=== PATIENT | female | born 1950 | race Caucasian/White ===

== ENCOUNTER 2017-03-01 09:20 | Outpatient (CLI) | payer MEDICARE, OTHER | END 2017-03-01 09:21 | disposition home or self-care (01) | DX: R73.9 Hyperglycemia, unspecified (principal); I10 Essential (primary) hypertension; E03.9 Hypothyroidism, unspecified ==

== ENCOUNTER 2017-03-04 07:39 | Outpatient (CLI) | payer MEDICARE, OTHER | END 2017-03-04 07:40 | disposition home or self-care (01) | DX: R73.9 Hyperglycemia, unspecified (principal) ==

== ENCOUNTER 2017-03-05 10:40 | Outpatient (CLI) | payer MEDICARE, OTHER | END 2017-03-05 10:41 | disposition home or self-care (01) | DX: Z12.31 Encounter for screening mammogram for malignant neoplasm of breast (principal) ==

== ENCOUNTER 2018-05-08 08:52 | Outpatient (CLI) | payer MEDICARE, OTHER ==
--- NOTE | 2018-05-09 15:07 | Mammography Report ---
Procedure Date: 05/08/2018 Accession Number: [id number] / [id number] Procedure: MGN - Screening Mammo Dig Bilat CPT Code: FULL RESULT: EXAM: Screening Mammo Dig Bilat DATE: 05/08/2018 9:12 AM CLINICAL HISTORY: 67-year-old for screening TECHNIQUE: Bilateral CC and MLO views were obtained. COMPARISON: 03/05/2017, 4 4016, 02/22/2015, 06/15/2013, 05/16/2012, 04/03/2011, 12/23/2009 FINDINGS: The breasts demonstrate diffuse fatty replacement bilaterally. Coarse and punctate, typically benign calcifications are present. No suspicious masses, clustered microcalcifications, or regions of architectural distortion are identified. IMPRESSION: Benign findings RECOMMENDATION: Routine annual screening unless otherwise clinically indicated. BIRADS CATEGORY 2: Benign findings STANDARD QUALIFYING STATEMENTS: 1. This examination was reviewed with the aid of Computer-Aided Detection (CAD). 2. A negative or benign imaging report should not delay biopsy if clinically suspicious findings are present. Consider surgical consultation if warrented. More than 5% of cancers are not identified by imaging. 3. Dense breasts may obscure an underlying neoplasm.
== END 2018-05-08 08:53 | disposition home or self-care (01) ==
LOC: DI.N 08:52
PROVIDERS: ATTEND Family Medicine
DX: Z12.31 Encounter for screening mammogram for malignant neoplasm of breast (principal)
CPT/HCPCS: 77067

== ENCOUNTER 2018-08-18 10:27 | Outpatient (CLI) | payer MEDICARE, OTHER ==
[2018-08-18 14:21] LABS: BASOPHILS # (AUTO) 0.1 10^3/uL (0.0-0.1); BASOPHILS % (AUTO) 0.9 %; EOSINOPHILS # (AUTO) 0.2 10^3/uL (0.0-0.7); EOSINOPHILS % (AUTO) 1.9 %; LYMPHOCYTES # (AUTO) 2.8 10^3/uL (1.5-3.5); LYMPHOCYTES % (AUTO) 30.3 %; MEAN CORPUSCULAR HEMOGLOBIN 32.9 pg (27.0-31.0); MEAN CORPUSCULAR HGB CONC 34.4 g/dL (32.0-36.0); MEAN CORPUSCULAR VOLUME 95.7 fL (81.0-99.0); MEAN PLATELET VOLUME 8.9 fL (7.9-10.8); MONOCYTES # (AUTO) 0.8 10^3/uL (0.0-1.0); MONOCYTES % (AUTO) 8.9 %; NEUTROPHILS # (AUTO) 5.4 10^3/uL (1.5-6.6); PLT - PLATELET COUNT 222 10^3/uL (130-450); RED BLOOD COUNT 4.85 10^6/uL (4.20-5.40); RED CELL DISTRIBUTION WIDTH 12.9 % (12.0-15.0); WHITE BLOOD COUNT 9.3 x10^3/uL (4.8-10.8)
[2018-08-18 14:35] LABS: ALBUMIN 3.2 g/dL (3.2-5.5); ALBUMIN/GLOBULIN RATIO 0.8 (1.0-2.2); ALKALINE PHOSPHATASE 89 IU/L (42-121); ALT ALANINE AMINOTRANSFERASE 24 IU/L (10-60); AST ASPARTATE AMINOTRANSFERASE 30 IU/L (10-42); BILIRUBIN,TOTAL 0.7 mg/dL (0.2-1.0); BUN - BLOOD UREA NITROGEN 23 mg/dL (6-20); CALCIUM 9.2 mg/dL (8.5-10.3); CARBON DIOXIDE - CO2 31 mmol/L (21-32); CHLORIDE 98 mmol/L (101-111); CHOL/HDL RATIO 3.7 (<4.4); CHOLESTEROL 187 mg/dL; CREATININE 0.9 mg/dL (0.4-1.0); GFR - MDRD 62 (>89); GLUCOSE 177 mg/dL (70-100); HDL CHOLESTEROL 50 mg/dL; LDL CHOLESTEROL,CALCULATED 112 mg/dL; LDL/HDL RATIO 2.2 (<4.4); SODIUM 138 mmol/L (135-145); TOTAL PROTEIN 7.4 g/dL (6.7-8.2); VLDL CHOLESTEROL 25 mg/dL
[2018-08-18 14:40] LABS: HB2 TOTAL 17.1 g/dL; HEMOGLOBIN A1C 1.09 g/dL
== END 2018-08-18 10:28 | disposition home or self-care (01) ==
LOC: LAB.WCP 10:27
PROVIDERS: ATTEND Physician Assistant Medical
DX: R73.9 Hyperglycemia, unspecified (principal); I10 Essential (primary) hypertension; E03.9 Hypothyroidism, unspecified
CPT/HCPCS: 36415; 80053; 80061; 83036; 83721; 84443; 85025

== ENCOUNTER 2018-08-27 09:54 | Observation (INO) | payer MEDICARE, OTHER ==
[2018-08-27] MEDS ORDERED: diltiaZEM INJ 5 MG/ML VIAL IVP STA (10:41)
[2018-08-27 10:42] LABS: BASOPHILS # (AUTO) 0.1 10^3/uL (0.0-0.1); BASOPHILS % (AUTO) 1.1 %; EOSINOPHILS # (AUTO) 0.1 10^3/uL (0.0-0.7); HGB - HEMOGLOBIN 16.5 g/dL (12.0-16.0); LYMPHOCYTES # (AUTO) 2.2 10^3/uL (1.5-3.5); LYMPHOCYTES % (AUTO) 25.5 %; MEAN CORPUSCULAR HEMOGLOBIN 32.8 pg (27.0-31.0); MEAN CORPUSCULAR HGB CONC 34.9 g/dL (32.0-36.0); MEAN CORPUSCULAR VOLUME 94.1 fL (81.0-99.0); MEAN PLATELET VOLUME 8.6 fL (7.9-10.8); MONOCYTES # (AUTO) 0.9 10^3/uL (0.0-1.0); MONOCYTES % (AUTO) 10.9 %; NEUTROPHILS # (AUTO) 5.2 10^3/uL (1.5-6.6); NEUTROPHILS % (AUTO) 61.5 %; PLT - PLATELET COUNT 207 10^3/uL (130-450); RED BLOOD COUNT 5.03 10^6/uL (4.20-5.40); WHITE BLOOD COUNT 8.5 x10^3/uL (4.8-10.8)
--- NOTE | 2018-08-27 10:44 | XRAY Report ---
Reason: new onset afib Procedure Date: 08/27/2018 Accession Number: [id number] / [id number] Procedure: XR - Chest 1 View X-Ray CPT Code: 61058 FULL RESULT: EXAM: CHEST RADIOGRAPHY EXAM DATE: 08/27/2018 10:26 AM. CLINICAL HISTORY: New onset afib. COMPARISON: None. TECHNIQUE: 1 view. FINDINGS: Limited radiograph with overall low lung volumes. Lungs/Pleura: There is a questionable deep sulcus sign on the right. No focal opacities evident. No pleural effusion. No definite pneumothorax. Mediastinum: Within exam limitations, the cardiomediastinal contour is normal. Other: None. IMPRESSION: Questionable right deep sulcus sign without other evidence of pneumothorax. The finding could be clarified by formal PA and lateral radiographs in the radiology department if clinically indicated. Otherwise, low lung volumes with no acute cardiopulmonary abnormality. RADIA
--- NOTE | 2018-08-27 10:44 | ED Physician Documentation ---
History of Present Illness - Stated complaint Stated Complaint: IRREGULAR HEARBEAT - Chief complaint Chief Complaint: Cardiac - History obtained from History obtained from: Patient, Family - History of Present Illness Timing: Today Pain level max: 0 Pain level now: 0 Improved by: nothing Worsened by: nothing - Additonal information Additional information: Patient states that she checked her pulse today noticed it was irregular. She is otherwise asymptomatic. States she has had an irregular heartbeat here and there, but only last for a few seconds. Has never been told she has atrial fibrillation. Does not have any chest pain or shortness of breath. She states that she does feel tired. She took her metoprolol last night. Recently was started on spironolactone and lisinopril. Review of Systems Ten Systems: 10 systems reviewed and negative Constitutional: denies: Fever, Chills Ears: denies: Ear pain Nose: denies: Rhinorrhea / runny nose, Congestion Throat: denies: Sore throat Cardiac: denies: Chest pain / pressure, Palpitations, Calf pain Respiratory: denies: Dyspnea, Cough, Wheezing GI: denies: Abdominal Pain, Nausea, Vomiting, Diarrhea Skin: denies: Rash Musculoskeletal: denies: Neck pain, Back pain Neurologic: reports: Generalized weakness ("tired") PD PAST MEDICAL HISTORY - Past Medical History Past Medical History: Yes Cardiovascular: Hypertension Endocrine/Autoimmune: Type 2 diabetes, HyPOthyroidism - Past Surgical History Past Surgical History: No - Present Medications Home Medications: Ambulatory Orders Medication Instructions Recorded Confirmed Aspirin [Aspirin EC] 325 mg PO DAILY 08/27/18 08/27/18 Atorvastatin [Lipitor] 10 mg PO QPM 08/27/18 08/27/18 Doxepin HCl 75 mg PO QPM 08/27/18 08/27/18 Levothyroxine Sodium [Synthroid] 275 mcg PO DAILY 08/27/18 08/27/18 Lisinopril/Hydrochlorothiazide 1 tab PO DAILY 08/27/18 08/27/18 [Lisinopril-Hctz 20-25 mg Tab] Metformin HCl 500 mg PO BID 08/27/18 08/27/18 Metoprolol Succinate 100 mg PO DAILY 08/27/18 08/27/18 Potassium Chloride [Micro-K] 10 meq PO DAILY 08/27/18 08/27/18 - Allergies Allergies/Adverse Reactions: Allergies Allergy/AdvReac Type Severity Reaction Status Date / Time Penicillins Allergy Rash Verified 08/27/18 10:37 - Social History Does the pt smoke?: No Smoking Status: Former smoker Does the pt drink ETOH?: No Does the pt have substance abuse?: No - Immunizations Immunizations are current?: Yes PD ED PE NORMAL - Vitals Vital signs reviewed: Yes - General General: Alert and oriented X 3, No acute distress, Well developed/nourished - HEENT HEENT: PERRL, Moist mucous membranes - Neck Neck: Supple, no meningeal sign - Cardiac Cardiac: Other (tachycardic irregular) - Respiratory Respiratory: No respiratory distress, Clear bilaterally - Abdomen Abdomen: Soft, Non tender, Non distended - Derm Derm: Warm and dry - Extremities Extremities: No edema, No calf tenderness / cord - Neuro Neuro: Alert and oriented X 3 - Psych Psych: Normal mood, Normal affect Results - Vitals Vitals: Vital Signs - 24 hr 08/27/18 08/27/18 09:57 10:37 Temperature 36.4 C L Heart Rate 121 H 133 H Respiratory 20 16 Rate Blood Pressure 159/121 H 142/97 H O2 Saturation 94 97 Oxygen O2 Source Room air - EKG (time done) 1001 Rate: Rate (enter#) (140) Rhythm: Atrial fibrillation [place]: Normal QRS: Normal Ischemia: Non specific changes Computer interpretation: Agree with computer - Labs Labs: Laboratory Tests 08/27/18 10:33 WBC 8.5 RBC 5.03 Hgb 16.5 H Hct 47.4 H MCV 94.1 MCH 32.8 H MCHC 34.9 RDW 13.0 Plt Count 207 MPV 8.6 Neut # (Auto) 5.2 Lymph # (Auto) 2.2 [place] # (Auto) 0.9 Eos # (Auto) 0.1 Baso # (Auto) 0.1 Absolute Nucleated RBC 0.01 Nucleated RBC % 0.1 - Rads (name of study) cxr Radiology: Prelim report reviewed, EMP read contemporaneously, See rad report (Questionable right deep sulcus sign without other evidence of pneumothorax. The finding could be clarified by formal PA and lateral radiographs in the radiology department if clinically indicated. Otherwise, low lung volumes with no acute cardiopulmonary abnormality. ) PD MEDICAL DECISION MAKING - ED course Complexity details: reviewed results, re-evaluated patient, considered differential, d/w patient, d/w hadoop consultant ED course: Patient is a 68-year-old female who presents to the emergency department new onset atrial fibrillation. She was rate controlled briefly with diltiazem, procainamide was then attempted but she did not convert. Placed on diltiazem drip and will admit to ICU. Discussed the case with Dr. Gale, hospitalist who accepts This document was made in part using voice recognition software. While efforts are made to proofread this document, sound alike and grammatical errors may oc cur. - Sepsis Event Vital Signs: Vital Signs - 24 hr 08/27/18 08/27/18 09:57 10:37 Temperature 36.4 C L Heart Rate 121 H 133 H Respiratory 20 16 Rate Blood Pressure 159/121 H 142/97 H O2 Saturation 94 97 Oxygen O2 Source Room air Departure - Departure Disposition: ED Place in Observation Clinical Impression: Atrial fibrillation with RVR, New onset atrial fibrillation Condition: Stable Discharge Date/Time: 08/27/18 15:10
[2018-08-27 10:56] LABS: ALBUMIN 3.4 g/dL (3.2-5.5); ALBUMIN/GLOBULIN RATIO 0.8 (1.0-2.2); BILIRUBIN,TOTAL 1.1 mg/dL (0.2-1.0); CALCIUM 9.6 mg/dL (8.5-10.3); TOTAL PROTEIN 7.7 g/dL (6.7-8.2)
[2018-08-27] MEDS ORDERED: PROCAINAMIDE 1,000 MG in SODIUM CHLORIDE 0.9% 240 ML IV STA (11:27)
[2018-08-27] MEDS ORDERED: diltiaZEM INJ 125 MG in DEXTROSE 5% 100 ML IV STA (12:46)
[2018-08-27] MEDS ORDERED: HYDROcod/ACETAM 5/325 MG TABLET PO PRN (13:37)
[2018-08-27] MEDS ORDERED: ACETAMINOPHEN 325 MG TABLET PO PRN (13:37)
[2018-08-27] MEDS ORDERED: SODIUM CHLORIDE FLUSH 0.9% 10 ML SYRINGE IVP PRN (13:37)
[2018-08-27] MEDS ORDERED: ONDANSETRON ODT 4 MG TABLET TL PRN (13:37)
[2018-08-27] MEDS ORDERED: ONDANSETRON 4 MG/2 ML VIAL IVP PRN (13:37)
[2018-08-27] MEDS: diltiaZEM INJ 125 MG in DEXTROSE 5% 100 ML IV SCH ×2 (15:00→23:07)
[2018-08-27] MEDS: SODIUM CHLORIDE FLUSH 0.9% 10 ML SYRINGE IVP SCH (17:28)
--- NOTE | 2018-08-27 17:42 | HISTORY & PHYSICAL EXAMINATION ---
History of Present Illness - Admitted From Admitted From:: Home/ER - History Obtained From Records Reviewed: [facility]. Centricity not available History obtained from: Dr. Chinchilla and patient Exam Limitations: None - History of Present Illness HPI Comment/Other: She is a benjamín female who lives independently. She has no reduction in activities of daily living. Regards herself is healthy other than for high blood pressure and thyroid disease and A new diagnosis of diabetes. She woke up this morning and checked her pulse. Unclear as to what she was feeling. She was not short of breath, she did not have chest pain, but she just felt "weird". And her pulse seemed fast and irregular. She was tired. She is recently been started on spironolactone and lisinopril for her blood pressure And was also started on metformin but has not been able to get that filled. She came to the emergency room where she was afebrile, heart rate was 121, respirations were 20, she was 94% saturated on room air and her blood pressure was 159/121. Other than an irregularly irregular tachycardic heart rate, Dr. Alanis found nothing on physical examination. Random glucose was 239. Her previous glycosylated hemoglobin in July was 8%. Her troponins were negative at less than 0.04 and 0.05. White cell count was normal. EKG confirmed atrial fibrillation. She received diltiazem IV push once. This temporarily slowed her heart rate. But it came right back up. As such she started her on a diltiazem drip. Since it was not clear when she started with her atrial fibrillation and it was hopeful that it was today, she was started on Procan for the [place] protocol. She did not respond to that. As such she is now placed in observation for rate control. History - Past Medical History Cardiovascular: reports: Hypertension, Atrial fibrillation Neuro: reports: Other Endocrine/Autoimmune: reports: Type 2 diabetes (Diagnosed last week. She says that her lab work is been normal up until now. 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 Mom at age 69 of emphysema. 2 brothers have diabetes, one has high blood pressure. 2 daughters. One daughter has complications of lupus with cardiomyopathy and vasculitis Living arrangement: At home Living Situation: With spouse/s.o., With family Social History Notes: She was born on [facility]. [place]. [place] They left to travel all over the [place] where he was stationed. They had 2 children together and one stepchild from him. 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 They moved back to [place] in around [place] and they have lived here since. Right now she helps take care of her grandkids. Her disabled daughter lives with her. The daughter is still independent with regards to her activities of daily living. Her endurance is just not so great. She started smoking at about age 30 and smoked up to 2 packs/day for 5 years only. She never had a problem with alcohol abuse. She has no history of other recreational substance abuse. - Substance History Use: Uses substance without health or social issues: NONE Abuse: Recurrent use of substance despite neg consequences: NONE Dependence: Experiences withdrawal or developed tolerances: NONE - POLST Patient has POLST: No POLST Status: Full Code (However, if there is irreversible brain damage she does not want to be resuscitated. Or if resuscitation will result in life support that will be chronic, she is wants us to let her go) Meds/Allgy - Home Medications Home Medications: Ambulatory Orders Medication Instructions Recorded Confirmed Aspirin [Aspirin EC] 325 mg PO DAILY 08/27/18 08/27/18 Atorvastatin [Lipitor] 10 mg PO QPM 08/27/18 08/27/18 Doxepin HCl 75 mg PO QPM 08/27/18 08/27/18 Levothyroxine Sodium [Synthroid] 275 mcg PO DAILY 08/27/18 08/27/18 Lisinopril/Hydrochlorothiazide 1 tab PO DAILY 08/27/18 08/27/18 [Lisinopril-Hctz 20-25 mg Tab] Metformin HCl 500 mg PO BID 08/27/18 08/27/18 Metoprolol Succinate 100 mg PO DAILY 08/27/18 08/27/18 Potassium Chloride [Micro-K] 10 meq PO DAILY 08/27/18 08/27/18 - Allergies Allergies/Adverse Reactions: Allergies Allergy/AdvReac Type Severity Reaction Status Date / Time Penicillins Allergy Rash Verified 08/27/18 10:37 Review of Systems - Constitutional Constitutional: denies: Fatigue, Fever, Chills, Malaise, Weakness, Poor appetite, Weight gain, Weight loss - Eyes Eyes: reports: Corrective lenses. denies: Pain, Irritation, Amaurosis, Blurred vision, Field loss, Vision loss - Ears, Nose & Throat Ears, Nose & Throat: denies: Ear pain, Hearing loss, Hearing aids, Vertigo, Nasal obstruction, Nasal congestion, Postnasal drainage - Cardiovascular Cariovascular: reports: Palpitations (Infrequently in the past. Sometimes she could feel her heart skip a beat). denies: Irregular heart rate, Lightheadedness, Syncope, Exertional dyspnea, Decr. exercise tolerance - Respiratory Respiratory: denies: Cough, Sputum production, Wheezing, SOB at rest, SOB with exertion, Apnea, Stridor - Gastrointestinal Gastrointestinal: reports: Reflux/heartburn (Rarely with certain foods). den ies: Abdominal pain, Abdominal distention, Constipation, Diarrhea, Change in bowel habits, Rectal bleeding, Bloody stools, Vomiting - Genitourinary Genitourinary: denies: Dysuria, Frequency, Urgency, Hematuria, Incontinence, Nocturia - Musculoskeletal Musculoskeletal: reports: Joint pain (Her knees are [id number] and this definitely slows down her ambulation). denies: Muscle pain, Back pain, Muscle aches, Stiffness, Limited range of motion - Integumentary Integumentary: denies: Rash, Pruritis, Lesions, Pigment changes - Neurological Neurological: denies: General weakness, Focal weakness, Headache, Dizziness, Numbness, Memory problems, Pre-existing deficit, Seizures - Psychiatric Psychiatric: reports: Anxiety. denies: Depression, Suicidal, Delusions, Hallucinations - Endocrine Endocrine: denies: Polyuria, Polydypsia, Polyphagia - Hematologic/Lymphatic Hematologic/Lymphatic: denies: Anemia, Bruising, Petechiae, Blood clots, Lymphadenopathy Prior Level of Functionality: She lives in a bilevel home with her , disabled daughter, and takes care of various grandchildren. She drives her grandchildren to and from school, school activities, school sports. She still cleans the house, pays the bills. The only thing that slows her down is the pain in her knees. She does not use a cane or a walker. Exam - Vital Signs Vital Signs: Vital Signs x48h Temp Pulse Pulse Resp BP BP Pulse Ox 08/27/18 17:00 122 H 24 97/76 97 08/27/18 16:00 96 21 129/65 97 08/27/18 15:00 36.2 C L 106 H 18 138/72 H 98 08/27/18 14:33 88 20 102/69 95 08/27/18 14:17 145/54 H 08/27/18 14:00 98 17 98/49 L 99 08/27/18 13:46 108 H 18 120/67 99 08/27/18 13:37 117 H 20 106/70 99 08/27/18 13:16 123 H 19 138/92 H 99 08/27/18 13:12 120 H 18 122/57 L 99 08/27/18 12:45 110 H 16 101/55 L 99 08/27/18 12:06 86 18 116/61 96 08/27/18 11:41 90 17 122/54 L 93 08/27/18 11:05 88 19 110/70 99 08/27/18 11:03 89 16 94/51 L 96 08/27/18 11:01 110 H 16 112/61 98 08/27/18 10:58 129 H 16 110/62 99 08/27/18 10:37 133 H 16 142/97 H 97 08/27/18 09:57 36.4 C L 121 H 20 159/121 H 94 - Physical Exam General Appearance: positive: No acute distress, Alert, Other (Tanned large overweight well-nourished well-developed female who looks her stated age) Eyes Bilateral: positive: PERRL, EOMI ENT: positive: Pharynx nml Neck: positive: No JVD. negative: Stiff neck, Carotid bruit Respiratory: positive: Chest non-tender. negative: Wheezes, Rales, Rhonchi Cardiovascular: positive: Irregularly irregular, Tachycardia. negative: Systolic murmur, Gallop/S4, Friction rub Peripheral Pulses: positive: 1+ Abdomen: positive: Non-tender, No organomegaly, Nml bowel sounds, No distention Skin: positive: Warm, Dry Extremities: positive: Full ROM, No pedal edema, Other (She has very interesting anatomy and that the calves are very very large and narrow down the skin the ankles and small feet. She is isolated edema in the distal calf and tib-fib area but nothing in the feet nothing above that. The right calf has a hardened 2 cm x 3 cm subcutaneous nodule. She said that 2 weeks ago she had a horrible leg cramps and has had that nodule ever since and is Gradually getting smaller) Neurologic/Psychiatric: positive: Oriented x3, CN's nml (2-12), Motor nml. negative: Weakness, Facial droop, Slurred/abnml speech Conclusion/Plan - Problem List (1) New onset atrial fibrillation Conclusion/Plan: With rapid ventricular response. Plan: Place in observation status Serial cardiac enzymes TSH recently checked and normal Not hypoxic so I do not suspect PE control rate with diltiazem and transition to p.o. meds Start anticoagulation Order echocardiogram (2) Erythrocytosis Conclusion/Plan: Unclear as to why. This patient is not hypoxic. She does not carry any history of polycythemia. Plan: Hydration to see if she may be mildly dehydrated and hyper concentrated Check for Misael 2 mutation If her hemoglobin does not come down tomorrow morning (3) Uncontrolled type 2 diabetes mellitus without complication, without long- term current use of insulin Conclusion/Plan: A1c is elevated in this patient from last month. This is a new diagnosis for her. She has not even started the metformin that was prescribed. Will control with short acting insulin while here. We will ask hardwood flooring specialist to see her to make sure she is diet compliant. (4) Abnormal chest x-ray Conclusion/Plan: Recheck chest x-ray with PA and lateral and sending her down to the department (5) Hypothyroid Conclusion/Plan: Recent TSH was over suppressed at 0.17 on August 18. Will recheck here and adjust dosage if necessary. I doubt that there is over suppressed TSH is the cause of her afib. Qualifiers: Hypothyroidism type: unspecified Qualified Code(s): E03.9 - Hypothyroidism, unspecified - Lab Results Fish Bones: 08/27/18 10:33 08/27/18 10:33 - Diagnostic Imaging Results Diagnostic Imaging Results: positive: Final report reviewed Diagnostic Imaging Results Comments: Chest x-ray shows questionable right deep sulcus sign without other evidence of pneumothorax. Findings could be clarified by formal PA and lateral radiograph. No other acute abnormality. - EKG Results EKG Interpreted Independently: No EKG Comparison: Old EKG unavailable EKG Findings: Atrial fibrillation with RVR, nonspecific ST-T wave changes Core Measures - Anticipated LOS I expect patient to be DC'd or transferred within 96 hours.: Yes - DVT/VTE - Prophylaxis VTE/DVT Device ordered at admit?: Yes
[2018-08-27 19:20] LABS: HB2 TOTAL 17.9 g/dL; HEMOGLOBIN A1C 1.12 g/dL; HEMOGLOBIN A1C % 7.9 % (4.6-6.2)
--- NOTE | 2018-08-27 20:58 | XRAY Report ---
Reason: abormal 1 view cxr Procedure Date: 08/27/2018 Accession Number: [id number] / [id number] Procedure: XR - Chest 2 View X-Ray CPT Code: 57034 FULL RESULT: EXAM: CHEST RADIOGRAPHY EXAM DATE: 08/27/2018 08:45 PM. CLINICAL HISTORY: Abnormal 1 view cxr. COMPARISON: Same day. TECHNIQUE: 2 views. FINDINGS: Lungs/Pleura: No focal consolidation. No pleural effusion. No pneumothorax. Eventration of the right hemidiaphragm. Mediastinum: Heart and mediastinal contours are normal. Other: ECG leads overlie the chest. IMPRESSION: No acute cardiopulmonary abnormality. No pneumothorax. RADIA
[2018-08-27] MEDS ORDERED: ATORVASTATIN 10 MG TABLET PO SCH (21:00)
[2018-08-27] MEDS ORDERED: DOXEPIN 25 MG CAPSULE PO SCH (21:00)
[2018-08-27] MEDS: APIXABAN 5 MG TABLET PO SCH (21:06)
[2018-08-27] MEDS: INSULIN ASPART 300 UNIT/3 ML PEN SUBQ SCH (21:06)
[2018-08-28] MEDS: SODIUM CHLORIDE FLUSH 0.9% 10 ML SYRINGE IVP SCH ×2 (02:49→08:58)
[2018-08-28 03:56] LABS: BASOPHILS # (AUTO) 0.1 10^3/uL (0.0-0.1); EOSINOPHILS # (AUTO) 0.1 10^3/uL (0.0-0.7); EOSINOPHILS % (AUTO) 1.1 %; HGB - HEMOGLOBIN 15.1 g/dL (12.0-16.0); LYMPHOCYTES # (AUTO) 2.4 10^3/uL (1.5-3.5); LYMPHOCYTES % (AUTO) 20.9 %; MEAN CORPUSCULAR HEMOGLOBIN 32.5 pg (27.0-31.0); MEAN CORPUSCULAR HGB CONC 34.2 g/dL (32.0-36.0); MEAN CORPUSCULAR VOLUME 95.1 fL (81.0-99.0); MEAN PLATELET VOLUME 8.7 fL (7.9-10.8); MONOCYTES # (AUTO) 1.3 10^3/uL (0.0-1.0); NEUTROPHILS # (AUTO) 7.6 10^3/uL (1.5-6.6); PLT - PLATELET COUNT 191 10^3/uL (130-450); RED BLOOD COUNT 4.63 10^6/uL (4.20-5.40); WHITE BLOOD COUNT 11.5 x10^3/uL (4.8-10.8)
[2018-08-28 04:06] LABS: CALCIUM 8.7 mg/dL (8.5-10.3); CREATININE 0.9 mg/dL (0.4-1.0)
[2018-08-28 04:20] LABS: T4 (THYROXINE) 11.69 ug/dL (6.09-12.23)
[2018-08-28 04:24] LABS: THYROID STIMULATING HORMONE 0.19 uIU/mL (0.34-5.60)
[2018-08-28] MEDS ORDERED: LEVOTHYROXINE 125 MCG TABLET PO SCH (07:00)
[2018-08-28] MEDS ORDERED: LEVOTHYROXINE 25 MCG TABLET PO SCH (07:00)
[2018-08-28] MEDS: INSULIN ASPART 300 UNIT/3 ML PEN SUBQ SCH ×2 (07:58→12:27)
[2018-08-28] MEDS: APIXABAN 5 MG TABLET PO SCH (08:57)
[2018-08-28] MEDS ORDERED: LISINOPRIL 20 MG TABLET PO SCH (09:00)
[2018-08-28] MEDS ORDERED: METOPROLOL SUCCINATE 50 MG TABLET PO SCH (09:00)
[2018-08-28] MEDS ORDERED: ASPIRIN EC 325 MG TABLET PO SCH (09:00)
[2018-08-28] MEDS ORDERED: diltiaZEM CD 180 MG CAPSULE PO SCH (09:00)
[2018-08-28] MEDS ORDERED: LEVOTHYROXINE SODIUM 275 MCG PO SCH (09:00)
[2018-08-28] MEDS ORDERED: NON FORMULARY MED (Lisinopril/Hydrochlorothiazide [Lisinopril-Hctz 20-25 Mg Tab] 1 TAB) PO SCH (09:00)
[2018-08-28] MEDS ORDERED: POTASSIUM CHLORIDE 10 MEQ CAPSULE PO SCH (09:00)
[2018-08-28] MEDS ORDERED: hydroCHLOROthiazide 25 MG TABLET PO SCH (09:00)
--- NOTE | 2018-08-28 11:08 | Discharge Plan ---
Discharge Plan Disposition: Home, Self Care Condition: Stable Prescriptions: Apixaban [Eliquis] 5 mg PO BID #60 tablet diltiaZEM CD [Cardizem Cd] 180 mg PO DAILY #30 capsule Diet: Diabetic Activity Restrictions: Activity as Tolerated Shower Restrictions: No Driving Restrictions: No Instruction Topics: AFL/Afib, Hyperglycemia, Hypoglycemia, Diabetes Resources Additional Instructions or Follow Up instructions: You were placed in observation in the hospital because you had complained of an irregular heartbeat and feeling strange when you got up in the morning. We found you to be in new onset atrial fibrillation. We did try to convert you back to a regular rhythm with Procan and Cardizem in the emergency room but it did not work. Your heart rate continued to be fast at about 140. So we placed you in observation overnight to put you on a diltiazem drip in the ICU. We were able to slow down your heart rate to the 80s and 90s. Every once in a while when you get up and go to the bathroom, your pulse would go to 120. You have no symptoms with this. You tell us that you do not have shortness of breath, chest pain, swollen legs. As such we feel you are stable enough to go home on a new pill called Cardizem to slow down your heart rate. You will also go home on a blood thinner that prevents small blood clots from forming with atrial fibrillation. This will subsequently decrease your risk of stroke. Your heart rate is still irregularly irregular. Please see a wire spooler in follow-up. You will need a stress test. They will need to go over the ultrasound of your heart called an echocardiogram with you. Between reviewing your echocardiogram and your stress test, the wire spooler will then make long-term recommendations about what to do with your atrial fibrillation. In order to see the wire spooler, you will need to be referred to them by your primary care provider. See your primary care provider in the next week or 2. The other 2 things we found during your stay was a slightly high thyroid hormone level and an uncontrolled glucose. Your glucose was 230. Sometimes overactive thyroid or too much thyroid medication can induce atrial fibrillation. We also looked to make sure you were not having a heart attack and that was negative. Sometimes blood clots to the lung will cause atrial fibrillation but your oxygen levels were normal, and you are not having any chest pain. While you were here we gave you insulin to bring your sugar down. We would like you to start the metformin that your primary care provider gave you. Your glucose is high enough that you may need more than metformin to control your sugar. You and your primary care provider will figure out what medicine to use. Your goal is to have a fasting glucose of less than 120 in the morning, as close to 90 as possible. And to have an A1c of less than 7% every 120 days. So the 2 new things you will be doing when you get home is taking Eliquis and Cardizem for your atrial fibrillation. The second will be doing diabetic classes for your diabetes. Follow-Up Care: [facility] - Diabetes Ed No Smoking: If you smoke, Please STOP! Call for help. Follow-up with: Yesenia Bah PA-C [Primary Care Provider] -
[2018-08-28 12:59] VITALS: BP 79/64
--- NOTE | 2018-08-29 22:44 | DISCHARGE SUMMARY ---
Physician: Blanquita Gale MD DATE OF ADMISSION: 08/27/2018 DATE OF DISCHARGE: 08/28/2018 DISCHARGE DIAGNOSES 1. New onset atrial fibrillation with rapid ventricular response. 2. Erythrocytosis. 3. Uncontrolled type 2 diabetes mellitus, without complication without long- term use of insulin, with hyperglycemia. 4. Abnormal chest x-ray. 5. Hypothyroid. DISCHARGE MEDICATIONS 1. Aspirin 325 mg daily. 2. Atorvastatin 10 mg evening. 3. Doxepin 75 mg q.p.m. 4. Levothyroxine 275 mcg daily. 5. Lisinopril with hydrochlorothiazide 1 tablet daily. 6. Metformin 500 mg p.o. b.i.d. 7. Metoprolol succinate 100 mg p.o. daily. 8. Potassium 10 mEq daily. 9. Eliquis 5 mg p.o. b.i.d. 10. Cardizem CD 180 mg p.o. daily. PRINCIPAL PROCEDURES 1. Two chest x-rays. First chest x-ray showed a questionable right deep sulcus sign without evidence of pneumothorax. They wanted a repeat x-ray done. Second chest x-ray showed no acute cardiopulmonary abnormality with no pneumothorax. 2. Echocardiogram showed normal left ventricular ejection fraction of 55%, with the left atrium being normal in size. Normal valve structure and function. Normal pulmonary pressures. She was in atrial fibrillation. HOSPITAL COURSE: She is a 68-year-old female who is the matriarch of her family and lives independently. 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 She also lives with her and a disabled daughter who has severe lupus. She woke up on the morning of admission and checked her pulse. She states that she felt "weird" and she could not say why. When her pulse was fast and irregular, and she felt so tired, she decided to come to the emergency room. Her antecedent history has been a recent diagnosis of high blood pressure and diabetes. She was put on spironolactone and lisinopril, also started on metformin. Was not able to get her metformin filled because of a problem with the [facility] pharmacy. When she came to the emergency room, her heart rate was 121, respirations 20, and she was 94% saturated on room air with a blood pressure 159/121. Nothing was found on physical exam and she had atrial fibrillation that was new on EKG. Random glucose was 239. Troponins were negative at less than 0.04 and 0.05. EKG confirmed the atrial fibrillation. She received IV diltiazem once, and temporarily slowed her down her heart rate, but it came right back up again. So, she was started on a diltiazem drip and placed in the ICU. She also received Procan with the [place] protocol and that did not convert her as well. She was maintained on the diltiazem drip. Eventually, her heart rate was able to slow down, and she was then converted to oral Cardizem-CD on top of her usual metoprolol. I have explained to her that sometimes the 2 drugs can interact to give her a second or third-degree block and she should always report if she is too bradycardic, lightheaded or orthostatic to her primary care provider. I would also like her to get a treadmill test or nuclear medicine stress test in the outpatient setting. She would need to be referred to Cardiology for that or she can be re-referred to [facility] for an outpatient stress test with Dr. Avila. The patient continued to be in atrial fibrillation, albeit rate controlled. She was started on Eliquis for anticoagulation to reduce risk of stroke. Echocardiogram was essentially normal. The other thing, of note, was erythrocytosis. This patient does not smoke, has no history of polycythemia and is not hypoxic. With hydration overnight, her hemoglobin returned to 15.1 on the day of discharge. If her hemoglobin continues to be elevated, it might be suggested that she get checked for JAK2 mutation. The abnormal chest x-ray was rechecked. She does not have a pneumothorax. Hypothyroidism was felt to be slightly over-suppressed with a TSH of 0.17 on 08/18/2018. However, it was felt unlikely that over-suppressed TSH would cause atrial fibrillation. Repeat blood test showed a free T4 of 11.69 and a TSH of 0.19. Of note, her glucose was elevated at 256. I explained to her that the goal would be in the 160s or 170s after eating, fasting needs to be between 90 and 110. She received sliding scale insulin during her stay. At discharge, she was resumed on metformin. She was told that she may need to have something in addition to metformin. She had initially declined diabetic education because her brother is a nurse and a diabetic and she felt that he could teach her. I explained that getting diabetes or being diagnosed with diabetes is a brand new full-time job. While I know that her brother probably loves her and she trusts him, she really should do her own diabetic education classes and she was referred to that in the outpatient setting. She is asked to follow up with her primary care provider, MARCO Bah. Please be seen in the next 1-2 weeks. Again, we will need an outpatient stress test. Review of her diabetic management and review of her heart rate and a repeat EKG in view of the fact that she is now on Lopressor and Cardizem. She is discharged in stable condition. PHYSICAL EXAMINATION VITAL SIGNS: Temperature of 36.3, pulse 90, blood pressure ranging from 96-110, respirations 22 and 95% on room air. GENERAL: She is a stocky, alert, oriented white female who looks her stated age. She is able to ambulate without any ataxia, lightheadedness or increased respiratory effort in her room. NECK: No JVD. LUNGS: Clear lungs. HEART: A slow irregular rate and rhythm. ABDOMEN: Soft, nontender. EXTREMITIES: Without edema. TD: 08/29/2018 19:33 MTDD
== END 2018-08-28 12:30 | disposition home or self-care (01) ==
LOC: ED 09:54 → ICU 13:37
PROVIDERS: ADMIT Specialist; ATTEND Specialist
DX: I48.91 Unspecified atrial fibrillation (principal); D75.1 Secondary polycythemia; E11.65 Type 2 diabetes mellitus with hyperglycemia; E03.9 Hypothyroidism, unspecified; R93.89 Abnormal findings on diagnostic imaging of other specified body structures; I10 Essential (primary) hypertension; H54.7 Unspecified visual loss; M19.90 Unspecified osteoarthritis, unspecified site; Z82.49 Family history of ischemic heart disease and other diseases of the circulatory system; Z87.891 Personal history of nicotine dependence; Z79.82 Long term (current) use of aspirin
CPT/HCPCS: 36415; 71045; 71046; 80048; 80053; 83036; 83690; 84436; 84443; 84484; 85025; 87640; 93005; 93306; 96365; 96366; 96367; 96375; 99285; A9270; G0378; J2690

== ENCOUNTER 2018-09-19 10:58 | Outpatient (CLI) | payer MEDICARE, OTHER ==
[2018-09-19 18:53] LABS: BASOPHILS # (AUTO) 0.1 10^3/uL (0.0-0.1); BASOPHILS % (AUTO) 0.7 %; EOSINOPHILS # (AUTO) 0.2 10^3/uL (0.0-0.7); EOSINOPHILS % (AUTO) 1.9 %; HGB - HEMOGLOBIN 15.1 g/dL (12.0-16.0); LYMPHOCYTES # (AUTO) 2.2 10^3/uL (1.5-3.5); LYMPHOCYTES % (AUTO) 21.7 %; MEAN CORPUSCULAR HEMOGLOBIN 33.7 pg (27.0-31.0); MEAN CORPUSCULAR VOLUME 96.4 fL (81.0-99.0); MEAN PLATELET VOLUME 9.1 fL (7.9-10.8); MONOCYTES # (AUTO) 1.2 10^3/uL (0.0-1.0); MONOCYTES % (AUTO) 11.5 %; NEUTROPHILS # (AUTO) 6.5 10^3/uL (1.5-6.6); NEUTROPHILS % (AUTO) 64.2 %; PLT - PLATELET COUNT 235 10^3/uL (130-450); RED CELL DISTRIBUTION WIDTH 13.1 % (12.0-15.0); WHITE BLOOD COUNT 10.1 x10^3/uL (4.8-10.8)
== END 2018-09-19 10:59 | disposition home or self-care (01) ==
LOC: LAB.WCP 10:58
PROVIDERS: ATTEND Physician Assistant Medical
DX: I48.91 Unspecified atrial fibrillation (principal)
CPT/HCPCS: 36415; 84443; 85025

== ENCOUNTER 2019-06-09 14:22 | Outpatient (CLI) | payer MEDICARE, OTHER | END 2019-06-09 14:23 | disposition critical access hospital (66) | LOC: EMS 14:22 | PROVIDERS: ATTEND Surgery | DX: M25.551 Pain in right hip (principal); M25.552 Pain in left hip; R53.1 Weakness; W18.39XA Other fall on same level, initial encounter; Y92.008 Other place in unspecified non-institutional (private) residence as the place of occurrence of the external cause | CPT/HCPCS: A0425; A0427 ==

== ENCOUNTER 2019-06-09 14:42 | Inpatient (IN) | payer MEDICARE, OTHER ==
[2019-06-09] MEDS ORDERED: LACTATED RINGERS 2,993.7 ML IV STA (15:05)
--- NOTE | 2019-06-09 15:10 | ED Physician Documentation ---
History of Present Illness - Stated complaint Stated Complaint: WEAKNESS - Chief complaint Chief Complaint: Cardiac - History obtained from History obtained from: Patient, Family - History of Present Illness Timing: Today Pain level max: 0 Pain level now: 0 - Additonal information Additional information: 68-year-old female presents to the emergency department stating that she is feeling weak today. She noticed redness and swelling to the left lower extremity today. Has a fever upon arrival. States she did not take her medications this morning. Is on Eliquis for atrial fibrillation. Has not been eating and drinking well. No abdominal pain. No vomiting. Occasionally has a mild cough. No diarrhea. No recent injuries. Nothing makes it better or worse. Review of Systems Ten Systems: 10 systems reviewed and negative Constitutional: reports: Fever Ears: denies: Ear pain Nose: denies: Rhinorrhea / runny nose, Congestion Throat: denies: Sore throat Cardiac: denies: Chest pain / pressure Respiratory: denies: Cough GI: denies: Nausea, Vomiting, Diarrhea : denies: Dysuria Skin: denies: Rash Musculoskeletal: denies: Neck pain, Back pain Neurologic: denies: Headache PD PAST MEDICAL HISTORY - Past Medical History Cardiovascular: Hypertension, Atrial fibrillation Neuro: Other Endocrine/Autoimmune: Type 2 diabetes (Diagnosed last week. She says that her lab work is been normal up until now. She was placed on metformin but because of prescriptions were sent to the [facility], she has not had a machine or test strips or medication and has not even started it.), HyPOthyroidism GI: None, Other (She has never had a colonoscopy because of a horrible experience with her ) [employer]: Other ( 012) : None HEENT: Chronic vision loss (Wears contact lenses and has problems with near vision) Psych: Anxiety (Is always a worrier, and wants to know if this could cause atrial fibrillation), Panic attacks, Claustrophobia Musculoskeletal: Osteoarthritis Derm: None - Past Surgical History Past Surgical History: No - Present Medications Home Medications: Ambulatory Orders Medication Instructions Recorded Confirmed Atorvastatin [Lipitor] 10 mg PO QPM 08/27/18 06/09/19 Doxepin HCl 75 mg PO QPM 08/27/18 06/09/19 Metformin HCl 500 mg PO BID 08/27/18 06/09/19 Potassium Chloride [Micro-K] 10 meq PO DAILYWM 08/27/18 06/09/19 Apixaban [Eliquis] 5 mg PO BID #60 tablet 08/28/18 06/09/19 Aspirin [[place] Aspirin EC] 81 mg PO DAILY 06/09/19 06/09/19 Diltiazem HCl [Diltiazem 24Hr ER] 420 mg PO DAILY 06/09/19 06/09/19 Levothyroxine Sodium [Synthroid] 75 mcg PO QDAC 06/09/19 06/09/19 Levothyroxine Sodium [Synthroid] 200 mcg PO QDAC 06/09/19 06/09/19 Lisinopril 20 mg PO DAILY 06/09/19 06/09/19 Metoprolol Succinate [Toprol Xl] 200 mg PO BID 06/09/19 06/09/19 hydroCHLOROthiazide 25 mg PO DAILY 06/09/19 06/09/19 [Hydrochlorothiazide] - Allergies Allergies/Adverse Reactions: Allergies Allergy/AdvReac Type Severity Reaction Status Date / Time Penicillins Allergy Rash Verified 06/09/19 15:01 Sulfa (Sulfonamide Allergy Unknown Verified 06/09/19 15:01 Antibiotics) - Social History Does the pt smoke?: No Smoking Status: Former smoker Does the pt drink ETOH?: No Does the pt have substance abuse?: No - Immunizations Immunizations are current?: Yes - POLST Patient has POLST: No POLST Status: Full Code (However, if there is irreversible brain damage she does not want to be resuscitated. Or if resuscitation will result in life support that will be chronic, she is wants us to let her go) PD ED PE NORMAL - Vitals Vital signs reviewed: Yes - General General: Alert and oriented X 3, No acute distress, Well developed/nourished - HEENT HEENT: Other (Dry lips and tongue) - Neck Neck: Supple, no meningeal sign - Cardiac Cardiac: Strong equal pulses, Other (Irregular, tachycardic) - Respiratory Respiratory: No respiratory distress, Clear bilaterally - Abdomen Abdomen: Soft, Non tender, Non distended - Back Back: No spinal TTP - Derm Derm: Warm and dry, No rash - Extremities Extremities: Other (Significant circumferential erythema and warmth to the left calf. From the knee to the ankle. No drainage. Neurovascular intact) - Neuro Neuro: Alert and oriented X 3 - Psych Psych: Normal mood, Normal affect Results - Vitals Vitals: Vital Signs - 24 hr 06/09/19 06/09/19 06/09/19 14:54 15:23 15:33 Temperature 100.5 C H 36.6 C Heart Rate 140 H 132 H 133 H Respiratory 19 26 H 20 Rate Blood Pressure 126/53 L 98/80 107/53 L O2 Saturation 95 97 96 06/09/19 15:35 Temperature Heart Rate 147 H Respiratory 20 Rate Blood Pressure 106/57 L O2 Saturation 95 Oxygen O2 Source Room air - Labs Labs: Laboratory Tests 06/09/19 06/09/19 06/09/19 15:06 15:06 15:06 WBC 19.8 H RBC 4.48 Hgb 15.1 Hct 43.6 MCV 97.3 MCH 33.7 H MCHC 34.6 RDW 12.6 Plt Count 170 MPV 10.2 Neut # (Auto) Not Reportable Lymph # (Auto) Not Reportable [place] # (Auto) Not Reportable Eos # (Auto) Not Reportable Baso # (Auto) Not Reportable Absolute Nucleated RBC Not Reportable Total Counted 100 Band Neuts % (Manual) 15 H Abnorm Lymph % (Manual) 0 Nucleated RBC % Not Reportable Neutrophils # (Manual) 16.6 H Lymphocytes # (Manual) 1.6 Monocytes # (Manual) 1.0 Eosinophils # (Manual) 0.4 Basophils # (Manual) 0.2 H Differential Comment MANUAL DIFFERENTIAL Manual Slide Review Indicated Platelet Estimate NORMAL (130-450,000) Platelet Morphology NORMAL APPEARANCE RBC Morph Micro Appear 1+ STOMATOCYTES Sodium 135 Potassium 4.3 Chloride 95 L Carbon Dioxide 24 Anion Gap 16.0 H BUN 29 H Creatinine 1.4 H Estimated GFR (MDRD) 38 L Glucose 339 H Glycated Hemoglobin Estim Average Glucose Lactic Acid 4.4 H* Calcium 9.5 Total Bilirubin 1.2 H AST 42 ALT 32 Alkaline Phosphatase 116 Total Protein 7.1 Albumin 3.2 Globulin 3.9 Albumin/Globulin Ratio 0.8 L Lipase 25 06/09/19 15:06 WBC RBC Hgb Hct MCV MCH MCHC RDW Plt Count MPV Neut # (Auto) Lymph # (Auto) [place] # (Auto) Eos # (Auto) Baso # (Auto) Absolute Nucleated RBC Total Counted Band Neuts % (Manual) Abnorm Lymph % (Manual) Nucleated RBC % Neutrophils # (Manual) Lymphocytes # (Manual) Monocytes # (Manual) Eosinophils # (Manual) Basophils # (Manual) Differential Comment Manual Slide Review Platelet Estimate Platelet Morphology RBC Morph Micro Appear Sodium Potassium Chloride Carbon Dioxide Anion Gap BUN Creatinine Estimated GFR (MDRD) Glucose Glycated Hemoglobin 14.4 H Estim Average Glucose 367 H Lactic Acid Calcium Total Bilirubin AST ALT Alkaline Phosphatase Total Protein Albumin Globulin Albumin/Globulin Ratio Lipase - Rads (name of study) Chest x-ray Radiology: Prelim report reviewed, EMP read contemporaneously, See rad report (No acute disease) PD MEDICAL DECISION MAKING - ED course Complexity details: reviewed results, re-evaluated patient, considered differential, d/w patient, d/w family ED course: 68-year-old female with sepsis likely secondary to cellulitis in the left lower extremity. She is also in A. fib with RVR. Sepsis bundle started. Given 30 mils per kilo of IV fluids. Started on vancomycin and cefepime. She is penicillin allergic. Started on diltiazem drip for the A. fib with RVR. Discussed case with Dr. Avila, hospitalist who accepts This document was made in part using voice recognition software. While efforts are made to proofread this document, sound alike and grammatical errors may occur. - Sepsis Event Current Stage of Sepsis: Sepsis Possible source of Sepsis: Skin/soft tissue Mental/Cognitive Status: Alert/Oriented X3 Capillary refill: Less than 2 seconds Peripheral Pulse Strength: 2+ Slightly Diminished Peripheral Pulse Location: Radial Bedside ultrasound performed: No Departure - Departure Disposition: 67 [facility] DC/Xfer Clinical Impression: Cellulitis of left lower extremity, Atrial fibrillation with RVR, Dehydration Fever Qualifiers: Fever type: unspecified Qualified Code(s): R50.9 - Fever, unspecified Sepsis Qualifiers: Sepsis type: sepsis due to unspecified organism Qualified Code(s): A41.9 - Sepsis, unspecified organism Condition: Stable Discharge Date/Time: 06/09/19 17:10
[2019-06-09] MEDS ORDERED: SODIUM CHLORIDE 0.9% 1,000 ML IV ONE ×2 (15:11→19:29)
[2019-06-09 15:18] LABS: BASOPHILS % (AUTO) 0.5 %; EOSINOPHILS % (AUTO) 0.7 %; HGB - HEMOGLOBIN 15.1 g/dL (12.0-16.0); LYMPHOCYTES % (AUTO) 3.6 %; MEAN CORPUSCULAR HEMOGLOBIN 33.7 pg (27.0-31.0); MEAN CORPUSCULAR HGB CONC 34.6 g/dL (32.0-36.0); MEAN CORPUSCULAR VOLUME 97.3 fL (81.0-99.0); MEAN PLATELET VOLUME 10.2 fL (7.9-10.8); MONOCYTES % (AUTO) 3.5 %; NEUTROPHILS % (AUTO) 87.2 %; PLT - PLATELET COUNT 170 10^3/uL (130-450); RED BLOOD COUNT 4.48 10^6/uL (4.20-5.40); RED CELL DISTRIBUTION WIDTH 12.6 % (12.0-15.0); WHITE BLOOD COUNT 19.8 x10^3/uL (4.8-10.8)
[2019-06-09 15:23] LABS: ABNORMAL LYMPHS % (MANUAL) 0 %
[2019-06-09 15:27] LABS: ALBUMIN 3.2 g/dL (3.2-5.5); ALBUMIN/GLOBULIN RATIO 0.8 (1.0-2.2); BILIRUBIN,TOTAL 1.2 mg/dL (0.2-1.0); CALCIUM 9.5 mg/dL (8.5-10.3); CREATININE 1.4 mg/dL (0.4-1.0); TOTAL PROTEIN 7.1 g/dL (6.7-8.2)
--- NOTE | 2019-06-09 15:28 | XRAY Report ---
Reason: fever Procedure Date: 06/09/2019 Accession Number: [id number] / [id number] Procedure: XR - Chest 1 View X-Ray CPT Code: 14260 FULL RESULT: EXAM: CHEST RADIOGRAPHY EXAM DATE: 06/09/2019 03:16 PM. CLINICAL HISTORY: Fever. COMPARISON: None. TECHNIQUE: 1 view. FINDINGS: Lungs/Pleura: Hypoinflated lungs. Elevated right hemidiaphragm. No focal opacities evident. No pleural effusion. No pneumothorax. Mediastinum: Within exam limitations, the cardiomediastinal contour is normal. Mild aortic arch calcification noted. Other: None. IMPRESSION: Clear hypoinflated lungs. RADIA
[2019-06-09] MEDS ORDERED: VANCOMYCIN INJ 2 GM in SODIUM CHLORIDE 0.9% 500 ML IV STA (15:32)
[2019-06-09] MEDS ORDERED: CEFEPIME 2 GM in SODIUM CHLORIDE 0.9% MINIBAG 100 ML IV STA (15:32)
[2019-06-09] MEDS ORDERED: diltiaZEM INJ 125 MG in DEXTROSE 5% 100 ML IV STA (15:33)
[2019-06-09 15:54] LABS: BAND NEUTROPHILS % (MANUAL) 15 %; BASOPHILS # (MANUAL) 0.2 10^3/uL (0-0.1); BASOPHILS % (MANUAL) 1 %; EOSINOPHILS # (MANUAL) 0.4 10^3/uL (0-0.7); LYMPHOCYTES # (MANUAL) 1.6 10^3/uL (1.5-3.5); LYMPHOCYTES % (MANUAL) 8 %
[2019-06-09 15:56] LABS: DIFFERENTIAL COMMENT MANUAL DIFFERENTIAL; PLATELET ESTIMATE, MANUAL NORMAL (130-450,000) (NORMAL); PLATELET MORPHOLOGY NORMAL APPEARANCE (NORMAL); RBC MORPHOLOGY (MULTIPLE) 1+ STOMATOCYTES (NORMAL)
[2019-06-09] MEDS ORDERED: ACETAMINOPHEN 325 MG TABLET PO PRN (16:09)
[2019-06-09] MEDS ORDERED: PROCHLORPERAZINE 10 MG/2 ML VIAL IVP PRN (16:09)
[2019-06-09] MEDS ORDERED: HYDROmorphone 0.5 MG/0.5 ML SYRINGE IVP PRN (16:09)
[2019-06-09] MEDS ORDERED: VANCOMYCIN PER PHARMACY 10 GM in SODIUM CHLORIDE 0.9% 250 ML IV STA (16:30)
[2019-06-09] MEDS ORDERED: SODIUM CHLORIDE FLUSH 0.9% 10 ML SYRINGE ONE (16:43)
[2019-06-09 16:46] LABS: HB2 TOTAL 15.6 g/dL; HEMOGLOBIN A1C 2.09 g/dL; HEMOGLOBIN A1C % 14.4 % (4.6-6.2)
[2019-06-09] MEDS: diltiaZEM INJ 125 MG in DEXTROSE 5% 100 ML IV SCH (17:00)
[2019-06-09] MEDS: INSULIN ASPART 300 UNIT/3 ML PEN SUBQ SCH ×2 (17:42→21:07)
[2019-06-09] MEDS: SODIUM CHLORIDE FLUSH 0.9% 10 ML SYRINGE IVP SCH ×2 (18:07→23:25)
[2019-06-09] MEDS: HYDROcod/ACETAM 5/325 MG TABLET PO PRN ×2 (18:10→23:15)
--- NOTE | 2019-06-09 19:50 | ANESTHESIA PROCEDURE NOTE ---
Diagnosis: Sepsis, cellulitis, need for residential ABXs, anticoagulated Procedure: PICC line placement @R basilic v. Consent for Procedure(s) Verified and Reviewed: Yes Height and Weight: Height 5 ft 4 in Weight (kg) 133 kg Body Mass Index 50.3 Vital Signs: Temp Pulse Resp BP Pulse Ox 36.9 C 125 H 25 H 96/55 L 95 06/09/19 17:43 06/09/19 19:38 06/09/19 19:38 06/09/19 19:38 06/09/19 19:38 Allergies Penicillins Allergy (Verified 06/09/19 15:01) Rash Sulfa (Sulfonamide Antibiotics) Allergy (Verified 06/09/19 15:01) Unknown Requesting Provider: [place] Location: [place] [address] ASA classification: 3-Severe systemic disease Is this case an emergency?: Yes Anes. Monitoring and Equipment: Non-invasive BP, Pulse oximetery Anes. Procedure Start Time: 19:15 Anes. Procedure Stop Time: 19:32 Procedure Notes: Pt ID'd, consented. Decision to place PICC vs CVL (pt anticoagulated, last Eloquis dose this AM for chronic AF, will need line for weeks r/t cellulitis. Pt completely alert and oriented and does not wish to have a line in neck at this point). Procedure explained. Prep. Drape after gown, gloves, mask, hat. Rbasilic v. accessed with US attempt x2 after local lidocaine 1% at site x 2cc. Wire threaded easily without ectopy. Dilated. Cath cut to 43. Unable to use VPS tip tracker for final positioning as AF RVR does not allow. Threaded to hub and appears in the correct position based on data. Ports with caps aspirate and flush easily x2. Biopatch, stat-lock, and tegaderm to site. Pt tolerated the procedure without complication. PCXR ordered.
[2019-06-09] MEDS: SODIUM CHLORIDE 0.9% 1,000 ML IV SCH (20:13)
--- NOTE | 2019-06-09 20:24 | XRAY Report ---
Reason: new PICC@ R basilic v. Procedure Date: 06/09/2019 Accession Number: [id number] / [id number] Procedure: XR - Chest for Line Placement CPT Code: FULL RESULT: EXAM: CHEST RADIOGRAPHY EXAM DATE: 06/09/2019 07:57 PM. CLINICAL HISTORY: New PICC at Right basilic vein. COMPARISON: CHEST 1 VIEW 06/09/2019 3:02 PM. TECHNIQUE: 1 view. FINDINGS: Cardiac leads overlie the chest. There is a new right upper extremity PICC likely terminating in the proximal superior vena cava, slightly distal to the confluence of the brachiocephalic veins. Heart size is unchanged. Calcified plaques in the thoracic aorta. The lungs remain hypoventilated. No new consolidation. No pneumothorax. Possible small left pleural effusion. IMPRESSION: Right upper extremity PICC likely terminating in the proximal superior vena cava. Possible small left pleural effusion. RADIA
[2019-06-09] MEDS ORDERED: HEPARIN 5,000 UNIT/ML VIAL SUBQ SCH (21:00)
[2019-06-09] MEDS ORDERED: CEFEPIME 2 GM in SODIUM CHLORIDE 0.9% MINIBAG 100 ML IV SCH (21:00)
[2019-06-09] MEDS: DOXEPIN 25 MG CAPSULE PO SCH (21:07)
[2019-06-09] MEDS: ATORVASTATIN 10 MG TABLET PO SCH (21:07)
[2019-06-09] MEDS: APIXABAN 5 MG TABLET PO SCH (21:07)
[2019-06-09 22:02] LABS: BILIRUBIN,URINE NEGATIVE (NEGATIVE); CLARITY,URINE HAZY (CLEAR); GLUCOSE, URINE (UA) 500 mg/dL (NEGATIVE); KETONES,URINE (UA) 15 mg/dL (NEGATIVE); LEUKOCYTE ESTERASE, URINE NEGATIVE (NEGATIVE); NITRITE,URINE POSITIVE (NEGATIVE); OCCULT BLOOD,URINE MODERATE (NEGATIVE); PROTEIN,URINE 100 mg/dL (NEGATIVE); UROBILINOGEN,URINE 0.2 (NORMAL) E.U./dL (NORMAL)
[2019-06-09 22:10] LABS: AMORPHOUS SEDIMENT,UR Moderate /LPF; BACTERIA,URINE None Seen /HPF (None Seen); RBC,URINE 0-5 /HPF (0-5); SQUAMOUS EPITHELIAL CELL,UR NONE SEEN (<= Few)
--- NOTE | 2019-06-09 22:13 | HISTORY & PHYSICAL EXAMINATION ---
DATE OF SERVICE: 06/09/2019 Physician: Genevieve Avila MD HISTORY OF PRESENT ILLNESS: This is a 68-year-old white female with history of obesity, diabetes type 2, hypothyroidism, hypertension, chronic atrial fibrillation, anxiety and panic attacks, and DJD. The patient presents with one-day history of feeling weak, no appetite, possibly had rigors, but there was no cough, abdominal pain, nausea, vomiting or diarrhea. She noticed new redness and swelling of her left lower extremity and for this came to the ER. She had a fever in the emergency room and has been diagnosed with cellulitis of the left leg. Her blood pressure was borderline low at 100 and heart rate elevated with Afib at 140 bpm, and she also had an elevated lactic acid of 4.4, consistent with sepsis and therefore she is being admitted. PAST MEDICAL HISTORY 1. Diabetes. 2. Obesity. 3. Hypothyroidism. 4. Anxiety with panic attacks. 5. DJD. ALLERGIES 1. PENICILLIN. 2. SULFA. MEDICATIONS 1. Diltiazem 420 mg sustained release capsule once a day. 2. HCTZ 25 mg daily. 3. Lisinopril 20 mg daily. 4. Metformin 500 b.i.d. 5. Toprol-XL 200 mg b.i.d. 6. Potassium 10 mEq daily. 7. Eliquis 5 mg b.i.d. 8. Baby aspirin daily. 9. Lipitor 10 mg daily. 10. Doxepin 75 mg every night. 11. Levothyroxine 275 mcg daily. REVIEW OF SYSTEMS: A comprehensive review of systems was done by reviewing the chart and talking to the patient, the pertinent positives are listed, the rest are negative. PHYSICAL EXAMINATION GENERAL: Obese, elderly white female. She is in no acute distress, supine in bed. VITAL SIGNS: Blood pressure 130/100 initially, this dropped to 107/78, then 91/68, heart rate 140 in atrial fibrillation, now down to 120 on a diltiazem drip, room air saturation 98%. HEENT: Reveals dry oral mucosa and exophthalmus. NECK: No JVD in a 30-degree upright angle. CHEST: Clear. HEART: Irregular, tachycardic, distant heart sounds. No audible murmurs. ABDOMEN: Soft, obese, with a pannus. EXTREMITIES: 1-2+ edema bilaterally. The left cavazos has blotchy redness between the ankle and the knee, no warmth and nontender. NEUROLOGIC: Grossly intact. LABORATORY DATA: Lactic acid 4.4, sodium 135, potassium 4.3, BUN 29, creatinine 1.4. A1c 14.4. Normal liver tests. White blood count 19.8 with a left shift, hemoglobin 15.1, platelet count normal at 179. No INR was done. No urinalysis was done, since she has made no urine yet. Chest x-ray showed clear lung mitchell and normal cardiac size. IMPRESSION/DIAGNOSES 1. Sepsis. 2. Dehydration. 3. Acute kidney injury. 4. Cellulitis, which is likely the cause of the sepsis. 5. Atrial fibrillation with rapid ventricular response. 6. Diabetes type 2, uncontrolled. 7. Hypothyroidism. 8. Morbid obesity. PLAN: Admit the patient to the ICU and begin aggressive crystalloid replacement, she received 1 liter of lactated Ringer's in the ER and we will continue with either saline or LR in the ICU at a rapid rate. Central line will be placed as she needs more than one IV access and a second IV access cannot be obtained by the nurses. Begin coverage for sepsis from a skin source in a diabetic, and in this patient with a PENICILLIN ALLERGY. We will use cefepime and vancomycin. Continue with her Eliquis and thyroid medication. Hold the HCTZ and KARYN inhibitor because of the borderline low blood pressure and DUGLAS. Begin a carb-controlled diet, insulin sliding scale coverage while here and hold the Metformin because of the acute kidney injury. Follow her CBC and BMP. Obtain an Echo, given the Afib with RVR. Consider placing a Contreras for accurate I's and O's in a septic patient. DEEP VENOUS THROMBOSIS PROPHYLAXIS: Pharmacotherapy with her Eliquis. CODE STATUS: FULL CODE. ATTESTATION: The patient is expected to be discharged or transferred to another facility within 96 hours: Yes. cc: Yesenia Bah PA-C TD: 06/09/2019 19:53 MTDD
[2019-06-09] MEDS: NYSTATIN POWDER 15 GM TOP SCH (22:26)
[2019-06-09 22:42] LABS: MAGNESIUM 1.2 mg/dL (1.7-2.8); PHOSPHORUS 2.6 mg/dL (2.5-4.6)
[2019-06-09] MEDS: MAGNESIUM SULFATE 2 GRAM 2 GM/50 ML BAG IV SCH (23:17)
[2019-06-09] MEDS ORDERED: DEXTROSE 5% 100 ML IV ONE (23:50)
[2019-06-10] MEDS ORDERED: SODIUM CHLORIDE 0.9% 1,000 ML IV ONE (00:10)
[2019-06-10] MEDS: MAGNESIUM SULFATE 2 GRAM 2 GM/50 ML BAG IV SCH (00:21)
[2019-06-10] MEDS: diltiaZEM INJ 125 MG in DEXTROSE 5% 100 ML IV SCH ×3 (00:41→19:00)
[2019-06-10] MEDS: SODIUM CHLORIDE 0.9% 1,000 ML IV SCH ×5 (01:25→21:18)
[2019-06-10 03:33] LABS: BASOPHILS % (AUTO) 0.6 %; EOSINOPHILS % (AUTO) 0.8 %; HGB - HEMOGLOBIN 13.7 g/dL (12.0-16.0); LYMPHOCYTES % (AUTO) 5.2 %; MEAN CORPUSCULAR HEMOGLOBIN 33.7 pg (27.0-31.0); MEAN PLATELET VOLUME 10.4 fL (7.9-10.8); MONOCYTES % (AUTO) 4.1 %; NEUTROPHILS % (AUTO) 87.9 %; PLT - PLATELET COUNT 136 10^3/uL (130-450); RED BLOOD COUNT 4.07 10^6/uL (4.20-5.40); RED CELL DISTRIBUTION WIDTH 12.8 % (12.0-15.0); WHITE BLOOD COUNT 16.1 x10^3/uL (4.8-10.8)
[2019-06-10 03:44] LABS: CALCIUM 8.1 mg/dL (8.5-10.3); CREATININE 1.1 mg/dL (0.4-1.0); MAGNESIUM 2.1 mg/dL (1.7-2.8); PHOSPHORUS 2.7 mg/dL (2.5-4.6)
[2019-06-10 03:47] LABS: ABNORMAL LYMPHS % (MANUAL) 0 %
[2019-06-10 04:11] LABS: BAND NEUTROPHILS % (MANUAL) 22 %; DIFFERENTIAL COMMENT MANUAL DIFFERENTIAL; LYMPHOCYTES # (MANUAL) 0.5 10^3/uL (1.5-3.5); LYMPHOCYTES % (MANUAL) 3 %; MONOCYTES # (MANUAL) 0.3 10^3/uL (0.0-1.0); PLATELET ESTIMATE, MANUAL NORMAL (130-450,000) (NORMAL); RBC MORPHOLOGY (MULTIPLE) NORMAL APPEARANCE (NORMAL)
[2019-06-10] MEDS: CEFEPIME 2 GM in SODIUM CHLORIDE 0.9% MINIBAG 100 ML IV SCH ×3 (04:15→21:16)
[2019-06-10] MEDS: LEVOTHYROXINE 75 MCG TABLET PO SCH (07:00)
[2019-06-10] MEDS: LEVOTHYROXINE 100 MCG TABLET PO SCH (07:00)
[2019-06-10] MEDS: INSULIN ASPART 300 UNIT/3 ML PEN SUBQ SCH ×4 (08:19→21:17)
[2019-06-10] MEDS: APIXABAN 5 MG TABLET PO SCH ×2 (09:01→21:15)
[2019-06-10] MEDS: ASPIRIN EC 81 MG TABLET PO SCH (09:01)
[2019-06-10] MEDS: SODIUM CHLORIDE FLUSH 0.9% 10 ML SYRINGE IVP SCH ×3 (09:17→23:58)
[2019-06-10] MEDS: NYSTATIN POWDER 15 GM TOP SCH ×2 (09:39→21:18)
--- NOTE | 2019-06-10 10:47 | PROVIDER PROGRESS NOTE ---
Assessment/Plan - Problem List (1) Hypotension Assessment/Plan: I suspect this was multifactorial: from sepsis (septic shock), cardiogenic shock and extreme volume depletion. She did not need to be started on IV pressors. IV crystalloid therapy continues at an aggressive rate which will be decreased because of the new information of a depressed LV ejection fraction. (2) Sepsis Qualifiers: Sepsis type: sepsis due to unspecified organism Qualified Code(s): A41.9 - Sepsis, unspecified organism Assessment/Plan: She presented with a lactic acid level of 4.4. THERE WAS NO BLOOD DRAWN AT 3 HOURS, SINCE THERE WAS NO IV ACCESS. Her L.A. level at 6 hours was still elevated at 3.2, then corrected at 12 hours after presentation to 1.6 Cellulitis AND a UTI appear to be the sources pf her infection. She was started on Cefepime (due to a PCN allergy) and VAnco at presentation to the ER, after blood was drawn. No urine sample was available til hours later, since she made no urine, due to dehydration. Await blood and urine culture results. Will plan 48-72 hours of iv antibiotics then transition to oral antibiotics. Follow CBC (3) Atrial fibrillation with RVR Assessment/Plan: Will re-order her oral B-marissa, which was quite a high dose, now that her BP is better, but will dose it in a tapering-up fashion (discussed with Pharmacist). Continue the iv Diltiazem drip for rate control today and possibly transition back to her (very high) oral Cardizem tomorrow. Continue her Eliquis for anticoagulation. (4) Acute systolic heart failure Assessment/Plan: The Echo was ordered because of A. fib with RVR and chronic leg edema. On the Echo, there is a new finding of global hypokinesis with depressed EF of 30%. Will check a troponin. I suspect the etiology of the new cardiomyopathy is from A. fib with RVR, possibly more long-standing RVR than just during this presentation with sepsis. Will re-order B-marissa and KARYN-I Continue the iv Diltiazem drip for rate control. (5) Acute non-ST elevation myocardial infarction (NSTEMI) Assessment/Plan: The troponin returned elevated at 1.35. An EKG was ordered today. This shows new T wave flattening in all her lateral leads which are new compared to an EKG from 10/18. There was no EKG done on admission yesterday or it is not scanned into [facility] yet. We will cycle her troponins until they peak and start to drop. This could be a primary cause of the low blood pressure. It could be demand ischemia from her hypotension, infection and tachycardia. She is already on aspirin and statin, the B-marissa will be restarted today. Low blood pressure is of concern, her medications need to be carefully adjusted. CRITICAL CARE TIME SPENT on #1 #2 and #3 above: 60 minutes (6) Cellulitis of left lower extremity Assessment/Plan: Continue with double iv antibiotic coverage for cellulitis in a diabetic (iv Cefepime and iv Vanco). Follow the markings. Treat pain as needed (7) UTI (urinary tract infection) Assessment/Plan: Await urine culture results. Continue with empiric 4th generation Cephalosporin treatment currently (Cefepi me) and adjust antibiotic choice when the urinary culture results are available. (8) DUGLAS (acute kidney injury) Assessment/Plan: Creatinine was 1.3 in the ER. It is improved down to 1.1 after IV fluids. She is currently 8 L positive in fluid balance according to her I's and O's and has gained weight. Will decrease the iv rate. (9) Diabetes mellitus with hyperglycemia Qualifiers: Diabetes mellitus type: type 2 Assessment/Plan: A1c was 14.4 indicating very poor glucose control. The at bedside, reports that the patient is just newly diagnosed diabetic of about 3 to 4 months and asks if she needs more aggressive care, managed by the PCP. I answered yes. She is on sliding scale insulin, and carb controlled diet (only wants the liquids because she is very thirsty). (10) Hypothyroid Qualifiers: Hypothyroidism type: unspecified Qualified Code(s): E03.9 - Hypothyroidism, unspecified Assessment/Plan: She remains on her (very high) home thyroid dose while here. Will obtain a TSH level to assess if this is proper treatment dose, given the Afib with RVR. - Current Meds Current Meds: Current Medications Generic Name Dose Route Start Last Admin Trade Name Freq PRN Reason Stop Dose Admin Hydrocodone Bitart/Acetaminophen 1 tab 06/09/19 16:09 06/09/19 23:15 [place] 5/325 PO 1 tab Q4HR PRN Administration Pain 5 to 7 Apixaban 5 mg 06/09/19 21:00 06/10/19 09:01 Eliquis PO 5 mg BID JACY Administration Aspirin 81 mg 06/10/19 09:00 06/10/19 09:01 Ecotrin PO 81 mg DAILY JACY Administration Atorvastatin Calcium 10 mg 06/09/19 21:00 06/09/19 21:07 Lipitor PO 10 mg QPM JACY Administration Doxepin HCl 75 mg 06/09/19 21:00 06/09/19 21:07 Sinequan PO 75 mg QPM JACY Administration Hydromorphone HCl 0.5 mg 06/09/19 16:09 06/09/19 23:24 Dilaudid Inj Syringe IVP 0.5 mg Q2H PRN Administration Pain 8 to 10 Sodium Chloride 1,000 mls @ 200 mls/hr 06/09/19 18:00 06/10/19 10:00 Normal Saline 0.9% IV 200 mls/hr .Q5H JACY Infusion Diltiazem HCl 125 mg/ Dextrose 125 mls @ 15 mls/hr 06/09/19 17:00 06/10/19 10 :00 IV 15 mg/hr .Q8H20M JACY 15 mls/hr Titration Protocol 15 MG/HR Cefepime HCl 2 gm/ Sodium 100 mls @ 200 mls/hr 06/10/19 04:00 06/10/19 09:15 Chloride IV Infused BID JACY Infusion Insulin Aspart 2 - 10 unit 06/10/19 08:00 06/10/19 08:19 Novolog SUBQ 4 unit 0800,1200,1700,2100 JACY Administration Protocol Levothyroxine Sodium 75 mcg 06/10/19 07:00 06/10/19 07:00 Synthroid PO 75 mcg QDAC JACY Administration Levothyroxine Sodium 200 mcg 06/10/19 07:00 06/10/19 07:00 Synthroid PO 200 mcg QDAC JACY Administration Nystatin 1 applic 06/09/19 23:00 06/10/19 09:39 Nystop TOP 1 applic BID JACY Administration Sodium Chloride 10 ml 06/09/19 17:00 06/10/19 09:17 Normal Saline Flush 0.9% IVP 10 ml 0100,0900,1700 JACY Administration - Lab Result Lab results reviewed: Yes Fish Bone Diagrams: 06/10/19 03:25 06/10/19 03:25 - EKG Results EKG Interpreted Independently: Yes EKG Comparison: Changed from prior EKG EKG Findings: A-FIB WITH RVR, VENTR. RATE 140, LOW VOLTAGE IN LIMB LEADS, LATERAL T WAVE FLATTENING, WHICH IS NEW SINCE LAST EKG FROM 09/11. - Additional Planning My Orders: My Active Orders 06/09/19 16:09 Activity Orders [RC] Q2HR Daily Weight [RC] 0600 IO [RC] Q1HR IV Insert [RC] ONCE Initiate Bowel Care Protocol [RC] QSHIFT Initiate ICU Electrolyte Prot. [RC] .protocol Initiate Line Care Protocol [RC] .protocol Initiate Personal Care Protoco [RC] .protocol Acetaminophen [Tylenol] 650 mg PO Q4HR PRN HYDROcod/ACETAM 5/325 [[place] 5/325] 1 tab PO Q4HR PRN HYDROmorphone INJ SYRINGE [Dilaudid Inj Syringe] 0.5 mg IVP Q2H PRN Prochlorperazine Inj [Compazine Inj] 10 mg IVP Q6HR PRN Sodium Chloride Flush 0.9% [Normal Saline Flush 0.9%] 10 ml IVP PRN PRN Code Status [OTHERS] Routine Condition of Patient [OTHERS] Routine DVT Prophylaxis [OTHERS] Routine 06/09/19 16:10 Oxygen Therapy [RC] .PRN Telemetry- [RC] Q4HR 06/09/19 16:13 Initiate Line Care Protocol [RC] QSHIFT 06/09/19 16:21 Blood Glucose Checks - Eating [RC] 0800,1200,1700,2100 Initiate Hypoglycemia Protocol [RC] .protocol 06/09/19 17:00 Dextrose 5% [D5w] 100 ml diltiaZEM INJ [Cardizem Inj] 125 mg IV 15 mg/hr Sodium Chloride Flush 0.9% [Normal Saline Flush 0.9%] 10 ml IVP 0100,0900,1700 06/09/19 18:00 Sodium Chloride 0.9% [Normal Saline 0.9%] 1,000 ml IV 200 mls/hr 06/09/19 21:00 Apixaban [Eliquis] 5 mg PO BID Atorvastatin [Lipitor] 10 mg PO QPM Doxepin [SINEquan] 75 mg PO QPM 06/09/19 Dinner Carb-controlled Diet [DIET] 06/10/19 07:00 Levothyroxine [Synthroid] 200 mcg PO QDAC Levothyroxine [Synthroid] 75 mcg PO QDAC 06/10/19 08:00 Insulin Aspart [NovoLOG] 2 - 10 unit SUBQ 0800,1200,1700,2100 06/10/19 09:00 Echo Transthoracic Complete [ECHO] Routine Aspirin EC [Ecotrin] 81 mg PO DAILY 06/10/19 17:00 VANCOMYCIN RANDOM [CHEM] Timed 06/10/19 18:00 Vancomycin Inj [Vancomycin] 2 gm Sodium Chloride 0.9% [Normal Saline 0.9%] 500 ml IV Q24H 06/11/19 05:00 BMP - BASIC METABOLIC PANEL [CHEM] DAILYLAB CBC - COMP BLD CT W/AUTO DIFF [HEME] DAILYLAB 06/12/19 05:00 BMP - BASIC METABOLIC PANEL [CHEM] DAILYLAB CBC - COMP BLD CT W/AUTO DIFF [HEME] DAILYLAB 06/12/19 17:30 VANCOMYCIN TROUGH [CHEM] Timed 06/13/19 05:00 BMP - BASIC METABOLIC PANEL [CHEM] DAILYLAB CBC - COMP BLD CT W/AUTO DIFF [HEME] DAILYLAB Subjective - Subjective Patient Reports: Feeling Better, Resting Comfortably, Pain (L knee pain) Objective Vital Signs: Vital Signs - 24 hr 06/09/19 06/09/19 06/09/19 14:54 15:23 15:33 Temperature 100.5 C H 36.6 C Heart Rate 140 H 132 H 133 H Heart Rate [ Monitoring electrodes] Respiratory 19 26 H 20 Rate Blood Pressure 126/53 L 98/80 107/53 L Blood Pressure [Left Brachial artery] Blood Pressure [Left Radial artery] Blood Pressure [Right Brachial artery] Blood Pressure [Right Radial artery] O2 Saturation 95 97 96 06/09/19 06/09/19 06/09/19 15:35 16:22 16:31 Temperature 37.0 C Heart Rate 147 H 136 H 148 H Heart Rate [ Monitoring electrodes] Respiratory 20 20 20 Rate Blood Pressure 106/57 L 98/64 110/56 L Blood Pressure [Left Brachial artery] Blood Pressure [Left Radial artery] Blood Pressure [Right Brachial artery] Blood Pressure [Right Radial artery] O2 Saturation 95 96 95 06/09/19 06/09/19 06/09/19 16:35 16:41 16:49 Temperature Heart Rate 149 H 140 H 142 H Heart Rate [ Monitoring electrodes] Respiratory 20 18 16 Rate Blood Pressure 96/79 98/47 L 100/72 Blood Pressure [Left Brachial artery] Blood Pressure [Left Radial artery] Blood Pressure [Right Brachial artery] Blood Pressure [Right Radial artery] O2 Saturation 95 97 98 06/09/19 06/09/19 06/09/19 17:05 17:30 17:43 Temperature 36.9 C 36.9 C Heart Rate 135 H Heart Rate [ 130 H 136 H Monitoring electrodes] Respiratory 21 17 25 H Rate Blood Pressure Blood Pressure [Left Brachial artery] Blood Pressure [Left Radial artery] Blood Pressure 99/87 H 108/63 [Right Brachial artery] Blood Pressure [Right Radial artery] O2 Saturation 95 99 95 06/09/19 06/09/19 06/09/19 18:00 18:30 18:45 Temperature Heart Rate Heart Rate [ 136 H 124 H 111 H Monitoring electrodes] Respiratory 21 20 27 H Rate Blood Pressure Blood Pressure [Left Brachial artery] Blood Pressure [Left Radial artery] Blood Pressure 132/117 H 107/78 91/68 [Right Brachial artery] Blood Pressure [Right Radial artery] O2 Saturation 98 98 97 06/09/19 06/09/19 06/09/19 19:00 19:20 19:25 Temperature Heart Rate 125 H 126 H Heart Rate [ 122 H Monitoring electrodes] Respiratory 22 28 H 24 Rate Blood Pressure Blood Pressure [Left Brachial artery] Blood Pressure [Left Radial artery] Blood Pressure 88/60 L [Right Brachial artery] Blood Pressure [Right Radial artery] O2 Saturation 95 06/09/19 06/09/19 06/09/19 19:30 19:35 19:37 Temperature Heart Rate 124 H 124 H 107 H Heart Rate [ Monitoring electrodes] Respiratory 26 H 24 25 H Rate Blood Pressure Blood Pressure [Left Brachial artery] Blood Pressure [Left Radial artery] Blood Pressure [Right Brachial artery] Blood Pressure [Right Radial artery] O2 Saturation 06/09/19 06/09/19 06/09/19 19:38 19:40 19:45 Temperature Heart Rate 118 H 121 H 116 H Heart Rate [ 125 H Monitoring electrodes] Respiratory 22 25 H 21 Rate Blood Pressure 96/55 L Blood Pressure [Left Brachial artery] Blood Pressure [Left Radial artery] Blood Pressure [Right Brachial artery] Blood Pressure 96/55 L [Right Radial artery] O2 Saturation 95 06/09/19 06/09/19 06/09/19 19:46 19:50 19:55 Temperature Heart Rate 110 H 104 H 116 H Heart Rate [ Monitoring electrodes] Respiratory 18 25 H 25 H Rate Blood Pressure 98/81 H Blood Pressure [Left Brachial artery] Blood Pressure [Left Radial artery] Blood Pressure [Right Brachial artery] Blood Pressure [Right Radial artery] O2 Saturation 06/09/19 06/09/19 06/09/19 20:00 20:01 20:04 Temperature 37.2 C Heart Rate 111 H 108 H 112 H Heart Rate [ 115 H Monitoring electrodes] Respiratory 18 16 28 H Rate Blood Pressure 61/42 L Blood Pressure [Left Brachial artery] Blood Pressure 86/53 L [Left Radial artery] Blood Pressure [Right Brachial artery] Blood Pressure [Right Radial artery] O2 Saturation 95 06/09/19 06/09/19 06/09/19 20:05 20:06 20:07 Temperature Heart Rate 120 H 120 H 111 H Heart Rate [ Monitoring electrodes] Respiratory 23 32 H 31 H Rate Blood Pressure 59/44 L 86/53 L Blood Pressure [Left Brachial artery] Blood Pressure [Left Radial artery] Blood Pressure [Right Brachial artery] Blood Pressure [Right Radial artery] O2 Saturation 06/09/19 06/09/19 06/09/19 20:10 20:15 20:17 Temperature Heart Rate 119 H 106 H 105 H Heart Rate [ Monitoring electrodes] Respiratory 19 21 23 Rate Blood Pressure Blood Pressure [Left Brachial artery] Blood Pressure [Left Radial artery] Blood Pressure [Right Brachial artery] Blood Pressure [Right Radial artery] O2 Saturation 06/09/19 06/09/19 06/09/19 20:18 20:20 20:25 Temperature Heart Rate 101 H 105 H 115 H Heart Rate [ Monitoring electrodes] Respiratory 22 22 23 Rate Blood Pressure 71/52 L Blood Pressure [Left Brachial artery] Blood Pressure [Left Radial artery] Blood Pressure [Right Brachial artery] Blood Pressure [Right Radial artery] O2 Saturation 06/09/19 06/09/19 06/09/19 20:29 20:30 20:31 Temperature Heart Rate 112 H 107 H 103 H Heart Rate [ 105 H Monitoring electrodes] Respiratory 28 H 30 H 27 H Rate Blood Pressure 93/48 L Blood Pressure 93/48 L [Left Brachial artery] Blood Pressure [Left Radial artery] Blood Pressure [Right Brachial artery] Blood Pressure [Right Radial artery] O2 Saturation 96 06/09/19 06/09/19 06/09/19 20:35 20:40 20:45 Temperature Heart Rate 125 H 112 H 98 Heart Rate [ Monitoring electrodes] Respiratory 24 19 22 Rate Blood Pressure Blood Pressure [Left Brachial artery] Blood Pressure [Left Radial artery] Blood Pressure [Right Brachial artery] Blood Pressure [Right Radial artery] O2 Saturation 06/09/19 06/09/19 06/09/19 20:46 20:50 20:55 Temperature Heart Rate 104 H 110 H 109 H Heart Rate [ Monitoring electrodes] Respiratory 24 18 17 Rate Blood Pressure 101/65 Blood Pressure [Left Brachial artery] Blood Pressure [Left Radial artery] Blood Pressure [Right Brachial artery] Blood Pressure [Right Radial artery] O2 Saturation 06/09/19 06/09/19 06/09/19 21:00 21:01 21:05 Temperature Heart Rate 106 H 114 H 104 H Heart Rate [ 100 Monitoring electrodes] Respiratory 30 H 26 H 21 Rate Blood Pressure 100/62 Blood Pressure 100/62 [Left Brachial artery] Blood Pressure [Left Radial artery] Blood Pressure [Right Brachial artery] Blood Pressure [Right Radial artery] O2 Saturation 97 06/09/19 06/09/19 06/09/19 21:10 21:15 21:16 Temperature Heart Rate 98 101 H 104 H Heart Rate [ Monitoring electrodes] Respiratory 21 17 23 Rate Blood Pressure 100/70 Blood Pressure [Left Brachial artery] Blood Pressure [Left Radial artery] Blood Pressure [Right Brachial artery] Blood Pressure [Right Radial artery] O2 Saturation 06/09/19 06/09/19 06/09/19 21:20 21:25 21:30 Temperature Heart Rate 115 H 99 100 Heart Rate [ Monitoring electrodes] Respiratory 24 16 22 Rate Blood Pressure Blood Pressure [Left Brachial artery] Blood Pressure [Left Radial artery] Blood Pressure [Right Brachial artery] Blood Pressure [Right Radial artery] O2 Saturation 06/09/19 06/09/19 06/09/19 21:31 21:35 21:40 Temperature Heart Rate 104 H 113 H 98 Heart Rate [ Monitoring electrodes] Respiratory 22 24 28 H Rate Blood Pressure 83/64 L Blood Pressure [Left Brachial artery] Blood Pressure [Left Radial artery] Blood Pressure [Right Brachial artery] Blood Pressure [Right Radial artery] O2 Saturation 06/09/19 06/09/19 06/09/19 21:45 21:46 21:50 Temperature Heart Rate 112 H 102 H 119 H Heart Rate [ Monitoring electrodes] Respiratory 26 H 24 23 Rate Blood Pressure 99/78 Blood Pressure [Left Brachial artery] Blood Pressure [Left Radial artery] Blood Pressure [Right Brachial artery] Blood Pressure [Right Radial artery] O2 Saturation 06/09/19 06/09/19 06/09/19 21:55 22:00 22:01 Temperature Heart Rate 100 115 H 116 H Heart Rate [ 105 H Monitoring electrodes] Respiratory 21 23 24 Rate Blood Pressure 113/79 Blood Pressure 113/79 [Left Brachial artery] Blood Pressure [Left Radial artery] Blood Pressure [Right Brachial artery] Blood Pressure [Right Radial artery] O2 Saturation 96 06/09/19 06/09/19 06/09/19 23:00 23:10 23:15 Temperature Heart Rate 122 H 126 H Heart Rate [ 113 H Monitoring electrodes] Respiratory 28 H 21 22 Rate Blood Pressure Blood Pressure 129/62 [Left Brachial artery] Blood Pressure [Left Radial artery] Blood Pressure [Right Brachial artery] Blood Pressure [Right Radial artery] O2 Saturation 96 06/09/19 06/09/19 06/09/19 23:20 23:21 23:22 Temperature Heart Rate 125 H 132 H 123 H Heart Rate [ Monitoring electrodes] Respiratory 16 22 19 Rate Blood Pressure 115/80 Blood Pressure [Left Brachial artery] Blood Pressure [Left Radial artery] Blood Pressure [Right Brachial artery] Blood Pressure [Right Radial artery] O2 Saturation 06/09/19 06/09/19 06/09/19 23:25 23:30 23:32 Temperature Heart Rate 126 H 113 H 106 H Heart Rate [ Monitoring electrodes] Respiratory 26 H 23 18 Rate Blood Pressure Blood Pressure [Left Brachial artery] Blood Pressure [Left Radial artery] Blood Pressure [Right Brachial artery] Blood Pressure [Right Radial artery] O2 Saturation 06/09/19 06/09/19 06/09/19 23:33 23:35 23:40 Temperature Heart Rate 108 H 114 H 118 H Heart Rate [ Monitoring electrodes] Respiratory 21 20 18 Rate Blood Pressure 95/61 Blood Pressure [Left Brachial artery] Blood Pressure [Left Radial artery] Blood Pressure [Right Brachial artery] Blood Pressure [Right Radial artery] O2 Saturation 06/09/19 06/09/19 06/09/19 23:45 23:50 23:55 Temperature Heart Rate 103 H 121 H 102 H Heart Rate [ Monitoring electrodes] Respiratory 21 18 18 Rate Blood Pressure Blood Pressure [Left Brachial artery] Blood Pressure [Left Radial artery] Blood Pressure [Right Brachial artery] Blood Pressure [Right Radial artery] O2 Saturation 06/09/19 06/10/19 06/10/19 23:59 00:00 00:01 Temperature 37.7 C H Heart Rate 101 H 106 H 104 H Heart Rate [ 108 H Monitoring electrodes] Respiratory 18 18 16 Rate Blood Pressure 81/41 L Blood Pressure 81/41 L [Left Brachial artery] Blood Pressure [Left Radial artery] Blood Pressure [Right Brachial artery] Blood Pressure [Right Radial artery] O2 Saturation 92 06/10/19 06/10/19 06/10/19 00:02 00:03 00:04 Temperature Heart Rate 102 H 97 108 H Heart Rate [ Monitoring electrodes] Respiratory 17 16 16 Rate Blood Pressure 80/49 L 73/51 L Blood Pressure [Left Brachial artery] Blood Pressure [Left Radial artery] Blood Pressure [Right Brachial artery] Blood Pressure [Right Radial artery] O2 Saturation 06/10/19 06/10/19 06/10/19 00:05 00:10 00:12 Temperature Heart Rate 105 H 102 H 102 H Heart Rate [ Monitoring electrodes] Respiratory 17 17 17 Rate Blood Pressure Blood Pressure [Left Brachial artery] Blood Pressure [Left Radial artery] Blood Pressure [Right Brachial artery] Blood Pressure [Right Radial artery] O2 Saturation 06/10/19 06/10/19 06/10/19 00:13 00:15 00:20 Temperature Heart Rate 107 H 107 H 98 Heart Rate [ Monitoring electrodes] Respiratory 17 16 16 Rate Blood Pressure 82/50 L Blood Pressure [Left Brachial artery] Blood Pressure [Left Radial artery] Blood Pressure [Right Brachial artery] Blood Pressure [Right Radial artery] O2 Saturation 06/10/19 06/10/19 06/10/19 00:25 00:28 00:29 Temperature Heart Rate 101 H 99 99 Heart Rate [ Monitoring electrodes] Respiratory 16 16 16 Rate Blood Pressure 83/51 L Blood Pressure [Left Brachial artery] Blood Pressure [Left Radial artery] Blood Pressure [Right Brachial artery] Blood Pressure [Right Radial artery] O2 Saturation 06/10/19 06/10/19 06/10/19 00:30 00:31 00:35 Temperature Heart Rate 105 H 99 108 H Heart Rate [ Monitoring electrodes] Respiratory 17 15 15 Rate Blood Pressure 82/46 L Blood Pressure [Left Brachial artery] Blood Pressure [Left Radial artery] Blood Pressure [Right Brachial artery] Blood Pressure [Right Radial artery] O2 Saturation 06/10/19 06/10/19 06/10/19 00:36 00:37 00:39 Temperature Heart Rate 96 98 100 Heart Rate [ Monitoring electrodes] Respiratory 16 16 15 Rate Blood Pressure 71/42 L Blood Pressure [Left Brachial artery] Blood Pressure [Left Radial artery] Blood Pressure [Right Brachial artery] Blood Pressure [Right Radial artery] O2 Saturation 06/10/19 06/10/19 06/10/19 00:40 00:41 00:42 Temperature Heart Rate 95 96 91 Heart Rate [ Monitoring electrodes] Respiratory 15 15 16 Rate Blood Pressure 82/52 L 71/54 L Blood Pressure [Left Brachial artery] Blood Pressure [Left Radial artery] Blood Pressure [Right Brachial artery] Blood Pressure [Right Radial artery] O2 Saturation 06/10/19 06/10/19 06/10/19 00:44 00:45 00:46 Temperature Heart Rate 90 102 H 101 H Heart Rate [ Monitoring electrodes] Respiratory 15 15 16 Rate Blood Pressure 73/52 L Blood Pressure [Left Brachial artery] Blood Pressure [Left Radial artery] Blood Pressure [Right Brachial artery] Blood Pressure [Right Radial artery] O2 Saturation 06/10/19 06/10/19 06/10/19 00:49 00:50 00:51 Temperature Heart Rate 106 H 95 100 Heart Rate [ Monitoring electrodes] Respiratory 15 16 16 Rate Blood Pressure 80/60 L Blood Pressure [Left Brachial artery] Blood Pressure [Left Radial artery] Blood Pressure [Right Brachial artery] Blood Pressure [Right Radial artery] O2 Saturation 06/10/19 06/10/19 06/10/19 00:54 00:55 00:56 Temperature Heart Rate 104 H 100 89 Heart Rate [ Monitoring electrodes] Respiratory 16 15 17 Rate Blood Pressure 82/53 L Blood Pressure [Left Brachial artery] Blood Pressure [Left Radial artery] Blood Pressure [Right Brachial artery] Blood Pressure [Right Radial artery] O2 Saturation 06/10/19 06/10/19 06/10/19 00:59 01:00 01:01 Temperature Heart Rate 94 105 H 99 Heart Rate [ 95 Monitoring electrodes] Respiratory 16 16 15 Rate Blood Pressure 94/60 Blood Pressure 94/60 [Left Brachial artery] Blood Pressure [Left Radial artery] Blood Pressure [Right Brachial artery] Blood Pressure [Right Radial artery] O2 Saturation 96 07/17/19 07/17/19 07/17/19 01:59 02:00 02:01 Temperature Heart Rate 95 99 96 Heart Rate [ 106 H Monitoring electrodes] Respiratory 15 15 15 Rate Blood Pressure 99/54 L Blood Pressure 99/54 L [Left Brachial artery] Blood Pressure [Left Radial artery] Blood Pressure [Right Brachial artery] Blood Pressure [Right Radial artery] O2 Saturation 97 06/10/19 06/10/19 06/10/19 02:05 02:10 02:15 Temperature Heart Rate 98 108 H 109 H Heart Rate [ Monitoring electrodes] Respiratory 16 15 16 Rate Blood Pressure Blood Pressure [Left Brachial artery] Blood Pressure [Left Radial artery] Blood Pressure [Right Brachial artery] Blood Pressure [Right Radial artery] O2 Saturation 06/10/19 06/10/19 06/10/19 02:20 02:25 02:30 Temperature Heart Rate 105 H 110 H 102 H Heart Rate [ Monitoring electrodes] Respiratory 17 13 17 Rate Blood Pressure Blood Pressure [Left Brachial artery] Blood Pressure [Left Radial artery] Blood Pressure [Right Brachial artery] Blood Pressure [Right Radial artery] O2 Saturation 06/10/19 06/10/19 06/10/19 02:35 02:40 02:45 Temperature Heart Rate 112 H 103 H 108 H Heart Rate [ Monitoring electrodes] Respiratory 16 17 17 Rate Blood Pressure Blood Pressure [Left Brachial artery] Blood Pressure [Left Radial artery] Blood Pressure [Right Brachial artery] Blood Pressure [Right Radial artery] O2 Saturation 06/10/19 06/10/19 06/10/19 02:50 02:55 02:59 Temperature Heart Rate 115 H 112 H 123 H Heart Rate [ Monitoring electrodes] Respiratory 19 19 18 Rate Blood Pressure Blood Pressure [Left Brachial artery] Blood Pressure [Left Radial artery] Blood Pressure [Right Brachial artery] Blood Pressure [Right Radial artery] O2 Saturation 06/10/19 06/10/19 06/10/19 03:00 03:01 03:05 Temperature Heart Rate 117 H 126 H 109 H Heart Rate [ 102 H Monitoring electrodes] Respiratory 18 18 18 Rate Blood Pressure 105/78 Blood Pressure 105/78 [Left Brachial artery] Blood Pressure [Left Radial artery] Blood Pressure [Right Brachial artery] Blood Pressure [Right Radial artery] O2 Saturation 95 06/10/19 06/10/19 06/10/19 03:10 03:15 03:20 Temperature Heart Rate 103 H 123 H 102 H Heart Rate [ Monitoring electrodes] Respiratory 17 19 22 Rate Blood Pressure Blood Pressure [Left Brachial artery] Blood Pressure [Left Radial artery] Blood Pressure [Right Brachial artery] Blood Pressure [Right Radial artery] O2 Saturation 06/10/19 06/10/19 06/10/19 03:25 03:30 03:35 Temperature Heart Rate 107 H 118 H 104 H Heart Rate [ Monitoring electrodes] Respiratory 17 20 18 Rate Blood Pressure Blood Pressure [Left Brachial artery] Blood Pressure [Left Radial artery] Blood Pressure [Right Brachial artery] Blood Pressure [Right Radial artery] O2 Saturation 06/10/19 06/10/19 06/10/19 03:40 03:45 03:50 Temperature Heart Rate 116 H 119 H 112 H Heart Rate [ Monitoring electrodes] Respiratory 19 18 19 Rate Blood Pressure Blood Pressure [Left Brachial artery] Blood Pressure [Left Radial artery] Blood Pressure [Right Brachial artery] Blood Pressure [Right Radial artery] O2 Saturation 06/10/19 06/10/19 06/10/19 03:55 03:59 04:00 Temperature 36.7 C Heart Rate 123 H 113 H 108 H Heart Rate [ 115 H Monitoring electrodes] Respiratory 19 18 19 Rate Blood Pressure 105/71 Blood Pressure 118/69 [Left Brachial artery] Blood Pressure [Left Radial artery] Blood Pressure [Right Brachial artery] Blood Pressure [Right Radial artery] O2 Saturation 96 06/10/19 06/10/19 06/10/19 04:01 04:05 04:10 Temperature Heart Rate 113 H 112 H 104 H Heart Rate [ Monitoring electrodes] Respiratory 16 21 18 Rate Blood Pressure Blood Pressure [Left Brachial artery] Blood Pressure [Left Radial artery] Blood Pressure [Right Brachial artery] Blood Pressure [Right Radial artery] O2 Saturation 06/10/19 06/10/19 06/10/19 04:15 04:20 04:25 Temperature Heart Rate 114 H 127 H 123 H Heart Rate [ Monitoring electrodes] Respiratory 19 19 19 Rate Blood Pressure Blood Pressure [Left Brachial artery] Blood Pressure [Left Radial artery] Blood Pressure [Right Brachial artery] Blood Pressure [Right Radial artery] O2 Saturation 06/10/19 06/10/19 06/10/19 04:30 04:35 04:40 Temperature Heart Rate 123 H 117 H 119 H Heart Rate [ Monitoring electrodes] Respiratory 19 19 18 Rate Blood Pressure Blood Pressure [Left Brachial artery] Blood Pressure [Left Radial artery] Blood Pressure [Right Brachial artery] Blood Pressure [Right Radial artery] O2 Saturation 06/10/19 06/10/19 06/10/19 04:45 04:50 04:55 Temperature Heart Rate 120 H 118 H 123 H Heart Rate [ Monitoring electrodes] Respiratory 19 20 22 Rate Blood Pressure Blood Pressure [Left Brachial artery] Blood Pressure [Left Radial artery] Blood Pressure [Right Brachial artery] Blood Pressure [Right Radial artery] O2 Saturation 06/10/19 06/10/19 06/10/19 04:59 05:00 05:01 Temperature Heart Rate 117 H 122 H 119 H Heart Rate [ 117 H Monitoring electrodes] Respiratory 22 20 20 Rate Blood Pressure 106/82 H Blood Pressure 106/82 H [Left Brachial artery] Blood Pressure [Left Radial artery] Blood Pressure [Right Brachial artery] Blood Pressure [Right Radial artery] O2 Saturation 96 06/10/19 06/10/19 06/10/19 05:05 05:10 05:15 Temperature Heart Rate 118 H 120 H 119 H Heart Rate [ Monitoring electrodes] Respiratory 21 21 19 Rate Blood Pressure Blood Pressure [Left Brachial artery] Blood Pressure [Left Radial artery] Blood Pressure [Right Brachial artery] Blood Pressure [Right Radial artery] O2 Saturation 06/10/19 06/10/19 06/10/19 05:20 05:25 06:00 Temperature Heart Rate 114 H 120 H Heart Rate [ 115 H Monitoring electrodes] Respiratory 17 20 20 Rate Blood Pressure Blood Pressure 93/63 [Left Brachial artery] Blood Pressure [Left Radial artery] Blood Pressure [Right Brachial artery] Blood Pressure [Right Radial artery] O2 Saturation 94 06/10/19 06/10/19 06/10/19 07:00 08:00 08:30 Temperature 37.2 C Heart Rate Heart Rate [ 126 H 119 H 115 H Monitoring electrodes] Respiratory 19 22 23 Rate Blood Pressure Blood Pressure 96/56 L 58/46 L 93/60 [Left Brachial artery] Blood Pressure [Left Radial artery] Blood Pressure [Right Brachial artery] Blood Pressure [Right Radial artery] O2 Saturation 96 95 97 06/10/19 06/10/19 06/10/19 08:50 09:00 10:00 Temperature Heart Rate Heart Rate [ 122 H 130 H 128 H Monitoring electrodes] Respiratory 26 H 21 23 Rate Blood Pressure Blood Pressure 105/63 121/85 H 127/98 H [Left Brachial artery] Blood Pressure [Left Radial artery] Blood Pressure [Right Brachial artery] Blood Pressure [Right Radial artery] O2 Saturation 97 95 95 Oxygen O2 Source Nasal cannula I&O (Last 24 Hrs): Intake and Output Totals x24h 06/08/19 06/09/19 06/10/19 23:59 23:59 23:59 Intake Total 5611.533 4934.250 Output Total 116 287 Balance 5495.533 4647.250 General: Alert, Oriented x3 HEENT: Other (Dry mucosa, poor dentition, exophthalmous, lid lag bilaterally) Neuro: Non Focal Cardiovascular: No murmurs, Other (Irreg, irreg) Respiratory: No respiratory distress, Breath sounds nml Abdomen: Soft, Other (Obese with pannus) Extremities: Other (1+ edema, L lower leg with blotchy redness) - Results Results: Laboratory Results WBC 16.1 x10^3/uL (4.8-10.8) H 06/10/19 03:25 RBC 4.07 10^6/uL (4.20-5.40) L 06/10/19 03:25 Hgb 13.7 g/dL (12.0-16.0) 06/10/19 03:25 Hct 40.3 % (37.0-47.0) 06/10/19 03:25 MCV 99.0 fL (81.0-99.0) 06/10/19 03:25 MCH 33.7 pg (27.0-31.0) H 06/10/19 03:25 MCHC 34.0 g/dL (32.0-36.0) 06/10/19 03:25 RDW 12.8 % (12.0-15.0) 06/10/19 03:25 Plt Count 136 10^3/uL (130-450) 06/10/19 03:25 MPV 10.4 fL (7.9-10.8) 06/10/19 03:25 Neut # (Auto) Not Reportable 06/10/19 03:25 Lymph # (Auto) Not Reportable 06/10/19 03:25 [place] # (Auto) Not Reportable 06/10/19 03:25 Eos # (Auto) Not Reportable 06/10/19 03:25 Baso # (Auto) Not Reportable 06/10/19 03:25 Absolute Nucleated RBC Not Reportable 06/10/19 03:25 Total Counted 100 06/10/19 03:25 Band Neuts % (Manual) 22 % (0-10) H 06/10/19 03:25 Abnorm Lymph % (Manual) 0 % 06/10/19 03:25 Nucleated RBC % Not Reportable 06/10/19 03:25 Neutrophils # (Manual) 15.3 10^3/uL (1.5-6.6) H 06/10/19 03:25 Lymphocytes # (Manual) 0.5 10^3/uL (1.5-3.5) L 06/10/19 03:25 Monocytes # (Manual) 0.3 10^3/uL (0.0-1.0) 06/10/19 03:25 Eosinophils # (Manual) 0.0 10^3/uL (0-0.7) 06/10/19 03:25 Basophils # (Manual) 0.0 10^3/uL (0-0.1) 06/10/19 03:25 Differential Comment MANUAL DIFFERENTIAL 06/10/19 03:25 Manual Slide Review Indicated 06/09/19 15:06 Platelet Estimate NORMAL (130-450,000) (NORMAL) 06/10/19 03:25 Platelet Morphology NORMAL APPEARANCE (NORMAL) 06/09/19 15:06 RBC Morph Micro Appear NORMAL APPEARANCE (NORMAL) 06/10/19 03:25 Sodium 133 mmol/L (135-145) L 06/10/19 03:25 Potassium 4.2 mmol/L (3.5-5.0) 06/10/19 03:25 Chloride 101 mmol/L (101-111) 06/10/19 03:25 Carbon Dioxide 23 mmol/L (21-32) 06/10/19 03:25 Anion Gap 9.0 (6-13) 06/10/19 03:25 BUN 31 mg/dL (6-20) H 06/10/19 03:25 Creatinine 1.1 mg/dL (0.4-1.0) H 06/10/19 03:25 Estimated GFR (MDRD) 50 (>89) L 06/10/19 03:25 Glucose 242 mg/dL (70-100) H 06/10/19 03:25 Glycated Hemoglobin 14.4 % (4.6-6.2) H 06/09/19 15:06 Estim Average Glucose 367 (70-100) H 06/09/19 15:06 Lactic Acid 1.6 mmol/L (0.5-2.2) 06/10/19 03:25 Calcium 8.1 mg/dL (8.5-10.3) L 06/10/19 03:25 Phosphorus 2.7 mg/dL (2.5-4.6) 06/10/19 03:25 Magnesium 2.1 mg/dL (1.7-2.8) 06/10/19 03:25 Total Bilirubin 1.2 mg/dL (0.2-1.0) H 06/09/19 15:06 AST 42 IU/L (10-42) 06/09/19 15:06 ALT 32 IU/L (10-60) 06/09/19 15:06 Alkaline Phosphatase 116 IU/L (42-121) 06/09/19 15:06 Total Protein 7.1 g/dL (6.7-8.2) 06/09/19 15:06 Albumin 3.2 g/dL (3.2-5.5) 06/09/19 15:06 Globulin 3.9 g/dL (2.1-4.2) 06/09/19 15:06 Albumin/Globulin Ratio 0.8 (1.0-2.2) L 06/09/19 15:06 Lipase 25 U/L (22-51) 06/09/19 15:06 Urine Color YELLOW 06/09/19 21:25 Urine Clarity HAZY (CLEAR) 06/09/19 21:25 Urine pH 5.0 PH (5.0-7.5) 06/09/19 21:25 Ur Specific [place] >=1.030 (1.002-1.030) H 06/09/19 21:25 Urine Protein 100 mg/dL (NEGATIVE) H 06/09/19 21:25 Urine Glucose (UA) 500 mg/dL (NEGATIVE) H 06/09/19 21:25 Urine Ketones 15 mg/dL (NEGATIVE) H 06/09/19 21:25 Urine Occult Blood MODERATE (NEGATIVE) H 06/09/19 21:25 Urine Nitrite POSITIVE (NEGATIVE) H 06/09/19 21:25 Urine Bilirubin NEGATIVE (NEGATIVE) 06/09/19 21:25 Urine Urobilinogen 0.2 (NORMAL) E.U./dL (NORMAL) 06/09/19 21:25 Ur Leukocyte Esterase NEGATIVE (NEGATIVE) 06/09/19 21:25 Urine RBC 0-5 /HPF (0-5) 06/09/19 21:25 Urine WBC 4-5 /HPF (0-5) 06/09/19 21:25 Ur Squamous Epith Cells NONE SEEN (<= Few) 06/09/19 21:25 Amorphous Sediment Moderate /LPF 06/09/19 21:25 Urine Bacteria None Seen /HPF (None Seen) 06/09/19 21:25 Ur Microscopic Review INDICATED 06/09/19 21:25 Urine Culture Comments INDICATED 06/09/19 21:25 Nasal Screen MRSA (PCR) NEGATIVE (NEGATIVE) 06/09/19 17:14 Sepsis Event Note (H) - Evaluation Possible source of Sepsis: positive: Skin/soft tissue
[2019-06-10] MEDS ORDERED: METOPROLOL SUCCINATE 50 MG TABLET PO ONE (12:00)
[2019-06-10 17:52] LABS: VANCOMYCIN,RANDOM 8.9 ug/mL
[2019-06-10] MEDS: VANCOMYCIN INJ 2 GM in SODIUM CHLORIDE 0.9% 500 ML IV SCH (18:15)
[2019-06-10] MEDS: HYDROcod/ACETAM 5/325 MG TABLET PO PRN ×2 (18:30→23:58)
[2019-06-10] MEDS: METOPROLOL SUCCINATE 50 MG TABLET PO SCH (21:09)
[2019-06-10] MEDS: DOXEPIN 25 MG CAPSULE PO SCH (21:16)
[2019-06-10] MEDS: ATORVASTATIN 10 MG TABLET PO SCH (21:16)
[2019-06-11 02:42] LABS: BASOPHILS # (AUTO) 0.1 10^3/uL (0.0-0.1); BASOPHILS % (AUTO) 0.4 %; EOSINOPHILS % (AUTO) 0.2 %; HGB - HEMOGLOBIN 12.1 g/dL (12.0-16.0); LYMPHOCYTES % (AUTO) 8.5 %; MEAN CORPUSCULAR HEMOGLOBIN 32.9 pg (27.0-31.0); MEAN CORPUSCULAR HGB CONC 33.1 g/dL (32.0-36.0); MEAN CORPUSCULAR VOLUME 99.5 fL (81.0-99.0); MEAN PLATELET VOLUME 10.6 fL (7.9-10.8); MONOCYTES # (AUTO) 0.7 10^3/uL (0.0-1.0); MONOCYTES % (AUTO) 5.8 %; NEUTROPHILS # (AUTO) 10.1 10^3/uL (1.5-6.6); NEUTROPHILS % (AUTO) 83.7 %; PLT - PLATELET COUNT 116 10^3/uL (130-450); RED BLOOD COUNT 3.68 10^6/uL (4.20-5.40); RED CELL DISTRIBUTION WIDTH 13.1 % (12.0-15.0)
[2019-06-11 02:49] LABS: CALCIUM 7.9 mg/dL (8.5-10.3)
[2019-06-11 02:55] LABS: MAGNESIUM 1.8 mg/dL (1.7-2.8); PHOSPHORUS 2.4 mg/dL (2.5-4.6)
[2019-06-11] MEDS: diltiaZEM INJ 125 MG in DEXTROSE 5% 100 ML IV SCH ×2 (03:29→12:00)
[2019-06-11] MEDS: LEVOTHYROXINE 75 MCG TABLET PO SCH (06:21)
[2019-06-11] MEDS: NEUTRA-PHOS 250 MG TABLET PO SCH ×2 (06:21→09:10)
[2019-06-11] MEDS: LEVOTHYROXINE 100 MCG TABLET PO SCH (06:21)
[2019-06-11] MEDS: SODIUM CHLORIDE 0.9% 1,000 ML IV SCH (08:00)
[2019-06-11] MEDS: INSULIN ASPART 300 UNIT/3 ML PEN SUBQ SCH ×4 (08:57→21:35)
[2019-06-11] MEDS: CEFEPIME 2 GM in SODIUM CHLORIDE 0.9% MINIBAG 100 ML IV SCH ×2 (09:00→21:32)
[2019-06-11] MEDS: ASPIRIN EC 81 MG TABLET PO SCH (09:10)
[2019-06-11] MEDS: METOPROLOL SUCCINATE 50 MG TABLET PO SCH ×2 (09:10→21:34)
[2019-06-11] MEDS: APIXABAN 5 MG TABLET PO SCH ×2 (09:10→21:34)
[2019-06-11] MEDS: SODIUM CHLORIDE FLUSH 0.9% 10 ML SYRINGE IVP SCH ×2 (09:15→16:44)
--- NOTE | 2019-06-11 10:20 | PROVIDER PROGRESS NOTE ---
Assessment/Plan - Problem List (1) Hypotension Assessment/Plan: Improving hypotension. Continue to slowly resume her HR slowing oral meds to titrate diltiazem drip to off. The Cardizem ER and Toprol XL doses will be slowly increased to her pre- hospital doses. Will stop hydration due to significant edema of legs, but not resume HCTZ yet. Continue to treat underlying sepsis, and source of infection. (2) Gram-positive cocci bacteremia Assessment/Plan: Will continue empiric iv antibiotics until the identification of the GPC is available. (3) Cellulitis of left lower extremity Assessment/Plan: This is the likely source of the sepsis and the bacteremia. Would plan to use oral antibiotics after today, possibly Clindamycin, for a GPC bacteria. Await identification and sensitivities. (4) Atrial fibrillation with RVR Assessment/Plan: Her HR has been improving slowly, as BP gets better, and as her home Cardizem and Metoprolol doses are being restarted. Will titrate iv Diltiazem to off today. Will be able to start PT then. Possibly out of ICU later today. (5) Acute systolic heart failure Assessment/Plan: The Echo done this admission showed a new LVEF of 30%. B-marissa is being resumed. iv fluids will be stopped. No HCTZ resumption planned, will use Spironolactone eventually. Will resume the KARYN eventually, when BP not as low. (6) Acute non-ST elevation myocardial infarction (NSTEMI) Assessment/Plan: This may have been due to demand ischemia, or a type 2 NV. She is on beta-marissa, statin and aspirin. She is not a candidate for transfer for angiography due to the infection (7) DUGLAS (acute kidney injury) Assessment/Plan: There is slow improvement with rehydration and treatment of her septic shock, and hypovolemia (8) Diabetes mellitus with hyperglycemia Qualifiers: Diabetes mellitus type: type 2 Assessment/Plan: She requires high insulin doses of long-acting twice daily and aspart insulin 3 times daily with meals. Her palliative care provider, Dorys, indicated that the patient needs more aggressive management with diabetic education through [facility] here (9) Hypothyroid Qualifiers: Hypothyroidism type: unspecified Qualified Code(s): E03.9 - Hypothyroidism, unspecified Assessment/Plan: She is on her home thyroid medications while (10) Sepsis Qualifiers: Sepsis type: sepsis due to unspecified organism Qualified Code(s): A41.9 - Sepsis, unspecified organism Assessment/Plan: Resolved (11) UTI (urinary tract infection) Assessment/Plan: UTI is ruled out The microbiology report states there are less than 10,000 colony forming units, therefore it was considered a contaminant. - Current Meds Current Meds: Current Medications Generic Name Dose Route Start Last Admin Trade Name Freq PRN Reason Stop Dose Admin Hydrocodone Bitart/Acetaminophen 1 tab 06/09/19 16:09 06/10/19 23:58 [place] 5/325 PO 1 tab Q4HR PRN Administration Pain 5 to 7 Apixaban 5 mg 06/09/19 21:00 06/11/19 09:10 Eliquis PO 5 mg BID JACY Administration Aspirin 81 mg 06/10/19 09:00 06/11/19 09:10 Ecotrin PO 81 mg DAILY JACY Administration Atorvastatin Calcium 10 mg 06/09/19 21:00 06/10/19 21:16 Lipitor PO 10 mg QPM JACY Administration Doxepin HCl 75 mg 06/09/19 21:00 06/10/19 21:16 [place] PO 75 mg QPM JACY Administration Hydromorphone HCl 0.5 mg 06/09/19 16:09 06/09/19 23:24 Dilaudid Inj Syringe IVP 0.5 mg Q2H PRN Administration Pain 8 to 10 Diltiazem HCl 125 mg/ Dextrose 125 mls @ 15 mls/hr 06/09/19 17:00 06/11/19 09:00 IV 15 mg/hr .Q8H20M JACY 15 mls/hr Titration Protocol 15 MG/HR Vancomycin HCl 2 gm/ Sodium 500 mls @ 250 mls/hr 06/10/19 18:00 06/10/19 20:54 Chloride IV Infused Q24H JACY Infusion Cefepime HCl 2 gm/ Sodium 100 mls @ 200 mls/hr 06/10/19 04:00 06/11/19 09:30 Chloride IV Infused BID JACY Infusion Sodium Chloride 1,000 mls @ 100 mls/hr 06/10/19 11:19 06/11/19 09:00 Normal Saline 0.9% IV 100 mls/hr .Q10H JACY Infusion Insulin Aspart 2 - 10 unit 06/10/19 08:00 06/11/19 08:57 Novolog SUBQ 4 unit 0800,1200,1700,2100 JACY Administration Protocol Levothyroxine Sodium 75 mcg 06/10/19 07:00 06/11/19 06:21 Synthroid PO 75 mcg QDAC JACY Administration Levothyroxine Sodium 200 mcg 06/10/19 07:00 06/11/19 06:21 Synthroid PO 200 mcg QDAC JACY Administration Metoprolol Succinate 100 mg 06/10/19 21:00 06/11/19 09:10 Toprol Xl PO 100 mg BID JACY Administration Nystatin 1 applic 06/09/19 23:00 06/10/19 21:18 Nystop TOP 1 applic BID JACY Administration Sodium Chloride 10 ml 06/09/19 17:00 06/11/19 09:15 Normal Saline Flush 0.9% IVP 10 ml 0100,0900,1700 JACY Administration - Lab Result Fish Bone Diagrams: 06/11/19 02:28 06/11/19 02:28 - Additional Planning My Orders: My Active Orders 06/10/19 11:19 Sodium Chloride 0.9% [Normal Saline 0.9%] 1,000 ml IV 100 mls/hr 06/10/19 18:00 Vancomycin Inj [Vancomycin] 2 gm Sodium Chloride 0.9% [Normal Saline 0.9%] 500 ml IV Q24H 06/10/19 21:00 Metoprolol Succinate [Toprol Xl] 100 mg PO BID 06/12/19 05:00 BMP - BASIC METABOLIC PANEL [CHEM] DAILYLAB BMP, RFLX TO IONIZED CA IF [CHEM] DAILYLAB CBC - COMP BLD CT W/AUTO DIFF [HEME] DAILYLAB MAGNESIUM [CHEM] DAILYLAB PHOSPHORUS [CHEM] DAILYLAB 06/12/19 17:30 VANCOMYCIN TROUGH [CHEM] Timed 06/13/19 05:00 BMP - BASIC METABOLIC PANEL [CHEM] DAILYLAB CBC - COMP BLD CT W/AUTO DIFF [HEME] DAILYLAB Subjective - Subjective Patient Reports: Feeling Better, Resting Comfortably, No Complaints Objective Vital Signs: Vital Signs - 24 hr 06/10/19 06/10/19 06/10/19 11:00 11:50 13:00 Temperature Heart Rate [ 120 H 128 H 127 H Monitoring electrodes] Respiratory 23 24 20 Rate Blood Pressure 112/86 H 120/79 121/67 [Left Brachial artery] O2 Saturation 96 97 95 06/10/19 06/10/19 06/10/19 14:00 15:00 16:00 Temperature Heart Rate [ 114 H 104 H 119 H Monitoring electrodes] Respiratory 21 22 22 Rate Blood Pressure 136/63 H 87/54 L 126/60 [Left Brachial artery] O2 Saturation 97 98 97 06/10/19 06/10/19 06/10/19 17:00 18:00 19:00 Temperature Heart Rate [ 130 H 129 H 126 H Monitoring electrodes] Respiratory 23 26 H 23 Rate Blood Pressure 127/78 139/90 H 123/56 L [Left Brachial artery] O2 Saturation 96 96 99 06/10/19 06/10/19 06/10/19 20:00 21:00 22:00 Temperature 36.8 C Heart Rate [ 110 H 110 H 115 H Monitoring electrodes] Respiratory 20 23 21 Rate Blood Pressure 103/65 105/89 H 117/65 [Left Brachial artery] O2 Saturation 94 98 96 06/10/19 06/11/19 06/11/19 23:00 00:00 01:00 Temperature 36.8 C Heart Rate [ 122 H 120 H 102 H Monitoring electrodes] Respiratory 19 20 16 Rate Blood Pressure 125/65 120/97 H 99/53 L [Left Brachial artery] O2 Saturation 98 98 96 06/11/19 06/11/19 06/11/19 02:00 03:00 04:00 Temperature 36.5 C Heart Rate [ 87 102 H 98 Monitoring electrodes] Respiratory 17 18 16 Rate Blood Pressure 111/52 L 118/63 91/71 [Left Brachial artery] O2 Saturation 97 98 97 06/11/19 06/11/19 06/11/19 05:00 06:00 07:00 Temperature Heart Rate [ 94 97 100 Monitoring electrodes] Respiratory 18 18 18 Rate Blood Pressure 95/54 L 85/57 L 101/87 H [Left Brachial artery] O2 Saturation 97 98 97 06/11/19 06/11/19 08:00 09:00 Temperature Heart Rate [ 95 96 Monitoring electrodes] Respiratory 18 23 Rate Blood Pressure 114/85 H 94/67 [Left Brachial artery] O2 Saturation 96 96 Oxygen O2 Source Nasal cannula I&O (Last 24 Hrs): Intake and Output Totals x24h 06/09/19 06/10/19 06/11/19 23:59 23:59 23:59 Intake Total 5611.533 6944.167 2167.75 Output Total 116 630 400 Balance 5495.533 6314.167 1767.75 General: Alert, Oriented x3 HEENT: Mucous membr. moist/pink Neck: Supple Neuro: Non Focal Cardiovascular: No murmurs, Other (Irreg) Respiratory: No respiratory distress, Breath sounds nml Abdomen: Soft, Other (Obese with pannus) Genitourinary: Other ([place] in place) Extremities: Other (3+ edema of left leg with unchanged blotchy red spots between ankle and knee, R leg has 2+ edema) - Results Results: Laboratory Results WBC 12.0 x10^3/uL (4.8-10.8) H 06/11/19 02:28 RBC 3.68 10^6/uL (4.20-5.40) L 06/11/19 02:28 Hgb 12.1 g/dL (12.0-16.0) 06/11/19 02:28 Hct 36.6 % (37.0-47.0) L 06/11/19 02:28 MCV 99.5 fL (81.0-99.0) H 06/11/19 02:28 MCH 32.9 pg (27.0-31.0) H 06/11/19 02:28 MCHC 33.1 g/dL (32.0-36.0) 06/11/19 02:28 RDW 13.1 % (12.0-15.0) 06/11/19 02:28 Plt Count 116 10^3/uL (130-450) L 06/11/19 02:28 MPV 10.6 fL (7.9-10.8) 06/11/19 02:28 Neut # (Auto) 10.1 10^3/uL (1.5-6.6) H 06/11/19 02:28 Lymph # (Auto) 1.0 10^3/uL (1.5-3.5) L 06/11/19 02:28 [place] # (Auto) 0.7 10^3/uL (0.0-1.0) 06/11/19 02:28 Eos # (Auto) 0.0 10^3/uL (0.0-0.7) 06/11/19 02:28 Baso # (Auto) 0.1 10^3/uL (0.0-0.1) 06/11/19 02:28 Absolute Nucleated RBC 0.00 x10^3/uL 06/11/19 02:28 Total Counted 100 06/10/19 03:25 Band Neuts % (Manual) 22 % (0-10) H 06/10/19 03:25 Abnorm Lymph % (Manual) 0 % 06/10/19 03:25 Nucleated RBC % 0.0 /100WBC 06/11/19 02:28 Neutrophils # (Manual) 15.3 10^3/uL (1.5-6.6) H 06/10/19 03:25 Lymphocytes # (Manual) 0.5 10^3/uL (1.5-3.5) L 06/10/19 03:25 Monocytes # (Manual) 0.3 10^3/uL (0.0-1.0) 06/10/19 03:25 Eosinophils # (Manual) 0.0 10^3/uL (0-0.7) 06/10/19 03:25 Basophils # (Manual) 0.0 10^3/uL (0-0.1) 06/10/19 03:25 Differential Comment MANUAL DIFFERENTIAL 06/10/19 03:25 Manual Slide Review Indicated 06/09/19 15:06 Platelet Estimate NORMAL (130-450,000) (NORMAL) 06/10/19 03:25 Platelet Morphology NORMAL APPEARANCE (NORMAL) 06/09/19 15:06 RBC Morph Micro Appear NORMAL APPEARANCE (NORMAL) 06/10/19 03:25 Sodium 132 mmol/L (135-145) L 06/11/19 02:28 Potassium 3.9 mmol/L (3.5-5.0) 06/11/19 02:28 Chloride 102 mmol/L (101-111) 06/11/19 02:28 Carbon Dioxide 22 mmol/L (21-32) 06/11/19 02:28 Anion Gap 8.0 (6-13) 06/11/19 02:28 BUN 30 mg/dL (6-20) H 06/11/19 02:28 Creatinine 1.0 mg/dL (0.4-1.0) 06/11/19 02:28 Estimated GFR (MDRD) 55 (>89) L 06/11/19 02:28 Glucose 245 mg/dL (70-100) H 06/11/19 02:28 Glycated Hemoglobin 14.4 % (4.6-6.2) H 06/09/19 15:06 Estim Average Glucose 367 (70-100) H 06/09/19 15:06 Lactic Acid 1.6 mmol/L (0.5-2.2) 06/10/19 03:25 Calcium 7.9 mg/dL (8.5-10.3) L 06/11/19 02:28 Phosphorus 2.4 mg/dL (2.5-4.6) L 06/11/19 02:28 Magnesium 1.8 mg/dL (1.7-2.8) 06/11/19 02:28 Total Bilirubin 1.2 mg/dL (0.2-1.0) H 06/09/19 15:06 AST 42 IU/L (10-42) 06/09/19 15:06 ALT 32 IU/L (10-60) 06/09/19 15:06 Alkaline Phosphatase 116 IU/L (42-121) 06/09/19 15:06 Troponin I 0.90 ng/mL (<0.49) H* 06/11/19 02:28 Total Protein 7.1 g/dL (6.7-8.2) 06/09/19 15:06 Albumin 3.2 g/dL (3.2-5.5) 06/09/19 15:06 Globulin 3.9 g/dL (2.1-4.2) 06/09/19 15:06 Albumin/Globulin Ratio 0.8 (1.0-2.2) L 06/09/19 15:06 Lipase 25 U/L (22-51) 06/09/19 15:06 TSH 3.14 uIU/mL (0.34-5.60) 06/11/19 02:28 Urine Color YELLOW 06/09/19 21:25 Urine Clarity HAZY (CLEAR) 06/09/19 21:25 Urine pH 5.0 PH (5.0-7.5) 06/09/19 21:25 Ur Specific [place] >=1.030 (1.002-1.030) H 06/09/19 21:25 Urine Protein 100 mg/dL (NEGATIVE) H 06/09/19 21:25 Urine Glucose (UA) 500 mg/dL (NEGATIVE) H 06/09/19 21:25 Urine Ketones 15 mg/dL (NEGATIVE) H 06/09/19 21:25 Urine Occult Blood MODERATE (NEGATIVE) H 06/09/19 21:25 Urine Nitrite POSITIVE (NEGATIVE) H 06/09/19 21:25 Urine Bilirubin NEGATIVE (NEGATIVE) 06/09/19 21:25 Urine Urobilinogen 0.2 (NORMAL) E.U./dL (NORMAL) 06/09/19 21:25 Ur Leukocyte Esterase NEGATIVE (NEGATIVE) 06/09/19 21:25 Urine RBC 0-5 /HPF (0-5) 06/09/19 21:25 Urine WBC 4-5 /HPF (0-5) 06/09/19 21:25 Ur Squamous Epith Cells NONE SEEN (<= Few) 06/09/19 21:25 Amorphous Sediment Moderate /LPF 06/09/19 21:25 Urine Bacteria None Seen /HPF (None Seen) 06/09/19 21:25 Ur Microscopic Review INDICATED 06/09/19 21:25 Urine Culture Comments INDICATED 06/09/19 21:25 Nasal Screen MRSA (PCR) NEGATIVE (NEGATIVE) 06/09/19 17:14 Last Dose Date 06/10/19 06/10/19 17:35 Last Dose Time 1800 06/10/19 17:35 Random Vancomycin 8.9 ug/mL 06/10/19 17:35 Sepsis Event Note (H) - Evaluation Possible source of Sepsis: positive: Skin/soft tissue
[2019-06-11] MEDS: NYSTATIN POWDER 15 GM TOP SCH ×2 (10:28→21:33)
[2019-06-11] MEDS: HYDROcod/ACETAM 5/325 MG TABLET PO PRN ×2 (11:35→16:08)
[2019-06-11] MEDS: diltiaZEM CD 120 MG CAPSULE PO SCH ×2 (12:16→17:11)
[2019-06-11] MEDS: VANCOMYCIN INJ 2 GM in SODIUM CHLORIDE 0.9% 500 ML IV SCH (17:40)
[2019-06-11] MEDS: ATORVASTATIN 10 MG TABLET PO SCH (21:33)
[2019-06-11] MEDS: metFORMIN 500 MG TABLET PO SCH (21:33)
[2019-06-11] MEDS: DOXEPIN 25 MG CAPSULE PO SCH (21:35)
[2019-06-12] MEDS: SODIUM CHLORIDE FLUSH 0.9% 10 ML SYRINGE IVP SCH ×3 (00:07→18:08)
[2019-06-12] MEDS: HYDROcod/ACETAM 5/325 MG TABLET PO PRN ×3 (01:07→19:58)
[2019-06-12 05:08] LABS: BASOPHILS % (AUTO) 0.4 %; EOSINOPHILS % (AUTO) 1.1 %; HGB - HEMOGLOBIN 12.7 g/dL (12.0-16.0); LYMPHOCYTES % (AUTO) 10.8 %; MEAN CORPUSCULAR HEMOGLOBIN 33.7 pg (27.0-31.0); MEAN CORPUSCULAR HGB CONC 33.9 g/dL (32.0-36.0); MEAN CORPUSCULAR VOLUME 99.5 fL (81.0-99.0); MONOCYTES % (AUTO) 9.6 %; NEUTROPHILS % (AUTO) 76.9 %; PLT - PLATELET COUNT 126 10^3/uL (130-450); RED BLOOD COUNT 3.77 10^6/uL (4.20-5.40); RED CELL DISTRIBUTION WIDTH 12.8 % (12.0-15.0); WHITE BLOOD COUNT 12.2 x10^3/uL (4.8-10.8)
[2019-06-12 05:24] LABS: ABNORMAL LYMPHS % (MANUAL) 0 %
[2019-06-12 05:25] LABS: CALCIUM 8.5 mg/dL (8.5-10.3); CREATININE 0.9 mg/dL (0.4-1.0)
[2019-06-12 05:43] LABS: BAND NEUTROPHILS % (MANUAL) 3 %; DIFFERENTIAL COMMENT MANUAL DIFFERENTIAL; EOSINOPHILS # (MANUAL) 0.1 10^3/uL (0-0.7); LYMPHOCYTES % (MANUAL) 8 %; MONOCYTES # (MANUAL) 0.9 10^3/uL (0.0-1.0); PLATELET ESTIMATE, MANUAL DECREASED (<130,000) (NORMAL); RBC MORPHOLOGY (MULTIPLE) NORMAL APPEARANCE (NORMAL)
[2019-06-12] MEDS: NEUTRA-PHOS 250 MG TABLET PO SCH ×2 (06:40→09:25)
[2019-06-12] MEDS: LEVOTHYROXINE 100 MCG TABLET PO SCH (06:41)
[2019-06-12] MEDS: LEVOTHYROXINE 75 MCG TABLET PO SCH (06:45)
[2019-06-12] MEDS ORDERED: METOPROLOL SUCCINATE 50 MG TABLET PO SCH (08:00)
[2019-06-12] MEDS ORDERED: diltiaZEM CD 180 MG CAPSULE PO SCH (09:00)
[2019-06-12] MEDS: INSULIN ASPART 300 UNIT/3 ML PEN SUBQ SCH ×4 (09:07→21:54)
[2019-06-12] MEDS: CEFEPIME 2 GM in SODIUM CHLORIDE 0.9% MINIBAG 100 ML IV SCH (09:11)
[2019-06-12] MEDS: APIXABAN 5 MG TABLET PO SCH ×2 (09:24→21:53)
[2019-06-12] MEDS: diltiaZEM CD 240 MG CAPSULE PO SCH (09:25)
[2019-06-12] MEDS: ASPIRIN EC 81 MG TABLET PO SCH (09:25)
[2019-06-12] MEDS: metFORMIN 500 MG TABLET PO SCH ×2 (09:26→21:53)
[2019-06-12] MEDS: SODIUM CHLORIDE FLUSH 0.9% 10 ML SYRINGE IVP PRN (09:54)
[2019-06-12] MEDS: NYSTATIN POWDER 15 GM TOP SCH ×2 (10:12→21:56)
[2019-06-12] MEDS: POLYETHYLENE GLYCOL 3350 17 GM PACKET PO SCH (11:56)
[2019-06-12 17:42] LABS: VANCOMYCIN,TROUGH 14.4 ug/mL (10.0-20.0)
[2019-06-12] MEDS: VANCOMYCIN INJ 2 GM in SODIUM CHLORIDE 0.9% 500 ML IV SCH (18:03)
--- NOTE | 2019-06-12 18:41 | PROVIDER PROGRESS NOTE ---
Assessment/Plan - Problem List (1) Hypotension Assessment/Plan: BP drop to 52/44 was associated with lethargy and occurred several hours after her large doses of heart rate and blood pressure meds were given this morning. These were the doses that she was on at home. Over several hours the BP improved to 73/60, 88/49 and eventually 124/80. Her meds will have to be spread out throughout the day and not all administrated once. Since the blood pressure did stabilize, she may be moved out of the ICU, on t elemetry. (2) Gram-positive cocci bacteremia Assessment/Plan: Group G beta-hemolytic Streptococcus was identified. IV cefepime and iv Vanco started empirically changed to iv ceftriaxone (3) Cellulitis of left lower extremity Assessment/Plan: She feels that there has been improvement in the appearance of redness, swelling and and tenderness. Continue to treat with the medications for bacteremia. Continue gentle diuresis. Continue leg elevation (4) Atrial fibrillation with RVR Assessment/Plan: Heart rate is under good control but she has had minimal activity. Continue current medications: Maximum dose of metoprolol allowable, maximum dose of Cardizem allowable (5) Acute systolic heart failure Assessment/Plan: LVEF was 30% of the admission echo which is depressed from her last one. She is on beta-blockers and diuretics, no Spironolactone, KARYN or ARB because of low blood pressure plus the presentation with kidney injury (6) Acute non-ST elevation myocardial infarction (NSTEMI) Assessment/Plan: Patient probably had a type II myocardial infarction with demand ischemia given the significant tachycardia that was difficult to control along with hypotension at presentation causing coronary hypoperfusion. Patient was not a candidate for transfer for angiography because of her cellulit is plus bacteremia. She will need Cardiology follow-up and management as an outpatient. She has a Ca rdiologist. (7) DUGLAS (acute kidney injury) Assessment/Plan: Improved after rehydration earlier this admission. Follow BMP daily. (8) Diabetes mellitus with hyperglycemia Qualifiers: Diabetes mellitus type: type 2 (9) Hypothyroid Qualifiers: Hypothyroidism type: unspecified Qualified Code(s): E03.9 - Hypothyroidism, unspecified (10) Sepsis Qualifiers: Sepsis type: sepsis due to unspecified organism Qualified Code(s): A41.9 - Sepsis, unspecified organism - Current Meds Current Meds: Current Medications Generic Name Dose Route Start Last Admin Trade Name Freq PRN Reason Stop Dose Admin Hydrocodone Bitart/Acetaminophen 1 tab 06/09/19 16:09 06/12/19 09:22 [place] 5/325 PO 1 tab Q4HR PRN Administration Pain 5 to 7 Apixaban 5 mg 06/09/19 21:00 06/12/19 09:24 Eliquis PO 5 mg BID JACY Administration Aspirin 81 mg 06/10/19 09:00 06/12/19 09:25 Ecotrin PO 81 mg DAILY JACY Administration Atorvastatin Calcium 10 mg 06/09/19 21:00 06/11/19 21:33 Lipitor PO 10 mg QPM JACY Administration Diltiazem HCl 240 mg 06/12/19 09:00 06/12/19 09:25 Cardizem Cd PO 240 mg DAILY JACY Administration Doxepin HCl 75 mg 06/09/19 21:00 06/11/19 21:35 Sinequan PO 75 mg QPM JACY Administration Hydromorphone HCl 0.5 mg 06/09/19 16:09 06/09/19 23:24 Dilaudid Inj Syringe IVP 0.5 mg Q2H PRN Administration Pain 8 to 10 Vancomycin HCl 2 gm/ Sodium 500 mls @ 250 mls/hr 06/10/19 18:00 06/12/19 18:03 Chloride IV 250 mls/hr Q24H JACY Administration Cefepime HCl 2 gm/ Sodium 100 mls @ 200 mls/hr 06/10/19 04:00 06/12/19 09:41 Chloride IV Infused BID JACY Infusion Insulin Aspart 2 - 10 unit 06/10/19 08:00 06/12/19 17:57 Novolog SUBQ 6 unit 0800,1200,1700,2100 JACY Administration Protocol Levothyroxine Sodium 75 mcg 06/10/19 07:00 06/12/19 06:45 Synthroid PO 75 mcg QDAC JACY Administration Levothyroxine Sodium 200 mcg 06/10/19 07:00 06/12/19 06:41 Synthroid PO 200 mcg QDAC JACY Administration Metformin HCl 500 mg 06/11/19 21:00 06/12/19 09:26 Glucophage PO 500 mg BID JACY Administration Nystatin 1 applic 06/09/19 23:00 06/12/19 10:12 Nystop TOP 1 applic BID JACY Administration Polyethylene Glycol 17 gm 06/12/19 09:00 06/12/19 11:56 Miralax PO Not Given DAILY JACY Sodium Chloride 10 ml 06/09/19 17:00 06/12/19 18:08 Normal Saline Flush 0.9% IVP 10 ml 0100,0900,1700 JACY Administration Sodium Chloride 10 ml 06/09/19 16:09 06/12/19 09:54 Normal Saline Flush 0.9% IVP 10 ml PRN PRN Administration NEEDED PER PROVIDER ORDERS - Lab Result Fish Bone Diagrams: 06/14/19 08:30 06/14/19 08:30 - Additional Planning My Orders: My Active Orders 06/11/19 21:00 metFORMIN [Glucophage] 500 mg PO BID 06/12/19 09:00 Polyethylene Glycol 3350 [Miralax] 17 gm PO DAILY diltiaZEM CD [Cardizem Cd] 240 mg PO DAILY 06/12/19 09:40 CULTURE, BLOOD #1 [RM] Urgent 06/12/19 21:00 Insulin Aspart [NovoLOG] 3 - 11 unit SUBQ 0800,1200,1700,2100 06/13/19 05:00 BMP - BASIC METABOLIC PANEL [CHEM] DAILYLAB CBC - COMP BLD CT W/AUTO DIFF [HEME] DAILYLAB 06/13/19 09:00 Metoprolol Succinate [Toprol Xl] 100 mg PO BID 06/13/19 14:00 diltiaZEM CD [Cardizem Cd] 180 mg PO 1400 Subjective - Subjective Patient Reports: Fatigue Nursing Reports: Other (Her blood pressure dropped to 52/44 with heart rate 83, 1 hour after all her morning oral meds were given) Objective Vital Signs: Vital Signs - 24 hr 06/11/19 06/11/19 06/11/19 19:00 20:00 21:00 Temperature 36.7 C Heart Rate [ 126 H 108 H 97 Monitoring electrodes] Respiratory 18 18 20 Rate Blood Pressure 111/97 H 99/57 L 115/76 [Left Brachial artery] O2 Saturation 97 97 96 06/11/19 06/11/19 06/12/19 22:00 23:00 00:00 Temperature 36.5 C Heart Rate [ 96 95 97 Monitoring electrodes] Respiratory 20 22 23 Rate Blood Pressure 118/55 L 113/77 123/63 [Left Brachial artery] O2 Saturation 95 96 95 06/12/19 06/12/19 06/12/19 01:00 02:00 03:00 Temperature Heart Rate [ 111 H 84 96 Monitoring electrodes] Respiratory 23 19 19 Rate Blood Pressure 131/66 H 115/70 124/73 [Left Brachial artery] O2 Saturation 97 95 94 06/12/19 06/12/19 06/12/19 04:00 05:00 06:00 Temperature Heart Rate [ 91 120 H 92 Monitoring electrodes] Respiratory 20 17 21 Rate Blood Pressure 120/71 121/88 H 129/69 [Left Brachial artery] O2 Saturation 95 92 94 06/12/19 06/12/19 06/12/19 08:00 09:00 10:00 Temperature 36.9 C Heart Rate [ 119 H 122 H 113 H Monitoring electrodes] Respiratory 28 H 19 22 Rate Blood Pressure 139/97 H 126/68 [Left Brachial artery] O2 Saturation 97 96 14 L 06/12/19 06/12/19 06/12/19 11:00 12:00 13:00 Temperature 36.8 C Heart Rate [ 98 101 H 82 Monitoring electrodes] Respiratory 22 21 22 Rate Blood Pressure 114/71 103/55 L 55/42 L [Left Brachial artery] O2 Saturation 94 94 93 06/12/19 06/12/19 06/12/19 13:10 13:20 13:30 Temperature Heart Rate [ 81 80 81 Monitoring electrodes] Respiratory 21 Rate Blood Pressure 73/60 L 84/55 L 123/68 [Left Brachial artery] O2 Saturation 95 06/12/19 06/12/19 06/12/19 13:35 13:40 14:00 Temperature Heart Rate [ 85 Monitoring electrodes] Respiratory 22 Rate Blood Pressure 124/72 107/82 H 88/51 L [Left Brachial artery] O2 Saturation 94 06/12/19 06/12/19 06/12/19 14:05 14:10 14:18 Temperature Heart Rate [ 71 Monitoring electrodes] Respiratory 20 Rate Blood Pressure 105/77 118/75 118/75 [Left Brachial artery] O2 Saturation 93 06/12/19 06/12/19 06/12/19 14:30 16:14 17:00 Temperature 36.8 C Heart Rate [ 95 104 H Monitoring electrodes] Respiratory 23 26 H Rate Blood Pressure 112/82 H 120/88 H 105/72 [Left Brachial artery] O2 Saturation 95 Oxygen O2 Source Room air I&O (Last 24 Hrs): Intake and Output Totals x24h 06/10/19 06/11/19 06/12/19 23:59 23:59 23:59 Intake Total 6944.167 4627.834 1460 Output Total 630 1090 545 Balance 6314.167 3537.834 915 - Results Results: Laboratory Results WBC 12.2 x10^3/uL (4.8-10.8) H 06/12/19 04:35 RBC 3.77 10^6/uL (4.20-5.40) L 06/12/19 04:35 Hgb 12.7 g/dL (12.0-16.0) 06/12/19 04:35 Hct 37.5 % (37.0-47.0) 06/12/19 04:35 MCV 99.5 fL (81.0-99.0) H 06/12/19 04:35 MCH 33.7 pg (27.0-31.0) H 06/12/19 04:35 MCHC 33.9 g/dL (32.0-36.0) 06/12/19 04:35 RDW 12.8 % (12.0-15.0) 06/12/19 04:35 Plt Count 126 10^3/uL (130-450) L 06/12/19 04:35 MPV 11.0 fL (7.9-10.8) H 06/12/19 04:35 Neut # (Auto) Not Reportable 06/12/19 04:35 Lymph # (Auto) Not Reportable 06/12/19 04:35 [place] # (Auto) Not Reportable 06/12/19 04:35 Eos # (Auto) Not Reportable 06/12/19 04:35 Baso # (Auto) Not Reportable 06/12/19 04:35 Absolute Nucleated RBC Not Reportable 06/12/19 04:35 Total Counted 100 06/12/19 04:35 Band Neuts % (Manual) 3 % (0-10) 06/12/19 04:35 Abnorm Lymph % (Manual) 0 % 06/12/19 04:35 Nucleated RBC % Not Reportable 06/12/19 04:35 Neutrophils # (Manual) 10.2 10^3/uL (1.5-6.6) H 06/12/19 04:35 Lymphocytes # (Manual) 1.0 10^3/uL (1.5-3.5) L 06/12/19 04:35 Monocytes # (Manual) 0.9 10^3/uL (0.0-1.0) 06/12/19 04:35 Eosinophils # (Manual) 0.1 10^3/uL (0-0.7) 06/12/19 04:35 Basophils # (Manual) 0.0 10^3/uL (0-0.1) 06/12/19 04:35 Differential Comment MANUAL DIFFERENTIAL 06/12/19 04:35 Manual Slide Review Indicated 06/09/19 15:06 Platelet Estimate DECREASED (<130,000) (NORMAL) 06/12/19 04:35 Platelet Morphology NORMAL APPEARANCE (NORMAL) 06/09/19 15:06 RBC Morph Micro Appear NORMAL APPEARANCE (NORMAL) 06/12/19 04:35 Sodium 134 mmol/L (135-145) L 06/12/19 04:35 Potassium 4.2 mmol/L (3.5-5.0) 06/12/19 04:35 Chloride 104 mmol/L (101-111) 06/12/19 04:35 Carbon Dioxide 21 mmol/L (21-32) 06/12/19 04:35 Anion Gap 9.0 (6-13) 06/12/19 04:35 BUN 27 mg/dL (6-20) H 06/12/19 04:35 Creatinine 0.9 mg/dL (0.4-1.0) 06/12/19 04:35 Estimated GFR (MDRD) 62 (>89) L 06/12/19 04:35 Glucose 223 mg/dL (70-100) H 06/12/19 04:35 Glycated Hemoglobin 14.4 % (4.6-6.2) H 06/09/19 15:06 Estim Average Glucose 367 (70-100) H 06/09/19 15:06 Lactic Acid 1.6 mmol/L (0.5-2.2) 06/10/19 03:25 Calcium 8.5 mg/dL (8.5-10.3) 06/12/19 04:35 Phosphorus 2.0 mg/dL (2.5-4.6) L 06/12/19 04:35 Magnesium 2.0 mg/dL (1.7-2.8) 06/12/19 04:35 Total Bilirubin 1.2 mg/dL (0.2-1.0) H 06/09/19 15:06 AST 42 IU/L (10-42) 06/09/19 15:06 ALT 32 IU/L (10-60) 06/09/19 15:06 Alkaline Phosphatase 116 IU/L (42-121) 06/09/19 15:06 Troponin I 0.90 ng/mL (<0.49) H* 06/11/19 02:28 Total Protein 7.1 g/dL (6.7-8.2) 06/09/19 15:06 Albumin 3.2 g/dL (3.2-5.5) 06/09/19 15:06 Globulin 3.9 g/dL (2.1-4.2) 06/09/19 15:06 Albumin/Globulin Ratio 0.8 (1.0-2.2) L 06/09/19 15:06 Lipase 25 U/L (22-51) 06/09/19 15:06 TSH 3.14 uIU/mL (0.34-5.60) 06/11/19 02:28 Urine Color YELLOW 06/09/19 21:25 Urine Clarity HAZY (CLEAR) 06/09/19 21:25 Urine pH 5.0 PH (5.0-7.5) 06/09/19 21:25 Ur Specific [place] >=1.030 (1.002-1.030) H 06/09/19 21:25 Urine Protein 100 mg/dL (NEGATIVE) H 06/09/19 21:25 Urine Glucose (UA) 500 mg/dL (NEGATIVE) H 06/09/19 21:25 Urine Ketones 15 mg/dL (NEGATIVE) H 06/09/19 21:25 Urine Occult Blood MODERATE (NEGATIVE) H 06/09/19 21:25 Urine Nitrite POSITIVE (NEGATIVE) H 06/09/19 21:25 Urine Bilirubin NEGATIVE (NEGATIVE) 06/09/19 21:25 Urine Urobilinogen 0.2 (NORMAL) E.U./dL (NORMAL) 06/09/19 21:25 Ur Leukocyte Esterase NEGATIVE (NEGATIVE) 06/09/19 21:25 Urine RBC 0-5 /HPF (0-5) 06/09/19 21:25 Urine WBC 4-5 /HPF (0-5) 06/09/19 21:25 Ur Squamous Epith Cells NONE SEEN (<= Few) 06/09/19 21:25 Amorphous Sediment Moderate /LPF 06/09/19 21:25 Urine Bacteria None Seen /HPF (None Seen) 06/09/19 21:25 Ur Microscopic Review INDICATED 06/09/19 21:25 Urine Culture Comments INDICATED 06/09/19 21:25 Nasal Screen MRSA (PCR) NEGATIVE (NEGATIVE) 06/09/19 17:14 Last Dose Date 06/12/19 06/12/19 17:27 Last Dose Time 1800 06/12/19 17:27 Vancomycin Trough 14.4 ug/mL (10.0-20.0) 06/12/19 17:27 Random Vancomycin 8.9 ug/mL 06/10/19 17:35 Sepsis Event Note (H) - Evaluation Possible source of Sepsis: positive: Skin/soft tissue
[2019-06-12] MEDS ORDERED: SODIUM CHLORIDE FLUSH 0.9% 10 ML SYRINGE IVP PRN (20:34)
[2019-06-12] MEDS ORDERED: INSULIN ASPART 300 UNIT/3 ML PEN SUBQ SCH (21:00)
[2019-06-12] MEDS: DOXEPIN 25 MG CAPSULE PO SCH (21:53)
[2019-06-12] MEDS: ATORVASTATIN 10 MG TABLET PO SCH (21:53)
[2019-06-13] MEDS: HYDROcod/ACETAM 5/325 MG TABLET PO PRN ×3 (00:50→16:15)
[2019-06-13] MEDS: SODIUM CHLORIDE FLUSH 0.9% 10 ML SYRINGE IVP SCH ×3 (00:59→16:15)
[2019-06-13] MEDS ORDERED: BISACODYL 10 MG SUPP PR ONE (03:09)
[2019-06-13 06:00] LABS: BASOPHILS # (AUTO) 0.1 10^3/uL (0.0-0.1); BASOPHILS % (AUTO) 0.6 %; EOSINOPHILS # (AUTO) 0.1 10^3/uL (0.0-0.7); EOSINOPHILS % (AUTO) 1.1 %; HGB - HEMOGLOBIN 13.3 g/dL (12.0-16.0); LYMPHOCYTES # (AUTO) 1.4 10^3/uL (1.5-3.5); LYMPHOCYTES % (AUTO) 12.3 %; MEAN CORPUSCULAR HEMOGLOBIN 33.8 pg (27.0-31.0); MEAN CORPUSCULAR HGB CONC 34.5 g/dL (32.0-36.0); MEAN CORPUSCULAR VOLUME 97.7 fL (81.0-99.0); MEAN PLATELET VOLUME 10.3 fL (7.9-10.8); MONOCYTES # (AUTO) 1.5 10^3/uL (0.0-1.0); MONOCYTES % (AUTO) 13.1 %; NEUTROPHILS # (AUTO) 8.1 10^3/uL (1.5-6.6); PLT - PLATELET COUNT 149 10^3/uL (130-450); RED BLOOD COUNT 3.94 10^6/uL (4.20-5.40); RED CELL DISTRIBUTION WIDTH 12.7 % (12.0-15.0); WHITE BLOOD COUNT 11.4 x10^3/uL (4.8-10.8)
[2019-06-13 06:21] LABS: CALCIUM 8.6 mg/dL (8.5-10.3); CREATININE 0.9 mg/dL (0.4-1.0)
[2019-06-13] MEDS: LEVOTHYROXINE 100 MCG TABLET PO SCH (06:33)
[2019-06-13] MEDS: LEVOTHYROXINE 75 MCG TABLET PO SCH (06:33)
[2019-06-13] MEDS: INSULIN ASPART 300 UNIT/3 ML PEN SUBQ SCH ×4 (08:28→21:32)
[2019-06-13] MEDS: cefTRIAXone 2 GM in SODIUM CHLORIDE 0.9% MINIBAG 100 ML IV SCH (08:30)
[2019-06-13] MEDS: metFORMIN 500 MG TABLET PO SCH ×2 (08:30→21:49)
[2019-06-13] MEDS: DOCUSATE SODIUM 250 MG CAPSULE PO SCH (08:31)
[2019-06-13] MEDS: POLYETHYLENE GLYCOL 3350 17 GM PACKET PO SCH (08:31)
[2019-06-13] MEDS: SENNA 8.6 MG TABLET PO SCH (08:31)
[2019-06-13] MEDS: APIXABAN 5 MG TABLET PO SCH ×2 (08:31→21:29)
[2019-06-13] MEDS: METOPROLOL SUCCINATE 50 MG TABLET PO SCH ×2 (08:31→21:29)
[2019-06-13] MEDS: ASPIRIN EC 81 MG TABLET PO SCH (08:31)
[2019-06-13] MEDS: NYSTATIN POWDER 15 GM TOP SCH ×2 (08:32→21:29)
[2019-06-13] MEDS: diltiaZEM CD 240 MG CAPSULE PO SCH (10:21)
[2019-06-13] MEDS: diltiaZEM CD 180 MG CAPSULE PO SCH (14:33)
[2019-06-13] MEDS: SODIUM CHLORIDE FLUSH 0.9% 10 ML SYRINGE IVP PRN (16:15)
--- NOTE | 2019-06-13 16:37 | PROVIDER PROGRESS NOTE ---
Assessment/Plan - Problem List (1) Hypotension Assessment/Plan: Patient's shock improved after rehydration and she became 8 L positive. As her heart rate slowing meds are being increased, she is again developing "soft" blood pressure. Continue to decrease the diltiazem, to allow resumption of her home medications (2) Cellulitis of left lower extremity Assessment/Plan: Patient feels slightly better since antibiotics were started. Continue with leg elevation.and antibiotics (3) Atrial fibrillation with RVR Assessment/Plan: Heart rate is under adequate control with diltiazem drip. We will start resuming her home meds. Her anticoagulation continues as at home (4) Acute systolic heart failure Assessment/Plan: LVEF is 30% on echo done in admission which is a new depressed EF. She is on beta-blockers and loop diuretics, no Spironolactone, KARYN or ARB because of continued hypotension becaiuse of kidney injury at admission (5) Acute non-ST elevation myocardial infarction (NSTEMI) Assessment/Plan: This was probably a type B myocardial infarction from demand ischemia from the rapid heart rate and also worsened by having hypotension and coronary hypoperfusion. She was not a catheterization candidate because of the active infection. Continue with medical management for now. Follow-up with her Obstetrics Nurse after discharge (6) DUGLAS (acute kidney injury) Assessment/Plan: This improved after rehydration. Follow BMP daily (7) Diabetes mellitus with hyperglycemia Qualifiers: Diabetes mellitus type: type 2 Assessment/Plan: She is on a carb controlled diet, insulin plus sliding scale, (8) Hypothyroid Qualifiers: Hypothyroidism type: unspecified Qualified Code(s): E03.9 - Hypothyroidism, unspecified Assessment/Plan: She is on her home dose of thyroid medicine while (9) Sepsis Qualifiers: Sepsis type: sepsis due to unspecified organism Qualified Code(s): A41.9 - Sepsis, unspecified organism Assessment/Plan: Resolved - Current Meds Current Meds: Current Medications Generic Name Dose Route Start Last Admin Trade Name Freq PRN Reason Stop Dose Admin Hydrocodone Bitart/Acetaminophen 1 tab 06/09/19 16:09 06/13/19 16:15 [place] 5/325 PO 1 tab Q4HR PRN Administration Pain 5 to 7 Apixaban 5 mg 06/09/19 21:00 06/13/19 08:31 Eliquis PO 5 mg BID JACY Administration Aspirin 81 mg 06/10/19 09:00 06/13/19 08:31 Ecotrin PO 81 mg DAILY JACY Administration Atorvastatin Calcium 10 mg 06/09/19 21:00 06/12/19 21:53 Lipitor PO 10 mg QPM JACY Administration Diltiazem HCl 240 mg 06/12/19 09:00 06/13/19 10:21 Cardizem Cd PO 240 mg DAILY JACY Administration Diltiazem HCl 180 mg 06/13/19 14:00 06/13/19 14:33 Cardizem Cd PO 180 mg 1400 JACY Administration Docusate Sodium 250 - 500 mg 06/13/19 09:00 06/13/19 08:31 Colace 250mg Capsule PO 500 mg DAILY JACY Administration Doxepin HCl 75 mg 06/09/19 21:00 06/12/19 21:53 Sinequan PO 75 mg QPM JACY Administration Hydromorphone HCl 0.5 mg 06/09/19 16:09 06/09/19 23:24 Dilaudid Inj Syringe IVP 0.5 mg Q2H PRN Administration Pain 8 to 10 Ceftriaxone Sodium 2 gm/ 100 mls @ 200 mls/hr 06/13/19 09:00 06/13/19 09:24 Sodium Chloride IV Infused DAILY JACY Infusion Insulin Aspart 3 - 11 unit 06/12/19 21:00 06/13/19 11:56 Novolog SUBQ 5 unit 0800,1200,1700,2100 JACY Administration Protocol Levothyroxine Sodium 75 mcg 06/10/19 07:00 06/13/19 06:33 Synthroid PO 75 mcg QDAC JACY Administration Levothyroxine Sodium 200 mcg 06/10/19 07:00 06/13/19 06:33 Synthroid PO 200 mcg QDAC JACY Administration Metformin HCl 500 mg 06/11/19 21:00 06/13/19 08:30 Glucophage PO 500 mg BID JACY Administration Metoprolol Succinate 100 mg 06/13/19 09:00 06/13/19 08:31 Toprol Xl PO 100 mg BID JACY Administration Nystatin 1 applic 06/09/19 23:00 06/13/19 08:32 Nystop TOP 1 applic BID JACY Administration Polyethylene Glycol 17 gm 06/12/19 09:00 06/13/19 08:31 Miralax PO 17 gm DAILY JACY Administration Senna 8.6 - 17.2 mg 06/13/19 09:00 06/13/19 08:31 Senokot PO 17.2 mg DAILY JACY Administration Sodium Chloride 10 ml 06/09/19 17:00 06/13/19 16:15 Normal Saline Flush 0.9% IVP 10 ml 0100,0900,1700 JACY Administration Sodium Chloride 10 ml 06/09/19 16:09 06/13/19 16:15 Normal Saline Flush 0.9% IVP 10 ml PRN PRN Administration NEEDED PER PROVIDER ORDERS Sodium Chloride 20 ml 06/12/19 20:34 06/12/19 20:36 Normal Saline Flush 0.9% IVP 20 ml PRN PRN Administration After Blood Draw - Lab Result Fish Bone Diagrams: 06/14/19 08:30 06/14/19 08:30 - Additional Planning My Orders: My Active Orders 06/12/19 20:34 Sodium Chloride Flush 0.9% [Normal Saline Flush 0.9%] 20 ml IVP PRN PRN 06/12/19 21:00 Insulin Aspart [NovoLOG] 3 - 11 unit SUBQ 0800,1200,1700,2100 06/13/19 09:00 Docusate Sodium 250Mg Capsule [Colace 250Mg Capsule] 250 - 500 mg PO DAILY Metoprolol Succinate [Toprol Xl] 100 mg PO BID Senna [Senokot] 8.6 - 17.2 mg PO DAILY cefTRIAXone [Rocephin] 2 gm Sodium Chloride 0.9% Minibag [Normal Saline 0.9% Minibag] 100 ml IV DAILY 06/13/19 14:00 diltiaZEM CD [Cardizem Cd] 180 mg PO 1400 Subjective - Subjective Patient Reports: Feeling Better, Resting Comfortably Objective Vital Signs: Vital Signs - 24 hr 06/12/19 06/12/19 06/12/19 17:00 19:15 21:20 Temperature 36.5 C 36.6 C Heart Rate [ 99 108 H Brachial] Heart Rate [ 104 H Monitoring electrodes] Respiratory 26 H 20 22 Rate Blood Pressure 105/72 116/75 120/67 [Left Brachial artery] O2 Saturation 96 94 06/13/19 06/13/19 06/13/19 00:46 05:00 08:39 Temperature 36.4 C L 36.5 C 36.6 C Heart Rate [ 111 H 113 H 109 H Brachial] Heart Rate [ Monitoring electrodes] Respiratory 20 18 18 Rate Blood Pressure 125/66 121/57 L 101/72 [Left Brachial artery] O2 Saturation 94 96 94 06/13/19 06/13/19 11:57 16:03 Temperature 36.5 C 36.3 C L Heart Rate [ 97 85 Brachial] Heart Rate [ Monitoring electrodes] Respiratory 20 18 Rate Blood Pressure 122/68 115/58 L [Left Brachial artery] O2 Saturation 95 95 Oxygen O2 Source Room air I&O (Last 24 Hrs): Intake and Output Totals x24h 06/11/19 06/12/19 06/13/19 23:59 23:59 23:59 Intake Total 4627.834 2360 707 Output Total 1090 545 Balance 3537.834 1815 707 General: Alert, Oriented x3 HEENT: Mucous membr. moist/pink, Other (Bilateral leg lag with probable exophthalmos) Neck: Supple Neuro: Non Focal Cardiovascular: Regular rate, No murmurs Respiratory: No respiratory distress Abdomen: Soft, Other (Obese with pannus) Extremities: Other (2+ edema of the thighs, 1+ edema of both shins, marked redness of the left lower extremity with continued warmth but no tenderness) - Results Results: Laboratory Results WBC 11.4 x10^3/uL (4.8-10.8) H 06/13/19 05:47 RBC 3.94 10^6/uL (4.20-5.40) L 06/13/19 05:47 Hgb 13.3 g/dL (12.0-16.0) 06/13/19 05:47 Hct 38.5 % (37.0-47.0) 06/13/19 05:47 MCV 97.7 fL (81.0-99.0) 06/13/19 05:47 MCH 33.8 pg (27.0-31.0) H 06/13/19 05:47 MCHC 34.5 g/dL (32.0-36.0) 06/13/19 05:47 RDW 12.7 % (12.0-15.0) 06/13/19 05:47 Plt Count 149 10^3/uL (130-450) 06/13/19 05:47 MPV 10.3 fL (7.9-10.8) 06/13/19 05:47 Neut # (Auto) 8.1 10^3/uL (1.5-6.6) H 06/13/19 05:47 Lymph # (Auto) 1.4 10^3/uL (1.5-3.5) L 06/13/19 05:47 [place] # (Auto) 1.5 10^3/uL (0.0-1.0) H 06/13/19 05:47 Eos # (Auto) 0.1 10^3/uL (0.0-0.7) 06/13/19 05:47 Baso # (Auto) 0.1 10^3/uL (0.0-0.1) 06/13/19 05:47 Absolute Nucleated RBC 0.00 x10^3/uL 06/13/19 05:47 Total Counted 100 06/12/19 04:35 Band Neuts % (Manual) 3 % (0-10) 06/12/19 04:35 Abnorm Lymph % (Manual) 0 % 06/12/19 04:35 Nucleated RBC % 0.0 /100WBC 06/13/19 05:47 Neutrophils # (Manual) 10.2 10^3/uL (1.5-6.6) H 06/12/19 04:35 Lymphocytes # (Manual) 1.0 10^3/uL (1.5-3.5) L 06/12/19 04:35 Monocytes # (Manual) 0.9 10^3/uL (0.0-1.0) 06/12/19 04:35 Eosinophils # (Manual) 0.1 10^3/uL (0-0.7) 06/12/19 04:35 Basophils # (Manual) 0.0 10^3/uL (0-0.1) 06/12/19 04:35 Differential Comment MANUAL DIFFERENTIAL 06/12/19 04:35 Manual Slide Review Indicated 06/09/19 15:06 Platelet Estimate DECREASED (<130,000) (NORMAL) 06/12/19 04:35 Platelet Morphology NORMAL APPEARANCE (NORMAL) 06/09/19 15:06 RBC Morph Micro Appear NORMAL APPEARANCE (NORMAL) 06/12/19 04:35 Sodium 135 mmol/L (135-145) 06/13/19 05:47 Potassium 4.1 mmol/L (3.5-5.0) 06/13/19 05:47 Chloride 101 mmol/L (101-111) 06/13/19 05:47 Carbon Dioxide 22 mmol/L (21-32) 06/13/19 05:47 Anion Gap 12.0 (6-13) 06/13/19 05:47 BUN 22 mg/dL (6-20) H 06/13/19 05:47 Creatinine 0.9 mg/dL (0.4-1.0) 06/13/19 05:47 Estimated GFR (MDRD) 62 (>89) L 06/13/19 05:47 Glucose 168 mg/dL (70-100) H 06/13/19 05:47 Glycated Hemoglobin 14.4 % (4.6-6.2) H 06/09/19 15:06 Estim Average Glucose 367 (70-100) H 06/09/19 15:06 Lactic Acid 1.6 mmol/L (0.5-2.2) 06/10/19 03:25 Calcium 8.6 mg/dL (8.5-10.3) 06/13/19 05:47 Phosphorus 2.0 mg/dL (2.5-4.6) L 06/12/19 04:35 Magnesium 2.0 mg/dL (1.7-2.8) 06/12/19 04:35 Total Bilirubin 1.2 mg/dL (0.2-1.0) H 06/09/19 15:06 AST 42 IU/L (10-42) 06/09/19 15:06 ALT 32 IU/L (10-60) 06/09/19 15:06 Alkaline Phosphatase 116 IU/L (42-121) 06/09/19 15:06 Troponin I 0.90 ng/mL (<0.49) H* 06/11/19 02:28 Total Protein 7.1 g/dL (6.7-8.2) 06/09/19 15:06 Albumin 3.2 g/dL (3.2-5.5) 06/09/19 15:06 Globulin 3.9 g/dL (2.1-4.2) 06/09/19 15:06 Albumin/Globulin Ratio 0.8 (1.0-2.2) L 06/09/19 15:06 Lipase 25 U/L (22-51) 06/09/19 15:06 TSH 3.14 uIU/mL (0.34-5.60) 06/11/19 02:28 Urine Color YELLOW 06/09/19 21:25 Urine Clarity HAZY (CLEAR) 06/09/19 21:25 Urine pH 5.0 PH (5.0-7.5) 06/09/19 21:25 Ur Specific [place] >=1.030 (1.002-1.030) H 06/09/19 21:25 Urine Protein 100 mg/dL (NEGATIVE) H 06/09/19 21:25 Urine Glucose (UA) 500 mg/dL (NEGATIVE) H 06/09/19 21:25 Urine Ketones 15 mg/dL (NEGATIVE) H 06/09/19 21:25 Urine Occult Blood MODERATE (NEGATIVE) H 06/09/19 21:25 Urine Nitrite POSITIVE (NEGATIVE) H 06/09/19 21:25 Urine Bilirubin NEGATIVE (NEGATIVE) 06/09/19 21:25 Urine Urobilinogen 0.2 (NORMAL) E.U./dL (NORMAL) 06/09/19 21:25 Ur Leukocyte Esterase NEGATIVE (NEGATIVE) 06/09/19 21:25 Urine RBC 0-5 /HPF (0-5) 06/09/19 21:25 Urine WBC 4-5 /HPF (0-5) 06/09/19 21:25 Ur Squamous Epith Cells NONE SEEN (<= Few) 06/09/19 21:25 Amorphous Sediment Moderate /LPF 06/09/19 21:25 Urine Bacteria None Seen /HPF (None Seen) 06/09/19 21:25 Ur Microscopic Review INDICATED 06/09/19 21:25 Urine Culture Comments INDICATED 06/09/19 21:25 Nasal Screen MRSA (PCR) NEGATIVE (NEGATIVE) 06/09/19 17:14 Last Dose Date 06/12/19 06/12/19 17:27 Last Dose Time 1800 06/12/19 17:27 Vancomycin Trough 14.4 ug/mL (10.0-20.0) 06/12/19 17:27 Random Vancomycin 8.9 ug/mL 06/10/19 17:35 Sepsis Event Note (H) - Evaluation Possible source of Sepsis: positive: Skin/soft tissue
[2019-06-13] MEDS: DOXEPIN 25 MG CAPSULE PO SCH (21:28)
[2019-06-13] MEDS: ATORVASTATIN 10 MG TABLET PO SCH (21:29)
[2019-06-14] MEDS: SODIUM CHLORIDE FLUSH 0.9% 10 ML SYRINGE IVP SCH ×3 (05:54→22:31)
[2019-06-14] MEDS: LEVOTHYROXINE 100 MCG TABLET PO SCH (05:56)
[2019-06-14] MEDS: LEVOTHYROXINE 75 MCG TABLET PO SCH (05:57)
[2019-06-14] MEDS: HYDROcod/ACETAM 5/325 MG TABLET PO PRN ×3 (07:45→16:30)
[2019-06-14] MEDS ORDERED: MAGNESIUM HYDROXIDE 2,400 MG/30 ML UDC PO SCH (08:29)
[2019-06-14] MEDS: METOPROLOL SUCCINATE 50 MG TABLET PO SCH ×2 (08:51→21:10)
[2019-06-14] MEDS: DOCUSATE SODIUM 250 MG CAPSULE PO SCH (08:51)
[2019-06-14] MEDS: ASPIRIN EC 81 MG TABLET PO SCH (08:51)
[2019-06-14] MEDS: SENNA 8.6 MG TABLET PO SCH (08:51)
[2019-06-14] MEDS: diltiaZEM CD 240 MG CAPSULE PO SCH (08:51)
[2019-06-14] MEDS: POLYETHYLENE GLYCOL 3350 17 GM PACKET PO SCH (08:51)
[2019-06-14] MEDS: NYSTATIN POWDER 15 GM TOP SCH ×2 (08:52→21:17)
[2019-06-14] MEDS: cefTRIAXone 2 GM in SODIUM CHLORIDE 0.9% MINIBAG 100 ML IV SCH (08:52)
[2019-06-14] MEDS: APIXABAN 5 MG TABLET PO SCH ×2 (08:52→21:10)
[2019-06-14] MEDS: INSULIN ASPART 300 UNIT/3 ML PEN SUBQ SCH ×4 (08:55→21:16)
[2019-06-14 09:14] LABS: BASOPHILS # (AUTO) 0.1 10^3/uL (0.0-0.1); BASOPHILS % (AUTO) 0.6 %; EOSINOPHILS # (AUTO) 0.1 10^3/uL (0.0-0.7); EOSINOPHILS % (AUTO) 1.2 %; HGB - HEMOGLOBIN 13.1 g/dL (12.0-16.0); LYMPHOCYTES # (AUTO) 1.6 10^3/uL (1.5-3.5); LYMPHOCYTES % (AUTO) 13.6 %; MEAN CORPUSCULAR HEMOGLOBIN 32.3 pg (27.0-31.0); MEAN CORPUSCULAR HGB CONC 33.2 g/dL (32.0-36.0); MEAN PLATELET VOLUME 10.3 fL (7.9-10.8); MONOCYTES # (AUTO) 1.6 10^3/uL (0.0-1.0); MONOCYTES % (AUTO) 13.9 %; NEUTROPHILS # (AUTO) 7.5 10^3/uL (1.5-6.6); NEUTROPHILS % (AUTO) 64.5 %; PLT - PLATELET COUNT 192 10^3/uL (130-450); RED BLOOD COUNT 4.06 10^6/uL (4.20-5.40); RED CELL DISTRIBUTION WIDTH 13.1 % (12.0-15.0); WHITE BLOOD COUNT 11.6 x10^3/uL (4.8-10.8)
[2019-06-14 09:18] LABS: CALCIUM 8.8 mg/dL (8.5-10.3); CREATININE 0.9 mg/dL (0.4-1.0)
[2019-06-14 09:43] LABS: PLATELET ESTIMATE, MANUAL NORMAL (130-450,000) (NORMAL); PLATELET MORPHOLOGY NORMAL APPEARANCE (NORMAL); RBC MORPHOLOGY (MULTIPLE) NORMAL APPEARANCE (NORMAL)
[2019-06-14] MEDS: metFORMIN 500 MG TABLET PO SCH ×2 (10:32→21:16)
[2019-06-14] MEDS ORDERED: DIGOXIN 500 MCG/2 ML AMP IVP SCH (12:57)
--- NOTE | 2019-06-14 12:59 | PROVIDER PROGRESS NOTE ---
Assessment/Plan - Problem List (1) Bacteremia due to group B Streptococcus Assessment/Plan: The source is her left leg cellulitis. Patient completed several days of empiric iv Cefepime and iv Vancomycin, then wound cultures and sensitivities returned, antibiotics were changed to IV Ceftriaxone and she had 4 days of this. Will next plan Clindamycin 400 mg p.o. qid for 10 more days (since Clindamycin orally has a 90% Bioavailabity). She will need follow-up by her PCP after discharge (2) Cellulitis of left lower extremity Assessment/Plan: Slight pain in the cellulitic leg but also bilateral knee pain has made it hard for her to participate in physical therapy. Today she decided not to be transferred to SNF, wants further conditioning at home. Physical therapy states she is a candidate for home health PT, which I ordered it for referral today. Possibly she will be ready for discharge tomorrow, to ther home, if all the equipment is in place. (3) Hypotension Assessment/Plan: This patient has had "soft" blood pressures ever since she was restarted on her home doses of metoprolol and Cardizem which are both at maximum doses. These 2 medications had to be spread out in order to avoid hypotension. Today I added Dig for further rate control (see below) (4) Atrial fibrillation with RVR Assessment/Plan: Patient has had a history of prior A. fib with RVR. When I first met her she said that her heart rate at its best is about 101. She required Diltiazem IV drip in the ICU which was titrated down and her p.o. meds were resumed, when her septic shock improved. Ordering her medicines as they were listed as being given at home, created marked hypotension, with blood pressures of 50 systolic and she was somnolent with this. Therefore I had to spread out her very high Metoprolol and Cardizem doses, which are both at maximum allowable dosing pre-hospitalization, to avoid hypotension. During physical therapy today, just walking in the room raise her heart rate to 126. I have therefore added Digoxin IV x1 today and will start Digoxin orally daily for better heart rate control, both here and at home. This would mean that she needs Dig levels checked intermittently since she is on diuretics and could get dig toxic if she gets renal failure (5) Acute systolic heart failure Assessment/Plan: Part of her presentation with hypotension was considered to be due to cardiogenic shock since she has a new depressed LVEF of 30%. In considering the above A. fib with RVR, she may have developed a cardiomyopathy from tachycardia-induced. She is on maximum dose of beta-blockers, continues to be on diuretics and spironolactone has been started (6) Acute non-ST elevation myocardial infarction (NSTEMI) Assessment/Plan: Patient probably had a type II myocardial infarction with demand ischemia given the significant tachycardia that was difficult to control along with hypotension at presentation causing coronary hypoperfusion. Patient was not a candidate for transfer for angiography because of her cellulitis plus bacteremia. Patient should have Cardiology follow-up and management as an outpatient. (7) DUGLAS (acute kidney injury) Assessment/Plan: Improved with rehydration and then with better blood pressure for organ perfusion (8) Diabetes mellitus with hyperglycemia Qualifiers: Diabetes mellitus type: type 2 Assessment/Plan: She is on a carb controlled diet, insulin plus sliding scale coverage per (9) Hypothyroid Qualifiers: Hypothyroidism type: unspecified Qualified Code(s): E03.9 - Hypothyroidism, unspecified Assessment/Plan: She is on her home thyroid replacement medicine while here (10) Sepsis Qualifiers: Sepsis type: sepsis due to unspecified organism Qualified Code(s): A41.9 - Sepsis, unspecified organism Assessment/Plan: Resolved - Current Meds Current Meds: Current Medications Generic Name Dose Route Start Last Admin Trade Name Freq PRN Reason Stop Dose Admin Hydrocodone Bitart/Acetaminophen 1 tab 06/09/19 16:09 06/14/19 07:45 Inlet 5/325 PO 1 tab Q4HR PRN Administration Pain 5 to 7 Apixaban 5 mg 06/09/19 21:00 06/14/19 08:52 Eliquis PO 5 mg BID JACY Administration Aspirin 81 mg 06/10/19 09:00 06/14/19 08:51 Ecotrin PO 81 mg DAILY JACY Administration Atorvastatin Calcium 10 mg 06/09/19 21:00 06/13/19 21:29 Lipitor PO 10 mg QPM JACY Administration Diltiazem HCl 240 mg 06/12/19 09:00 06/14/19 08:51 Cardizem Cd PO 240 mg DAILY JACY Administration Diltiazem HCl 180 mg 06/13/19 14:00 06/13/19 14:33 Cardizem Cd PO 180 mg 1400 JACY Administration Docusate Sodium 250 - 500 mg 06/13/19 09:00 06/14/19 08:51 Colace 250mg Capsule PO 500 mg DAILY JACY Administration Doxepin HCl 75 mg 06/09/19 21:00 06/13/19 21:28 Sinequan PO 75 mg QPM JACY Administration Hydromorphone HCl 0.5 mg 06/09/19 16:09 06/09/19 23:24 Dilaudid Inj Syringe IVP 0.5 mg Q2H PRN Administration Pain 8 to 10 Ceftriaxone Sodium 2 gm/ 100 mls @ 200 mls/hr 06/13/19 09:00 06/14/19 09:26 Sodium Chloride IV 06/14/19 23:00 Infused DAILY JACY Infusion Insulin Aspart 3 - 11 unit 06/12/19 21:00 06/14/19 12:37 Novolog SUBQ 7 unit 0800,1200,1700,2100 JACY Administration Protocol Levothyroxine Sodium 75 mcg 06/10/19 07:00 06/14/19 05:57 Synthroid PO 75 mcg QDAC JACY Administration Levothyroxine Sodium 200 mcg 06/10/19 07:00 06/14/19 05:56 Synthroid PO 200 mcg QDAC JACY Administration Metformin HCl 500 mg 06/11/19 21:00 06/14/19 10:32 Glucophage PO 500 mg BID JACY Administration Metoprolol Succinate 100 mg 06/13/19 09:00 06/14/19 08:51 Toprol Xl PO 100 mg BID JACY Administration Nystatin 1 applic 06/09/19 23:00 06/14/19 08:52 Nystop TOP 1 applic BID JACY Administration Polyethylene Glycol 17 gm 06/12/19 09:00 06/14/19 08:51 Miralax PO 17 gm DAILY JACY Administration Senna 8.6 - 17.2 mg 06/13/19 09:00 06/14/19 08:51 Senokot PO 17.2 mg DAILY JACY Administration Sodium Chloride 10 ml 06/09/19 17:00 06/14/19 08:52 Normal Saline Flush 0.9% IVP 10 ml 0100,0900,1700 JACY Administration Sodium Chloride 10 ml 06/09/19 16:09 06/13/19 16:15 Normal Saline Flush 0.9% IVP 10 ml PRN PRN Administration NEEDED PER PROVIDER ORDERS Sodium Chloride 20 ml 06/12/19 20:34 06/12/19 20:36 Normal Saline Flush 0.9% IVP 20 ml PRN PRN Administration After Blood Draw - Lab Result Fish Bone Diagrams: 06/14/19 08:30 06/14/19 08:30 - Additional Planning My Orders: My Active Orders 06/13/19 14:00 diltiaZEM CD [Cardizem Cd] 180 mg PO 1400 06/14/19 12:57 Digoxin Inj [Lanoxin Inj] 250 mcg IVP ONCE ONE 06/15/19 08:00 Digoxin [Lanoxin] 125 mcg PO MOWEFR 06/15/19 09:00 Clindamycin [Cleocin] 450 mg PO QID Subjective - Subjective Patient Reports: Feeling Better Nursing Reports: Other (The patient reported to me and physical therapy that she does not wish to go to SNF, her is preparing the house and getting a new walker) Objective Vital Signs: Vital Signs - 24 hr 06/13/19 06/13/19 06/14/19 16:03 21:00 00:25 Temperature 36.3 C L 36.7 C 36.4 C L Heart Rate [ 85 Brachial] Heart Rate [ 104 H 111 H Monitoring electrodes] Respiratory 18 16 20 Rate Blood Pressure 115/58 L 130/69 124/49 L [Left Brachial artery] O2 Saturation 95 97 95 06/14/19 06/14/19 05:00 09:00 Temperature 36.8 C 36.5 C Heart Rate [ 106 H 104 H Brachial] Heart Rate [ Monitoring electrodes] Respiratory 20 18 Rate Blood Pressure 106/53 L 115/71 [Left Brachial artery] O2 Saturation 97 93 Oxygen O2 Source Room air I&O (Last 24 Hrs): Intake and Output Totals x24h 06/12/19 06/13/19 06/14/19 23:59 23:59 23:59 Intake Total 2360 1357 606 Output Total 545 660 Balance 1815 697 606 General: Alert, Oriented x3 HEENT: Other (Bilateral lid lag and probable exophthalmos) Neuro: Non Focal Cardiovascular: Regular rate, No murmurs Respiratory: No respiratory distress, Breath sounds nml Abdomen: Soft, Other (Obese with pannus) Extremities: Other (2+ edema of the inner medial thigh, trace edema of the right lower extremity, 2+ edema with marked dependant redness of the left lower extremity) - Results Results: Laboratory Results WBC 11.6 x10^3/uL (4.8-10.8) H 06/14/19 08:30 RBC 4.06 10^6/uL (4.20-5.40) L 06/14/19 08:30 Hgb 13.1 g/dL (12.0-16.0) 06/14/19 08:30 Hct 39.4 % (37.0-47.0) 06/14/19 08:30 MCV 97.0 fL (81.0-99.0) 06/14/19 08:30 MCH 32.3 pg (27.0-31.0) H 06/14/19 08:30 MCHC 33.2 g/dL (32.0-36.0) 06/14/19 08:30 RDW 13.1 % (12.0-15.0) 06/14/19 08:30 Plt Count 192 10^3/uL (130-450) 06/14/19 08:30 MPV 10.3 fL (7.9-10.8) 06/14/19 08:30 Neut # (Auto) 7.5 10^3/uL (1.5-6.6) H 06/14/19 08:30 Lymph # (Auto) 1.6 10^3/uL (1.5-3.5) 06/14/19 08:30 Keith # (Auto) 1.6 10^3/uL (0.0-1.0) H 06/14/19 08:30 Eos # (Auto) 0.1 10^3/uL (0.0-0.7) 06/14/19 08:30 Baso # (Auto) 0.1 10^3/uL (0.0-0.1) 06/14/19 08:30 Absolute Nucleated RBC 0.02 x10^3/uL 06/14/19 08:30 Total Counted 100 06/12/19 04:35 Band Neuts % (Manual) 3 % (0-10) 06/12/19 04:35 Abnorm Lymph % (Manual) 0 % 06/12/19 04:35 Nucleated RBC % 0.2 /100WBC 06/14/19 08:30 Neutrophils # (Manual) 10.2 10^3/uL (1.5-6.6) H 06/12/19 04:35 Lymphocytes # (Manual) 1.0 10^3/uL (1.5-3.5) L 06/12/19 04:35 Monocytes # (Manual) 0.9 10^3/uL (0.0-1.0) 06/12/19 04:35 Eosinophils # (Manual) 0.1 10^3/uL (0-0.7) 06/12/19 04:35 Basophils # (Manual) 0.0 10^3/uL (0-0.1) 06/12/19 04:35 Differential Comment MANUAL DIFFERENTIAL 06/12/19 04:35 Manual Slide Review Indicated 06/14/19 08:30 Platelet Estimate NORMAL (130-450,000) (NORMAL) 06/14/19 08:30 Platelet Morphology NORMAL APPEARANCE (NORMAL) 06/14/19 08:30 RBC Morph Micro Appear NORMAL APPEARANCE (NORMAL) 06/14/19 08:30 Sodium 135 mmol/L (135-145) 06/14/19 08:30 Potassium 4.0 mmol/L (3.5-5.0) 06/14/19 08:30 Chloride 102 mmol/L (101-111) 06/14/19 08:30 Carbon Dioxide 22 mmol/L (21-32) 06/14/19 08:30 Anion Gap 11.0 (6-13) 06/14/19 08:30 BUN 20 mg/dL (6-20) 06/14/19 08:30 Creatinine 0.9 mg/dL (0.4-1.0) 06/14/19 08:30 Estimated GFR (MDRD) 62 (>89) L 06/14/19 08:30 Glucose 228 mg/dL (70-100) H 06/14/19 08:30 Glycated Hemoglobin 14.4 % (4.6-6.2) H 06/09/19 15:06 Estim Average Glucose 367 (70-100) H 06/09/19 15:06 Lactic Acid 1.6 mmol/L (0.5-2.2) 06/10/19 03:25 Calcium 8.8 mg/dL (8.5-10.3) 06/14/19 08:30 Phosphorus 2.0 mg/dL (2.5-4.6) L 06/12/19 04:35 Magnesium 2.0 mg/dL (1.7-2.8) 06/12/19 04:35 Total Bilirubin 1.2 mg/dL (0.2-1.0) H 06/09/19 15:06 AST 42 IU/L (10-42) 06/09/19 15:06 ALT 32 IU/L (10-60) 06/09/19 15:06 Alkaline Phosphatase 116 IU/L (42-121) 06/09/19 15:06 Troponin I 0.90 ng/mL (<0.49) H* 06/11/19 02:28 Total Protein 7.1 g/dL (6.7-8.2) 06/09/19 15:06 Albumin 3.2 g/dL (3.2-5.5) 06/09/19 15:06 Globulin 3.9 g/dL (2.1-4.2) 06/09/19 15:06 Albumin/Globulin Ratio 0.8 (1.0-2.2) L 06/09/19 15:06 Lipase 25 U/L (22-51) 06/09/19 15:06 TSH 3.14 uIU/mL (0.34-5.60) 06/11/19 02:28 Urine Color YELLOW 06/09/19 21:25 Urine Clarity HAZY (CLEAR) 06/09/19 21:25 Urine pH 5.0 PH (5.0-7.5) 06/09/19 21:25 Ur Specific [place] >=1.030 (1.002-1.030) H 06/09/19 21:25 Urine Protein 100 mg/dL (NEGATIVE) H 06/09/19 21:25 Urine Glucose (UA) 500 mg/dL (NEGATIVE) H 06/09/19 21:25 Urine Ketones 15 mg/dL (NEGATIVE) H 06/09/19 21:25 Urine Occult Blood MODERATE (NEGATIVE) H 06/09/19 21:25 Urine Nitrite POSITIVE (NEGATIVE) H 06/09/19 21:25 Urine Bilirubin NEGATIVE (NEGATIVE) 06/09/19 21:25 Urine Urobilinogen 0.2 (NORMAL) E.U./dL (NORMAL) 06/09/19 21:25 Ur Leukocyte Esterase NEGATIVE (NEGATIVE) 06/09/19 21:25 Urine RBC 0-5 /HPF (0-5) 06/09/19 21:25 Urine WBC 4-5 /HPF (0-5) 06/09/19 21:25 Ur Squamous Epith Cells NONE SEEN (<= Few) 06/09/19 21:25 Amorphous Sediment Moderate /LPF 06/09/19 21:25 Urine Bacteria None Seen /HPF (None Seen) 06/09/19 21:25 Ur Microscopic Review INDICATED 06/09/19 21:25 Urine Culture Comments INDICATED 06/09/19 21:25 Nasal Screen MRSA (PCR) NEGATIVE (NEGATIVE) 06/09/19 17:14 Last Dose Date 06/12/19 06/12/19 17:27 Last Dose Time 1800 06/12/19 17:27 Vancomycin Trough 14.4 ug/mL (10.0-20.0) 06/12/19 17:27 Random Vancomycin 8.9 ug/mL 06/10/19 17:35 Sepsis Event Note (H) - Evaluation Possible source of Sepsis: positive: Skin/soft tissue
[2019-06-14] MEDS: diltiaZEM CD 180 MG CAPSULE PO SCH (14:30)
[2019-06-14] MEDS: ATORVASTATIN 10 MG TABLET PO SCH (21:10)
[2019-06-14] MEDS: DOXEPIN 25 MG CAPSULE PO SCH (21:16)
[2019-06-15] MEDS: HYDROcod/ACETAM 5/325 MG TABLET PO PRN ×3 (01:43→13:13)
[2019-06-15] MEDS: SODIUM CHLORIDE FLUSH 0.9% 10 ML SYRINGE IVP SCH ×2 (01:44→08:13)
[2019-06-15] MEDS: LEVOTHYROXINE 75 MCG TABLET PO SCH (06:49)
[2019-06-15] MEDS: LEVOTHYROXINE 100 MCG TABLET PO SCH (06:49)
[2019-06-15 07:36] VITALS: BP 119/62
[2019-06-15] MEDS ORDERED: DIGOXIN 125 MCG TABLET PO SCH (08:00)
[2019-06-15] MEDS: diltiaZEM CD 240 MG CAPSULE PO SCH (08:10)
[2019-06-15] MEDS: APIXABAN 5 MG TABLET PO SCH (08:10)
[2019-06-15] MEDS: CLINDAMYCIN 150 MG CAPSULE PO SCH ×2 (08:11→13:03)
[2019-06-15] MEDS: ASPIRIN EC 81 MG TABLET PO SCH (08:11)
[2019-06-15] MEDS: metFORMIN 500 MG TABLET PO SCH (08:12)
[2019-06-15] MEDS: SODIUM CHLORIDE FLUSH 0.9% 10 ML SYRINGE IVP PRN (08:13)
[2019-06-15] MEDS: DOCUSATE SODIUM 250 MG CAPSULE PO SCH (08:14)
[2019-06-15] MEDS: INSULIN ASPART 300 UNIT/3 ML PEN SUBQ SCH ×2 (08:14→13:03)
[2019-06-15] MEDS: SENNA 8.6 MG TABLET PO SCH (08:14)
[2019-06-15] MEDS: POLYETHYLENE GLYCOL 3350 17 GM PACKET PO SCH (08:14)
[2019-06-15] MEDS: NYSTATIN POWDER 15 GM TOP SCH (08:16)
[2019-06-15] MEDS: METOPROLOL SUCCINATE 50 MG TABLET PO SCH (08:18)
[2019-06-15] MEDS ORDERED: SPIRONOLACTONE 25 MG TABLET PO SCH (09:00)
--- NOTE | 2019-06-15 10:22 | Discharge Plan ---
Discharge Plan Problem Reviewed?: Yes Disposition: Home Health Service Condition: Fair Prescriptions: Clindamycin [Cleocin] 450 mg PO QID #108 capsule Digoxin [Lanoxin] 125 mcg PO MOWEFR #20 tablet Nystatin [Nystop] 1 applic TOP BID #1 bottle Spironolactone [Aldactone] 25 mg PO DAILY #30 tablet Diet: Diabetic (and low 2000 mg/day sodium diet) Activity Restrictions: Activity as Tolerated Shower Restrictions: No Driving Restrictions: No Instruction Topics: Metoprolol tablets Health Concerns: You came to the hospital because you been feeling weak for a day, had no appetite, possibly some chills. You also had some redness of your left lower leg. We initially thought that you had a severe infection from a skin infection because lactic acid was elevated and your blood pressure was low. The final diagnosis for your stay were: 1. skin infection from Beta hemolytic Strep Group G 2. a new irregularly irregular heart rate called atrial fibrillation 3. a heart attack labeled and non ST wave elevation myocardial infarction 4. a new low heart pump function called congestive heart failure where you heart only pumps 35% forward (normal is 65% forward) Plan of Treatment: 1. The infection was treated with intravenous antibiotics and then you were changed to antiobiotics by mouth, called Clindamycin, that you need to take for 9 more days. Those have been called into your [facility] [place] Please take over the counter probiotics twice a day while you take Clindamycin so you can avoid diarrhea or a diarrhea called C. Difficile diarrhea from the antibiotics. 2. Your heart rate was difficult to control and you were already on high doses of rate controlling drugs called metoprolol and cardizem. We had to add digoxin to further slow down your heart rate. That was called into the [facility] pharmacy as well. When all 3 drugs are taken together they call slow down your heart rate too much and cause your pulse to be less than 60, sometimes 30's. If that happens, stop taking the digoxin and notify your doctors. 3. While here you had a heart attack and we found you to have congestive heart failure. The heart failure means your heart pump is not working well and you are pumping at 35% whereas normal pump function is 65%. Treatment for that is metoprolol, lisinopril, a cholesterol drug and a blood thinner. You are on those medicines. Please have your doctor refer you to a crate tier. You have a high risk for another heart attack and other interventions could be offered to you to help reduce that risk. 4. Metformin is a wonderful drug for diabetes, but when you become ill, it can cause a secondary problem called lactic acidosis. Where you are ill with infecti on, diarrhea, anything that causes dehydration, DO NOT take metformin. Care Goals: 1. Reduce your risk of another heart attack 2. Complete treatment for the leg infecition 3. See a Mechanical Product Engineer for further treatment of the heart attack, the atrial fibrillation, and the congestive heart failure 4. Consider starting heart rehab therapy here at [facility]. Assessment: patient expresses understanding of her status and treatment goals. No Smoking: If you smoke, Please STOP! Call for help. Follow-up with: Yesenia Bah PA-C [Primary Care Provider] -
[2019-06-15] MEDS: diltiaZEM CD 180 MG CAPSULE PO SCH (13:03)
--- NOTE | 2019-06-16 12:59 | DISCHARGE SUMMARY ---
Physician: Blanquita Gale MD DATE OF ADMISSION: 06/09/2019 DATE OF DISCHARGE: 06/15/2019 PRIMARY CARE PROVIDER: MARCO Joiner DISCHARGE DIAGNOSES 1. Sepsis. 2. Beta hemolytic strep bacteremia, group G. 3. [id number] myocardial infarction. 4. Cellulitis, left lower extremity. 5. Hypertension. 6. Atrial fibrillation with rapid ventricular response. 7. Acute on chronic systolic heart failure. 8. Acute prerenal azotemia. 9. Type 2 diabetes mellitus, uncontrolled, with hyperglycemia, not on long-term use of insulin. 10. Hypothyroidism. DISCHARGE MEDICATIONS 1. Aspirin 81 mg daily. 2. Atorvastatin 10 mg in the evening. 3. Diltiazem CD 420 mg daily. 4. Doxepin 75 mg nightly. 5. Synthroid 200 mcg daily with Synthroid 75 mcg daily. 6. Lisinopril 20 mg daily. 7. Metformin 500 mg p.o. b.i.d. 8. Toprol-XL 200 mg p.o. b.i.d. 9. Potassium 10 mEq daily. 10. Eliquis 5 mg p.o. b.i.d. 11. Eliquis 450 mg p.o. 4 times a day for the next 9 days. 12. Digoxin 125 mcg on Saturday, Saturday, Saturday. 13. Nystop application to intertriginous folds of Roseann twice a day. 14. Aldactone 25 mg daily. PRINCIPAL PROCEDURES 1. Chest x-ray 06/09/2019 showing a very small left pleural effusion. No acute pulmonary infiltrates, PICC line was in place during her stay. 2. PICC line placement 06/09/2019. 3. Echocardiogram 06/09/2019 showing normal LV cavity size, wall thickness and severely reduced systolic function with an ejection fraction of 30%-35% with global hypokinesis and akinesis of the mid apical septum. Normal RV cavity size and systolic function. Mild LA dilation. Borderline pulmonary hypertension with RVSP 39 mmHg. RA pressure estimated to be 8 mmHg. Underlying atrial fibrillation with rapid ventricular response. This is compared to 08/2018 echo that had an ejection fraction of 55% with chambers and valves within normal limits. 4. Blood cultures left and right arm on 06/09/2019 showing beta hemolytic strep group G. 5. Urine culture with 10,000 colonies of polymicrobial growth. 6. Blood cultures repeated on 06/12/2019 showing no growth after 2 days. HISTORY COURSE: The patient is a 68-year-old female who lives in her own home in [place] with her of 40 years and her adult daughter. She usually is able to take care of all of her activities of daily living independently. Continues to drive, does all the cooking and cleaning. Usually walks without any difficulty. Does not use any durable medical equipment. She presents with a 1-day history of feeling very weak, not having any appetite. She felt like she was having chills, maybe rigors. She denied coughing, wheezing, chest congestion. She had no abdominal pain, nausea, vomiting or diarrhea. There was new redness and swelling of the left lower extremity. She presented to the emergency room and met the criteria of sepsis with a systolic blood pressure of 100, heart rate elevated at 140 with new atrial fibrillation, elevated lactic acid of 4.4. The patient was admitted as sepsis secondary to a leg infection. She was also found to be in atrial fibrillation with rapid ventricular response. The sepsis was treated with vancomycin and cefepime because of her diabetes. She was then transitioned to ceftriaxone when cultures showed gram-positive cocci, not MRSA. Final culture showed her to have bacteremia with beta hemolytic strep group G. She was transitioned to Cleocin 450 mg. A higher dose than usual because of Cleocin being only 80% by available orally. She completed antibiotics between 06/09/2019 through 06/14/2019. She is anticipated to complete a total of 10 days of Cleocin to treat the bacteremia and cellulitis. Sepsis criteria resolved. Because of the atrial fibrillation, troponin was done on 06/10/2019, the day after admission with troponin was 1.35. Repeat was 1.35 and then it visually came down at 2:30 in the morning of 06/11/2019 to 0.9. She had no acute ST-T wave changes. The only manifestation was atrial fibrillation. Her treatment consisted of continued Toprol and Cardizem, which were already extremely high doses. She was initially put on a diltiazem drip. It took metoprolol, Cardizem, and Lanoxin to finally control her heart rate. She is on anticoagulation. For her NSTEMI, the patient was already anticoagulated with Eliquis. Already on a beta marissa and an KARYN inhibitor. She is already on atorvastatin 10 mg. For her diabetes, she is already on Glucophage, but we explained to the patient that when you are ill, Glucophage can cause severe lactic acidosis. In retrospect, was the lactic acidosis only from sepsis, or could it have been from Glucophage and dehydration with decreased p.o. intake. She was not resumed on Glucophage until mid stay. She was treated with short-acting NovoLog insulin. She is now discharged back on her metformin but warned that if she has nausea, decreased p.o. intake, diarrhea, etc., to stop metformin. Followup of her heart function with the atrial fibrillation and the NSTEMI showed her to have a newly reduced severely global dysfunction left ventricle with an EF of 30%-35%. She should have an echocardiogram repeated in the next few months. It would also be recommended that she be followed up with cardiology to see if she is a candidate for a stress test to see if there is more myocardium at risk and should any adjustment of her medications be done. I am hesitant to discharge her on so much calcium channel marissa in the face of such a severely reduced left ventricular function, but it is one of the drugs that has been used to control her rate from home and continued. Acute prerenal azotemia was noted on labs. Admission lab was 1.4 creatinine and by discharge, she was 0.9. Lactic acid started at 4.4, trended down to 3.2 and was showing normal at 1.6. TSH was checked because of her atrial fibrillation and was normal at 3.14. We are sending the patient home because of weakness that she developed after her illness, [place], atrial fibrillation. We are requesting that she go with home health physical therapy as well as a wide walker. She is discharged in stable condition. PHYSICAL EXAMINATION VITAL SIGNS: Temperature is 37, pulse 116, blood pressure 119/62, respirations 18, 94% on room air. Heart rate during her last stay of discharge was also in the 90s. GENERAL: She is a fatigued-appearing, alert, oriented female who looks much older than stated age. CARDIAC: She does not have any JVD. Heart rate has been elevated to the 90s and low 100s in the last 24 hours. LUNGS: Exam has diminished breath sounds at the bases, occasional fine crackles. ABDOMEN: Soft, nontender, hypoactive bowel sounds. EXTREMITIES: She has 1+ pitting edema of the lower extremities. The left leg has a resolving erythematous rash from her cellulitis. She still has redness to just below her kneecap on the left leg, circumferentially around the entire cavazos and calf. The back of the calf is still slightly pink, and the pinkness also is present on the cavazos then, down to the instep of the foot. While there is no reduction in the size of the erythema from admission, the intensity of pinkness and warmth has resolved substantially. The patient said that it was stinging quite a bit when she came in and is no longer stinging now. Legs are huge, large, tree trunk. She has a wide-based wobbling gait. She is able to use a walker. She is able to transfer from a supine position to a sitting position with standby assist. Just sitting up makes her tired, and she has to sit for 2 minutes rubbing her knees to rest. She stands, and ambulate with standby assist using a walker. Able to complete 40 feet. She goes to the step station and is able to climb up and down the steps. However, she is still remarkably tired at the end of this excursion. Physical Therapy feels that she should continue physical therapy with home health to progress her baseline function of independent activities, ADLs and caring for her grandchildren. She has her spouse and daughter for support. Greater than 30 minutes was spent coordinating discharge. cc: Yesenia Bah PA-C TD: 06/16/2019 12:18 [email or web address]
== END 2019-06-15 15:52 | disposition home or self-care (01) | DRG 871 ==
LOC: EDUNIT# → ED 14:42 → ICU 16:04 → MS2 06-12 18:59
PROVIDERS: ADMIT Internal Medicine; ATTEND Specialist
PROC: 02HV33Z Insertion of Infusion Device into Superior Vena Cava, Percutaneous Approach (ICD-10-PCS; principal; 2019-06-09)
DX: A41.9 Sepsis, unspecified organism (principal); A40.8 Other streptococcal sepsis; I48.91 Unspecified atrial fibrillation; I10 Essential (primary) hypertension; E11.9 Type 2 diabetes mellitus without complications; I21.4 Non-ST elevation (NSTEMI) myocardial infarction; I50.23 Acute on chronic systolic (congestive) heart failure; R65.21 Severe sepsis with septic shock; L03.116 Cellulitis of left lower limb; Z68.43 Body mass index [BMI] 50.0-59.9, adult; N17.9 Acute kidney failure, unspecified; E87.2 Acidosis; I11.0 Hypertensive heart disease with heart failure; I48.2 Chronic atrial fibrillation; E11.65 Type 2 diabetes mellitus with hyperglycemia; E66.01 Morbid (severe) obesity due to excess calories; I95.9 Hypotension, unspecified; E86.1 Hypovolemia; E03.9 Hypothyroidism, unspecified; R26.89 Other abnormalities of gait and mobility; M25.562 Pain in left knee; M25.561 Pain in right knee; T38.3X5A Adverse effect of insulin and oral hypoglycemic [antidiabetic] drugs, initial encounter; Y92.009 Unspecified place in unspecified non-institutional (private) residence as the place of occurrence of the external cause; F41.0 Panic disorder [episodic paroxysmal anxiety]; H52.00 Hypermetropia, unspecified eye; M19.90 Unspecified osteoarthritis, unspecified site; Z79.01 Long term (current) use of anticoagulants; Z79.84 Long term (current) use of oral hypoglycemic drugs; Z79.82 Long term (current) use of aspirin; Z87.891 Personal history of nicotine dependence; Z88.0 Allergy status to penicillin
CPT/HCPCS: 36415; 51701; 71045; 80048; 80053; 80202; 81001; 83036; 83605; 83690; 83735; 84100; 84443; 84484; 85025; 87040; 87077; 87086; 87150; 87181; 93005; 93306; 96365; 97110; 97116; 97162; 97530; 99285; A9270; C1751; J1170; J3370; J7120; 81003

== ENCOUNTER 2019-06-19 22:41 | Outpatient (CLI) | payer MEDICARE, OTHER | END 2019-06-19 22:42 | disposition critical access hospital (66) | LOC: EMS 22:41 | PROVIDERS: ATTEND Surgery | DX: R00.0 Tachycardia, unspecified (principal); R42 Dizziness and giddiness | CPT/HCPCS: A0425; A0429 ==

== ENCOUNTER 2019-06-22 08:00 | Outpatient (CLI) | payer MEDICARE, OTHER | END 2019-06-22 23:59 | disposition home or self-care (01) | LOC: LAB.R 08:00 | PROVIDERS: ATTEND Physician Assistant Medical | DX: L03.116 Cellulitis of left lower limb (principal) | CPT/HCPCS: 87070; 87205 ==

== ENCOUNTER 2019-07-31 12:29 | Outpatient (CLI) | payer MEDICARE, OTHER ==
--- NOTE | 2019-08-02 04:14 | XRAY Report ---
Reason: KNEE PAIN, LEFT, FALL 6 WKS AGO Procedure Date: 07/31/2019 Accession Number: [id number] / [id number] Procedure: XR - Knee 3 View LT CPT Code: FULL RESULT: EXAM: LEFT KNEE RADIOGRAPHY EXAM DATE: 07/31/2019 12:57 PM. CLINICAL HISTORY: KNEE PAIN, LEFT, FALL 6 WKS AGO. COMPARISON: None. TECHNIQUE: 3 views. FINDINGS: Bones: Normal. No fractures or bone lesions. Joints: Severe medial compartment femoral tibial degenerative changes with joint space loss. Moderate patellofemoral degenerative changes. Possible posterior loose bodies. No subluxations. Soft Tissues: Normal. No soft tissue swelling. IMPRESSION: 1. No left knee fracture or malalignment. 2. Advanced degenerative changes, worst in the medial compartment. RADIA
== END 2019-07-31 12:30 | disposition home or self-care (01) ==
LOC: DI 12:29
PROVIDERS: ATTEND Physician Assistant Medical
DX: M17.12 Unilateral primary osteoarthritis, left knee (principal)

== ENCOUNTER 2019-08-10 08:00 | Outpatient (CLI) | payer MEDICARE, OTHER ==
[2019-08-10 12:28] LABS: CALCIUM 9.5 mg/dL (8.5-10.3)
== END 2019-08-10 08:01 | disposition home or self-care (01) ==
LOC: LAB.WCP 08:00
PROVIDERS: ATTEND Physician Assistant Medical
DX: I50.9 Heart failure, unspecified (principal)
CPT/HCPCS: 36415; 80048

== ENCOUNTER 2019-09-10 08:00 | Outpatient (CLI) | payer MEDICARE, OTHER ==
[2019-09-10 12:09] LABS: CALCIUM 9.4 mg/dL (8.5-10.3); CREATININE 1.1 mg/dL (0.4-1.0)
[2019-09-10 13:27] LABS: HB2 TOTAL 12.7 g/dL; HEMOGLOBIN A1C 1.07 g/dL; HEMOGLOBIN A1C % 9.9 % (4.6-6.2)
== END 2019-09-10 23:59 | disposition home or self-care (01) ==
LOC: LAB.WCP 08:00
PROVIDERS: ATTEND Physician Assistant Medical
DX: E11.9 Type 2 diabetes mellitus without complications (principal)
CPT/HCPCS: 36415; 80048; 83036

== ENCOUNTER 2019-12-21 12:43 | Outpatient (CLI) | payer MEDICARE, OTHER ==
--- NOTE | 2019-12-22 08:46 | Mammography Report ---
Reason: ROUTINE MAMMO Procedure Date: 12/21/2019 Accession Number: [id number] / [id number] Procedure: MGN - Screening Mammo Dig Bilat CPT Code: Final Report FULL RESULT: EXAM: Screening Mammo Dig Bilat DATE: 12/21/2019 1:11 PM CLINICAL HISTORY: Screening encounter. TECHNIQUE: (B) - Bilateral CC, laterally exaggerated CC, MLO views were obtained. COMPARISON: 05/08/2018 through 04/03/2011. PARENCHYMAL PATTERN: (A) - The breast(s) demonstrate(s) scattered fibroglandular densities. FINDINGS: There are coarse typically benign calcifications. There are no suspicious masses, calcifications, or areas of distortion. IMPRESSION: Benign findings. BI-RADS category 2. RECOMMENDATION: (ANNUAL) - Recommend routine annual screening mammography. BI-RADS CATEGORY: (2) - Benign Findings. STANDARD QUALIFYING STATEMENTS: 1. This examination was not reviewed with the aid of Computer-Aided Detection (CAD). 2. A negative or benign imaging report should not preclude biopsy if clinically suspicious findings are present. 3. Dense breasts may obscure an underlying neoplasm. 4. This examination was reviewed without the aid of 3D breast imaging (tomosynthesis).
== END 2019-12-21 12:44 | disposition home or self-care (01) ==
LOC: DI.N 12:43
DX: Z12.31 Encounter for screening mammogram for malignant neoplasm of breast (principal)
CPT/HCPCS: 77067

== ENCOUNTER 2020-01-01 07:00 | Outpatient (CLI) | payer MEDICARE, OTHER ==
[2020-01-01 12:22] LABS: BILIRUBIN,URINE NEGATIVE (NEGATIVE); GLUCOSE, URINE (UA) 100 mg/dL (NEGATIVE); KETONES,URINE (UA) NEGATIVE (NEGATIVE); LEUKOCYTE ESTERASE, URINE SMALL (NEGATIVE); NITRITE,URINE NEGATIVE (NEGATIVE); OCCULT BLOOD,URINE TRACE-INTA (NEGATIVE); PROTEIN,URINE NEGATIVE (NEGATIVE); UROBILINOGEN,URINE 1 (NORMAL) E.U./dL (NORMAL)
[2020-01-01 12:32] LABS: CLARITY,URINE HAZY (CLEAR)
[2020-01-01 12:33] LABS: BACTERIA,URINE Many /HPF (None Seen); CASTS, URINE 0-2 Hyaline Casts /LPF; RBC,URINE 0-5 /HPF (0-5); SQUAMOUS EPITHELIAL CELL,UR MANY Squamous (<= Few)
== END 2020-01-01 23:59 | disposition home or self-care (01) ==
LOC: LAB.WCP 07:00
PROVIDERS: ATTEND Family Medicine
DX: R10.2 Pelvic and perineal pain (principal)
CPT/HCPCS: 81001; 81003; 87086

== ENCOUNTER 2020-01-11 08:00 | Outpatient (CLI) | payer MEDICARE, OTHER ==
[2020-01-11 18:53] LABS: ALBUMIN 3.4 g/dL (3.2-5.5); ALBUMIN/GLOBULIN RATIO 0.8 (1.0-2.2); ALKALINE PHOSPHATASE 205 IU/L (42-121); ALT ALANINE AMINOTRANSFERASE 21 IU/L (10-60); AST ASPARTATE AMINOTRANSFERASE 26 IU/L (10-42); BILIRUBIN,TOTAL 0.9 mg/dL (0.2-1.0); BUN - BLOOD UREA NITROGEN 21 mg/dL (6-20); CALCIUM 9.8 mg/dL (8.5-10.3); CARBON DIOXIDE - CO2 29 mmol/L (21-32); CHLORIDE 96 mmol/L (101-111); CHOL/HDL RATIO 2.6 (<4.4); CHOLESTEROL 135 mg/dL; CREATININE 0.9 mg/dL (0.4-1.0); GFR - MDRD 62 (>89); GLUCOSE 198 mg/dL (70-100); HDL CHOLESTEROL 51 mg/dL; LDL CHOLESTEROL,CALCULATED 59 mg/dL; LDL/HDL RATIO 1.2 (<4.4); SODIUM 137 mmol/L (135-145); TOTAL PROTEIN 7.9 g/dL (6.7-8.2); VLDL CHOLESTEROL 25 mg/dL
[2020-01-11 19:08] LABS: HB2 TOTAL 15.8 g/dL; HEMOGLOBIN A1C 1.25 g/dL; HEMOGLOBIN A1C % 9.4 % (4.6-6.2)
== END 2020-01-11 23:59 | disposition home or self-care (01) ==
LOC: LAB.WCP 08:00
PROVIDERS: ATTEND Physician Assistant Medical
DX: E11.9 Type 2 diabetes mellitus without complications (principal); E78.5 Hyperlipidemia, unspecified; E03.9 Hypothyroidism, unspecified
CPT/HCPCS: 36415; 80053; 80061; 83036; 83721; 84443

== ENCOUNTER 2020-07-28 12:03 | Outpatient (CLI) | payer MEDICARE, OTHER ==
[2020-07-28 18:42] LABS: BUN - BLOOD UREA NITROGEN 27 mg/dL (6-20); CALCIUM 9.9 mg/dL (8.5-10.3); CARBON DIOXIDE - CO2 27 mmol/L (21-32); CHLORIDE 99 mmol/L (101-111); CHOL/HDL RATIO 2.3 (<4.4); CHOLESTEROL 151 mg/dL; CREATININE 0.9 mg/dL (0.4-1.0); GLUCOSE 206 mg/dL (70-100); HDL CHOLESTEROL 67 mg/dL; LDL CHOLESTEROL,CALCULATED 61 mg/dL; LDL/HDL RATIO 0.9 (<4.4); SODIUM 135 mmol/L (135-145); VLDL CHOLESTEROL 23 mg/dL
[2020-07-28 18:49] LABS: CREATININE,URINE 102.2 mg/dL; MICROALBUM/CREATININE RATIO,UR 234.8 ug/mg (<30.0)
[2020-07-28 20:37] LABS: HEMOGLOBIN A1c% 9.9 % (4.27-6.07)
== END 2020-07-28 23:59 | disposition home or self-care (01) ==
LOC: LAB.WCP 12:03
PROVIDERS: ATTEND Physician Assistant Medical
DX: E78.5 Hyperlipidemia, unspecified (principal); E11.9 Type 2 diabetes mellitus without complications; E03.9 Hypothyroidism, unspecified
CPT/HCPCS: 36415; 80048; 80061; 82043; 82570; 83036; 83721; 84443

== ENCOUNTER 2021-02-17 08:00 | Outpatient (CLI) | payer MEDICARE, OTHER ==
[2021-02-17 18:14] LABS: CREATININE 1.2 mg/dL (0.4-1.0); POTASSIUM 4.4 mmol/L (3.5-5.0)
[2021-02-17 18:27] LABS: ESTIMATED AVERAGE GLUCOSE 252 mg/dL (70-100); HEMOGLOBIN A1c% 10.4 % (4.27-6.07)
== END 2021-02-17 23:59 | disposition home or self-care (01) ==
LOC: LAB.WCP 08:00
PROVIDERS: ATTEND Physician Assistant Medical
DX: E11.9 Type 2 diabetes mellitus without complications (principal)
CPT/HCPCS: 36415; 80048; 83036

== ENCOUNTER 2021-04-04 11:11 | Outpatient (CLI) | payer MEDICARE, OTHER ==
--- NOTE | 2021-04-06 08:30 | Mammography Report ---
BILATERAL DIGITAL SCREENING MAMMOGRAM 3D/2D: 04/04/2021 CLINICAL: Routine screening. Comparison is made to exams dated: 12/21/2019 mammogram, 05/08/2018 mammogram, and 03/05/2017 mammogram - [facility]. There are scattered fibroglandular elements in both breasts. No significant masses, calcifications, or other findings are seen in either breast. There has been no significant interval change. IMPRESSION: NEGATIVE There is no mammographic evidence of malignancy. A 1 year screening mammogram is recommended. This exam was interpreted at Station ID: [id number]. NOTE: For mammograms, a report in lay terms will be sent to the patient. Approximately 15% of breast malignancies will not be visualized mammographically. In the management of a palpable breast mass, a negative mammogram must not discourage biopsy of a clinically suspicious lesion. Electronically Signed By: Shawn Johnson M.D. [email or web address]:04/04/2021 13:40:53 ACR BI-RADS Category 1: Negative 3341F PARENCHYMAL PATTERN: (A) - The breast(s) demonstrate(s) scattered fibroglandular densities. BI-RADS CATEGORY: (1) - 1 RECOMMENDATION: (ANNUAL) - Recommend routine annual screening mammography. [id number] 1 year screening LATERALITY: (B)
== END 2021-04-04 11:12 | disposition home or self-care (01) ==
LOC: DI.N 11:11
DX: Z12.31 Encounter for screening mammogram for malignant neoplasm of breast (principal)

== ENCOUNTER 2021-08-31 08:00 | Outpatient (CLI) | payer MEDICARE, OTHER ==
[2021-08-31 18:12] LABS: ALBUMIN 2.9 g/dL (3.2-5.5); ALBUMIN/GLOBULIN RATIO 0.6 (1.0-2.2); ALKALINE PHOSPHATASE 184 IU/L (42-121); ALT ALANINE AMINOTRANSFERASE 17 IU/L (10-60); AST ASPARTATE AMINOTRANSFERASE 20 IU/L (10-42); BILIRUBIN,TOTAL 0.9 mg/dL (0.2-1.0); BUN - BLOOD UREA NITROGEN 23 mg/dL (6-20); CALCIUM 9.4 mg/dL (8.5-10.3); CARBON DIOXIDE - CO2 29 mmol/L (21-32); CHLORIDE 95 mmol/L (101-111); CHOL/HDL RATIO 2.8 (<4.4); CHOLESTEROL 103 mg/dL; GFR - MDRD 55 (>89); GLUCOSE 180 mg/dL (70-100); HDL CHOLESTEROL 37 mg/dL; LDL CHOLESTEROL,CALCULATED 44 mg/dL; LDL/HDL RATIO 1.2 (<4.4); POTASSIUM 4.3 mmol/L (3.5-5.0); SODIUM 135 mmol/L (135-145); TOTAL PROTEIN 7.7 g/dL (6.7-8.2); TRIGLYCERIDES 111 mg/dL; VLDL CHOLESTEROL 22 mg/dL
[2021-08-31 20:57] LABS: ESTIMATED AVERAGE GLUCOSE 177 mg/dL (70-100); HEMOGLOBIN A1c% 7.8 % (4.27-6.07)
== END 2021-08-31 23:59 | disposition home or self-care (01) ==
LOC: LAB.WCP 08:00
PROVIDERS: ATTEND Physician Assistant Medical
DX: E11.9 Type 2 diabetes mellitus without complications (principal); L03.115 Cellulitis of right lower limb
CPT/HCPCS: 36415; 80053; 80061; 83036; 83721; 87070; 87181; 87205

== ENCOUNTER 2022-03-06 10:19 | Outpatient (CLI) | payer MEDICARE, OTHER ==
[2022-03-06 12:32] LABS: BUN - BLOOD UREA NITROGEN 32 mg/dL (6-20); CALCIUM 9.7 mg/dL (8.5-10.3); CARBON DIOXIDE - CO2 28 mmol/L (21-32); CHLORIDE 97 mmol/L (101-111); CHOL/HDL RATIO 2.2 (<4.4); CHOLESTEROL 133 mg/dL; CREATININE 1.2 mg/dL (0.4-1.0); GFR - MDRD 44 (>89); GLUCOSE 166 mg/dL (70-100); HDL CHOLESTEROL 61 mg/dL; LDL CHOLESTEROL,CALCULATED 53 mg/dL; LDL/HDL RATIO 0.9 (<4.4); POTASSIUM 3.9 mmol/L (3.5-5.0); SODIUM 136 mmol/L (135-145); TRIGLYCERIDES 96 mg/dL; VLDL CHOLESTEROL 19 mg/dL
[2022-03-06 12:58] LABS: THYROID STIMULATING HORMONE 0.12 uIU/mL (0.34-5.60)
[2022-03-06 16:08] LABS: FREE T4 (FREE THYROXINE) 2.73 ng/dL (0.58-1.64)
[2022-03-06 19:56] LABS: ESTIMATED AVERAGE GLUCOSE 186 mg/dL (70-100); HEMOGLOBIN A1c% 8.1 % (4.27-6.07)
[2022-03-08 18:37] LABS: CREATININE,URINE 62.8 mg/dL; MICROALBUM/CREATININE RATIO,UR 22.3 ug/mg (<30.0); MICROALBUMIN,URINE 1.4 mg/dL (0-300.0)
== END 2022-03-06 10:20 | disposition home or self-care (01) ==
LOC: LAB.N 10:19
PROVIDERS: ATTEND Physician Assistant Medical
DX: E11.9 Type 2 diabetes mellitus without complications (principal); E03.9 Hypothyroidism, unspecified
CPT/HCPCS: 36415; 80048; 80061; 82043; 82570; 83036; 83721; 84439; 84443

== ENCOUNTER 2022-08-16 11:34 | Outpatient (CLI) | payer MEDICARE, OTHER ==
[2022-08-16 18:10] LABS: CALCIUM 9.9 mg/dL (8.5-10.3); POTASSIUM 4.6 mmol/L (3.5-5.0)
[2022-08-16 18:23] LABS: THYROID STIMULATING HORMONE 0.54 uIU/mL (0.34-5.60)
[2022-08-16 21:25] LABS: ESTIMATED AVERAGE GLUCOSE 146 mg/dL (70-100); HEMOGLOBIN A1c% 6.7 % (4.27-6.07)
== END 2022-08-16 11:35 | disposition home or self-care (01) ==
LOC: LAB.N 11:34
PROVIDERS: ATTEND Physician Assistant Medical
DX: E11.9 Type 2 diabetes mellitus without complications (principal); E03.9 Hypothyroidism, unspecified
CPT/HCPCS: 36415; 80048; 83036; 84443

== ENCOUNTER 2022-10-15 09:19 | Outpatient (CLI) | payer MEDICARE, OTHER | END 2022-10-15 09:20 | disposition critical access hospital (66) | LOC: EMS 09:19 | DX: R06.00 Dyspnea, unspecified (principal); R41.0 Disorientation, unspecified; R40.1 Stupor | CPT/HCPCS: A0425; A0429 ==

== ENCOUNTER 2022-10-15 09:38 | Inpatient (IN) | payer MEDICARE, OTHER ==
[2022-10-15] MEDS ORDERED: diltiaZEM INJ 5 MG/ML VIAL IVP STA ×2 (09:53→13:41)
[2022-10-15] MEDS ORDERED: ONDANSETRON 4 MG/2 ML VIAL IVP STA (09:54)
[2022-10-15 10:07] LABS: BASOPHILS # (AUTO) 0.1 10^3/uL (0.0-0.1); BASOPHILS % (AUTO) 0.4 %; EOSINOPHILS % (AUTO) 0.1 %; HCT - HEMATOCRIT 37.6 % (37.0-47.0); HGB - HEMOGLOBIN 12.7 g/dL (12.0-16.0); LYMPHOCYTES # (AUTO) 0.8 10^3/uL (1.5-3.5); LYMPHOCYTES % (AUTO) 3.2 %; MEAN CORPUSCULAR HEMOGLOBIN 32.6 pg (27.0-31.0); MEAN CORPUSCULAR HGB CONC 33.8 g/dL (32.0-36.0); MEAN CORPUSCULAR VOLUME 96.7 fL (81.0-99.0); MEAN PLATELET VOLUME 9.4 fL (7.9-10.8); MONOCYTES # (AUTO) 0.7 10^3/uL (0.0-1.0); MONOCYTES % (AUTO) 3.1 %; NEUTROPHILS # (AUTO) 22.2 10^3/uL (1.5-6.6); NEUTROPHILS % (AUTO) 91.7 %; NRBC ABSOLUTE COUNT (AUTO) 0.02 x10^3/uL; NUCLEATED RED BLOOD CELLS AUTO 0.1 /100WBC; PLT - PLATELET COUNT 171 10^3/uL (130-450); RED BLOOD COUNT 3.89 10^6/uL (4.20-5.40); RED CELL DISTRIBUTION WIDTH 13.8 % (12.0-15.0); WHITE BLOOD COUNT 24.2 x10^3/uL (4.8-10.8)
[2022-10-15 10:12] LABS: SLIDE REVIEW? Indicated
[2022-10-15 10:15] LABS: INR 1.7 (0.8-1.2); PT - PROTHROMBIN TIME 18.5 secs (9.9-12.6)
[2022-10-15 10:24] LABS: D-DIMER 460.6 ng/mL (200.0-255.0)
--- NOTE | 2022-10-15 10:24 | XRAY Report ---
PROCEDURE: Chest 1 View X-Ray INDICATIONS: chest pain TECHNIQUE: One view of the chest was acquired. COMPARISON: 06/09/2019 FINDINGS: Surgical changes and devices: None. Lungs and pleura: Interstitial pulmonary edema. Small left pleural effusion. Minimal bibasilar atele ctasis. Mediastinum: Mediastinal contours appear normal. Cardiomegaly. Bones and chest wall: No suspicious bony lesions. Overlying soft tissues appear unremarkable. IMPRESSION: Congestive heart failure exacerbation. Reviewed by: Riky Bowen MD on 10/15/2022 10:22 AM [facility] Approved by: Riky Bowen MD on 10/15/2022 10:22 AM [facility] Station ID: [id number]
[2022-10-15 10:26] LABS: PLATELET ESTIMATE, MANUAL NORMAL (130-450,000) (NORMAL); PLATELET MORPHOLOGY NORMAL APPEARANCE (NORMAL); RBC MORPHOLOGY (MULTIPLE) NORMAL APPEARANCE (NORMAL)
[2022-10-15 10:31] LABS: ALBUMIN/GLOBULIN RATIO 0.6 (1.0-2.2); BILIRUBIN,TOTAL 2.6 mg/dL (0.2-1.0); CALCIUM 9.1 mg/dL (8.5-10.3); CREATININE 1.5 mg/dL (0.4-1.0); POTASSIUM 4.5 mmol/L (3.5-5.0)
[2022-10-15 11:07] LABS: B. PARAPERTUSSIS- RESP PCR PAN NOT DETECTED; B. PERTUSSIS- RESP PCR PANEL NOT DETECTED; C. PNEUMONIAE- RESP PCR PANEL NOT DETECTED; CORONAVIRUS 229E-RESP PCR NOT DETECTED; CORONAVIRUS HKU1-RESP PCR NOT DETECTED; CORONAVIRUS NL63-RESP PCR NOT DETECTED; CORONAVIRUS OC43-RESP PCR NOT DETECTED; HUMAN METAPNEUMOVIRUS NOT DETECTED; INFLUENZA A- RESP PCR PANEL NOT DETECTED; INFLUENZA B - RESP PCR PANEL NOT DETECTED; M. PNEUMONIAE- RESP PCR PANEL NOT DETECTED; PARAINFLUENZA VIRUS 1 NOT DETECTED; PARAINFLUENZA VIRUS 2 NOT DETECTED; PARAINFLUENZA VIRUS 3 NOT DETECTED; PARAINFLUENZA VIRUS 4 NOT DETECTED; RHINOVIRUS/ENTEROVIRUS NOT DETECTED; RSV- RESP PCR PANEL NOT DETECTED; SARS-CoV-2 -RESP PCR PANEL NOT DETECTED
[2022-10-15] MEDS ORDERED: FUROSEMIDE 40 MG/4 ML VIAL IVP STA (11:10)
[2022-10-15] MEDS ORDERED: diltiaZEM INJ 125 MG in DEXTROSE 5% 100 ML IV STA (13:40)
[2022-10-15] MEDS ORDERED: diltiaZEM CD 120 MG CAPSULE PO STA (13:40)
[2022-10-15] MEDS ORDERED: LORazepam 2 MG/ML VIAL IVP STA (14:24)
--- NOTE | 2022-10-15 14:33 | ED Physician Documentation ---
History of Present Illness - Stated complaint Stated Complaint: SOA - Chief complaint Chief Complaint: Resp - History obtained from History obtained from: Patient, Family, EMS - Additonal information Additional information: Patient is brought to the emergency department by EMS for chief complaint of shortness of breath and altered mental status. The patient was found to have oxygen saturation in the low 80s at home on room air when EMS picked her up. Her states that she has had mild shortness of breath and cough yesterday but the symptoms really seem to get worse overnight. When he woke up this morning to go to work, he found patient to be struggling to breathe and seemed "out of it". The patient is doing better now that she has been on some oxygen, but still having difficulty breathing. She states that she has not had any fevers or chills. No known sick contacts. The patient has a history of atrial fibrillation and congestive heart failure. She is not a smoker. No chest pain. No GI symptoms. Review of Systems Ten Systems: 10 systems reviewed and negative Constitutional: reports: Reviewed and negative Eyes: reports: Reviewed and negative Ears: reports: Reviewed and negative Nose: reports: Reviewed and negative Throat: reports: Reviewed and negative Cardiac: reports: Reviewed and negative Respiratory: reports: Dyspnea, Cough GI: reports: Reviewed and negative : reports: Reviewed and negative Skin: reports: Reviewed and negative Musculoskeletal: reports: Reviewed and negative Neurologic: reports: Reviewed and negative Psychiatric: reports: Reviewed and negative Endocrine: reports: Reviewed and negative Immunocompromised: reports: Reviewed and negative PD PAST MEDICAL HISTORY - Past Medical History Past Medical History: Yes Cardiovascular: Hypertension, Atrial fibrillation Respiratory: None Neuro: Other Endocrine/Autoimmune: Type 2 diabetes, HyPOthyroidism GI: None, Other 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 HEENT: Chronic vision loss Psych: Anxiety, Panic attacks, Claustrophobia Musculoskeletal: Osteoarthritis Derm: None - Past Surgical History Past Surgical History: No - Present Medications Home Medications: Ambulatory Orders Medication Instructions Recorded Confirmed Atorvastatin [Lipitor] 10 mg PO QPM 08/27/18 10/15/22 Doxepin HCl 75 mg PO QPM 08/27/18 10/15/22 Metformin HCl 500 mg PO BID 08/27/18 10/15/22 Apixaban [Eliquis] 5 mg PO BID #60 tablet 08/28/18 10/15/22 Diltiazem HCl [Diltiazem 24Hr ER] 420 mg PO DAILY 06/09/19 10/15/22 Metoprolol Succinate [Toprol Xl] 200 mg PO BID 06/09/19 10/15/22 lisinopriL [Lisinopril] 20 mg PO DAILY 06/12/19 10/15/22 Acetaminophen [Tylenol] 325 - 650 mg PO Q4H PRN 07/31/19 10/15/22 Levothyroxine Sodium [Synthroid] 250 mcg PO QDAC 07/31/19 10/16/22 Potassium Chloride [Klor-Con 10] 10 meq PO DAILY 07/31/19 10/15/22 hydroCHLOROthiazide 25 mg PO DAILY 07/31/19 10/15/22 [Hydrochlorothiazide] Dulaglutide [Trulicity] 1.5 mg SQ .Q7DAY 10/15/22 10/15/22 Fluticasone [Flonase] 1 sprays SAIMA DAILY 10/15/22 10/15/22 - Allergies Allergies/Adverse Reactions: Allergies Allergy/AdvReac Type Severity Reaction Status Date / Time Penicillins Allergy Rash Verified 07/31/19 14:45 Sulfa (Sulfonamide Allergy Unknown Verified 07/31/19 14:45 Antibiotics) - Social History Does the pt smoke?: No Smoking Status: Never smoker Does the pt drink ETOH?: No Does the pt have substance abuse?: No - Immunizations Immunizations are current?: Yes - POLST Patient has POLST: No POLST Status: Full Code (However, if there is irreversible brain damage she does not want to be resuscitated. Or if resuscitation will result in life support that will be chronic, she is wants us to let her go) PD ED PE NORMAL - Vitals Vital signs reviewed: Yes - General General: Well developed/nourished, Other (Mild respiratory distress, drowsy but arousable to voice) - HEENT HEENT: Atraumatic, PERRL, EOMI, Moist mucous membranes - Neck Neck: Supple, no meningeal sign - Cardiac Cardiac: No murmur, Strong equal pulses, Other (Irregular rhythm, tachycardic) - Respiratory Respiratory: Other (Mildly decreased air movement bilaterally with crackles. Mildly labored respirations.) - Abdomen Abdomen: Soft, Non tender, Non distended - Derm Derm: Normal color, Warm and dry, No rash - Extremities Extremities: No deformity, No edema - Neuro Neuro: Other (Patient is somewhat drowsy but arouses to voice to answer questions appropriately.) - Psych Psych: Normal mood, Normal affect Results - Vitals Vitals: Oxygen O2 Source Nasal cannula Oxygen Flow Rate 4 - Labs Labs: Laboratory Tests 10/15/22 10/15/22 10/15/22 10:01 10:01 10:01 WBC 24.2 H RBC 3.89 L Hgb 12.7 Hct 37.6 MCV 96.7 MCH 32.6 H MCHC 33.8 RDW 13.8 Plt Count 171 MPV 9.4 Neut # (Auto) 22.2 H Lymph # (Auto) 0.8 L Waldo # (Auto) 0.7 Eos # (Auto) 0.0 Baso # (Auto) 0.1 Absolute Nucleated RBC 0.02 Nucleated RBC % 0.1 Manual Slide Review Indicated Platelet Estimate NORMAL (130-450,000) Platelet Morphology NORMAL APPEARANCE RBC Morph Micro Appear NORMAL APPEARANCE PT INR D-Dimer Sodium 137 Potassium 4.5 Chloride 99 L Carbon Dioxide 24 Anion Gap 14.0 H BUN 29 H Creatinine 1.5 H Estimated GFR (MDRD) 34 L Glucose 129 H POC Whole Bld Glucose Lactic Acid Calcium 9.1 Total Bilirubin 2.6 H AST 177 H ALT 85 H Alkaline Phosphatase 142 H Troponin I High Sens B-Natriuretic Peptide 3555 H Total Protein 8.0 Albumin 3.0 L Globulin 5.0 H Albumin/Globulin Ratio 0.6 L Lipase 22 TSH Nasal Adenovirus (PCR) Nasal B. parapertussis DNA (PCR) Nasal Coronavir 229E PCR Nasal Coronavir HKU1 PCR Nasal Coronavir NL63 PCR Nasal Coronavir OC43 PCR Nasal Enterovir/Rhinovir PCR Nasal Influenza B PCR Nasal Influenza A PCR Nasal Parainfluen 1 PCR Nasal Parainfluen 2 PCR Nasal Parainfluen 3 PCR Nasal Parainfluen 4 PCR Nasal RSV (PCR) Nasal B.pertussis DNA PCR Nasal C.pneumoniae (PCR) Saima Human Metapneumo PCR Nasal M.pneumoniae (PCR) Nasal SARS-CoV-2 (PCR) 10/15/22 10/15/22 10/15/22 10:01 10:01 10:01 WBC RBC Hgb Hct MCV MCH MCHC RDW Plt Count MPV Neut # (Auto) Lymph # (Auto) Waldo # (Auto) Eos # (Auto) Baso # (Auto) Absolute Nucleated RBC Nucleated RBC % Manual Slide Review Platelet Estimate Platelet Morphology RBC Morph Micro Appear PT 18.5 H INR 1.7 H D-Dimer 460.6 H Sodium Potassium Chloride Carbon Dioxide Anion Gap BUN Creatinine Estimated GFR (MDRD) Glucose POC Whole Bld Glucose Lactic Acid Calcium Total Bilirubin AST ALT Alkaline Phosphatase Troponin I High Sens 557.7 H* B-Natriuretic Peptide Total Protein Albumin Globulin Albumin/Globulin Ratio Lipase TSH 0.37 Nasal Adenovirus (PCR) Nasal B. parapertussis DNA (PCR) Nasal Coronavir 229E PCR Nasal Coronavir HKU1 PCR Nasal Coronavir NL63 PCR Nasal Coronavir OC43 PCR Nasal Enterovir/Rhinovir PCR Nasal Influenza B PCR Nasal Influenza A PCR Nasal Parainfluen 1 PCR Nasal Parainfluen 2 PCR Nasal Parainfluen 3 PCR Nasal Parainfluen 4 PCR Nasal RSV (PCR) Nasal B.pertussis DNA PCR Nasal C.pneumoniae (PCR) Saima Human Metapneumo PCR Nasal M.pneumoniae (PCR) Nasal SARS-CoV-2 (PCR) 10/15/22 10/15/22 10/15/22 10:05 13:25 14:24 WBC RBC Hgb Hct MCV MCH MCHC RDW Plt Count MPV Neut # (Auto) Lymph # (Auto) Waldo # (Auto) Eos # (Auto) Baso # (Auto) Absolute Nucleated RBC Nucleated RBC % Manual Slide Review Platelet Estimate Platelet Morphology RBC Morph Micro Appear PT INR D-Dimer Sodium Potassium Chloride Carbon Dioxide Anion Gap BUN Creatinine Estimated GFR (MDRD) Glucose POC Whole Bld Glucose 120 H Lactic Acid Calcium Total Bilirubin AST ALT Alkaline Phosphatase Troponin I High Sens 858.0 H* B-Natriuretic Peptide Total Protein Albumin Globulin Albumin/Globulin Ratio Lipase TSH Nasal Adenovirus (PCR) NOT DETECTED Nasal B. parapertussis DNA (PCR) NOT DETECTED Nasal Coronavir 229E PCR NOT DETECTED Nasal Coronavir HKU1 PCR NOT DETECTED Nasal Coronavir NL63 PCR NOT DETECTED Nasal Coronavir OC43 PCR NOT DETECTED Nasal Enterovir/Rhinovir PCR NOT DETECTED Nasal Influenza B PCR NOT DETECTED Nasal Influenza A PCR NOT DETECTED Nasal Parainfluen 1 PCR NOT DETECTED Nasal Parainfluen 2 PCR NOT DETECTED Nasal Parainfluen 3 PCR NOT DETECTED Nasal Parainfluen 4 PCR NOT DETECTED Nasal RSV (PCR) NOT DETECTED Nasal B.pertussis DNA PCR NOT DETECTED Nasal C.pneumoniae (PCR) NOT DETECTED Saima Human Metapneumo PCR NOT DETECTED Nasal M.pneumoniae (PCR) NOT DETECTED Nasal SARS-CoV-2 (PCR) NOT DETECTED 10/15/22 10/15/22 16:58 16:58 WBC RBC Hgb Hct MCV MCH MCHC RDW Plt Count MPV Neut # (Auto) Lymph # (Auto) Waldo # (Auto) Eos # (Auto) Baso # (Auto) Absolute Nucleated RBC Nucleated RBC % Manual Slide Review Platelet Estimate Platelet Morphology RBC Morph Micro Appear PT INR D-Dimer Sodium Potassium Chloride Carbon Dioxide Anion Gap BUN Creatinine Estimated GFR (MDRD) Glucose POC Whole Bld Glucose Lactic Acid 3.2 H* Calcium Total Bilirubin AST ALT Alkaline Phosphatase Troponin I High Sens 893.5 H* B-Natriuretic Peptide Total Protein Albumin Globulin Albumin/Globulin Ratio Lipase TSH Nasal Adenovirus (PCR) Nasal B. parapertussis DNA (PCR) Nasal Coronavir 229E PCR Nasal Coronavir HKU1 PCR Nasal Coronavir NL63 PCR Nasal Coronavir OC43 PCR Nasal Enterovir/Rhinovir PCR Nasal Influenza B PCR Nasal Influenza A PCR Nasal Parainfluen 1 PCR Nasal Parainfluen 2 PCR Nasal Parainfluen 3 PCR Nasal Parainfluen 4 PCR Nasal RSV (PCR) Nasal B.pertussis DNA PCR Nasal C.pneumoniae (PCR) Saima Human Metapneumo PCR Nasal M.pneumoniae (PCR) Nasal SARS-CoV-2 (PCR) - Rads (name of study) Chest x-ray Radiology: Final report received, EMP read indepedently, See rad report (CHF exacerbation) Head CT Radiology: Final report received, EMP read indepedently, See rad report (No acute disease) PD MEDICAL DECISION MAKING - ED course Complexity details: reviewed results, re-evaluated patient, considered differential, d/w patient ED course: The patient was in mild respiratory distress and initially, arrived with a nonrebreather mask in place. The patient's oxygen saturation was very high with this, so I did Have nursing staff cut the patient down to 2 to 3 L of oxygen per nasal cannula. This did keep the patient in the Mid 90s, oxygen saturation vu, though she desatted very easily. The chest x-ray showed CHF and the patient's heart rate was sustained in the 120s to 130s in A. fib. The patient was given both oral and IV doses of diltiazem in the emergency department. She had some response to the diltiazem, but unfortunately, her heart rate began to creep back up again into the 120s to 130s. She was given a second dose of IV diltiazem with some response but ultimately, it became tachycardic again while remaining in A. fib and had to be put on a diltiazem drip. The patient was also given 80 mg of Lasix but had only put out 300 cc of urine while in the emergency department. The patient had improved mildly but was still having some labored respirations and requiring supplemental oxygen, and given this and the fact she was on a diltiazem drip, I felt she should be admitted to the hospital. I spoke with Dr. Gaytan, who agreed to admit the patient to her service. Departure - Departure Disposition: 66 [facility] DC/Xf[facility] Clinical Impression: Atrial fibrillation with rapid ventricular response, Acute exacerbation of CHF (congestive heart failure) Condition: Serious Discharge Date/Time: 10/15/22 18:10
[2022-10-15] MEDS ORDERED: ONDANSETRON 4 MG/2 ML VIAL IVP PRN (17:25)
[2022-10-15] MEDS ORDERED: PROCHLORPERAZINE 10 MG/2 ML VIAL IVP PRN (17:25)
--- NOTE | 2022-10-15 17:35 | HISTORY & PHYSICAL EXAMINATION ---
Chief Complaint - Chief Complaint Chief Complaint: Shortness of breath, weakness, confusion History of Present Illness - Admitted From Admitted From:: Home via EMS - History Obtained From Records [facility]ed: [facility] History obtained from: Dr. Acevedo Exam Limitations: Patient is confused, poor historian. - History of Present Illness HPI Comment/Other: This presentation and case were discussed with both ER provider and the patient's carbider Dr. Helms from [facility]. She has a history of chronic atrial fibrillation, morbid obesity and is anticoagulated and on rate control. Rate control consists of metoprolol 200 mg p.o. twice daily and diltiazem 420 mg daily. She has never had a stress test and her last echocardiogram was done in 2018 and documented intact ejection fraction. No significant valvular heart disease. In the intervening years she has been seen by cardiology. Last visit was in March 2021. She is followed by her primary care provider at [facility] and A1c is controlled. She has had intermittent problems with right facial swelling since 2014. Last episode was last year and attributed to a dental abscess. She is also had intermittent leg cellulitis. reported to Dr. Acevedo that she was fatigued and seemed a little bit more confused than usual yesterday. As the day progressed her confusion was worse. But today she was now short of breath. When she finally was not making any sense and she was breathing heavily, he called ambulance and she was brought here. There is no antecedent history of fever, chills. Cough. She has no ch wilfred in bowel habits. History is obtained from the since the patient is not really able to get 1. In the emergency room at 9 this morning temperature was 37.2. Heart rate 74. Respirations 30. And she was 100% on a nonrebreather. As the morning and afternoon have progressed, the patient had becoming significantly more tachycardic and was consistently in the 120s in spite of diltiazem IV push 20 mg. She received 2 of these. Started on a diltiazem drip and still had heart rate of 127. Troponin #1 was 557. Troponin #2 was 858. Troponin #3 is 893. BNP is 3555. Her carbider was consulted. He feels this is strictly demand ischemia. If he would guess the cause of all this is that she went into congestive heart failure, and the congestive heart failure is what is driving the A. fib with RVR. In addition to her heart issue, the patient has newly elevated liver enzymes. Emergency room provider was unable to elucidate if there was any abdominal pain or history that went with this so I asked for an abdominal ultrasound to be done. I also asked for a lactic acid to be done. Lactic acid is 3.2 and abdominal ultrasound is pending at the time of this admission. She is on metformin and this could be the cause of her lactic acidosis. Head CT shows mild atrophy and chronic ischemic changes without intracranial hemorrhage or mass- effect. Visualized sinuses and mastoids are clear. Cardiology provider feels that the patient could be admitted to this facility. He does not feel that the patient is having acute ischemic event. If, however, she decompensates from a cardiac perspective and continues to have rising troponins, he will be glad to speak to us again. He feels that she should be admitted for rate control and diuresis and go from there. History - Past Medical History Cardiovascular: reports: Hypertension, Atrial fibrillation Respiratory: reports: None Endocrine/Autoimmune: reports: Type 2 diabetes, HyPOthyroidism GI: reports: None : reports: None HEENT: reports: Chronic vision loss Psych: reports: Anxiety, Panic attacks, Claustrophobia Musculoskeletal: reports: Osteoarthritis (knees and hips) Derm: reports: None MRSA Hx?: No Other Past Medical History: dislocated right elbow - Family & Social History Family History Comment/Other: Dad at age 62 of a heart attack and was a heavy smoker. Mom at age 69 of emphysema. 2 brothers have diabetes, one has high blood pressure. 2 daughters. One daughter has complications of lupus with cardiomyopathy and vasculitis Living arrangement: At home Living Situation: With spouse/s.o. Social History Notes: She was born on [facility]. [place] in this [place]. [place] They left to travel all over the [place] where he was stationed. They had 2 children together and one stepchild from him. 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 They moved back to [facility] in around 1985 and they have lived here since. Right now she helps take care of her grandkids. Her disabled daughter lives with her. The daughter is still independent with regards to her activities of daily living. Her endurance is just not so great. She started smoking at about age 30 and smoked up to 2 packs/day for 5 years only. She never had a problem with alcohol abuse. She has no history of other recreational substance abuse. - Substance History Use: Uses substance without health or social issues: NONE - POLST Patient has POLST: No POLST Status: Full Code (However, if there is irreversible brain damage she does not want to be resuscitated. Or if resuscitation will result in life support that will be chronic, she is wants us to let her go) Meds/Allgy - Home Medications Home Medications: Ambulatory Orders Medication Instructions Recorded Confirmed Atorvastatin [Lipitor] 10 mg PO QPM 08/27/18 10/15/22 Doxepin HCl 75 mg PO QPM 08/27/18 10/15/22 Metformin HCl 500 mg PO BID 08/27/18 10/15/22 Apixaban [Eliquis] 5 mg PO BID #60 tablet 08/28/18 10/15/22 Diltiazem HCl [Diltiazem 24Hr ER] 420 mg PO DAILY 06/09/19 10/15/22 Metoprolol Succinate [Toprol Xl] 200 mg PO BID 06/09/19 10/15/22 lisinopriL [Lisinopril] 20 mg PO DAILY 06/12/19 10/15/22 Acetaminophen [Tylenol] 325 - 650 mg PO Q4H PRN 07/31/19 10/15/22 Levothyroxine Sodium [Synthroid] 250 mcg PO DAILY 07/31/19 10/15/22 Potassium Chloride [Klor-Con 10] 10 meq PO DAILY 07/31/19 10/15/22 hydroCHLOROthiazide 25 mg PO DAILY 07/31/19 10/15/22 [Hydrochlorothiazide] Dulaglutide [Trulicity] 1.5 mg SQ .Q7DAY 10/15/22 10/15/22 Fluticasone [Flonase] 1 sprays SAIMA DAILY 10/15/22 10/15/22 - Allergies Allergies/Adverse Reactions: Allergies Allergy/AdvReac Type Severity Reaction Status Date / Time Penicillins Allergy Rash Verified 07/31/19 14:45 Sulfa (Sulfonamide Allergy Unknown Verified 07/31/19 14:45 Antibiotics) Review of Systems - Other Findings Other Findings: I am unable to obtain a review of systems on this benjamín, cooperative pleasant female. The most she is able to tell me is that she is at the hospital. When I apologized to her about all of his speaking about her in front of her as if she was not here she laughs appropriately but really is nonverbal for the most part . The rest of the question she will just stare blankly. I did try and call her at the number that is in the facesheet. I have left a message as there is no answer. I will try him again later and or try him again tomorrow morning. Prior Level of Functionality: Unverifiable at this time. She has had decreasing mobility according to the clinic chart due to knee pain. Exam - Vital Signs Reviewed Vital Signs: Yes Vital Signs: Vital Signs x48h Temp Pulse Resp BP Pulse Ox O2 Flow Rate 10/15/22 16:44 127 H 27 H 107/49 L 100 2 10/15/22 16:36 125 H 26 H 110/63 97 2 10/15/22 15:57 120 H 24 118/92 H 100 10/15/22 15:35 115 H 27 H 151/116 H 100 2 10/15/22 15:21 123 H 22 124/99 H 100 2 10/15/22 14:30 124 H 18 135/87 H 98 2 10/15/22 14:00 120 H 17 110/70 100 2 10/15/22 13:30 126 H 18 104/82 H 100 2 10/15/22 13:00 36.8 C 120 H 18 129/74 100 2 10/15/22 12:30 121 H 18 135/75 H 100 4 10/15/22 12:00 117 H 18 110/64 100 10/15/22 11:30 117 H 18 130/64 100 4 10/15/22 10:59 109 H 18 114/53 L 100 4 10/15/22 10:29 108 H 16 119/71 98 4 10/15/22 09:46 37.2 C 74 30 H 118/73 100 - Physical Exam General Appearance: positive: No acute distress (Morbidly obese female at 5 foot 4 inches tall, 136 kg. As she sits naked in the bed, there are rolls of pannus from her breast, to abdominal wall pannus is from her abdominal wall, Roseann underneath the breasts and abdominal pannus.), Lethargic, Other (Facial expression is blank, minimally interactive until she spontaneously laughs at my apology. She is following commands and moving over on the gurney when we asked her to.) Eyes Bilateral: positive: PERRL, EOMI, Other (Moderate proptosis. Lid lag is definitely there. 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 But the protuberances of the eyes were not there.) ENT: positive: Dry mucous membranes, Other (Dry, cracked lips.. They are peeling) Neck: positive: No JVD. negative: Stiff neck Respiratory: positive: No respiratory distress, Other (She is sitting upright. Arm stretched out in front of her and hands are resting on the tops of her knees. She is rubbing the tops of her shins and sides of her calves and says they hurt). negative: Wheezes, Rales, Rhonchi Cardiovascular: positive: Irregularly irregular, Tachycardia Peripheral Pulses: positive: 1+ Abdomen: positive: Non-tender, Nml bowel sounds, No distention. negative: Guarding, Rebound Skin: positive: Warm, Dry, Pallor, Other (Tattoo in the front chest, and tattoo in the right back shoulder. The right lower extremity from the knee down is a solid red color of red tight skin. 1+ edema. The calf has a large blisters that is ruptured and is draining clear serous thick fluid. The redness extends proximally up the leg and i) Extremities: positive: Full ROM, Pedal edema (On the right leg. She has chronic venous stasis hemosiderin deposits on the left leg. But no edema. It is a large pendulous limb because of obesity. The right limb has more edema changes than the left.), Kasey's sign/cords (Right leg) Conclusion/Plan - Problem List (1) Acute exacerbation of CHF (congestive heart failure) Conclusion/Plan: Inputting this entire scenario together my suspicion is that this woman has an infected leg. That leg resulted in the leukocytosis and probable systemic inflammatory response. I am not quite clear that the lactic acidosis is from infection or metformin. Infection that in turn drove A. fib with RVR, and then the subsequent congestive heart failure. Plan: Inpatient status Difficult dilemma here. On the one hand she appears grossly dehydrated with dry cracked lips, dry oral mucosa but on the other hand she is in congestive heart failure. Will try and aim for rate control without IV boluses of fluid. She has already received Lasix 80 mg IV push once in the ED. Not clearly documented with that urine output was. But I will not give IV Lasix tonight. I may give it to her tomorrow depending on her BUN and creatinine, and her response to rate control. Get echocardiogram so she is not had 1 since 2018 Qualifiers: Heart failure type: diastolic Qualified Code(s): I50.33 - Acute on chronic diastolic (congestive) heart failure (2) Atrial fibrillation with RVR Conclusion/Plan: She takes high doses of medication at home. Metoprolol XL 200 mg p.o. twice daily as well as Cardizem CD 420 mg a day. At this time she has confusion, do not know how much she will be able to swallow her medications. Plan: Continue diltiazem drip and placed in the ICU for this Supplement with Lopressor 5 mg IV push every 6 continue eliquis (3) Lactic acidosis Conclusion/Plan: With leukocytosis. Differential diagnosis for the causes of the lactic acidosis alone would include sepsis with infection, liver disease, dehydration or metformin The fact that she has leukocytosis makes me wonder if it is infection that is the main problem. Source would be the extensive cellulitis of the leg that I am finding. She has a previous history of a dental abscess. She had intermittent swelling of her face between 2014 and 2020. Finally found to have a dental abscess last year that was taken care of. Current CT of the head makes no mention of mastoiditis or sinusitis. Plan: If she is dehydrated, it can be hard to give her IV fluids considering we have to diurese her in the face of A. fib with RVR and she is in acute congestive heart failure Check urinalysis Await imaging studies from the emergency room to determine if she has acute cholecystitis or other liver pathology No metformin while she is here Start Ancef for the cellulitis. In a diabetic I would think of polymicrobial microorganisms. However she appears to have small skin breaks. No extensive area of abscess or necrosis of the right leg. She does have the open blister that is draining serous fluid. She is a diabetic but diet A1c controlled. I am opting to start her with simple Ancef. I know that she is allergic to penicillin and will watch for signs and symptoms of drug reaction. Continue to monitor for signs and symptoms of sepsis. (4) Cellulitis of right leg without foot Conclusion/Plan: Started on Ancef as above. I am Will not be getting a superficial culture of her leg. However she is Homans positive, and even though she is on Eliquis, I will check venous Doppler. She will also need dressing changes to the right posterior calf where the large bullous lesion has erupted or broken down and she is now draining thick, clear, serous fluid (5) Elevated liver enzymes Conclusion/Plan: Usually not a problem for her. Again we will make sure she does not have any signs and symptoms of infection from cholecystitis. Ultrasound will be checked. Liver enzyme evaluation with hepatitis panel, autoimmune panel will be done. She does have a remote history of hepatitis A in 1963. (6) Elevated troponin Conclusion/Plan: Cardiology assures me that he does not feel this is due to acute myocardial ischemia. With my ordering the third set of troponins, she is remained relatively flat at 800. Plan: Continue to trend troponins Repeat EKG in the morning Continue anticoagulation with Eliquis Already on a beta-marissa (7) Type 2 diabetes mellitus treated without insulin Conclusion/Plan: No documented complications. There is no description of neuropathy, retinopathy or nephropathy in her office clinic records. A1c is well controlled. I will try to see if she is getting her annual retinal exams or if she is seeing podiatry at all for foot care. Her glucose is not very elevated. She does have lactic acidosis but I think this is more from metformin than the idea that she has DKA. Plan: Sliding scale insulin. No Lantus at this time. (8) Hypothyroid Conclusion/Plan: Review of her TSH in the EMR shows her to be well treated. At times borderline hyperthyroid due to her medication use. Low normal is 0.34. She is 0.37 today.Proptosis is quite dramatic on physical exam. 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 Plan: Hold Synthroid for a couple of days and then resume Qualifiers: Hypothyroidism type: unspecified Qualified Code(s): E03.9 - Hypothyroidism, unspecified (9) Metabolic encephalopathy Conclusion/Plan: I do remember this benjamín female from her previous admission for A. fib in 2018. She was a talkative individual, appropriately conversational and able to give a lucid history. There is no mention in her office chart that she has cognitive deficits. But I am seeing a lethargic, slow to respond elderly female who is minimally verbal. She is following commands. I will discuss with to see what her baseline is since I have not seen her since 2018. (10) Acute worsening of stage 3 chronic kidney disease Conclusion/Plan: She is not hypotensive. She does appear dehydrated on physical exam. She is received Lasix 80 mg, but I will not give another dose of Lasix for now. Reassess tomorrow morning and see if she actually has to get fluids. Avoid nephrotoxic agents. (11) Candidal intertrigo Conclusion/Plan: Nystatin powder twice daily. - Lab Results Lab results reviewed: Yes Fish Bones: 10/15/22 10:01 10/15/22 10:01 - Diagnostic Imaging Results Diagnostic Imaging Results: positive: Final report reviewed Diagnostic Imaging Results Comments: Interstitial pulmonary edema with a small left pleural effusion and minimal basilar atelectasis. Cardiomegaly. No findings of pneumonia - EKG Results EKG Interpreted Independently: No Core Measures - Anticipated LOS I expect patient to be DC'd or transferred within 96 hours.: Yes - DVT/VTE - Prophylaxis VTE/DVT Device ordered at admit?: Yes
--- NOTE | 2022-10-15 17:46 | CT Report ---
PROCEDURE: HEAD WO INDICATIONS: aloc TECHNIQUE: Noncontrast 4.5 mm thick angled axial sections acquired from the foramen magnum to the vertex. For r adiation dose reduction, the following was used: automated exposure control, adjustment of mA and/or kV according to patient size. COMPARISON: None. FINDINGS: Image quality: Excellent. CSF spaces: Basal cisterns are patent. No extra-axial fluid collections. Ventricles are normal in size and shape. Brain: No midline shift. No intracranial masses or hemorrhage. Hendrickson-white matter interface is norm al. Skull and face: Calvarium and visualized facial bones are intact, without suspicious lesions. Sinuses: Visualized sinuses and mastoids are clear. IMPRESSION: Mild atrophy and chronic ischemic change without intracranial hemorrhage or mass effect Reviewed by: Hasmukh Devries MD on 10/15/2022 4:44 PM [place] Approved by: Hasmukh Devries MD on 10/15/2022 4:44 PM AKST Station ID: [id number]
[2022-10-15] MEDS ORDERED: METOPROLOL 5 MG/5 ML VIAL IVP PRN (18:16)
[2022-10-15] MEDS ORDERED: diphenhydrAMINE INJ 50 MG/ML VIAL IVP PRN (18:54)
[2022-10-15] MEDS: ceFAZolin 1 GM in SODIUM CHLORIDE 0.9% MINIBAG 100 ML IV SCH (19:25)
[2022-10-15] MEDS: NYSTATIN POWDER 15 GM TOP SCH (20:42)
[2022-10-15] MEDS: DOXEPIN 25 MG CAPSULE PO SCH (20:43)
[2022-10-15] MEDS: SODIUM CHLORIDE FLUSH 0.9% 10 ML SYRINGE IVP PRN (20:43)
--- NOTE | 2022-10-15 20:55 | Ultrasound Report ---
PROCEDURE: Abdomen Limited INDICATIONS: elevated LFTs TECHNIQUE: Real-time focused scanning was performed of the abdomen, with image documentation. COMPARISON: CT chest angiogram 06/20/2019. FINDINGS: The liver demonstrates grossly normal echogenicity without a discrete mass identified sonographically . There is patent hepatopedal flow. The gallbladder demonstrates no stones, wall thickening, or pericholecystic fluid. No intra or extra hepatic biliary ductal dilatation. The common duct is not well seen. The pancreatic head and body appear unremarkable sonographically. Pancreatic tail not well seen. The right kidney measures 8.8 cm. No hydronephrosis. There is an oval hyperechoic lesion contiguous w ith the superior pole the right kidney, measuring approximately 1.5 x 1.6 cm. IMPRESSION: 1. No evidence of cholelithiasis or cholecystitis. 2. No biliary ductal dilatation. 3. Hyperechoic lesion contiguous with the superior pole the right kidney is nonspecific but suggestiv e of an angiomyolipoma. A follow-up renal protocol CT may performed for further evaluation if clinica lly indicated. Reviewed by: Yoshi Goss MD on 10/15/2022 8:54 PM PST Approved by: Yoshi Goss MD on 10/15/2022 8:54 PM PST Station ID: [id number]
[2022-10-15 21:04] LABS: BILIRUBIN,URINE NEGATIVE (NEGATIVE); GLUCOSE, URINE (UA) NEGATIVE (NEGATIVE); KETONES,URINE (UA) NEGATIVE (NEGATIVE); LEUKOCYTE ESTERASE, URINE SMALL (NEGATIVE); NITRITE,URINE POSITIVE (NEGATIVE); OCCULT BLOOD,URINE LARGE (NEGATIVE); PH,URINE 5.5 PH (5.0-7.5); PROTEIN,URINE 100 mg/dL (NEGATIVE); UROBILINOGEN,URINE 0.2 (NORMAL) E.U./dL (NORMAL)
--- NOTE | 2022-10-15 21:04 | Ultrasound Report ---
PROCEDURE: Duplex Ext Veins Right INDICATIONS: edema, red, tammy (+) TECHNIQUE: Real-time imaging, as well as color and pulse Doppler interrogation, were performed of the lower extr emity deep veins from the inguinal ligament to the popliteal fossa. COMPARISON: None. FINDINGS: Evaluation limited due to body habitus and patient's limited ability to cooperate. No evidence of thrombosis within the common femoral or proximal superficial femoral veins. The mid to distal superficial femoral vein as well as the popliteal veins without well visualized but venous fl ow was demonstrated on Doppler interrogation their expected locations. The calf veins were not well v isualized. IMPRESSION: 1. Limited study demonstrates no evidence of deep venous thrombosis within the common femoral or prox imal to pressure femoral veins. Deep venous thrombosis cannot be excluded more distally. Reviewed by: Yoshi Goss MD on 10/15/2022 9:03 PM PST Approved by: Yoshi Goss MD on 10/15/2022 9:03 PM [facility] Station ID: [id number]
[2022-10-15 21:05] LABS: CLARITY,URINE HAZY (CLEAR)
[2022-10-15 21:17] LABS: BACTERIA,URINE Moderate /HPF (None Seen); SQUAMOUS EPITHELIAL CELL,UR FEW Squamous (<= Few); WBC,URINE >25 /HPF (0-5)
[2022-10-15] MEDS ORDERED: diltiaZEM INJ 125 MG in DEXTROSE 5% 100 ML IV SCH (23:00)
[2022-10-15] MEDS: ACETAMINOPHEN 325 MG TABLET PO PRN (23:12)
[2022-10-16] MEDS: SODIUM CHLORIDE FLUSH 0.9% 10 ML SYRINGE IVP SCH ×3 (00:35→16:56)
[2022-10-16 07:39] LABS: CALCIUM, IONIZED 0.91 mmol/L (1.15-1.33); VBG PH 7.456 (7.31-7.41)
[2022-10-16 07:55] LABS: ALBUMIN 2.3 g/dL (3.2-5.5); ALBUMIN/GLOBULIN RATIO 0.6 (1.0-2.2); CREATININE 1.5 mg/dL (0.4-1.0); MAGNESIUM 1.3 mg/dL (1.7-2.8); PHOSPHORUS 4.1 mg/dL (2.5-4.6); POTASSIUM 4.1 mmol/L (3.5-5.0); TOTAL PROTEIN 6.3 g/dL (6.7-8.2)
[2022-10-16 07:56] LABS: BASOPHILS % (AUTO) 0.7 %; EOSINOPHILS % (AUTO) 0.1 %; HCT - HEMATOCRIT 36.7 % (37.0-47.0); HGB - HEMOGLOBIN 12.1 g/dL (12.0-16.0); LYMPHOCYTES % (AUTO) 6.9 %; MEAN CORPUSCULAR HEMOGLOBIN 32.5 pg (27.0-31.0); MEAN CORPUSCULAR VOLUME 98.7 fL (81.0-99.0); MEAN PLATELET VOLUME 10.4 fL (7.9-10.8); MONOCYTES % (AUTO) 5.6 %; NEUTROPHILS % (AUTO) 85.7 %; PLT - PLATELET COUNT 133 10^3/uL (130-450); RED BLOOD COUNT 3.72 10^6/uL (4.20-5.40); RED CELL DISTRIBUTION WIDTH 13.7 % (12.0-15.0); WHITE BLOOD COUNT 21.2 x10^3/uL (4.8-10.8)
[2022-10-16 08:16] LABS: ABNORMAL LYMPHS % (MANUAL) 0 %
[2022-10-16 08:24] LABS: BAND NEUTROPHILS % (MANUAL) 4 %; LYMPHOCYTES # (MANUAL) 2.1 10^3/uL (1.5-3.5); LYMPHOCYTES % (MANUAL) 10 %; METAMYELOCYTES % (MANUAL) 1 %; MONOCYTES # (MANUAL) 0.8 10^3/uL (0.0-1.0); PLATELET ESTIMATE, MANUAL NORMAL (130-450,000) (NORMAL); PLATELET MORPHOLOGY NORMAL APPEARANCE (NORMAL); RBC MORPHOLOGY (MULTIPLE) NORMAL APPEARANCE (NORMAL)
[2022-10-16 08:25] LABS: DIFFERENTIAL COMMENT MANUAL DIFFERENTIAL
[2022-10-16] MEDS: LEVOTHYROXINE 125 MCG TABLET PO SCH (08:25)
[2022-10-16] MEDS: NYSTATIN POWDER 15 GM TOP SCH ×2 (08:26→21:07)
[2022-10-16] MEDS: lisinopriL 20 MG TABLET PO SCH (08:26)
[2022-10-16] MEDS ORDERED: SODIUM CHLORIDE 0.9% 500 ML IV ONE ×2 (08:57→16:39)
[2022-10-16] MEDS ORDERED: SODIUM CHLORIDE 0.9% 1,000 ML IV SCH (09:00)
[2022-10-16] MEDS ORDERED: DEXTROSE 5% 0 ML IV ONE (09:18)
[2022-10-16] MEDS ORDERED: CALCIUM GLUCONATE IN NS 0.9% 2,000 MG/100 ML BAG IV ONE ×2 (09:56→14:51)
[2022-10-16] MEDS ORDERED: diltiaZEM CD 240 MG CAPSULE PO SCH (10:00)
[2022-10-16] MEDS ORDERED: MAGNESIUM SULFATE 2 GRAM 2 GM/50 ML BAG IV ONE ×2 (10:00→10:01)
[2022-10-16] MEDS ORDERED: diltiaZEM CD 180 MG CAPSULE PO SCH (10:00)
[2022-10-16] MEDS: METOPROLOL SUCCINATE 50 MG TABLET PO SCH ×2 (10:17→21:06)
[2022-10-16] MEDS: ceFAZolin 1 GM in SODIUM CHLORIDE 0.9% MINIBAG 100 ML IV SCH ×3 (11:00→19:08)
--- NOTE | 2022-10-16 11:41 | PHARMACY PROGRESS NOTE ---
- Best Possible Medication History Admit Date and Time: 10/15/22 2587 Processed by: Pharmacy Medication History completed: Yes Patient Interview: Pt unable to participate Secondary Source(s): Prescription bottles, Insurance records As the person ultimately responsible for medication therapy, providers are able to order a medication from an existing home medication list in [facility] via the "Reconcile Routine" prior to Confirmation of that medication by system support technician. Such practice is discouraged except when the physician, in their clinical judgment, deems that a medical need exists for a medication without regard to previous use.
[2022-10-16 13:59] LABS: CALCIUM, IONIZED 0.99 mmol/L (1.15-1.33); VBG PH 7.403 (7.31-7.41)
[2022-10-16 14:12] LABS: ALBUMIN 2.5 g/dL (3.2-5.5); ALBUMIN/GLOBULIN RATIO 0.6 (1.0-2.2); BILIRUBIN,TOTAL 1.2 mg/dL (0.2-1.0); CALCIUM 8.3 mg/dL (8.5-10.3); CREATININE 1.4 mg/dL (0.4-1.0); MAGNESIUM 2.2 mg/dL (1.7-2.8); POTASSIUM 3.9 mmol/L (3.5-5.0); TOTAL PROTEIN 6.4 g/dL (6.7-8.2)
--- NOTE | 2022-10-16 15:08 | PROVIDER PROGRESS NOTE ---
Subjective - Prog Note Date Prog Note Date: 10/16/22 Prog Note Time: 15:06 Current Medications - Current Medications Current Medications: Active Medications Acetaminophen (Acetaminophen 325 Mg Tablet) 650 mg PO Q4HR PRN PRN Reason: Pain 1 to 4, or Fever Diltiazem HCl (Diltiazem Cd 240 Mg Capsule) 240 mg PO DAILY [facility] Last Admin: 10/16/22 12:02 Dose: 240 mg Diltiazem HCl (Diltiazem Cd 180 Mg Capsule) 180 mg PO DAILY [facility] Last Admin: 10/16/22 12:02 Dose: 180 mg Diphenhydramine HCl (Diphenhydramine Inj 50 Mg/Ml Vial) 25 mg IVP Q6H PRN PRN Reason: Allergy Symptoms Doxepin HCl (Doxepin 25 Mg Capsule) 75 mg PO QPM [facility] Last Admin: 10/15/22 20:43 Dose: 75 mg Cefazolin Sodium 1 gm/ Sodium (Chloride) 100 mls @ 200 mls/hr IV Q8H [facility] Last Infusion: 10/16/22 12:02 Dose: Infused Sodium Chloride (Normal Saline 0.9%) 1,000 mls @ 125 mls/hr IV .Q8H [facility] Stop: 10/16/22 16:59 Last Admin: 10/16/22 09:09 Dose: 125 mls/hr CALCIUM GLUCONATE IN NS 0.9% (Calcium Glu 2,000mg/100ml-Nacl) 2,000 mg in 100 mls @ 100 mls/hr IV ONCE ONE Stop: 10/16/22 15:50 Last Admin: 10/16/22 15:07 Dose: 100 mls/hr Levothyroxine Sodium (Levothyroxine 125 Mcg Tablet) 250 mcg PO QDAC [facility] Last Admin: 10/16/22 08:25 Dose: 250 mcg Lisinopril (Lisinopril 20 Mg Tablet) 20 mg PO DAILY [facility] Last Admin: 10/16/22 08:26 Dose: 20 mg Metoprolol Succinate (Metoprolol Succinate 50 Mg Tablet) 200 mg PO BID [facility] Last Admin: 10/16/22 10:17 Dose: 200 mg Metoprolol Tartrate (Metoprolol 5 Mg/5 Ml Vial) 5 mg IVP Q6H PRN PRN Reason: Tachycardia Nystatin (Nystatin Powder 15 Gm) 1 applic TOP BID [facility] Last Admin: 10/16/22 08:26 Dose: 1 applic Ondansetron HCl (Ondansetron Odt 4 Mg Tablet) 4 mg TL Q6HR PRN PRN Reason: Nausea / Vomiting Ondansetron HCl (Ondansetron 4 Mg/2 Ml Vial) 4 mg IVP Q6HR PRN PRN Reason: Nausea / Vomiting Oxycodone HCl (Oxycodone 5 Mg Tablet) 5 mg PO Q4HR PRN PRN Reason: Pain 5 to 7 Prochlorperazine Edisylate (Prochlorperazine 10 Mg/2 Ml Vial) 10 mg IVP Q6HR PRN PRN Reason: Nausea / Vomiting Sodium Chloride (Sodium Chloride Flush 0.9% 10 Ml Syringe) 10 ml IVP PRN PRN PRN Reason: NEEDED PER PROVIDER ORDERS Last Admin: 10/15/22 20:43 Dose: 10 ml Sodium Chloride (Sodium Chloride Flush 0.9% 10 Ml Syringe) 10 ml IVP 0100,0900,1700 [facility] Last Admin: 10/16/22 08:26 Dose: 10 ml Atorvastatin [Lipitor] 10 mg PO QPM 08/27/18 Doxepin HCl 75 mg PO QPM 08/27/18 Metformin HCl 500 mg PO BID 08/27/18 Diltiazem HCl [Diltiazem 24Hr ER] 420 mg PO DAILY 06/09/19 Metoprolol Succinate [Toprol Xl] 200 mg PO BID 06/09/19 lisinopriL [Lisinopril] 20 mg PO DAILY 06/12/19 Acetaminophen [Tylenol] 325 - 650 mg PO Q4H PRN 07/31/19 Levothyroxine Sodium [Synthroid] 250 mcg PO QDAC 07/31/19 Potassium Chloride [Klor-Con 10] 10 meq PO DAILY 07/31/19 hydroCHLOROthiazide [Hydrochlorothiazide] 25 mg PO DAILY 07/31/19 Dulaglutide [Trulicity] 1.5 mg SQ .Q7DAY 10/15/22 Fluticasone [Flonase] 1 sprays SAIMA DAILY 10/15/22 Objective - Vital Signs/Intake & Output Reviewed Vital Signs: Yes Vital Signs: Vital Signs x48h Temp Pulse Resp BP Pulse Ox O2 Flow Rate 10/16/22 15:00 95 21 108/55 L 95 3 10/16/22 14:00 90 18 105/54 L 96 3 10/16/22 13:00 88 14 112/59 L 94 2 10/16/22 12:29 36.3 C L 10/16/22 12:04 37.0 C 86 18 104/58 L 2 10/16/22 11:54 79 19 94/54 L 94 2 10/16/22 11:00 83 19 90/44 L 94 2 10/16/22 10:15 92 23 102/55 L 91 L 2 10/16/22 10:00 94 21 89/50 L 95 2 10/16/22 09:48 98 21 95/55 L 96 2 10/16/22 09:00 79 18 83/43 L 92 2 10/16/22 08:00 37.0 C 99 17 110/90 H 95 2 Intake & Output: Intake & Output 10/13/22 10/14/22 10/15/22 10/16/22 23:59 23:59 23:59 23:59 Intake Total 934.891 2283.167 Output Total 100 50 Balance 989.583 5536.167 - Objective General Appearance: positive: No acute distress, Lethargic Eyes Bilateral: positive: PERRL, EOMI ENT: positive: Dry mucous membranes Neck: positive: No JVD. negative: Stiff neck Respiratory: positive: No respiratory distress. negative: Wheezes, Rales, Rhonchi Cardiovascular: positive: Irregularly irregular (But no longer tachycardic.), Other (Blood pressure in the low 100s systolic today.) Abdomen: positive: Non-tender, No organomegaly, Nml bowel sounds, No distention, Other (Huge, double folded abdominal pannus) Skin: positive: Other (Roseann under breasts and abdominal pannus) Extremities: positive: Full ROM, Pedal edema (Right leg is slowly starting to shrink. Skin is starting to get regular on her foot and ankle. Still little tight around the calf and cavazos. Left leg with trace edema. But evidence of a chronic venous stasis with hemosiderin deposits and discoloration of the skin. No redness or heat of the left) Neurologic/Psychiatric: positive: CN's nml (2-12), Motor nml, Disoriented to place, Disoriented to time - Lab Results Fish Bones: 10/16/22 07:28 10/16/22 13:49 Other Labs: Lab Results x24hrs 10/16/22 10/16/22 10/16/22 Range/Units 13:49 13:49 07:28 WBC (4.8-10.8) x10^3/uL RBC (4.20-5.40) 10^6/uL Hgb (12.0-16.0) g/dL Hct (37.0-47.0) % MCV (81.0-99.0) fL MCH (27.0-31.0) pg MCHC (32.0-36.0) g/dL RDW (12.0-15.0) % Plt Count (130-450) 10^3/uL MPV (7.9-10.8) fL Neut # (Auto) Lymph # (Auto) Bailey # (Auto) Eos # (Auto) Baso # (Auto) Absolute Nucleated RBC Total Counted Band Neuts % (Manual) (0 - 10) % Abnorm Lymph % (Manual) % Metamyelocytes % ( - 0) % Nucleated RBC % Neutrophils # (Manual) (1.5-6.6) 10^3/uL Lymphocytes # (Manual) (1.5-3.5) 10^3/uL Monocytes # (Manual) (0.0-1.0) 10^3/uL Eosinophils # (Manual) (0-0.7) 10^3/uL Basophils # (Manual) (0-0.1) 10^3/uL Differential Comment Platelet Estimate (NORMAL) Platelet Morphology (NORMAL) RBC Morph Micro Appear (NORMAL) VBG pH 7.403 7.456 H (7.31-7.41) Ionized Calcium 0.99 L 0.91 L (1.15-1.33) mmol/L Sodium 136 (135-145) mmol/L Potassium 3.9 (3.5-5.0) mmol/L Chloride 99 L (101-111) mmol/L Carbon Dioxide 26 (21-32) mmol/L Anion Gap 11.0 (6-13) BUN 43 H (6-20) mg/dL Creatinine 1.4 H (0.4-1.0) mg/dL Estimated GFR (MDRD) 37 L (>89) Glucose 114 H (70-100) mg/dL Lactic Acid (0.5-2.2) mmol/L Calcium 8.3 L (8.5-10.3) mg/dL Phosphorus (2.5-4.6) mg/dL Magnesium 2.2 (1.7-2.8) mg/dL Ferritin (11.0-306.8) ng/mL Total Bilirubin 1.2 H (0.2-1.0) mg/dL AST 221 H (10-42) IU/L ALT 119 H (10-60) IU/L Alkaline Phosphatase 95 (42-121) IU/L Troponin I High Sens (2.3-14.8) ng/L B-Natriuretic Peptide (5-100) pg/mL Total Protein 6.4 L (6.7-8.2) g/dL Albumin 2.5 L (3.2-5.5) g/dL Globulin 3.9 (2.1-4.2) g/dL Albumin/Globulin Ratio 0.6 L (1.0-2.2) Urine Color Urine Clarity (CLEAR) Urine pH (5.0-7.5) PH Ur Specific [place] (1.002-1.030) Urine Protein (NEGATIVE) mg/dL Urine Glucose (UA) (NEGATIVE) mg/dL Urine Ketones (NEGATIVE) mg/dL Urine Occult Blood (NEGATIVE) Urine Nitrite (NEGATIVE) Urine Bilirubin (NEGATIVE) Urine Urobilinogen (NORMAL) E.U./dL Ur Leukocyte Esterase (NEGATIVE) Urine RBC (0-5) /HPF Urine WBC (0-5) /HPF Ur Squamous Epith Cells (<= Few) Urine Bacteria (None Seen) /HPF Ur Microscopic Review Urine Culture Comments Nasal Screen MRSA (PCR) (NEGATIVE) 10/16/22 10/16/22 10/16/22 Range/Units 07:28 07:28 07:28 WBC 21.2 H (4.8-10.8) x10^3/uL RBC 3.72 L (4.20-5.40) 10^6/uL Hgb 12.1 (12.0-16.0) g/dL Hct 36.7 L (37.0-47.0) % MCV 98.7 (81.0-99.0) fL MCH 32.5 H (27.0-31.0) pg MCHC 33.0 (32.0-36.0) g/dL RDW 13.7 (12.0-15.0) % Plt Count 133 (130-450) 10^3/uL MPV 10.4 (7.9-10.8) fL Neut # (Auto) Not Reportable Lymph # (Auto) Not Reportable Bailey # (Auto) Not Reportable Eos # (Auto) Not Reportable Baso # (Auto) Not Reportable Absolute Nucleated RBC Not Reportable Total Counted 100 Band Neuts % (Manual) 4 (0 - 10) % Abnorm Lymph % (Manual) 0 % Metamyelocytes % 1 H ( - 0) % Nucleated RBC % Not Reportable Neutrophils # (Manual) 18.0 H (1.5-6.6) 10^3/uL Lymphocytes # (Manual) 2.1 (1.5-3.5) 10^3/uL Monocytes # (Manual) 0.8 (0.0-1.0) 10^3/uL Eosinophils # (Manual) 0.0 (0-0.7) 10^3/uL Basophils # (Manual) 0.0 (0-0.1) 10^3/uL Differential Comment MANUAL DIFFERENTIAL Platelet Estimate NORMAL (130-450,000) (NORMAL) Platelet Morphology NORMAL APPEARANCE (NORMAL) RBC Morph Micro Appear NORMAL APPEARANCE (NORMAL) VBG pH (7.31-7.41) Ionized Calcium (1.15-1.33) mmol/L Sodium 136 (135-145) mmol/L Potassium 4.1 (3.5-5.0) mmol/L Chloride 98 L (101-111) mmol/L Carbon Dioxide 26 (21-32) mmol/L Anion Gap 12.0 (6-13) BUN 41 H (6-20) mg/dL Creatinine 1.5 H (0.4-1.0) mg/dL Estimated GFR (MDRD) 34 L (>89) Glucose 120 H (70-100) mg/dL Lactic Acid (0.5-2.2) mmol/L Calcium 8.0 L (8.5-10.3) mg/dL Phosphorus 4.1 (2.5-4.6) mg/dL Magnesium 1.3 L (1.7-2.8) mg/dL Ferritin (11.0-306.8) ng/mL Total Bilirubin 1.0 (0.2-1.0) mg/dL AST 213 H (10-42) IU/L ALT 113 H (10-60) IU/L Alkaline Phosphatase 90 (42-121) IU/L Troponin I High Sens (2.3-14.8) ng/L B-Natriuretic Peptide 1089 H (5-100) pg/mL Total Protein 6.3 L (6.7-8.2) g/dL Albumin 2.3 L (3.2-5.5) g/dL Globulin 4.0 (2.1-4.2) g/dL Albumin/Globulin Ratio 0.6 L (1.0-2.2) Urine Color Urine Clarity (CLEAR) Urine pH (5.0-7.5) PH Ur Specific [place] (1.002-1.030) Urine Protein (NEGATIVE) mg/dL Urine Glucose (UA) (NEGATIVE) mg/dL Urine Ketones (NEGATIVE) mg/dL Urine Occult Blood (NEGATIVE) Urine Nitrite (NEGATIVE) Urine Bilirubin (NEGATIVE) Urine Urobilinogen (NORMAL) E.U./dL Ur Leukocyte Esterase (NEGATIVE) Urine RBC (0-5) /HPF Urine WBC (0-5) /HPF Ur Squamous Epith Cells (<= Few) Urine Bacteria (None Seen) /HPF Ur Microscopic Review Urine Culture Comments Nasal Screen MRSA (PCR) (NEGATIVE) 10/16/22 10/15/22 10/15/22 Range/Units 07:28 20:10 18:15 WBC (4.8-10.8) x10^3/uL RBC (4.20-5.40) 10^6/uL Hgb (12.0-16.0) g/dL Hct (37.0-47.0) % MCV (81.0-99.0) fL MCH (27.0-31.0) pg MCHC (32.0-36.0) g/dL RDW (12.0-15.0) % Plt Count (130-450) 10^3/uL MPV (7.9-10.8) fL Neut # (Auto) Lymph # (Auto) Bailey # (Auto) Eos # (Auto) Baso # (Auto) Absolute Nucleated RBC Total Counted Band Neuts % (Manual) (0 - 10) % Abnorm Lymph % (Manual) % Metamyelocytes % ( - 0) % Nucleated RBC % Neutrophils # (Manual) (1.5-6.6) 10^3/uL Lymphocytes # (Manual) (1.5-3.5) 10^3/uL Monocytes # (Manual) (0.0-1.0) 10^3/uL Eosinophils # (Manual) (0-0.7) 10^3/uL Basophils # (Manual) (0-0.1) 10^3/uL Differential Comment Platelet Estimate (NORMAL) Platelet Morphology (NORMAL) RBC Morph Micro Appear (NORMAL) VBG pH (7.31-7.41) Ionized Calcium (1.15-1.33) mmol/L Sodium (135-145) mmol/L Potassium (3.5-5.0) mmol/L Chloride (101-111) mmol/L Carbon Dioxide (21-32) mmol/L Anion Gap (6-13) BUN (6-20) mg/dL Creatinine (0.4-1.0) mg/dL Estimated GFR (MDRD) (>89) Glucose (70-100) mg/dL Lactic Acid (0.5-2.2) mmol/L Calcium (8.5-10.3) mg/dL Phosphorus (2.5-4.6) mg/dL Magnesium (1.7-2.8) mg/dL Ferritin 499.1 H (11.0-306.8) ng/mL Total Bilirubin (0.2-1.0) mg/dL AST (10-42) IU/L ALT (10-60) IU/L Alkaline Phosphatase (42-121) IU/L Troponin I High Sens (2.3-14.8) ng/L B-Natriuretic Peptide (5-100) pg/mL Total Protein (6.7-8.2) g/dL Albumin (3.2-5.5) g/dL Globulin (2.1-4.2) g/dL Albumin/Globulin Ratio (1.0-2.2) Urine Color YELLOW Urine Clarity HAZY (CLEAR) Urine pH 5.5 (5.0-7.5) PH Ur Specific [place] >=1.030 H (1.002-1.030) Urine Protein 100 H (NEGATIVE) mg/dL Urine Glucose (UA) NEGATIVE (NEGATIVE) mg/dL Urine Ketones NEGATIVE (NEGATIVE) mg/dL Urine Occult Blood LARGE H (NEGATIVE) Urine Nitrite POSITIVE H (NEGATIVE) Urine Bilirubin NEGATIVE (NEGATIVE) Urine Urobilinogen 0.2 (NORMAL) (NORMAL) E.U./dL Ur Leukocyte Esterase SMALL H (NEGATIVE) Urine RBC 6-10 H (0-5) /HPF Urine WBC >25 H (0-5) /HPF Ur Squamous Epith Cells FEW Squamous (<= Few) Urine Bacteria Moderate H (None Seen) /HPF Ur Microscopic Review INDICATED Urine Culture Comments INDICATED Nasal Screen MRSA (PCR) NEGATIVE (NEGATIVE) 10/15/22 10/15/22 Range/Units 16:58 16:58 WBC (4.8-10.8) x10^3/uL RBC (4.20-5.40) 10^6/uL Hgb (12.0-16.0) g/dL Hct (37.0-47.0) % MCV (81.0-99.0) fL MCH (27.0-31.0) pg MCHC (32.0-36.0) g/dL RDW (12.0-15.0) % Plt Count (130-450) 10^3/uL MPV (7.9-10.8) fL Neut # (Auto) Lymph # (Auto) Bailey # (Auto) Eos # (Auto) Baso # (Auto) Absolute Nucleated RBC Total Counted Band Neuts % (Manual) (0 - 10) % Abnorm Lymph % (Manual) % Metamyelocytes % ( - 0) % Nucleated RBC % Neutrophils # (Manual) (1.5-6.6) 10^3/uL Lymphocytes # (Manual) (1.5-3.5) 10^3/uL Monocytes # (Manual) (0.0-1.0) 10^3/uL Eosinophils # (Manual) (0-0.7) 10^3/uL Basophils # (Manual) (0-0.1) 10^3/uL Differential Comment Platelet Estimate (NORMAL) Platelet Morphology (NORMAL) RBC Morph Micro Appear (NORMAL) VBG pH (7.31-7.41) Ionized Calcium (1.15-1.33) mmol/L Sodium (135-145) mmol/L Potassium (3.5-5.0) mmol/L Chloride (101-111) mmol/L Carbon Dioxide (21-32) mmol/L Anion Gap (6-13) BUN (6-20) mg/dL Creatinine (0.4-1.0) mg/dL Estimated GFR (MDRD) (>89) Glucose (70-100) mg/dL Lactic Acid 3.2 H* (0.5-2.2) mmol/L Calcium (8.5-10.3) mg/dL Phosphorus (2.5-4.6) mg/dL Magnesium (1.7-2.8) mg/dL Ferritin (11.0-306.8) ng/mL Total Bilirubin (0.2-1.0) mg/dL AST (10-42) IU/L ALT (10-60) IU/L Alkaline Phosphatase (42-121) IU/L Troponin I High Sens 893.5 H* (2.3-14.8) ng/L B-Natriuretic Peptide (5-100) pg/mL Total Protein (6.7-8.2) g/dL Albumin (3.2-5.5) g/dL Globulin (2.1-4.2) g/dL Albumin/Globulin Ratio (1.0-2.2) Urine Color Urine Clarity (CLEAR) Urine pH (5.0-7.5) PH Ur Specific [place] (1.002-1.030) Urine Protein (NEGATIVE) mg/dL Urine Glucose (UA) (NEGATIVE) mg/dL Urine Ketones (NEGATIVE) mg/dL Urine Occult Blood (NEGATIVE) Urine Nitrite (NEGATIVE) Urine Bilirubin (NEGATIVE) Urine Urobilinogen (NORMAL) E.U./dL Ur Leukocyte Esterase (NEGATIVE) Urine RBC (0-5) /HPF Urine WBC (0-5) /HPF Ur Squamous Epith Cells (<= Few) Urine Bacteria (None Seen) /HPF Ur Microscopic Review Urine Culture Comments Nasal Screen MRSA (PCR) (NEGATIVE) ABX Reporting Has patient been on IV antibiotics over the past 48 hours?: Yes Assessment/Plan - Problem List (1) Acute exacerbation of CHF (congestive heart failure) Impression: Inputting this entire scenario together my suspicion is that this woman developed an infected leg. That leg resulted in the leukocytosis and probable systemic inflammatory response. I was not quite clear that the lactic acidosis was from infection or metformin. Infection that in turn drove A. fib with RVR, and then the subsequent congestive heart failure. My dilemma was whether to diurese or not diurese this lady. If it was strictly diastolic dysfunction that was acute from the rapid heart rate, diuresis was most likely not going to help her. Slowing her heart rate down was going to help. So I held her Lasix. Especially in view of the fact that she had cracked dry lips that were peeling, and dry oral mucosa. With rate control, her BNP has come down sharply. I have not given any more Lasix. Creatinine is stable at 1.5. She was 1.5 on admission. Heart rate is now successfully in the 80s. Echocardiogram was done today and this is a preliminary report. Wall thickness is normal in the left ventricle. She has sigmoidal shaped septum with focal hypertrophy of the basal septum. Overall LVEF is approximately 55%. Indeterminate left ventricular filling pattern due to A. fib. The mid to distal inferoseptum and mid to distal anteroseptum are hypokinetic. She has mild to moderate right ventricular enlargement. Severe increase in the left atrial volume index. Severe right atrial enlargement. Her aortic valve has peak/mean pressure gradient 14 mmHg / 9 mmHg. Aortic valve by continuity equation is 1.4 cm. Aortic stenosis is felt to be present. Is difficult to quantify in the presence of A. fib and it is read as at least mild aortic stenosis. No significant mitral disease. Moderate tricuspid regurgitation with abnormal RV pressures with an RVSP at 38 mmHg. Plan: I think her CHF was due to the poor filling due to irregular heart rate and fast heart rate. She may been over diuresed with the 80 mg of Lasix last night. Give 500 cc bolus and start IV fluids. We will give 1 to 2 L and then reassess. Qualifiers: Heart failure type: diastolic Qualified Code(s): I50.33 - Acute on chronic diastolic (congestive) heart failure (2) Atrial fibrillation with RVR Conclusion/Plan: She takes high doses of medication at home. Metoprolol XL 200 mg p.o. twice daily as well as Cardizem CD 420 mg a day. Nursing reports she is now able to take pills by mouth this morning. Plan: Resume home Cardizem and Lopressor dosing. Stop diltiazem drip. Pharmacy has verified her home med list and she is on Eliquis. (3) Lactic acidosis Conclusion/Plan: With leukocytosis. Differential diagnosis for the causes of the lactic acidosis alone would include sepsis with infection, liver disease, dehydration or metformin The fact that she has leukocytosis makes me wonder if it is infection that is the main problem. Source would be the extensive cellulitis of the leg that I am finding. She has a previous history of a dental abscess. She had intermittent swelling of her face between 2014 and 2020. Finally found to have a dental abscess last year that was taken care of. Current CT of the head makes no mention of mastoiditis or sinusitis. Abdominal ultrasound shows no evidence of cholelithiasis or cholecystitis. No biliary ductal dilatation. She is a hyperechoic lesion contiguous with the superior pole of the right kidney that is nonspecific and suggestive of an angiomyolipoma [place]. Venous duplex was done of the leg and no evidence of DVT. Plan: At this time I continue to think that cellulitis of the leg was the causative agent of all the above problems. She is now receiving Ancef, I will hydrate, and continue Ancef. Today is day #2/7. There is an allergy to penicillin but there is no drug rash at this time. (4) Cellulitis of right leg without foot Conclusion/Plan: Started on Ancef as above.Day #2/7. I would say there is been some improvement of the leg. The skin below the knee is still bright red. But the skin above the knee is starting to fade from its redness on the lateral aspect of the thigh. Medial aspect of the thigh is also starting to fade. The large bullous lesion that popped in her calf that was draining clear serous fluid is intact although popped. No drainage at this time. (5) Elevated liver enzymes Conclusion/Plan: Usually not a problem for her. Ultrasound is negative for stones. No biliary dilatation. Liver enzyme evaluation with hepatitis panel, autoimmune panel will be done. They have been drawn and pending. She does have a remote history of hepatitis A in 1963. (6) Elevated troponin Conclusion/Plan: Cardiology assures me that he does not feel this is due to acute myocardial ischemia. With my ordering the third set of troponins, she is remained relatively flat at 800. (7) Type 2 diabetes mellitus treated without insulin Conclusion/Plan: No documented complications. There is no description of neuropathy, retinopathy or nephropathy in her office clinic records. A1c is well controlled. I will try to see if she is getting her annual retinal exams or if she is seeing podiatry at all for foot care. Her glucose is not very elevated. She does have lactic acidosis but I think this is more from metformin than the idea that she has DKA. Plan: Sliding scale insulin. No Lantus at this time. (8) Hypothyroid Conclusion/Plan: Review of her TSH in the EMR shows her to be well treated. At times borderline hyperthyroid due to her medication use. Low normal is 0.34. She is 0.37 today. Proptosis is quite dramatic on physical exam. 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 Plan: Hold Synthroid for a couple of days and then resume. Today is hospital day #2. I will resume it tomorrow. Qualifiers: Hypothyroidism type: unspecified Qualified Code(s): E03.9 - Hypothyroidism, unspecified (9) Metabolic encephalopathy Conclusion/Plan: I do remember this benjamín female from her previous admission for A. fib in 2018. She was a talkative individual, appropriately conversational and able to give a lucid history. There is no mention in her office chart that she has cognitive deficits. But I am seeing a lethargic, slow to respond elderly female who is minimally verbal. She is following commands. was able to call me back last night after he left a message. He states that she is definitely slowed. This encephalopathy is new for her and was abrupt in onset the day before admission. It was mild. By the day of admission he says that she was really out of it. So I think that her encephalopathy is from infection and should slowly resolve. Today a little bit improved but not by much. (10) Acute worsening of stage 3 chronic kidney disease Conclusion/Plan: She was not hypotensive on admission so I was not suspecting ATN from that. She does appear dehydrated on physical exam. I will not give another dose of Lasix for now. BUN was 29. Came up to 43 today. Creatinine was 1.5 and is 1.4 today. So not much improvement because of diuresis yesterday. In retrospect she probably did not need the diuresis and just needed a rate lowering aspect. Getting IVF. Avoid nephrotoxic agents. recheck in am. (11) Candidal intertrigo Conclusion/Plan: Nystatin powder twice daily.
[2022-10-16 18:11] LABS: CALCIUM, IONIZED 1.1 mmol/L (1.15-1.33); VBG PH 7.323 (7.31-7.41)
[2022-10-16] MEDS ORDERED: CALCIUM GLUC 1,000MG/50ML-NACL 1,000 MG/50 ML BAG IV ONE (20:03)
[2022-10-16] MEDS: SODIUM CHLORIDE FLUSH 0.9% 10 ML SYRINGE IVP PRN (21:06)
[2022-10-16] MEDS: DOXEPIN 25 MG CAPSULE PO SCH (21:06)
[2022-10-17] MEDS: SODIUM CHLORIDE FLUSH 0.9% 10 ML SYRINGE IVP SCH ×3 (00:36→17:28)
[2022-10-17 00:46] LABS: CALCIUM, IONIZED 1.14 mmol/L (1.15-1.33); VBG PH 7.364 (7.31-7.41)
[2022-10-17] MEDS: ceFAZolin 1 GM in SODIUM CHLORIDE 0.9% MINIBAG 100 ML IV SCH (03:28)
[2022-10-17] MEDS: SODIUM CHLORIDE FLUSH 0.9% 10 ML SYRINGE IVP PRN (03:28)
[2022-10-17 04:10] LABS: BASOPHILS # (AUTO) 0.1 10^3/uL (0.0-0.1); BASOPHILS % (AUTO) 0.6 %; EOSINOPHILS # (AUTO) 0.1 10^3/uL (0.0-0.7); EOSINOPHILS % (AUTO) 0.8 %; HCT - HEMATOCRIT 33.6 % (37.0-47.0); HGB - HEMOGLOBIN 10.9 g/dL (12.0-16.0); LYMPHOCYTES # (AUTO) 1.2 10^3/uL (1.5-3.5); MEAN CORPUSCULAR HEMOGLOBIN 32.4 pg (27.0-31.0); MEAN CORPUSCULAR HGB CONC 32.4 g/dL (32.0-36.0); MEAN PLATELET VOLUME 10.7 fL (7.9-10.8); MONOCYTES % (AUTO) 5.9 %; NEUTROPHILS # (AUTO) 14.4 10^3/uL (1.5-6.6); NEUTROPHILS % (AUTO) 84.6 %; PLT - PLATELET COUNT 131 10^3/uL (130-450); RED BLOOD COUNT 3.36 10^6/uL (4.20-5.40); RED CELL DISTRIBUTION WIDTH 13.8 % (12.0-15.0)
[2022-10-17 04:18] LABS: CALCIUM, IONIZED 1.09 mmol/L (1.15-1.33); VBG PH 7.398 (7.31-7.41)
[2022-10-17 04:20] LABS: ALBUMIN 2.3 g/dL (3.2-5.5); BILIRUBIN,TOTAL 1.1 mg/dL (0.2-1.0); CALCIUM 8.3 mg/dL (8.5-10.3); CREATININE 1.5 mg/dL (0.4-1.0); MAGNESIUM 2.2 mg/dL (1.7-2.8); PHOSPHORUS 3.4 mg/dL (2.5-4.6); POTASSIUM 3.9 mmol/L (3.5-5.0); TOTAL PROTEIN 6.1 g/dL (6.7-8.2)
[2022-10-17 04:21] LABS: ALBUMIN/GLOBULIN RATIO 0.6 (1.0-2.2)
[2022-10-17 05:12] LABS: HBsAG SCREEN Negative (Negative); HCV AB <0.1 s/co ratio (0.0-0.9); HEPATITIS B CORE IGM AB Negative (Negative)
[2022-10-17] MEDS ORDERED: POTASSIUM CHLORIDE 20 MEQ TABLET PO ONE (05:48)
[2022-10-17] MEDS: CALCIUM CARBONATE CHEW 500 MG TABLET PO SCH ×2 (06:28→11:22)
[2022-10-17] MEDS: LEVOTHYROXINE 125 MCG TABLET PO SCH (06:28)
[2022-10-17] MEDS: SODIUM CHLORIDE 0.9% 1,000 ML IV SCH ×2 (09:18→17:26)
[2022-10-17] MEDS: cefTRIAXone 2 GM in SODIUM CHLORIDE 0.9% MINIBAG 100 ML IV SCH (09:20)
[2022-10-17] MEDS: lisinopriL 20 MG TABLET PO SCH (11:23)
[2022-10-17] MEDS: diltiaZEM CD 240 MG CAPSULE PO SCH (11:23)
[2022-10-17] MEDS: METOPROLOL SUCCINATE 50 MG TABLET PO SCH ×2 (11:23→21:30)
[2022-10-17] MEDS: NYSTATIN POWDER 15 GM TOP SCH ×2 (11:24→21:31)
[2022-10-17 15:06] LABS: CALCIUM, IONIZED 1.1 mmol/L (1.15-1.33); VBG PH 7.332 (7.31-7.41)
--- NOTE | 2022-10-17 15:06 | PROVIDER PROGRESS NOTE ---
Subjective - Prog Note Date Prog Note Date: 10/17/22 Prog Note Time: 15:03 - Subjective Subjective: Blood pressure was normal with her tachycardia. It continued to be stable even on the diltiazem drip. Heart rate finally slowed down and off by 230 yesterday afternoon that she was able to come off of diltiazem drip and I resumed her 420 mg of diltiazem, and 200 mg twice daily of metoprolol succinate. Her blood pressure dropped from the [id number] to 99 or 108. Again this was yesterday afternoon. She has been consistently mildly hypotensive in the 90s since then. Heart rate is controlled. This morning she was to receive her 420 mg of diltiazem and 200 mg of metoprolol succinate. However urine output has been low even with the fluid boluses I was given her. She is more awake. Speech is lucid, normal sentence structure. Not mumbling. Does not really remember what brought her in or how she got here. She knows that she is in the hospital and that she is in [place]. Lower back aches in this bed. Of her cellulitic right leg stings with a burning sensation but not severe pain. Denies chest pain, cough, shortness of breath. She has Limited appetite and is really tired. I ask about her lid lag. Since admission I feel that her proptosis and lid lag seems worse in spite of well- controlled thyroid. 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 She really cannot tell. She has never seen endocrinology. She does not remember seeing ophthalmology for this. Current Medications - Current Medications Current Medications: Active Medications Acetaminophen (Acetaminophen 325 Mg Tablet) 650 mg PO Q4HR PRN PRN Reason: Pain 1 to 4, or Fever Diltiazem HCl (Diltiazem Cd 240 Mg Capsule) 240 mg PO DAILY [facility] Last Admin: 10/17/22 11:23 Dose: 240 mg Diphenhydramine HCl (Diphenhydramine Inj 50 Mg/Ml Vial) 25 mg IVP Q6H PRN PRN Reason: Allergy Symptoms Doxepin HCl (Doxepin 25 Mg Capsule) 75 mg PO QPM [facility] Last Admin: 10/16/22 21:06 Dose: 75 mg Sodium Chloride (Normal Saline 0.9%) 1,000 mls @ 125 mls/hr IV .Q8H [facility] Stop: 10/17/22 23:59 Last Admin: 10/17/22 09:18 Dose: 125 mls/hr Ceftriaxone Sodium 2 gm/ (Sodium Chloride) 100 mls @ 200 mls/hr IV DAILY [facility] Last Infusion: 10/17/22 11:00 Dose: Infused Levothyroxine Sodium (Levothyroxine 125 Mcg Tablet) 250 mcg PO QDAC [facility] Last Admin: 10/17/22 06:28 Dose: 250 mcg Lisinopril (Lisinopril 20 Mg Tablet) 20 mg PO DAILY [facility] Last Admin: 10/17/22 11:23 Dose: 20 mg Metoprolol Succinate (Metoprolol Succinate 50 Mg Tablet) 100 mg PO BID [facility] Last Admin: 10/17/22 11:23 Dose: 100 mg Metoprolol Tartrate (Metoprolol 5 Mg/5 Ml Vial) 5 mg IVP Q6H PRN PRN Reason: Tachycardia Nystatin (Nystatin Powder 15 Gm) 1 applic TOP BID [facility] Last Admin: 10/17/22 11:24 Dose: 1 applic Ondansetron HCl (Ondansetron Odt 4 Mg Tablet) 4 mg TL Q6HR PRN PRN Reason: Nausea / Vomiting Ondansetron HCl (Ondansetron 4 Mg/2 Ml Vial) 4 mg IVP Q6HR PRN PRN Reason: Nausea / Vomiting Oxycodone HCl (Oxycodone 5 Mg Tablet) 5 mg PO Q4HR PRN PRN Reason: Pain 5 to 7 Prochlorperazine Edisylate (Prochlorperazine 10 Mg/2 Ml Vial) 10 mg IVP Q6HR PRN PRN Reason: Nausea / Vomiting Saccharomyces Boulardii (Saccharomyces Boulardii 250 Mg Capsule) 250 mg PO BIDWM [facility] Sodium Chloride (Sodium Chloride Flush 0.9% 10 Ml Syringe) 10 ml IVP PRN PRN PRN Reason: NEEDED PER PROVIDER ORDERS Last Admin: 10/17/22 03:28 Dose: 10 ml Sodium Chloride (Sodium Chloride Flush 0.9% 10 Ml Syringe) 10 ml IVP 0100,0900 ,1700 [facility] Last Admin: 10/17/22 09:20 Dose: 10 ml Atorvastatin [Lipitor] 10 mg PO QPM 08/27/18 Doxepin HCl 75 mg PO QPM 08/27/18 Metformin HCl 500 mg PO BID 08/27/18 Diltiazem HCl [Diltiazem 24Hr ER] 420 mg PO DAILY 06/09/19 Metoprolol Succinate [Toprol Xl] 200 mg PO BID 06/09/19 lisinopriL [Lisinopril] 20 mg PO DAILY 06/12/19 Acetaminophen [Tylenol] 325 - 650 mg PO Q4H PRN 07/31/19 Levothyroxine Sodium [Synthroid] 250 mcg PO QDAC 07/31/19 Potassium Chloride [Klor-Con 10] 10 meq PO DAILY 07/31/19 hydroCHLOROthiazide [Hydrochlorothiazide] 25 mg PO DAILY 07/31/19 Dulaglutide [Trulicity] 1.5 mg SQ .Q7DAY 10/15/22 Fluticasone [Flonase] 1 sprays SAIMA DAILY 10/15/22 Objective - Vital Signs/Intake & Output Reviewed Vital Signs: Yes Vital Signs: Vital Signs x48h Temp Pulse Pulse Pulse Pulse Pulse Resp 10/17/22 14:00 77 19 10/17/22 13:00 37.2 C 88 19 10/17/22 12:00 93 21 10/17/22 11:00 84 16 10/17/22 10:30 96 19 10/17/22 10:15 102 H 93 94 90 10/17/22 10:12 74 93 88 10/17/22 10:00 89 19 10/17/22 09:00 92 24 10/17/22 08:00 37.7 C 95 21 BP BP BP BP BP Pulse Ox Pulse Ox 10/17/22 14:00 97/43 L 96 10/17/22 13:00 91/47 L 96 10/17/22 12:00 91/62 95 10/17/22 11:00 92/54 L 96 10/17/22 10:30 105/73 10/17/22 10:15 92/54 L 105/73 102/59 L 82/52 L 98 10/17/22 10:12 102/59 L 105/73 82/52 L 10/17/22 10:00 82/52 L 94 10/17/22 09:00 91/52 L 92 10/17/22 08:00 85/62 L 92 Pulse Ox Pulse Ox Pulse Ox O2 Flow Rate 10/17/22 14:00 2 10/17/22 13:00 2 10/17/22 12:00 2 10/17/22 11:00 2 10/17/22 10:30 2 10/17/22 10:15 92 94 95 10/17/22 10:12 10/17/22 10:00 2 10/17/22 09:00 2 10/17/22 08:00 2 Intake & Output: Intake & Output 10/14/22 10/15/22 10/16/22 10/17/22 23:59 23:59 23:59 23:59 Intake Total 043.555 5818.167 1470 Output Total 100 1222 156 Balance 266.759 0769.167 1314 - Objective General Appearance: positive: No acute distress (And now verbal and responsive. Still appears fatigued, slightly lethargic.) Eyes Bilateral: positive: PERRL, EOMI, Other (Proptosis and lid lag evident. Half of her iris is covered by her lid. Half of her pupil is also covered. She says she already does not see well because of cataracts) ENT: positive: No signs of dehydration Neck: positive: No JVD. negative: Stiff neck Respiratory: positive: No respiratory distress, Other (Upper airway breath sounds in the upper lung mitchell. Diminished at the bases. But no respiratory distress). negative: Wheezes, Rales, Rhonchi Cardiovascular: positive: Regular rate & rhythm, Systolic murmur Abdomen: positive: Non-tender, Nml bowel sounds, No distention Skin: positive: Warm, Dry, Other (Cellulitis in her right leg is more densely red. Yesterday was faded. But there is no increase in the geographic distribution. Most of the skin of the lateral thigh, medial thigh, posterior thigh, calf, and cavazos of the right leg are involved. There is a geographic area behind the pop fossa clear) Extremities: positive: Full ROM Neurologic/Psychiatric: positive: Oriented x3, CN's nml (2-12), Motor nml - Lab Results Fish Bones: 10/17/22 03:38 10/17/22 14:59 Other Labs: Lab Results x24hrs 10/17/22 10/17/22 10/17/22 Range/Units 03:38 03:38 03:38 WBC (4.8-10.8) x10^3/uL RBC (4.20-5.40) 10^6/uL Hgb (12.0-16.0) g/dL Hct (37.0-47.0) % MCV (81.0-99.0) fL MCH (27.0-31.0) pg MCHC (32.0-36.0) g/dL RDW (12.0-15.0) % Plt Count (130-450) 10^3/uL MPV (7.9-10.8) fL Neut # (Auto) (1.5-6.6) 10^3/uL Lymph # (Auto) (1.5-3.5) 10^3/uL [place] # (Auto) (0.0-1.0) 10^3/uL Eos # (Auto) (0.0-0.7) 10^3/uL Baso # (Auto) (0.0-0.1) 10^3/uL Absolute Nucleated RBC x10^3/uL Nucleated RBC % /100WBC VBG pH 7.398 (7.31-7.41) Ionized Calcium 1.09 L (1.15-1.33) mmol/L Sodium 134 L (135-145) mmol/L Potassium 3.9 (3.5-5.0) mmol/L Chloride 98 L (101-111) mmol/L Carbon Dioxide 26 (21-32) mmol/L Anion Gap 10.0 (6-13) BUN 49 H (6-20) mg/dL Creatinine 1.5 H (0.4-1.0) mg/dL Estimated GFR (MDRD) 34 L (>89) Glucose 152 H (70-100) mg/dL Calcium 8.3 L (8.5-10.3) mg/dL Phosphorus 3.4 (2.5-4.6) mg/dL Magnesium 2.2 (1.7-2.8) mg/dL Total Bilirubin 1.1 H (0.2-1.0) mg/dL AST 229 H (10-42) IU/L ALT 118 H (10-60) IU/L Alkaline Phosphatase 138 H (42-121) IU/L B-Natriuretic Peptide 412 H (5-100) pg/mL Total Protein 6.1 L (6.7-8.2) g/dL Albumin 2.3 L (3.2-5.5) g/dL Globulin 3.8 (2.1-4.2) g/dL Albumin/Globulin Ratio 0.6 L (1.0-2.2) Ceruloplasmin (19.0-39.0) mg/dL Hepatitis A IgM Ab (Negative) Hep Bs Antigen (Negative) Hep B Core IgM Ab (Negative) Hepatitis C Antibody (0.0-0.9) s/co ratio Hepatitis C Interp (.) 10/17/22 10/16/22 10/16/22 Range/Units 03:38 23:53 18:04 WBC 17.0 H (4.8-10.8) x10^3/uL RBC 3.36 L (4.20-5.40) 10^6/uL Hgb 10.9 L (12.0-16.0) g/dL Hct 33.6 L (37.0-47.0) % MCV 100.0 H (81.0-99.0) fL MCH 32.4 H (27.0-31.0) pg MCHC 32.4 (32.0-36.0) g/dL RDW 13.8 (12.0-15.0) % Plt Count 131 (130-450) 10^3/uL MPV 10.7 (7.9-10.8) fL Neut # (Auto) 14.4 H (1.5-6.6) 10^3/uL Lymph # (Auto) 1.2 L (1.5-3.5) 10^3/uL [place] # (Auto) 1.0 (0.0-1.0) 10^3/uL Eos # (Auto) 0.1 (0.0-0.7) 10^3/uL Baso # (Auto) 0.1 (0.0-0.1) 10^3/uL Absolute Nucleated RBC 0.00 x10^3/uL Nucleated RBC % 0.0 /100WBC VBG pH 7.364 7.323 (7.31-7.41) Ionized Calcium 1.14 L 1.10 L (1.15-1.33) mmol/L Sodium (135-145) mmol/L Potassium (3.5-5.0) mmol/L Chloride (101-111) mmol/L Carbon Dioxide (21-32) mmol/L Anion Gap (6-13) BUN (6-20) mg/dL Creatinine (0.4-1.0) mg/dL Estimated GFR (MDRD) (>89) Glucose (70-100) mg/dL Calcium (8.5-10.3) mg/dL Phosphorus (2.5-4.6) mg/dL Magnesium (1.7-2.8) mg/dL Total Bilirubin (0.2-1.0) mg/dL AST (10-42) IU/L ALT (10-60) IU/L Alkaline Phosphatase (42-121) IU/L B-Natriuretic Peptide (5-100) pg/mL Total Protein (6.7-8.2) g/dL Albumin (3.2-5.5) g/dL Globulin (2.1-4.2) g/dL Albumin/Globulin Ratio (1.0-2.2) Ceruloplasmin (19.0-39.0) mg/dL Hepatitis A IgM Ab (Negative) Hep Bs Antigen (Negative) Hep B Core IgM Ab (Negative) Hepatitis C Antibody (0.0-0.9) s/co ratio Hepatitis C Interp (.) 10/16/22 10/16/22 Range/Units 09:30 09:30 WBC (4.8-10.8) x10^3/uL RBC (4.20-5.40) 10^6/uL Hgb (12.0-16.0) g/dL Hct (37.0-47.0) % MCV (81.0-99.0) fL MCH (27.0-31.0) pg MCHC (32.0-36.0) g/dL RDW (12.0-15.0) % Plt Count (130-450) 10^3/uL MPV (7.9-10.8) fL Neut # (Auto) (1.5-6.6) 10^3/uL Lymph # (Auto) (1.5-3.5) 10^3/uL [place] # (Auto) (0.0-1.0) 10^3/uL Eos # (Auto) (0.0-0.7) 10^3/uL Baso # (Auto) (0.0-0.1) 10^3/uL Absolute Nucleated RBC x10^3/uL Nucleated RBC % /100WBC VBG pH (7.31-7.41) Ionized Calcium (1.15-1.33) mmol/L Sodium (135-145) mmol/L Potassium (3.5-5.0) mmol/L Chloride (101-111) mmol/L Carbon Dioxide (21-32) mmol/L Anion Gap (6-13) BUN (6-20) mg/dL Creatinine (0.4-1.0) mg/dL Estimated GFR (MDRD) (>89) Glucose (70-100) mg/dL Calcium (8.5-10.3) mg/dL Phosphorus (2.5-4.6) mg/dL Magnesium (1.7-2.8) mg/dL Total Bilirubin (0.2-1.0) mg/dL AST (10-42) IU/L ALT (10-60) IU/L Alkaline Phosphatase (42-121) IU/L B-Natriuretic Peptide (5-100) pg/mL Total Protein (6.7-8.2) g/dL Albumin (3.2-5.5) g/dL Globulin (2.1-4.2) g/dL Albumin/Globulin Ratio (1.0-2.2) Ceruloplasmin 24.3 (19.0-39.0) mg/dL Hepatitis A IgM Ab Indeterminate A (Negative) Hep Bs Antigen Negative (Negative) Hep B Core IgM Ab Negative (Negative) Hepatitis C Antibody <0.1 (0.0-0.9) s/co ratio Hepatitis C Interp Comment (.) ABX Reporting Has patient been on IV antibiotics over the past 48 hours?: Yes Assessment/Plan - Problem List (1) Acute exacerbation of CHF (congestive heart failure) Impression: Inputting this entire scenario together my suspicion is that this woman developed an infected leg. That leg resulted in the leukocytosis and probable systemic inflammatory response. I was not quite clear that the lactic acidosis was from infection or metformin. Infection that in turn drove A. fib with RVR, and then the subsequent congestive heart failure. My dilemma was whether to diurese or not diurese this lady. If it was strictly diastolic dysfunction that was acute from the rapid heart rate, diuresis was most likely not going to help her. Slowing her heart rate down was going to help. So I held her Lasix. Especially in view of the fact that she had cracked dry lips that were peeling, and dry oral mucosa. With rate control, her BNP has come down sharply. I did not give any more Lasix. Creatinine stable at 1.5. She was 1.5 on admission. Heart rate is now successfully in the 80s. I gave her a 500 cc bolus 10/16 and then IV fluids since I felt she was dry and Urine output was low. She continued to have low urine output in spite of this. The nursing records show that she had 1222 cc out in urine. But the daytime nurse and I feel that this is data that is an error. Today's daytime nurse left at 7 PM and urine output had not been more than 500 cc. We doubt that she put out 700 cc between 7 PM and midnight. Today she continues to have low urine output. Echocardiogram was done 10/16. Wall thickness is normal in the left ventricle. She has sigmoidal shaped septum with focal hypertrophy of the basal septum. Overall LVEF is approximately 55%. Indeterminate left ventricular filling pattern due to A. fib. The mid to distal inferoseptum and mid to distal anteroseptum are hypokinetic. She has mild to moderate right ventricular enlargement. Severe increase in the left atrial volume index. Severe right atrial enlargement. Her aortic valve has peak/mean pressure gradient 14 mmHg / 9 mmHg. Aortic valve by continuity equation is 1.4 cm. Aortic stenosis is felt to be present. Is difficult to quantify in the presence of A. fib and it is read as at least mild aortic stenosis. No significant mitral disease. Moderate tricuspid regurgitation with abnormal RV pressures with an RVSP at 38 mmHg. Plan: I think her CHF was due to the poor filling due to irregular heart rate and fast heart rate. She may been over diuresed with the 80 mg of Lasix the night of admission. I will give her another 500 cc bolus today since she is hypotensive, and continue 125 cc an hour. Qualifiers: Heart failure type: diastolic Qualified Code(s): I50.33 - Acute on chronic diastolic (congestive) heart failure (2) Atrial fibrillation with RVR, RVR resolved. Conclusion/Plan: She takes high doses of medication at home. Metoprolol XL 200 mg p.o. twice daily as well as Cardizem CD 420 mg a day. Since her heart rate is controlled and she is hypotensive, I will cut her doses in half for right now (3) Lactic acidosis Conclusion/Plan: With leukocytosis. Differential diagnosis for the causes of the lactic acidosis alone would include sepsis with infection, liver disease, dehydration or metformin The fact that she has leukocytosis makes me wonder if it is infection that is the main problem. Source would be the extensive cellulitis of the leg that I am finding. She has a previous history of a dental abscess. She had intermittent swelling of her face between 2014 and 2020. Finally found to have a dental abscess last year that was taken care of. Current CT of the head makes no mention of mastoiditis or sinusitis. Abdominal ultrasound shows no evidence of cholelithiasis or cholecystitis. No biliary ductal dilatation. She is a hyperechoic lesion contiguous with the superior pole of the right kidney that is nonspecific and suggestive of an angiomyolipoma [place]. Venous duplex was done of the leg and no evidence of DVT. Today her UA culture from 10/15 resulted with E coli UTI as well. Plan: s/p 3 days of Ancef. Change to Rocephin today to cover UTI and leg. Repeat lactic acid And repeat troponin to make sure her current hypotension is not due to indolent recurrence of her acidosis or MN (4) Cellulitis of right leg without foot Conclusion/Plan: Started on Ancef as above. Day #3/7. There was improvement in the leg from the to the . There is less geographic distribution of redness. And the redness was faded. Today she has the same geographic distribution as yesterday but is much more densely red. changing abx due to new E coli UTI. So today is Day #3/10 overall with new diagnosis (5) Elevated liver enzymes Conclusion/Plan: Usually not a problem for her. Ultrasound is negative for stones. No biliary dilatation. Liver enzyme evaluation with hepatitis panel, autoimmune panel will be done. They have been drawn and pending. She does have a remote history of hepatitis A in 1963. they are staying elevated. No clear what the source of injury is. (6) Elevated troponin Conclusion/Plan: Cardiology assures me that he does not feel this is due to acute myocardial ischemia. With my ordering the third set of troponins, she is remained relatively flat at 800. Will repeat for today to make sure hypotension is not from MN. (7) Type 2 diabetes mellitus treated without insulin Conclusion/Plan: No documented complications. There is no description of neuropathy, retinopathy or nephropathy in her office clinic records. A1c is well controlled. I will try to see if she is getting her annual retinal exams or if she is seeing podiatry at all for foot care. Her glucose is not very elevated. She does have lactic acidosis but I think this is more from metformin than the idea that she has DKA. Plan: Yesterday her glucose was 120 and 114. Today is a little bit more elevated at 152 and 193. I had stopped any sliding scale because she was not eating very much and glucose normal. I do not know if she has more p.o. intake going on today but I will resume sliding scale (8) Hypothyroid Conclusion/Plan: Review of her TSH in the EMR shows her to be well treated. At times borderline hyperthyroid due to her medication use. Low normal is 0.34. She is 0.37 today. Proptosis is quite dramatic on physical exam. 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 Plan: Hold Synthroid for a couple of days and then resume. Today is hospital day #3. I will resume it today. Qualifiers: Hypothyroidism type: unspecified Qualified Code(s): E03.9 - Hypothyroidism, unspecified (9) Metabolic encephalopathy Conclusion/Plan: I do remember this benjamín female from her previous admission for A. fib in 2018. She was a talkative individual, appropriately conversational and able to give a lucid history. There is no mention in her office chart that she has cognitive deficits. But I am seeing a lethargic, slow to respond elderly female who is minimally verbal. She is following commands. was able to call me back last night after he left a message. He states that she is definitely slowed. This encephalopathy is new for her and was abrupt in onset the day before admission. It was mild. By the day of admission he says that she was really out of it. So I think that her encephalopathy is from infection and should slowly resolve. Today much more improved attention and speech but very tired. (10) Acute worsening of stage 3 chronic kidney disease Conclusion/Plan: She was not hypotensive on admission so I was not suspecting ATN from that. She did appear dehydrated on physical exam. that has improved on exam and lips no longer cracked. I will not give another dose of Lasix for now. . Creatinine was 1.5>>1.4>>1.8 today. In retrospect she probably did not need the diuresis and just needed a rate lowering aspect. Getting IVF. Avoid nephrotoxic agents. Put in a sands for better urine measurement. recheck in am. (11) Candidal intertrigo Conclusion/Plan: Nystatin powder twice daily.
[2022-10-17 15:18] LABS: ALBUMIN 2.3 g/dL (3.2-5.5); ALBUMIN/GLOBULIN RATIO 0.6 (1.0-2.2); BILIRUBIN,TOTAL 1.1 mg/dL (0.2-1.0); CALCIUM 8.1 mg/dL (8.5-10.3); CREATININE 1.8 mg/dL (0.4-1.0); POTASSIUM 3.9 mmol/L (3.5-5.0); TOTAL PROTEIN 6.4 g/dL (6.7-8.2)
[2022-10-17] MEDS: SACCHAROMYCES BOULARDII 250 MG CAPSULE PO SCH (17:28)
[2022-10-17] MEDS: DOXEPIN 25 MG CAPSULE PO SCH (21:30)
[2022-10-18 05:41] LABS: BASOPHILS % (AUTO) 0.4 %; EOSINOPHILS % (AUTO) 0.6 %; HCT - HEMATOCRIT 33.3 % (37.0-47.0); LYMPHOCYTES % (AUTO) 8.7 %; MEAN CORPUSCULAR HEMOGLOBIN 32.1 pg (27.0-31.0); MEAN CORPUSCULAR VOLUME 97.1 fL (81.0-99.0); MEAN PLATELET VOLUME 10.3 fL (7.9-10.8); MONOCYTES % (AUTO) 10.2 %; NEUTROPHILS % (AUTO) 78.9 %; PLT - PLATELET COUNT 132 10^3/uL (130-450); RED BLOOD COUNT 3.43 10^6/uL (4.20-5.40); RED CELL DISTRIBUTION WIDTH 13.6 % (12.0-15.0); WHITE BLOOD COUNT 18.7 x10^3/uL (4.8-10.8)
[2022-10-18 05:45] LABS: CALCIUM, IONIZED 1.12 mmol/L (1.15-1.33); VBG PH 7.356 (7.31-7.41)
[2022-10-18 05:54] LABS: ABNORMAL LYMPHS % (MANUAL) 0 %
[2022-10-18 05:55] LABS: ALBUMIN 2.2 g/dL (3.2-5.5); ALBUMIN/GLOBULIN RATIO 0.5 (1.0-2.2); BILIRUBIN,TOTAL 1.2 mg/dL (0.2-1.0); CALCIUM 8.1 mg/dL (8.5-10.3); CREATININE 1.6 mg/dL (0.4-1.0); MAGNESIUM 2.3 mg/dL (1.7-2.8); PHOSPHORUS 3.1 mg/dL (2.5-4.6); POTASSIUM 3.8 mmol/L (3.5-5.0); TOTAL PROTEIN 6.4 g/dL (6.7-8.2)
[2022-10-18 06:20] LABS: BAND NEUTROPHILS % (MANUAL) 8 %; DIFFERENTIAL COMMENT MANUAL DIFFERENTIAL; EOSINOPHILS # (MANUAL) 0.6 10^3/uL (0-0.7); LYMPHOCYTES # (MANUAL) 2.1 10^3/uL (1.5-3.5); LYMPHOCYTES % (MANUAL) 11 %; MONOCYTES # (MANUAL) 1.3 10^3/uL (0.0-1.0); NEUTROPHILS # (MANUAL) 14.8 10^3/uL (1.5-6.6); PLATELET ESTIMATE, MANUAL NORMAL (130-450,000) (NORMAL); RBC MORPHOLOGY (MULTIPLE) NORMAL APPEARANCE (NORMAL)
[2022-10-18] MEDS: SODIUM CHLORIDE FLUSH 0.9% 10 ML SYRINGE IVP SCH ×3 (07:39→16:58)
[2022-10-18] MEDS: LEVOTHYROXINE 125 MCG TABLET PO SCH (07:51)
[2022-10-18] MEDS: SACCHAROMYCES BOULARDII 250 MG CAPSULE PO SCH ×2 (09:10→16:57)
[2022-10-18] MEDS: NYSTATIN POWDER 15 GM TOP SCH ×2 (09:11→20:26)
[2022-10-18] MEDS: cefTRIAXone 2 GM in SODIUM CHLORIDE 0.9% MINIBAG 100 ML IV SCH (09:11)
[2022-10-18] MEDS: diltiaZEM CD 240 MG CAPSULE PO SCH (09:12)
[2022-10-18] MEDS: METOPROLOL SUCCINATE 50 MG TABLET PO SCH ×2 (09:13→20:26)
[2022-10-18] MEDS: lisinopriL 20 MG TABLET PO SCH (09:13)
--- NOTE | 2022-10-18 15:52 | PROVIDER PROGRESS NOTE ---
Progress Note October 18, 2022 3:44 PM Out of ICU since 10/17. Her attention and alertness have waxed and waned today. This morning she was sitting upright in bed. Eating breakfast. Alert, oriented. Physical therapy went to go work further and she was just very sleepy. Blood pressure continues to be problematic because mildly hypotensive. This is in spite of me cutting her rate controlling drugs in half. She has also been getting IV fluids. She had 2804 cc in. 531 cc out. +2273 yesterday alone. Today she is received 2060 cc at the time of this dictation. Has only had 500 cc out. She denies chest pain, coughing, shortness of breath. She just says she is really tired. Exam: Temperature is 36.5. Heart rate 78. Blood pressure 108/58 123 kg Weight recorded. But weights not being done daily since they were not ordered. Pulse rate has been well controlled yesterday and today. Morbidly obese elderly white female, oriented to person place and time. Can follow commands. Proptosis and lid lag Moist oral mucosa, the dry cracked lips and dry oral mucosa have resolved since the second day of admission Lungs are clear with diminished breath sounds at the bases. Unlabored. Slow and shallow respiration Regular rate and rhythm Abdomen soft, nontender, with a very large abdominal pannus. Nontender. Normal bowel sounds. Extremities with a dense red cellulitic changes that were present on admission. The geographic distribution of the cellulitis has not progressed nor has it receded. It is just changed color from a bright pink blanching to a dense red nonblanching. This is on the right leg. The left leg has stayed stable. Neurologically she is alert, oriented to person place and time. She describes her self is completely independent with activities of the living at home. She says that she is surprised at how weak she is here. PT evaluation was done and she is a moderate assist to get out of bed and minimal assist to the sink. Today's CMP with sodium 133, BUN 58, creatinine 1.6, glucose 140. Lactic acid 1.5. Total bili 1.2, AST 125, ALT 65, alk phos 203. Troponin #4 was 246 yesterday BNP 482 CBC has a white cell count that is not coming down very much. She was admitted to 24 and got down to 17,000 yesterday. Today she is 18.7. Hemoglobin 11. Platelet count 132. Urine culture with E. coli Assessment/plan 1. Acute on chronic diastolic heart failure In putting this entire scenario together, my suspicion is that this woman developed an infected leg. That leg resulted in the leukocytosis and probable systemic inflammatory response. I was not quite clear that the lactic acidosis was from infection or metformin. Infection that in turn drove A. fib with RVR, and then the subsequent congestive heart failure. My dilemma was whether to diurese or not diurese this lady. If it was strictly diastolic dysfunction that was acute from the rapid heart rate, diuresis was m ost likely not going to help her. Slowing her heart rate down was going to help. So I held her Lasix. Especially in view of the fact that she had cracked dry lips that were peeling, and dry oral mucosa. over the first 2 days, her BNP came down sharply when her rate came down. I was able to take her off diltiazem drip and switch her over to oral medication. I have not given her any further diuretics since the first dose she had on admission. She has been consistently positive on her fluid balance. And I worry about fluid overloading her since I am treating her hypotension with fluids. Urine output has also been low since her Cardizem drip was stopped. Echocardiogram was done 10/16. Wall thickness is normal in the left ventricle. She has sigmoidal shaped septum with focal hypertrophy of the basal septum. Overall LVEF is approximately 55%. Indeterminate left ventricular filling pattern due to A. fib. The mid to distal inferoseptum and mid to distal anteroseptum are hypokinetic. She has mild to moderate right ventricular enlargement. Severe increase in the left atrial volume index. Severe right atrial enlargement. Her aortic valve has peak/mean pressure gradient 14 mmHg / 9 mmHg. Aortic valve by continuity equation is 1.4 cm. Aortic stenosis is felt to be present. Is difficult to quantify in the presence of A. fib and it is read as at least mild aortic stenosis. No significant mitral disease. Moderate tricuspid regurgitation with abnormal RV pressures with an RVSP at 38 mmHg. Plan: I think her CHF was due to the poor filling due to irregular heart rate and fast heart rate. She may been over diuresed with the 80 mg of Lasix the night of admission. I will stop giving fluids for right now. And cut back her rate controlling agents even further. Qualifiers: Heart failure type: diastolic Qualified Code(s): I50.33 - Acute on chronic diastolic (congestive) heart failure (2) Atrial fibrillation with RVR, RVR resolved. Conclusion/Plan: She takes high doses of medication at home. Metoprolol XL 200 mg p.o. twice daily as well as Cardizem CD 420 mg a day. Toprol-XL was reduced from 200 mg p.o. twice daily home med to 100 mg p.o. twice daily in October 17. Cardizem CD home med was reduced from 420 mg a day to 240 mg a day on October 17. She is also on Zestril 20 mg daily. Plan: Reduce Cardizem CD to 120 mg a day. Continue metoprolol 100 mg twice daily. Cut back on Zestril to 10 mg daily. (3) Lactic acidosis from cellulitis of leg and UTI Conclusion/Plan: With leukocytosis.On admission 3.2. October 17 2.2. Today 1.5. Differential diagnosis for the causes of the lactic acidosis alone would include sepsis with infection, liver disease, dehydration or metformin The fact that she has leukocytosis makes me wonder if it is infection that is the main problem. Source would be the extensive cellulitis of the leg that I am finding. She has a previous history of a dental abscess. She had intermittent swelling of her face between 2014 and 2020. Finally found to have a dental abscess last year that was taken care of. Current CT of the head makes no mention of mastoiditis or sinusitis. Abdominal ultrasound shows no evidence of cholelithiasis or cholecystitis. No biliary ductal dilatation. She is a hyperechoic lesion contiguous with the superior pole of the right kidney that is nonspecific and suggestive of an angiomyolipoma [place]. Venous duplex was done of the leg and no evidence of DVT. UA culture from 10/15 resulted with E coli UTI as well. Clinical indicators such as fever, pulse rate, white cell count, lactic acid have been improving. Today white cell count is 18.7 and a slight bump from yesterday. This is in relation to having her antibiotics changed and I am monitoring that. Plan: s/p 3 days of Ancef. Changed to Rocephin 10/17 Today day #2 of Rocephin If she spikes a fever, I may change her to Zosyn or Unasyn (4) Cellulitis of right leg without foot Conclusion/Plan: Started on Ancef as above. s/p 3 days of ancef. There was improvement in the leg from the to the . There is less geographic distribution of redness. And the redness was faded. 10/18 and today she has the same geographic distribution as yesterday but is much more densely red. changing abx due to new E coli UTI. So today is Day #4/10 overall with new diagnosis If she spikes a fevere, change to zosyn or unasyn (5) Elevated liver enzymes Conclusion/Plan: Usually not a problem for her. Ultrasound is negative for stones. No biliary dilatation. Liver enzyme evaluation with hepatitis panel, autoimmune panel has been ordered. 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 Ceruloplasmin is normal. She does have a remote history of hepatitis A in 1963. they are staying elevated. No clear what the source of injury is. (6) Elevated troponin Conclusion/Plan: Cardiology assures me that he does not feel this is due to acute myocardial ischemia. With my ordering the third set of troponins, she is remained relatively flat at 800. Troponin #4 was 246 and a definite downward trend. (7) Type 2 diabetes mellitus treated without insulin Conclusion/Plan: No documented complications. There is no description of neuropathy, retinopathy or nephropathy in her office clinic records. A1c is well controlled. I will try to see if she is getting her annual retinal exams or if she is seeing podiatry at all for foot care. Her glucose is not very elevated. She does have lactic acidosis but I think this is more from metformin than the idea that she has DKA. Plan: Yesterday her glucose was 120 and 114. Today is a little bit more elevated at 152 and 193. I had stopped any sliding scale because she was not eating very much and glucose normal. I do not know if she has more p.o. intake going on today but I will resume sliding scale (8) Hypothyroid Conclusion/Plan: Review of her TSH in the EMR shows her to be well treated. At times borderline hyperthyroid due to her medication use. Low normal is 0.34. She is 0.37 today. Proptosis is quite dramatic on physical exam. 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 Plan: Hold Synthroid for a couple of days and then resume. Today is hospital day #3. I will resume it today. Qualifiers: Hypothyroidism type: unspecified Qualified Code(s): E03.9 - Hypothyroidism, unspecified (9) Metabolic encephalopathy Conclusion/Plan: I do remember this benjamín female from her previous admission for A. fib in 2018. She was a talkative individual, appropriately conversational and able to give a lucid history. There is no mention in her office chart that she has cognitive deficits. But I am seeing a lethargic, slow to respond elderly female who is minimally verbal. She is following commands. was able to call me back last night after he left a message. He states that she is definitely slowed. This encephalopathy is new for her and was abrupt in onset the day before admission. It was mild. By the day of admission he says that she was really out of it. So I think that her encephalopathy is from infection and should slowly resolve. Today much more improved attention and speech but very tired. (10) Acute worsening of stage 3 chronic kidney disease Conclusion/Plan: She was not hypotensive on admission so I was not suspecting ATN from that. She did appear dehydrated on physical exam. that has improved on exam and lips no longer cracked. I will not give another dose of Lasix for now. . C reatinine was 1.5>>1.4>>1.8 today. In retrospect she probably did not need the diuresis and just needed a rate lowering aspect. Getting IVF. Avoid nephrotoxic agents. Put in a sands for better urine measurement. recheck in am. (11) Candidal intertrigo Conclusion/Plan: Nystatin powder twice daily.
[2022-10-18] MEDS: DOXEPIN 25 MG CAPSULE PO SCH (20:25)
[2022-10-19] MEDS: SODIUM CHLORIDE FLUSH 0.9% 10 ML SYRINGE IVP SCH ×3 (03:12→16:55)
[2022-10-19 05:44] LABS: BASOPHILS % (AUTO) 0.4 %; EOSINOPHILS % (AUTO) 1.1 %; HCT - HEMATOCRIT 33.8 % (37.0-47.0); HGB - HEMOGLOBIN 11.5 g/dL (12.0-16.0); LYMPHOCYTES % (AUTO) 10.5 %; MEAN CORPUSCULAR HEMOGLOBIN 32.6 pg (27.0-31.0); MEAN CORPUSCULAR VOLUME 95.8 fL (81.0-99.0); MEAN PLATELET VOLUME 10.1 fL (7.9-10.8); MONOCYTES % (AUTO) 12.6 %; NEUTROPHILS % (AUTO) 73.2 %; PLT - PLATELET COUNT 157 10^3/uL (130-450); RED BLOOD COUNT 3.53 10^6/uL (4.20-5.40); RED CELL DISTRIBUTION WIDTH 13.7 % (12.0-15.0); WHITE BLOOD COUNT 15.2 x10^3/uL (4.8-10.8)
[2022-10-19 06:00] LABS: ABNORMAL LYMPHS % (MANUAL) 0 %
[2022-10-19 06:03] LABS: ALBUMIN 2.1 g/dL (3.2-5.5); ALBUMIN/GLOBULIN RATIO 0.5 (1.0-2.2); BILIRUBIN,TOTAL 1.3 mg/dL (0.2-1.0); CALCIUM 8.3 mg/dL (8.5-10.3); CREATININE 1.2 mg/dL (0.4-1.0); POTASSIUM 3.6 mmol/L (3.5-5.0); TOTAL PROTEIN 6.3 g/dL (6.7-8.2)
[2022-10-19] MEDS: LEVOTHYROXINE 125 MCG TABLET PO SCH (06:15)
[2022-10-19 06:17] LABS: BAND NEUTROPHILS % (MANUAL) 1 %; DIFFERENTIAL COMMENT MANUAL DIFFERENTIAL; EOSINOPHILS # (MANUAL) 0.3 10^3/uL (0-0.7); LYMPHOCYTES # (MANUAL) 1.2 10^3/uL (1.5-3.5); LYMPHOCYTES % (MANUAL) 8 %; NEUTROPHILS # (MANUAL) 11.7 10^3/uL (1.5-6.6); PLATELET ESTIMATE, MANUAL NORMAL (130-450,000) (NORMAL); RBC MORPHOLOGY (MULTIPLE) NORMAL APPEARANCE (NORMAL)
[2022-10-19] MEDS: ACETAMINOPHEN 325 MG TABLET PO PRN ×2 (09:45→14:40)
[2022-10-19] MEDS: SACCHAROMYCES BOULARDII 250 MG CAPSULE PO SCH ×2 (09:45→16:55)
[2022-10-19] MEDS: diltiaZEM CD 120 MG CAPSULE PO SCH (09:45)
[2022-10-19] MEDS: NYSTATIN POWDER 15 GM TOP SCH ×2 (09:46→20:04)
[2022-10-19] MEDS: METOPROLOL SUCCINATE 50 MG TABLET PO SCH ×2 (09:46→20:04)
[2022-10-19] MEDS: lisinopriL 5 MG TABLET PO SCH (09:46)
[2022-10-19] MEDS: cefTRIAXone 2 GM in SODIUM CHLORIDE 0.9% MINIBAG 100 ML IV SCH (09:46)
--- NOTE | 2022-10-19 13:19 | PROVIDER PROGRESS NOTE ---
Progress Note October 19, 2022 1:02 PM Has been on MedSurg since October 17. Alertness has waxed and waned. She can appear quite sleepy sometimes but quite alert other times. When she work with physical therapy October 18 it was hard to work with her because of her sleepiness. Blood pressure has been problematic because it was low with a decreased urine output. I have been slowly cutting back her Cardizem and metoprolol. Today blood pressure has come up to 143, 118, 125. Urine output has also come up a little bit. She states that she feels fine. She recognizes that she is tired. Both of her knees really hurt today. Right worse than left. Cannot say why. She says that they ate more than they ever have. But they are not hot, tender. The skin of her right leg still stings. But not painful. The back of her right calf is the most painful part of her leg where the blister popped on admission. She denies chest pain, palpitations. No shortness of breath. She is eating anywhere between 30% to 100% of her food depending on the meal. Active Medications Acetaminophen (Acetaminophen 325 Mg Tablet) 650 mg PO Q4HR PRN PRN Reason: Pain 1 to 4, or Fever Last Admin: 10/19/22 09:45 Dose: 650 mg Diltiazem HCl (Diltiazem Cd 120 Mg Capsule) 120 mg PO DAILY [facility] Last Admin: 10/19/22 09:45 Dose: 120 mg Diphenhydramine HCl (Diphenhydramine Inj 50 Mg/Ml Vial) 25 mg IVP Q6H PRN PRN Reason: Allergy Symptoms Doxepin HCl (Doxepin 25 Mg Capsule) 75 mg PO QPM [facility] Last Admin: 10/18/22 20:25 Dose: 75 mg Ceftriaxone Sodium 2 gm/ (Sodium Chloride) 100 mls @ 200 mls/hr IV DAILY [facility] Last Infusion: 10/19/22 10:20 Dose: Infused Levothyroxine Sodium (Levothyroxine 125 Mcg Tablet) 250 mcg PO QDAC [facility] Last Admin: 10/19/22 06:15 Dose: 250 mcg Lisinopril (Lisinopril 5 Mg Tablet) 10 mg PO DAILY [facility] Last Admin: 10/19/22 09:46 Dose: 10 mg Metoprolol Succinate (Metoprolol Succinate 50 Mg Tablet) 50 mg PO BID [facility] Last Admin: 10/19/22 09:46 Dose: 50 mg Metoprolol Tartrate (Metoprolol 5 Mg/5 Ml Vial) 5 mg IVP Q6H PRN PRN Reason: Tachycardia Nystatin (Nystatin Powder 15 Gm) 1 applic TOP BID [facility] Last Admin: 10/19/22 09:46 Dose: 1 applic Ondansetron HCl (Ondansetron Odt 4 Mg Tablet) 4 mg TL Q6HR PRN PRN Reason: Nausea / Vomiting Ondansetron HCl (Ondansetron 4 Mg/2 Ml Vial) 4 mg IVP Q6HR PRN PRN Reason: Nausea / Vomiting Oxycodone HCl (Oxycodone 5 Mg Tablet) 5 mg PO Q4HR PRN PRN Reason: Pain 5 to 7 Prochlorperazine Edisylate (Prochlorperazine 10 Mg/2 Ml Vial) 10 mg IVP Q6HR PRN PRN Reason: Nausea / Vomiting Saccharomyces Boulardii (Saccharomyces Boulardii 250 Mg Capsule) 250 mg PO BIDWM [facility] Last Admin: 10/19/22 09:45 Dose: 250 mg Sodium Chloride (Sodium Chloride Flush 0.9% 10 Ml Syringe) 10 ml IVP PRN PRN PRN Reason: NEEDED PER PROVIDER ORDERS Last Admin: 10/17/22 03:28 Dose: 10 ml Sodium Chloride (Sodium Chloride Flush 0.9% 10 Ml Syringe) 10 ml IVP 0100,0900,1700 [facility] Last Admin: 10/19/22 09:47 Dose: 10 ml Atorvastatin [Lipitor] 10 mg PO QPM 08/27/18 Doxepin HCl 75 mg PO QPM 08/27/18 Metformin HCl 500 mg PO BID 08/27/18 Diltiazem HCl [Diltiazem 24Hr ER] 420 mg PO DAILY 06/09/19 Metoprolol Succinate [Toprol Xl] 200 mg PO BID 06/09/19 lisinopriL [Lisinopril] 20 mg PO DAILY 06/12/19 Acetaminophen [Tylenol] 325 - 650 mg PO Q4H PRN 07/31/19 Levothyroxine Sodium [Synthroid] 250 mcg PO QDAC 07/31/19 Potassium Chloride [Klor-Con 10] 10 meq PO DAILY 07/31/19 hydroCHLOROthiazide [Hydrochlorothiazide] 25 mg PO DAILY 07/31/19 Dulaglutide [Trulicity] 1.5 mg SQ .Q7DAY 10/15/22 Fluticasone [Flonase] 1 sprays SAIMA DAILY 10/15/22 Exam Temperature is 36.5. Heart rate 78. Blood pressure 106/64 after being 125/62 3 hours ago. I/O +1890 yesterday. Had 650 cc urine output. Since midnight last night she had 550 cc urine output. She is sitting in her chair, leaning forward and rubbing her knees and rocking a little bit [id number]. She says her knees hurt. But she is alert, oriented to person place and time, no acute distress Morbidly obese white female, looks older than stated age of 72 ENT exam remarkable for resolution of severe cracked lips and dry oral mucosa from admission. However she continues to have proptosis and lid lag. Neck is supple Lungs have diminished breath sounds at the bases but are essentially clear without tachypnea or increased respiratory effort with speaking to me irregular rate and rhythm Abdomen is a hugely obese pannus. Roseann has been present since admission underneath the breast fold and the pannus folds of her abdomen and she is receiving nystatin powder. Normal bowel sounds. Nontender with palpation. Last bowel movement October 15 Extremities show extra-large size of fat folds in the upper thighs to her knees. They are quite large legs. The left leg has no edema around the ankles and she has signs of hemosiderin deposits from all venous stasis discoloring the skin of her left leg. But there is no redness, no heat no dermatitis. The right leg continues to have the dense geographic redness and cellulitis that has been present since admission. It has really not receded. It is a dense thick red discoloration of the skin, nonblanching. Most of it covers the anterior cavazos and posterior calf. Does not include the foot. It then skips the knee in the popliteal fossa but comes up the sides of the knee to medial and lateral thighs. There are some satellite lesions of redness on the anterior thigh. The only skin breakdown is the blister that popped on the right back calf on admission. That has not gotten any worse or deeper. Creatinine 1.5>> peaked 1.8 October 17>> 1.2 today Sodium 135, potassium 3.6 BNP 729 White cell count 24.2>> 17 on October 17>> 15.2 today Assessment/plan 1. Acute on chronic diastolic heart failure My evaluation of the clinical scenario from her admission was that she developed a right leg infection/cellulitis that then caused a systemic inflammatory response which drove her atrial fibrillation to be uncontrolled which then caused acute on chronic diastolic heart failure. She received diuresis in the emergency room and the next day I opted not to diurese her anymore because of severe dehydration on physical exam. Once her heart rate was controlled, heart failure symptoms have resolved. Main problem became hypotension once her A. fib was controlled. At home she is on large doses of Cardizem CD 420 mg a day and metoprolol XL 200 mg p.o. twice daily. I did not resume those amounts and begin her at 240/100 twice daily respectively. Still hypotensive today she is 124/50 twice daily. Blood pressures come back up, urine output has improved. Echocardiogram was done 10/16. Wall thickness is normal in the left ventricle. She has sigmoidal shaped septum with focal hypertrophy of the basal septum. Overall LVEF is approximately 55%. Indeterminate left ventricular filling pattern due to A. fib. The mid to distal inferoseptum and mid to distal anteroseptum are hypokinetic. She has mild to moderate right ventricular enlargement. Severe increase in the left atrial volume index. Severe right atrial enlargement. Her aortic valve has peak/mean pressure gradient 14 mmHg / 9 mmHg. Aortic valve by continuity equation is 1.4 cm. Aortic stenosis is felt to be present. Is difficult to quantify in the presence of A. fib and it is read as at least mild aortic stenosis. No significant mitral disease. Moderate tricuspid regurgitation with abnormal RV pressures with an RVSP at 38 mmHg. Plan: I think her CHF was due to the poor filling due to irregular heart rate and fast heart rate. She may been over diuresed with the 80 mg of Lasix the night of admission.I think she is at goal with regards to fluid balance and heart rate control. Now we have to work on her cellulitis Qualifiers: Heart failure type: diastolic Qualified Code(s): I50.33 - Acute on chronic diastolic (congestive) heart failure (2) Atrial fibrillation with RVR, RVR resolved. Conclusion/Plan: She takes high doses of medication at home. Metoprolol XL 200 mg p.o. twice daily as well as Cardizem CD 420 mg a day. Toprol-XL was reduced from 200 mg p.o. twice daily home med to 100 mg p.o. twice daily in October 17. Cardizem CD home med was reduced from 420 mg a day to 240 mg a day on October 17. She is also on Zestril 20 mg daily. Cardizem CD reduced to 120 mg a day today. Continue metoprolol 100 mg twice daily to avoid rebound tachycardia. Cut back on Zestril to 10 mg daily. So far this has helped with blood pressure coming back up. Urine output coming back up. (3) Lactic acidosis from cellulitis of leg and E coli UTI Conclusion/Plan: With leukocytosis.On admission Lactic acid 3.2. > 2.2. > 1.5 on 10/18/22 Differential diagnosis for the causes of the lactic acidosis alone would include sepsis, liver disease, dehydration or metformin The fact that she has leukocytosis makes me wonder if it is infection that is the main problem. Source would be the extensive cellulitis of the leg that I am finding. She has a previous history of a dental abscess. She had intermittent swelling of her face between 2014 and 2020. Finally found to have a dental abscess last year that was taken care of. Current CT of the head makes no mention of mastoiditis or sinusitis. Abdominal ultrasound shows no evidence of cholelithiasis or cholecystitis. No biliary ductal dilatation. She is a hyperechoic lesion contiguous with the superior pole of the right kidney that is nonspecific and suggestive of an angiomyolipoma [place]. Venous duplex was done of the leg and no evidence of DVT. UA culture from 10/15 resulted with E coli UTI as well. Clinical indicators such as fever, pulse rate, white cell count, lactic acid have been improving. Plan: s/p 3 days of Ancef. Changed to Rocephin 10/17 Today day #3 of Rocephin She is not improving as fast as I would expect her to respond if she is on appropriate antibiotics. In seeing her exam today with there is now anterior thigh satellite lesions between the medial and lateral thigh, I will add Diflucan.I will started 100 mg as opposed to 200 mg because of her already elevated liver enzymes. (4) Cellulitis of right leg without foot Conclusion/Plan: Started on Ancef as above. s/p 3 days of ancef. There was improvement in the leg from the to the . There is less geographic distribution of redne ss. And the redness was faded. 10/18 thru today, she has the same geographic distribution but is much more densely red. changing abx due to new E coli UTI. So today is Day #5/10 overall with new lizzy gnosis If she spikes a fever, change to zosyn or unasyn I am adding diflucan today. (5) Elevated liver enzymes Conclusion/Plan: Usually not a problem for her. Ultrasound is negative for stones. No biliary dilatation. Liver enzyme evaluation with hepatitis panel, autoimmune panel has been ordered. 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 Ceruloplasmin is normal. She does have a remote history of hepatitis A in 1963. they are staying elevated. No clear what the source of injury is. (6) Elevated troponin Conclusion/Plan: Cardiology assures me that he does not feel this is due to acute myocardial ischemia. With my ordering the third set of troponins, she is remained relatively flat at 800. Troponin #4 was 246 and a definite downward trend. (7) Type 2 diabetes mellitus treated without insulin Conclusion/Plan: No documented complications. There is no description of neuropathy, retinopathy or nephropathy in her office clinic records. A1c is well controlled. Her glucose is not very elevated. She did have lactic acidosis but I think this is more from metformin than the idea that she has DKA. I did ot resume SS insulin. Glucose 140 yesterday. 163 today. Plan: Add 5 units of Lantus. I am not resuming her metformin. And her home Trulicity is not on her formulary. (8) Hypothyroid Conclusion/Plan: Review of her TSH in the EMR shows her to be well treated. At times borderline hyperthyroid due to her medication use. Low normal is 0.34. She is 0.37 today. Proptosis is quite dramatic on physical exam. 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 On home dose. Qualifiers: Hypothyroidism type: unspecified Qualified Code(s): E03.9 - Hypothyroidism, unspecified (9) Metabolic encephalopathy resolved Conclusion/Plan: I do remember this benjamín female from her previous admission for A. fib in 2018. She was a talkative individual, appropriately conversational and able to give a lucid history. There is no mention in her office chart that she has cognitive deficits. On admission, I was seeing a lethargic, slow to respond elderly female who is minimally verbal. She was following commands. was able to call me back on night of admission. He states that she is definitely slowed. This encephalopathy is new for her and was abrupt in onset the day before admission. It was mild. By the day of admission he says that she was really out of it. as she has been hydrated, and infection has improved, her encephalopathy has resolved. Rmulary. (10) Acute worsening of stage 3 chronic kidney disease, resolved. Conclusion/Plan: She was not hypotensive on admission so I was not suspecting ATN from that. She did appear dehydrated on physical exam. that has improved on exam and lips no longer cracked. I did not give another dose of Lasix beyond ER dose . Creatinine was 1.5>>1.4>>1.8>>1.2 today. In retrospect she probably did not need the diuresis and just needed a rate lowering aspect. Getting IVF. Avoid nephrotoxic agents. Has a sands for better urine measurement. recheck daily (11) Candidal intertrigo Conclusion/Plan: Nystatin powder twice daily.
[2022-10-19] MEDS: FLUCONAZOLE 100 MG TABLET PO SCH (14:40)
[2022-10-19] MEDS: guaiFENesin/CODEINE 5 ML UDC PO PRN (14:40)
[2022-10-19] MEDS: DOXEPIN 25 MG CAPSULE PO SCH (20:04)
[2022-10-19] MEDS ORDERED: INSULIN GLARGINE-YFGN 300 UNIT/3 ML PEN SUBQ SCH (21:00)
[2022-10-20] MEDS: SODIUM CHLORIDE FLUSH 0.9% 10 ML SYRINGE IVP SCH ×4 (01:10→23:30)
[2022-10-20] MEDS: guaiFENesin/CODEINE 5 ML UDC PO PRN (05:45)
[2022-10-20] MEDS ORDERED: FLUCONAZOLE 200 MG/100 ML 50 ML IV SCH (09:00)
[2022-10-20] MEDS: LEVOTHYROXINE 125 MCG TABLET PO SCH (09:01)
[2022-10-20] MEDS: FLUCONAZOLE 100 MG TABLET PO SCH (09:06)
[2022-10-20] MEDS: cefTRIAXone 2 GM in SODIUM CHLORIDE 0.9% MINIBAG 100 ML IV SCH (09:07)
[2022-10-20] MEDS: SACCHAROMYCES BOULARDII 250 MG CAPSULE PO SCH ×2 (09:07→16:55)
[2022-10-20] MEDS: polyethylene glycoL 3350 17 GM PACKET PO SCH (09:07)
[2022-10-20] MEDS: NYSTATIN POWDER 15 GM TOP SCH ×2 (09:07→21:11)
[2022-10-20] MEDS: INSULIN GLARGINE-YFGN 300 UNIT/3 ML PEN SUBQ SCH ×2 (09:08→21:06)
[2022-10-20] MEDS: METOPROLOL SUCCINATE 50 MG TABLET PO SCH ×2 (10:00→21:10)
[2022-10-20] MEDS: diltiaZEM CD 120 MG CAPSULE PO SCH (11:22)
[2022-10-20] MEDS: lisinopriL 5 MG TABLET PO SCH (11:22)
--- NOTE | 2022-10-20 14:10 | PROVIDER PROGRESS NOTE ---
Progress Note October 20, 2022 5:31 PM In cutting back her antiarrhythmic drugs to accommodate her blood pressure, blood pressure has definitely, but now her heart rate is come up. By 5 this morning she was 120. And is stayed above 100 all day long between 113-117. Blood pressure was in the 120s to 130s systolic but came down to 96 systolic this morning.This afternoon she continues to be a waxing and waning tachycardia and a waxing and waning hypotension. She spiked a temperature to 38.3. She does not particularly feel this. She does not feel palpitations, shortness of breath. Again her main complaint is the skin of her right leg stinging. She is working with physical therapy. Sitting to standing took quite a bit of effort with 2 people to help her. But when she is standing she is able to walk a few feet okay. She is able to do quite of her own toileting needs. She is able to feed herself. She states that at home her daughter helps her. Active Medications Acetaminophen (Acetaminophen 325 Mg Tablet) 650 mg PO Q4HR PRN PRN Reason: Pain 1 to 4, or Fever Last Admin: 10/19/22 14:40 Dose: 650 mg Diltiazem HCl (Diltiazem Cd 120 Mg Capsule) 120 mg PO DAILY [facility] Last Admin: 10/20/22 11:22 Dose: Not Given Diphenhydramine HCl (Diphenhydramine Inj 50 Mg/Ml Vial) 25 mg IVP Q6H PRN PRN Reason: Allergy Symptoms Doxepin HCl (Doxepin 25 Mg Capsule) 75 mg PO QPM [facility] Last Admin: 10/19/22 20:04 Dose: 75 mg Fluconazole (Fluconazole 100 Mg Tablet) 100 mg PO DAILY [facility] Last Admin: 10/20/22 09:06 Dose: 100 mg Guaifenesin/Codeine Phosphate (Guaifenesin/Codeine 5 Ml Udc) 5 ml PO Q6HR PRN PRN Reason: Cough Last Admin: 10/20/22 05:45 Dose: 5 ml Ceftriaxone Sodium 2 gm/ (Sodium Chloride) 100 mls @ 200 mls/hr IV DAILY [facility] Last Admin: 10/20/22 09:07 Dose: 200 mls/hr Insulin Glargine-yfgn (Insulin Glargine-Yfgn 300 Unit/3 Ml Pen) 5 unit SUBQ QPM [facility] Last Admin: 10/20/22 09:08 Dose: 5 unit Levothyroxine Sodium (Levothyroxine 125 Mcg Tablet) 250 mcg PO QDAC [facility] Last Admin: 10/20/22 09:01 Dose: Not Given Lisinopril (Lisinopril 5 Mg Tablet) 10 mg PO DAILY [facility] Last Admin: 10/20/22 11:22 Dose: Not Given Metoprolol Succinate (Metoprolol Succinate 50 Mg Tablet) 50 mg PO BID [facility] Last Admin: 10/20/22 10:00 Dose: 50 mg Metoprolol Tartrate (Metoprolol 5 Mg/5 Ml Vial) 5 mg IVP Q6H PRN PRN Reason: Tachycardia Nystatin (Nystatin Powder 15 Gm) 1 applic TOP BID [facility] Last Admin: 10/20/22 09:07 Dose: 1 applic Ondansetron HCl (Ondansetron Odt 4 Mg Tablet) 4 mg TL Q6HR PRN PRN Reason: Nausea / Vomiting Ondansetron HCl (Ondansetron 4 Mg/2 Ml Vial) 4 mg IVP Q6HR PRN PRN Reason: Nausea / Vomiting Oxycodone HCl (Oxycodone 5 Mg Tablet) 5 mg PO Q4HR PRN PRN Reason: Pain 5 to 7 Polyethylene Glycol (Polyethylene Glycol 3350 17 Gm Packet) 17 gm PO DAILY [facility] Last Admin: 10/20/22 09:07 Dose: Not Given Prochlorperazine Edisylate (Prochlorperazine 10 Mg/2 Ml Vial) 10 mg IVP Q6HR PRN PRN Reason: Nausea / Vomiting Saccharomyces Boulardii (Saccharomyces Boulardii 250 Mg Capsule) 250 mg PO BIDWM [facility] Last Admin: 10/20/22 09:07 Dose: 250 mg Sodium Chloride (Sodium Chloride Flush 0.9% 10 Ml Syringe) 10 ml IVP PRN PRN PRN Reason: NEEDED PER PROVIDER ORDERS Last Admin: 10/17/22 03:28 Dose: 10 ml Sodium Chloride (Sodium Chloride Flush 0.9% 10 Ml Syringe) 10 ml IVP 0100,0900,1700 [facility] Last Admin: 10/20/22 09:18 Dose: 10 ml Atorvastatin [Lipitor] 10 mg PO QPM 08/27/18 Doxepin HCl 75 mg PO QPM 08/27/18 Metformin HCl 500 mg PO BID 08/27/18 Diltiazem HCl [Diltiazem 24Hr ER] 420 mg PO DAILY 06/09/19 Metoprolol Succinate [Toprol Xl] 200 mg PO BID 06/09/19 lisinopriL [Lisinopril] 20 mg PO DAILY 06/12/19 Acetaminophen [Tylenol] 325 - 650 mg PO Q4H PRN 07/31/19 Levothyroxine Sodium [Synthroid] 250 mcg PO QDAC 07/31/19 Potassium Chloride [Klor-Con 10] 10 meq PO DAILY 07/31/19 hydroCHLOROthiazide [Hydrochlorothiazide] 25 mg PO DAILY 07/31/19 Dulaglutide [Trulicity] 1.5 mg SQ .Q7DAY 10/15/22 Fluticasone [Flonase] 1 sprays SAIMA DAILY 10/15/22 Exam: Fatigued appearing, morbidly obese, elderly white female who looks older than stated age. She sleeps most of the day but she does wake up easily, responds to my voice and is appropriate. She is set up for breakfast and she set up for lunch. Fluid balance is better. She had low urine output and then on the had increased output with normalized blood pressure. Balance was positive of 1890 on the . Negative balance of 195 cc on the . So far her balance is - 380 cc for today. ENT exam with the same lid lag. Neck has no JVD Lungs have coarse breath sounds at the bases and diffusely. No respiratory distress. No wheezing. Irregular tachycardic rate and rhythm. Abdomen is with huge abdominal pannus, normal bowel sounds, nontender, and the skin underneath the breast and underneath the pannus has been covered with nystatin powder since admission. Extremities are essentially unchanged. The skin of the right leg is covered in a dense red cellulitic rash that is nonblanching. The geographic distribution has not changed since admission. The left leg has signs of old venous stasis changes. Edema has partially resolved in the right leg so you can see shrinking of skin of thigh, knee, ankle. Edema in the left leg is about the same at trace or 1+. Both legs are notable for their largeness due to her obesity. No labs today. They will be ordered for tomorrow Assessment/plan 1. Acute on chronic diastolic heart failure My evaluation of the clinical scenario from her admission was that she developed a right leg infection/cellulitis that then caused a systemic inflammatory response which drove her atrial fibrillation to be uncontrolled which then caused acute on chronic diastolic heart failure. She received diuresis in the emergency room and the next day I opted not to diurese her anymore because of severe dehydration on physical exam. Once her heart rate was controlled, heart failure symptoms have resolved. Main problem became hypotension once her A. fib was controlled. At home she is on large doses of Cardizem CD 420 mg a day and metoprolol XL 200 mg p.o. twice daily. I did not resume those amounts and begin her at 240/100 twice daily respectively. Still hypotensive today she is 124/50 twice daily. Blood pressures come back up, urine output has improved. Echocardiogram was done 10/16. Wall thickness is normal in the left ventricle. She has sigmoidal shaped septum with focal hypertrophy of the basal septum. Overall LVEF is approximately 55%. Indeterminate left ventricular filling pattern due to A. fib. The mid to distal inferoseptum and mid to distal anteroseptum are hypokinetic. She has mild to moderate right ventricular enlargement. Severe increase in the left atrial volume index. Severe right atrial enlargement. Her aortic valve has peak/mean pressure gradient 14 mmHg / 9 mmHg. Aortic valve by continuity equation is 1.4 cm. Aortic stenosis is felt to be present. Is difficult to quantify in the presence of A. fib and it is read as at least mild aortic stenosis. No significant mitral disease. Moderate tricuspid regurgitation with abnormal RV pressures with an RVSP at 38 mmHg. Plan: I think her CHF was due to the poor filling due to irregular heart rate and fast heart rate. She may been over diuresed with the 80 mg of Lasix the night of admission.I think she is at goal with regards to fluid balance and heart rate control. Now we have to work on her cellulitis Qualifiers: Heart failure type: diastolic Qualified Code(s): I50.33 - Acute on chronic diastolic (congestive) heart failure (2) Atrial fibrillation with RVR, RVR resolved. Conclusion/Plan: She takes high doses of medication at home. Metoprolol XL 200 mg p.o. twice daily as well as Cardizem CD 420 mg a day. Toprol-XL was reduced from 200 mg p.o. twice daily home med to 100 mg p.o. twice daily in October 17. Cardizem CD home med was reduced from 420 mg a day to 240 mg a day on October 17. She is also on Zestril 20 mg daily. Cardizem CD reduced to 120 mg a day 10/19. Continue metoprolol 100 mg twice daily to avoid rebound tachycardia. 10/19 cut back on Zestril to 10 mg daily for today. I will stop the zestil completely stay on metoprolol stop the cardizem (3) Lactic acidosis from cellulitis of leg and E coli UTI Conclusion/Plan: With leukocytosis.On admission Lactic acid 3.2. > 2.2. > 1.5 on 10/18/22 Differential diagnosis for the causes of the lactic acidosis alone would include sepsis, liver disease, dehydration or metformin The fact that she has leukocytosis makes me wonder if it is infection that is the main problem. Source would be the extensive cellulitis of the leg that I am finding. She has a previous history of a dental abscess. She had intermittent swelling of her face between 2014 and 2020. Finally found to have a dental abscess last year that was taken care of. Current CT of the head makes no mention of mastoiditis or sinusitis. Abdominal ultrasound shows no evidence of cholelithiasis or cholecystitis. No biliary ductal dilatation. She is a hyperechoic lesion contiguous with the superior pole of the right kidney that is nonspecific and suggestive of an angiomyolipoma [place]. Venous duplex was done of the leg and no evidence of DVT. UA culture from 10/15 resulted with E coli UTI as well. Clinical indicators such as fever, pulse rate, white cell count, lactic acid have been improving. Plan: s/p 3 days of Ancef. Changed to Rocephin 10/17 Today day #4 of Rocephin, diflucan added IV 10/19 but pharmacy feels same bioavailability po so on po. She continues to have infection that is not responding. And I fear that she is sliding back into sepsis with her tachycardia and hypotension. And fever spike. I will get a CT of the skin of her lower pelvis, and into her right leg to see if I am missing an abscess. Change to Zosyn but she is allergic to PCN. I have called pharmacy to consult but not available at this hour so will change to clin damycin and levaquin to cover her skin and UTI (4) Cellulitis of right leg without foot Conclusion/Plan: Started on Ancef as above. s/p 3 days of ancef. There was improvement in the leg from the to the . There is less geographic distribution of redness. And the redness was faded. 10/18 thru today, she has the same geographic distribution but is much more densely red. changing abx due to new E coli UTI. So today is Day #6/10 overall with new diagnosis of UTI She is spiking a fever again. on diflucan Day #2 change to Zosyn instead of rocephin but she allergic to PCN, change to clindamycin and levaquin (5) Elevated liver enzymes Conclusion/Plan: Usually not a problem for her. Ultrasound is negative for stones. No biliary dilatation. Liver enzyme evaluation with hepatitis panel, autoimmune panel has been ordered. 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 Ceruloplasmin is normal. She does have a remote history of hepatitis A in 1963. they are staying elevated. No clear what the source of injury is. (6) Elevated troponin Conclusion/Plan: Cardiology assures me that he does not feel this is due to acute myocardial ischemia. With my ordering the third set of troponins, she is remained relatively flat at 800. Troponin #4 was 246 and a definite downward trend. (7) Type 2 diabetes mellitus treated without insulin Conclusion/Plan: No documented complications. There is no description of neuropathy, retinopathy or nephropathy in her office clinic records. A1c is well controlled. Her glucose is not very elevated. She did have lactic acidosis but I think this is more from metformin than the idea that she has DKA. I did ot resume SS insulin. I did start Lantus 5 units qpm 10/19 Glucose 142 this morning (was 163 yesterday) Plan: No change at this time. (8) Hypothyroid Conclusion/Plan: Review of her TSH in the EMR shows her to be well treated. At times borderline hyperthyroid due to her medication use. Low normal is 0.34. She is 0.37 today. Proptosis is quite dramatic on physical exam. 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 On home dose. Qualifiers: Hypothyroidism type: unspecified Qualified Code(s): E03.9 - Hypothyroidism, unspecified (9) Metabolic encephalopathy resolved Conclusion/Plan: I do remember this benjamín female from her previous admission for A. fib in 2018. She was a talkative individual, appropriately conversational and able to give a lucid history. There is no mention in her office chart that she has cognitive deficits. On admission, I was seeing a lethargic, slow to respond elderly female who is minimally verbal. She was following commands. was able to call me back on night of admission. He states that she is definitely slowed. This encephalopathy is new for her and was abrupt in onset the day before admission. It was mild. By the day of admission he says that she was really out of it. as she has been hydrated, and infection has improved, her encephalopathy has resolved. . (10) Acute worsening of stage 3 chronic kidney disease, resolved. Conclusion/Plan: She was not hypotensive on admission so I was not suspecting ATN from that. She did appear dehydrated on physical exam. that has improved on exam and lips no longer cracked. I did not give another dose of Lasix beyond ER dose . Creatinine was 1.5>>1.4>>1.8>>1.2 on . In retrospect she probably did not need the diuresis and just needed a rate lowering aspect. Getting IVF. Avoid nephrotoxic agents. Has a sands for better urine measurement. recheck daily (11) Candidal intertrigo Conclusion/Plan: Nystatin powder twice daily.
[2022-10-20] MEDS: ACETAMINOPHEN 325 MG TABLET PO PRN (15:37)
[2022-10-20 16:24] LABS: GLUCOSE, URINE (UA) 100 mg/dL (NEGATIVE); KETONES,URINE (UA) TRACE mg/dL (NEGATIVE); LEUKOCYTE ESTERASE, URINE NEGATIVE (NEGATIVE); NITRITE,URINE NEGATIVE (NEGATIVE); OCCULT BLOOD,URINE MODERATE (NEGATIVE); PROTEIN,URINE 100 mg/dL (NEGATIVE); UROBILINOGEN,URINE 2 E.U./dL (NORMAL)
[2022-10-20 16:28] LABS: BILIRUBIN,URINE SMALL (NEGATIVE); CLARITY,URINE HAZY (CLEAR); ICTOTEST,URINE POSITIVE
[2022-10-20 16:29] LABS: BACTERIA,URINE Few /HPF (None Seen); SQUAMOUS EPITHELIAL CELL,UR FEW Squamous (<= Few)
--- NOTE | 2022-10-20 18:04 | CT Report ---
PROCEDURE: Lower Extremity Bilat W/O INDICATIONS: septic w skin of lower abd and upper R involved TECHNIQUE: Axial images were obtained of both lower extremities without contrast. Sagittal and wright l images are reformatted. COMPARISON: Correlation is made with the accompanying pelvis CT, 10/20/2022. Correlation is made with knee plain films, 07/31/2019. FINDINGS: Generalized soft tissue thickening is seen of both lower extremities, particularly involving the righ t cavazos. However, there is also involvement of the left cavazos and the left thigh. To the limits of this noncontrast study, no focal fluid collections are seen to suggest abscess. No s oft tissue gas is seen. No definite bony involvement is seen. Generalized degenerative changes are seen, particularly involvi ng the knees medially. A Contreras catheter seen, which decompresses the bladder. No dilated loops of small bowel are seen. Bor derline prominent right inguinal lymph nodes are seen, with the largest measuring 14 x 9 mm. IMPRESSION: These imaging findings are compatible with extensive cellulitis, which are worst involving the right cavazos. No amanda focal soft tissue fluid collection is seen to suggest abscess. No soft tissue gas is seen. Borderline prominent right inguinal lymph nodes are seen, which are considered to be reactive. No definite bony involvement with infection can be seen. Note is made of degenerative changes, particularly involving the medial aspects of both knees. Reviewed by: John Quintana MD on 10/20/2022 5:03 PM [facility] Approved by: John Quintana MD on 10/20/2022 5:03 PM [facility] Station ID: [id number]
[2022-10-20] MEDS: CLINDAMYCIN 600 MG/50 ML 50 ML IV SCH ×2 (18:06→22:45)
--- NOTE | 2022-10-20 18:07 | CT Report ---
PROCEDURE: PELVIS WO INDICATIONS: septic w skin of lower abd and legs involved TECHNIQUE: Noncontrast 3 mm axial sections acquired through the bony pelvis, with coronal and sagittal reformatt ing. For radiation dose reduction, the following was used: automated exposure control, adjustment of mA and/or kV according to patient size. COMPARISON: Correlation is made with the accompanying lower extremity CT, 10/20/2022. FINDINGS: Image quality: This study is limited by body habitus. Bones: There are degenerative changes seen, including involving the lower lumbar spine. Soft tissues: Portions of the scan are not seen on this study, though which is limited by body habitu s. The visualized portions of the subcutaneous tissues demonstrate apparent sialitis. No focal fluid collections are seen to suggest abscess. Atherosclerotic calcification is seen. No dilated loops of small bowel are seen. No adnexal masses a re seen. Moderate amount of stool is seen within the distal colon, with a rectal vault measuring 6.2 cm transversely. Borderline prominent right renal lymph nodes are seen, the largest measuring 9 x 14 mm. A Contreras catheter seen, which decompresses the bladder. IMPRESSION: Limited study demonstrating areas of cellulitis, although the scan is incompletely visualized. Borderline prominent right inguinal lymph nodes are seen, which are considered to be reactive. A moderate to prominent amount of stool seen within the rectum. Please correlate with constipation. Reviewed by: John Quintana MD on 10/20/2022 5:06 PM [facility] Approved by: John Quintana MD on 10/20/2022 5:06 PM [facility] Station ID: [id number]
[2022-10-20] MEDS ORDERED: SODIUM CHLORIDE 0.9% 500 ML IV ONE (18:20)
[2022-10-20] MEDS: levoFLOXacin 500 MG/100 ML 500 MG/100 ML BAG IV SCH (18:36)
[2022-10-20 18:46] LABS: BASOPHILS # (AUTO) 0.1 10^3/uL (0.0-0.1); BASOPHILS % (AUTO) 0.5 %; EOSINOPHILS % (AUTO) 0.2 %; HCT - HEMATOCRIT 33.5 % (37.0-47.0); HGB - HEMOGLOBIN 11.1 g/dL (12.0-16.0); LYMPHOCYTES # (AUTO) 2.2 10^3/uL (1.5-3.5); MEAN CORPUSCULAR HEMOGLOBIN 31.5 pg (27.0-31.0); MEAN CORPUSCULAR HGB CONC 33.1 g/dL (32.0-36.0); MEAN CORPUSCULAR VOLUME 95.2 fL (81.0-99.0); MEAN PLATELET VOLUME 9.8 fL (7.9-10.8); MONOCYTES # (AUTO) 2.4 10^3/uL (0.0-1.0); NEUTROPHILS # (AUTO) 18.9 10^3/uL (1.5-6.6); NEUTROPHILS % (AUTO) 77.6 %; NRBC ABSOLUTE COUNT (AUTO) 0.02 x10^3/uL; NUCLEATED RED BLOOD CELLS AUTO 0.1 /100WBC; PLT - PLATELET COUNT 227 10^3/uL (130-450); RED BLOOD COUNT 3.52 10^6/uL (4.20-5.40); RED CELL DISTRIBUTION WIDTH 13.9 % (12.0-15.0); SLIDE REVIEW? Indicated; WHITE BLOOD COUNT 24.3 x10^3/uL (4.8-10.8)
[2022-10-20 18:55] LABS: CALCIUM 7.9 mg/dL (8.5-10.3); POTASSIUM 3.8 mmol/L (3.5-5.0)
[2022-10-20 19:33] LABS: DIFFERENTIAL COMMENT MANUAL=AUTO DIFF; PLATELET ESTIMATE, MANUAL NORMAL (130-450,000) (NORMAL); PLATELET MORPHOLOGY NORMAL APPEARANCE (NORMAL); RBC MORPHOLOGY (MULTIPLE) 1+ HYPOCHROMASIA (NORMAL); WBC MORPHOLOGY (MULTIPLE) NORMAL APPEARANCE (NORMAL)
[2022-10-20] MEDS: DOXEPIN 25 MG CAPSULE PO SCH (21:07)
[2022-10-20] MEDS: diltiaZEM 30 MG TABLET PO SCH (23:30)
[2022-10-21 05:23] LABS: BASOPHILS % (AUTO) 0.5 %; EOSINOPHILS % (AUTO) 0.5 %; HCT - HEMATOCRIT 36.6 % (37.0-47.0); HGB - HEMOGLOBIN 12.2 g/dL (12.0-16.0); LYMPHOCYTES % (AUTO) 8.5 %; MEAN CORPUSCULAR HEMOGLOBIN 31.9 pg (27.0-31.0); MEAN CORPUSCULAR HGB CONC 33.3 g/dL (32.0-36.0); MEAN CORPUSCULAR VOLUME 95.6 fL (81.0-99.0); MEAN PLATELET VOLUME 9.6 fL (7.9-10.8); MONOCYTES % (AUTO) 9.7 %; NEUTROPHILS % (AUTO) 77.1 %; PLT - PLATELET COUNT 245 10^3/uL (130-450); RED BLOOD COUNT 3.83 10^6/uL (4.20-5.40); RED CELL DISTRIBUTION WIDTH 14.1 % (12.0-15.0); WHITE BLOOD COUNT 22.4 x10^3/uL (4.8-10.8)
[2022-10-21 05:27] LABS: ABNORMAL LYMPHS % (MANUAL) 0 %
[2022-10-21 05:30] LABS: CREATININE 0.9 mg/dL (0.4-1.0); POTASSIUM 3.7 mmol/L (3.5-5.0)
[2022-10-21] MEDS: LEVOTHYROXINE 125 MCG TABLET PO SCH (05:57)
[2022-10-21] MEDS: CLINDAMYCIN 600 MG/50 ML 50 ML IV SCH ×3 (05:57→21:43)
[2022-10-21] MEDS: SODIUM CHLORIDE FLUSH 0.9% 10 ML SYRINGE IVP PRN ×2 (05:58→21:44)
[2022-10-21] MEDS: diltiaZEM 30 MG TABLET PO SCH ×3 (05:58→17:49)
[2022-10-21 06:06] LABS: BAND NEUTROPHILS % (MANUAL) 7 %; LYMPHOCYTES # (MANUAL) 1.6 10^3/uL (1.5-3.5); LYMPHOCYTES % (MANUAL) 7 %; METAMYELOCYTES % (MANUAL) 1 %; MONOCYTES # (MANUAL) 1.8 10^3/uL (0.0-1.0); NEUTROPHILS # (MANUAL) 18.8 10^3/uL (1.5-6.6)
[2022-10-21 06:07] LABS: RBC MORPHOLOGY (MULTIPLE) 1+ HYPOCHROMASIA (NORMAL)
[2022-10-21 06:08] LABS: PLATELET ESTIMATE, MANUAL NORMAL (130-450,000) (NORMAL); PLATELET MORPHOLOGY NORMAL APPEARANCE (NORMAL)
[2022-10-21 06:09] LABS: DIFFERENTIAL COMMENT MANUAL DIFFERENTIAL; WBC MORPHOLOGY (MULTIPLE) 2+ TOXIC GRANULATION (NORMAL)
[2022-10-21] MEDS: SENNA 8.6 MG TABLET PO SCH (09:31)
[2022-10-21] MEDS: DOCUSATE SODIUM 250 MG CAPSULE PO SCH (09:32)
[2022-10-21] MEDS: METOPROLOL SUCCINATE 50 MG TABLET PO SCH ×2 (09:32→21:28)
[2022-10-21] MEDS: SACCHAROMYCES BOULARDII 250 MG CAPSULE PO SCH ×2 (09:32→16:44)
[2022-10-21] MEDS: FLUCONAZOLE 100 MG TABLET PO SCH (09:32)
[2022-10-21] MEDS: polyethylene glycoL 3350 17 GM PACKET PO SCH (09:32)
[2022-10-21] MEDS: NYSTATIN POWDER 15 GM TOP SCH ×2 (09:36→16:45)
[2022-10-21] MEDS: SODIUM CHLORIDE FLUSH 0.9% 10 ML SYRINGE IVP SCH ×2 (09:36→17:50)
[2022-10-21] MEDS: oxyCODONE 5 MG TABLET PO PRN ×2 (11:56→21:26)
--- NOTE | 2022-10-21 12:57 | PROVIDER PROGRESS NOTE ---
Subjective - Prog Note Date Prog Note Date: 10/21/22 Prog Note Time: 12:54 - Subjective Pt reports feeling: Improved Subjective: HR today is 107 with a BP holding stable around 114/63. She is feeling okay, feeding herself sitting up in bed. She didn't sleep well last night, when I saw her first this morning she was sleeping, opened her eyes to my touch but fell straight back to sleep. About an hour later she was more alert and awake. Her main discomfort is still the right leg. Still working with physical therapy. Current Medications - Current Medications Current Medications: Active Medications Acetaminophen (Acetaminophen 325 Mg Tablet) 650 mg PO Q4HR PRN PRN Reason: Pain 1 to 4, or Fever Last Admin: 10/20/22 15:37 Dose: 650 mg Diltiazem HCl (Diltiazem 30 Mg Tablet) 30 mg PO Q6HR JACY Last Admin: 10/21/22 11:48 Dose: 30 mg Diphenhydramine HCl (Diphenhydramine Inj 50 Mg/Ml Vial) 25 mg IVP Q6H PRN PRN Reason: Allergy Symptoms Docusate Sodium (Docusate Sodium 250 Mg Capsule) 250 - 500 mg PO DAILY [facility] Last Admin: 10/21/22 09:32 Dose: Not Given Doxepin HCl (Doxepin 25 Mg Capsule) 75 mg PO QPM JACY Last Admin: 10/20/22 21:07 Dose: 75 mg Fluconazole (Fluconazole 100 Mg Tablet) 100 mg PO DAILY [facility] Last Admin: 10/21/22 09:32 Dose: 100 mg Guaifenesin/Codeine Phosphate (Guaifenesin/Codeine 5 Ml Udc) 5 ml PO Q6HR PRN PRN Reason: Cough Last Admin: 10/20/22 05:45 Dose: 5 ml Clindamycin Phosphate (Cleocin 600 Mg/50 Ml) 50 mls @ 100 mls/hr IV Q8HR [facility] Last Infusion: 10/21/22 06:58 Dose: Infused Levofloxacin (Levaquin 500 Mg/100 Ml) 500 mg in 100 mls @ 100 mls/hr IV Q24H [facility] Last Infusion: 10/20/22 19:39 Dose: Infused Insulin Glargine-yfgn (Insulin Glargine-Yfgn 300 Unit/3 Ml Pen) 5 unit SUBQ QPM JACY Last Admin: 10/20/22 21:06 Dose: 5 unit Levothyroxine Sodium (Levothyroxine 125 Mcg Tablet) 250 mcg PO QDAC [facility] Last Admin: 10/21/22 05:57 Dose: 250 mcg Metoprolol Succinate (Metoprolol Succinate 50 Mg Tablet) 50 mg PO BID [facility] Last Admin: 10/21/22 09:32 Dose: 50 mg Metoprolol Tartrate (Metoprolol 5 Mg/5 Ml Vial) 5 mg IVP Q6H PRN PRN Reason: Tachycardia Last Admin: 10/20/22 17:53 Dose: 5 mg Nystatin (Nystatin Powder 15 Gm) 1 applic TOP BID [facility] Last Admin: 10/21/22 09:36 Dose: 1 applic Ondansetron HCl (Ondansetron Odt 4 Mg Tablet) 4 mg TL Q6HR PRN PRN Reason: Nausea / Vomiting Ondansetron HCl (Ondansetron 4 Mg/2 Ml Vial) 4 mg IVP Q6HR PRN PRN Reason: Nausea / Vomiting Oxycodone HCl (Oxycodone 5 Mg Tablet) 5 mg PO Q4HR PRN PRN Reason: Pain 5 to 7 Last Admin: 10/21/22 11:56 Dose: 5 mg Polyethylene Glycol (Polyethylene Glycol 3350 17 Gm Packet) 17 gm PO DAILY [facility] Last Admin: 10/21/22 09:32 Dose: Not Given Prochlorperazine Edisylate (Prochlorperazine 10 Mg/2 Ml Vial) 10 mg IVP Q6HR PRN PRN Reason: Nausea / Vomiting Saccharomyces Boulardii (Saccharomyces Boulardii 250 Mg Capsule) 250 mg PO BIDWM [facility] Last Admin: 10/21/22 09:32 Dose: 250 mg Senna (Senna 8.6 Mg Tablet) 8.6 - 17.2 mg PO DAILY [facility] Last Admin: 10/21/22 09:31 Dose: 8.6 mg Sodium Chloride (Sodium Chloride Flush 0.9% 10 Ml Syringe) 10 ml IVP PRN PRN PRN Reason: NEEDED PER PROVIDER ORDERS Last Admin: 10/21/22 05:58 Dose: 10 ml Sodium Chloride (Sodium Chloride Flush 0.9% 10 Ml Syringe) 10 ml IVP 0100,0900,1700 [facility] Last Admin: 10/21/22 09:36 Dose: 10 ml Atorvastatin [Lipitor] 10 mg PO QPM 08/27/18 Doxepin HCl 75 mg PO QPM 08/27/18 Metformin HCl 500 mg PO BID 08/27/18 Diltiazem HCl [Diltiazem 24Hr ER] 420 mg PO DAILY 06/09/19 Metoprolol Succinate [Toprol Xl] 200 mg PO BID 06/09/19 lisinopriL [Lisinopril] 20 mg PO DAILY 06/12/19 Acetaminophen [Tylenol] 325 - 650 mg PO Q4H PRN 07/31/19 Levothyroxine Sodium [Synthroid] 250 mcg PO QDAC 07/31/19 Potassium Chloride [Klor-Con 10] 10 meq PO DAILY 07/31/19 hydroCHLOROthiazide [Hydrochlorothiazide] 25 mg PO DAILY 07/31/19 Dulaglutide [Trulicity] 1.5 mg SQ .Q7DAY 10/15/22 Fluticasone [Flonase] 1 sprays SAIMA DAILY 10/15/22 Objective - Vital Signs/Intake & Output Vital Signs: Vital Signs x48h Temp Pulse Pulse Resp BP BP Pulse Ox 10/21/22 11:49 37.0 C 108 H 18 114/63 97 10/21/22 11:48 114/63 10/21/22 08:06 37.1 C 107 H 22 110/65 93 10/21/22 06:00 37.1 C 107 H 18 114/71 96 10/21/22 05:58 114/71 Intake & Output: Intake & Output 10/18/22 10/19/22 10/20/22 10/21/22 23:59 23:59 23:59 23:59 Intake Total 2540 830 1460.0 490 Output Total 650 1025 875 600 Balance 1890 -195 585.0 -110 - Objective General Appearance: positive: No acute distress, Alert, Other (fatigued, obese) Eyes Bilateral: positive: PERRL, EOMI, Other (significant ptosis and exopthalmos.) ENT: positive: Pharynx nml, No signs of dehydration Neck: positive: No JVD. negative: Lymphadenopathy (R), Lymphadenopathy (L), Stiff neck Respiratory: positive: No respiratory distress, Rhonchi. negative: Wheezes Cardiovascular: positive: Tachycardia, Other Abdomen: positive: Non-tender, Nml bowel sounds, No distention, Other (abdominal pannus, skin under breast and pannus has been covered with nystatin powder since admission.) Skin: positive: Warm, Dry, Skin rash Extremities: positive: Other (skin of the right leg has improved. The geographic distribution has condensed, there is much less dense redness in the upper thigh. Dense, red, non blanching rash still seen from the knee down, she has dry flaky skin around her ankles, draining bullous blisters on the right calf.) Neurologic/Psychiatric: positive: Oriented x3, CN's nml (2-12) - Lab Results Fish Bones: 10/21/22 05:07 10/21/22 05:07 Other Labs: Lab Results x24hrs 10/21/22 10/21/22 10/20/22 Range/Units 05:07 05:07 18:38 WBC 22.4 H (4.8-10.8) x10^3/uL RBC 3.83 L (4.20-5.40) 10^6/uL Hgb 12.2 (12.0-16.0) g/dL Hct 36.6 L (37.0-47.0) % MCV 95.6 (81.0-99.0) fL MCH 31.9 H (27.0-31.0) pg MCHC 33.3 (32.0-36.0) g/dL RDW 14.1 (12.0-15.0) % Plt Count 245 (130-450) 10^3/uL MPV 9.6 (7.9-10.8) fL Neut # (Auto) Not Reportable (1.5-6.6) 10^3/uL Lymph # (Auto) Not Reportable (1.5-3.5) 10^3/uL Pierce # (Auto) Not Reportable (0.0-1.0) 10^3/uL Eos # (Auto) Not Reportable (0.0-0.7) 10^3/uL Baso # (Auto) Not Reportable (0.0-0.1) 10^3/uL Absolute Nucleated RBC Not Reportable x10^3/uL Total Counted 100 Band Neuts % (Manual) 7 Abnorm Lymph % (Manual) 0 Metamyelocytes % 1 H ( - 0) % Nucleated RBC % Not Reportable /100WBC Neutrophils # (Manual) 18.8 H Lymphocytes # (Manual) 1.6 Monocytes # (Manual) 1.8 H Eosinophils # (Manual) 0.0 Basophils # (Manual) 0.0 Differential Comment MANUAL DIFFERENTIAL Manual Slide Review WBC Morphology 2+ TOXIC GRANULATION (NORMAL) Platelet Estimate NORMAL (130-450,000) (NORMAL) Platelet Morphology NORMAL APPEARANCE (NORMAL) RBC Morph Micro Appear 1+ HYPOCHROMASIA (NORMAL) Sodium 134 L 136 (135-145) mmol/L Potassium 3.7 3.8 (3.5-5.0) mmol/L Chloride 100 L 104 (101-111) mmol/L Carbon Dioxide 26 25 (21-32) mmol/L Anion Gap 8.0 7.0 (6-13) BUN 26 H 30 H (6-20) mg/dL Creatinine 0.9 1.0 (0.4-1.0) mg/dL Estimated GFR (MDRD) 62 L 55 L (>89) Glucose 142 H 214 H (70-100) mg/dL Lactic Acid (0.5-2.2) mmol/L Calcium 8.0 L 7.9 L (8.5-10.3) mg/dL Urine Color Urine Clarity (CLEAR) Urine pH (5.0-7.5) PH Ur Specific Carrington (1.002-1.030) Urine Protein (NEGATIVE) mg/dL Urine Glucose (UA) (NEGATIVE) mg/dL Urine Ketones (NEGATIVE) mg/dL Urine Occult Blood (NEGATIVE) Urine Nitrite (NEGATIVE) Urine Bilirubin (NEGATIVE) Urine Urobilinogen (NORMAL) E.U./dL Ur Leukocyte Esterase (NEGATIVE) Urine RBC (0-5) /HPF Urine WBC (0-5) /HPF Ur Squamous Epith Cells (<= Few) Urine Bacteria (None Seen) /HPF Ur Microscopic Review Urine Culture Comments 10/20/22 10/20/22 10/20/22 Range/Units 18:38 18:38 15:49 WBC 24.3 H (4.8-10.8) x10^3/uL RBC 3.52 L (4.20-5.40) 10^6/uL Hgb 11.1 L (12.0-16.0) g/dL Hct 33.5 L (37.0-47.0) % MCV 95.2 (81.0-99.0) fL MCH 31.5 H (27.0-31.0) pg MCHC 33.1 (32.0-36.0) g/dL RDW 13.9 (12.0-15.0) % Plt Count 227 (130-450) 10^3/uL MPV 9.8 (7.9-10.8) fL Neut # (Auto) 18.9 H (1.5-6.6) 10^3/uL Lymph # (Auto) 2.2 (1.5-3.5) 10^3/uL Pierce # (Auto) 2.4 H (0.0-1.0) 10^3/uL Eos # (Auto) 0.0 (0.0-0.7) 10^3/uL Baso # (Auto) 0.1 (0.0-0.1) 10^3/uL Absolute Nucleated RBC 0.02 x10^3/uL Total Counted Band Neuts % (Manual) Not Reportable Abnorm Lymph % (Manual) Not Reportable Metamyelocytes % ( - 0) % Nucleated RBC % 0.1 /100WBC Neutrophils # (Manual) Not Reportable Lymphocytes # (Manual) Not Reportable Monocytes # (Manual) Not Reportable Eosinophils # (Manual) Not Reportable Basophils # (Manual) Not Reportable Differential Comment MANUAL=AUTO DIFF Manual Slide Review Indicated WBC Morphology NORMAL APPEARANCE (NORMAL) Platelet Estimate NORMAL (130-450,000) (NORMAL) Platelet Morphology NORMAL APPEARANCE (NORMAL) RBC Morph Micro Appear 1+ HYPOCHROMASIA (NORMAL) Sodium (135-145) mmol/L Potassium (3.5-5.0) mmol/L Chloride (101-111) mmol/L Carbon Dioxide (21-32) mmol/L Anion Gap (6-13) BUN (6-20) mg/dL Creatinine (0.4-1.0) mg/dL Estimated GFR (MDRD) (>89) Glucose (70-100) mg/dL Lactic Acid 1.8 (0.5-2.2) mmol/L Calcium (8.5-10.3) mg/dL Urine Color DARK YELLOW Urine Clarity HAZY (CLEAR) Urine pH 6.0 (5.0-7.5) PH Ur Specific Carrington 1.020 (1.002-1.030) Urine Protein 100 H (NEGATIVE) mg/dL Urine Glucose (UA) 100 H (NEGATIVE) mg/dL Urine Ketones TRACE (NEGATIVE) mg/dL Urine Occult Blood MODERATE H (NEGATIVE) Urine Nitrite NEGATIVE (NEGATIVE) Urine Bilirubin SMALL H (NEGATIVE) Urine Urobilinogen 2 H (NORMAL) E.U./dL Ur Leukocyte Esterase NEGATIVE (NEGATIVE) Urine RBC 11-25 H (0-5) /HPF Urine WBC 4-5 (0-5) /HPF Ur Squamous Epith Cells FEW Squamous (<= Few) Urine Bacteria Few (None Seen) /HPF Ur Microscopic Review INDICATED Urine Culture Comments NOT INDICATED Assessment/Plan - Problem List (1) Acute on chronic diastolic (congestive) heart failure Impression: My evaluation of the clinical scenario from her admission was that she developed a right leg infection/cellulitis that then caused a systemic inflammatory response which drove her atrial fibrillation to be uncontrolled which then caused acute on chronic diastolic heart failure. She received diuresis in the emergency room and the next day I opted not to diurese her anymore because of severe dehydration on physical exam. Once her heart rate was controlled, heart failure symptoms have resolved. Main problem became hypotension once her A. fib was controlled. At home she is on large doses of Cardizem CD 420 mg a day and metoprolol XL 200 mg p.o. twice daily. Currently she is on cardizem 30mg PO q6hr and metoprolol 50mg PO BID with 5mg of metoprolol IVP prn for tachycardia to manage her arrhythmias without making her hypotensive. Today she is stable at 114/65, HR has been 107. Plan: I think her CHF was due to the poor filling due to irregular heart rate and fast heart rate. She may been over diuresed with the 80 mg of Lasix the night of admission. I think she is at goal with regards to fluid balance and heart rate control. Now we have to work on her cellulitis Qualifiers: Heart failure type: diastolic Qualified Code(s): I50.33 - Acute on chronic diastolic (congestive) heart failure (2) Atrial fibrillation with RVR, RVR resolved. Conclusion/Plan: She takes high doses of medication at home. Metoprolol XL 200 mg p.o. twice daily as well as Cardizem CD 420 mg a day. Toprol-XL was reduced from 200 mg p.o. twice daily home med to 100 mg p.o. twice daily in October 17. Cardizem CD home med was reduced from 420 mg a day to 240 mg a day on October 17. On October 20 the metoprolol was reduced to 50mg PO BID and cardizem to 30mg po q6hr because she was still getting hypotensive. Continue metoprolol and cardizem at reduced doses (3) Lactic acidosis from cellulitis of leg and E coli UTI Conclusion/Plan: With leukocytosis.On admission Lactic acid 3.2. > 2.2. > 1.5 on 10/18/22. 1.8 on 10/20. Differential diagnosis for the causes of the lactic acidosis alone would include sepsis, liver disease, dehydration or metformin The fact that she has leukocytosis makes me wonder if it is infection that is the main problem. Source would be the extensive cellulitis of the leg that I am finding. She has a previous history of a dental abscess. She had intermittent swelling of her face between 2014 and 2020. Finally found to have a dental abscess last year that was taken care of. Current CT of the head makes no mention of mastoiditis or sinusitis. Abdominal ultrasound shows no evidence of cholelithiasis or cholecystitis. No biliary ductal dilatation. She is a hyperechoic lesion contiguous with the superior pole of the right kidney that is nonspecific and suggestive of an angiomyolipoma [place]. Venous duplex was done of the leg and no evidence of DVT. UA culture from 10/15 resulted with E coli UTI as well. Clinical indicators such as fever, pulse rate, white cell count, lactic acid have been improving. 10/20 evening she seemed to be getting septic again, her blood pressure dropped and she became tachycardic and spiked a fever. I discontinued Rocephin and started Clindamycin and Levofloxacin IV to cover her skin and UTI. Today, the cellulitis of the right leg looks improved. CT of lower extremity showed extensive cellulitis without focal fluid collection to suggest abscess. Pelvic CT also showed cellulitis and right inguinal lymph nodes that are considered to be reactive. Plan: Continue Clindamycin and levofloxacin (4) Cellulitis of right leg without foot Conclusion/Plan: Started on Ancef as above. s/p 3 days of ancef. There was improvement in the leg from the to the . There is less geographic distribution of rednes s. And the redness was faded. 10/18 thru today, she has the same geographic distribution but is much more densely red. 10/21, the geographic distribution has gotten smaller. The redness has faded on her thigh, still densely red from her knee down to her toes. She has dry flaking skin around her ankles and scattered scabs. She has a draining blister on her right calf. I would like her blister to be drained, cleaned, and dressed with a wound check and dressing change daily. changed abx due to new E coli UTI. So today is Day #7/10 overall with new diagnosis of UTI on diflucan Day #3 Continue clindamycin and levofloxacin (5) Elevated liver enzymes Conclusion/Plan: Usually not a problem for her. Ultrasound is negative for stones. No biliary dilatation. Liver enzyme evaluation with hepatitis panel, autoimmune panel has been ordered. 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 Ceruloplasmin is normal. She does have a remote history of hepatitis A in 1963. they are staying elevated. No clear what the source of injury is. (6) Elevated troponin Conclusion/Plan: Cardiology assures me that he does not feel this is due to acute myocardial ischemia. With my ordering the third set of troponins, she is remained relatively flat at 800. Troponin #4 was 246 and a definite downward trend. (7) Type 2 diabetes mellitus treated without insulin Conclusion/Plan: No documented complications. There is no description of neuropathy, retinopathy or nephropathy in her office clinic records. A1c is well controlled. Her glucose is not very elevated. She did have lactic acidosis but I think this is more from metformin than the idea that she has DKA. I did not resume SS insulin. I did start Lantus 5 units qpm 10/19 Morning glucose 142 on 10/21, 142 on 10/20 Plan: No change at this time. (8) Hypothyroid Conclusion/Plan: Review of her TSH in the EMR shows her to be well treated. At times borderline hyperthyroid due to her medication use. Low normal is 0.34. She is 0.37 today. Proptosis is quite dramatic on physical exam. Lid lag appears about the same as is always been on her [place] driver's license. On home dose. Qualifiers: Hypothyroidism type: unspecified Qualified Code(s): E03.9 - Hypothyroidism, unspecified (9) Metabolic encephalopathy resolved Conclusion/Plan: I do remember this benjamín female from her previous admission for A. fib in 2018. She was a talkative individual, appropriately conversational and able to give a lucid history. There is no mention in her office chart that she has cognitive deficits. On admission, I was seeing a lethargic, slow to respond elderly female who is minimally verbal. She was following commands. was able to call me back on night of admission. He states that she is definitely slowed. This encephalopathy is new for her and was abrupt in onset the day before admission. It was mild. By the day of admission he says that she was really out of it. as she has been hydrated, and infection has improved, her encephalopathy has resolved. (10) Acute worsening of stage 3 chronic kidney disease, resolved. Conclusion/Plan: She was not hypotensive on admission so I was not suspecting ATN from that. She did appear dehydrated on physical exam. that has improved on exam and lips no longer cracked. I did not give another dose of Lasix beyond ER dose . Creatinine was 1.5>>1.4>>1.8>>1.2 on 10/19. In retrospect she probably did not need the diuresis and just needed a rate lowering aspect. Getting IVF. Avoid nephrotoxic agents. Has a sands for better urine measurement. recheck daily (11) Candidal intertrigo Conclusion/Plan: Nystatin powder twice daily.
[2022-10-21] MEDS: ACETAMINOPHEN 325 MG TABLET PO PRN (16:44)
[2022-10-21] MEDS: levoFLOXacin 500 MG/100 ML 500 MG/100 ML BAG IV SCH (17:53)
[2022-10-21] MEDS: DOXEPIN 25 MG CAPSULE PO SCH (21:27)
[2022-10-21] MEDS: INSULIN GLARGINE-YFGN 300 UNIT/3 ML PEN SUBQ SCH (21:28)
[2022-10-22] MEDS: SODIUM CHLORIDE FLUSH 0.9% 10 ML SYRINGE IVP SCH ×4 (00:09→23:59)
[2022-10-22] MEDS: diltiaZEM 30 MG TABLET PO SCH ×5 (00:09→23:59)
[2022-10-22] MEDS: CLINDAMYCIN 600 MG/50 ML 50 ML IV SCH ×3 (06:19→21:27)
[2022-10-22] MEDS: ACETAMINOPHEN 325 MG TABLET PO PRN ×2 (06:19→13:57)
[2022-10-22 06:20] LABS: BASOPHILS % (AUTO) 0.5 %; EOSINOPHILS % (AUTO) 0.7 %; HCT - HEMATOCRIT 33.6 % (37.0-47.0); LYMPHOCYTES % (AUTO) 6.8 %; MEAN CORPUSCULAR HEMOGLOBIN 31.6 pg (27.0-31.0); MEAN CORPUSCULAR HGB CONC 32.7 g/dL (32.0-36.0); MEAN CORPUSCULAR VOLUME 96.6 fL (81.0-99.0); MEAN PLATELET VOLUME 9.4 fL (7.9-10.8); MONOCYTES % (AUTO) 8.1 %; PLT - PLATELET COUNT 300 10^3/uL (130-450); RED BLOOD COUNT 3.48 10^6/uL (4.20-5.40); RED CELL DISTRIBUTION WIDTH 14.3 % (12.0-15.0); WHITE BLOOD COUNT 24.5 x10^3/uL (4.8-10.8)
[2022-10-22] MEDS: LEVOTHYROXINE 125 MCG TABLET PO SCH (06:20)
[2022-10-22 06:24] LABS: ABNORMAL LYMPHS % (MANUAL) 0 %
[2022-10-22 06:26] LABS: CALCIUM 7.7 mg/dL (8.5-10.3); POTASSIUM 4.1 mmol/L (3.5-5.0)
[2022-10-22 06:35] LABS: BAND NEUTROPHILS % (MANUAL) 1 %; DIFFERENTIAL COMMENT MANUAL DIFFERENTIAL; LYMPHOCYTES # (MANUAL) 1.7 10^3/uL (1.5-3.5); LYMPHOCYTES % (MANUAL) 7 %; NEUTROPHILS # (MANUAL) 21.8 10^3/uL (1.5-6.6); PLATELET ESTIMATE, MANUAL NORMAL (130-450,000) (NORMAL); PLATELET MORPHOLOGY NORMAL APPEARANCE (NORMAL); RBC MORPHOLOGY (MULTIPLE) NORMAL APPEARANCE (NORMAL); WBC MORPHOLOGY (MULTIPLE) NORMAL APPEARANCE (NORMAL)
[2022-10-22] MEDS: FLUCONAZOLE 100 MG TABLET PO SCH (09:26)
[2022-10-22] MEDS: SENNA 8.6 MG TABLET PO SCH (09:26)
[2022-10-22] MEDS: SACCHAROMYCES BOULARDII 250 MG CAPSULE PO SCH ×2 (09:26→17:37)
[2022-10-22] MEDS: polyethylene glycoL 3350 17 GM PACKET PO SCH (09:26)
[2022-10-22] MEDS: NYSTATIN POWDER 15 GM TOP SCH ×2 (09:26→21:27)
[2022-10-22] MEDS: METOPROLOL SUCCINATE 50 MG TABLET PO SCH ×3 (09:26→21:27)
[2022-10-22] MEDS: DOCUSATE SODIUM 250 MG CAPSULE PO SCH (09:26)
[2022-10-22] MEDS: oxyCODONE 5 MG TABLET PO PRN ×2 (09:54→22:02)
--- NOTE | 2022-10-22 12:26 | PROVIDER PROGRESS NOTE ---
Subjective - Prog Note Date Prog Note Date: 10/22/22 Prog Note Time: 12:24 - Subjective Pt reports feeling: Improved Subjective: Estela continues to feel better and her right leg cellulitis looks improved. She is able to stand and pivot with assist and use a walker to get to the bathroom. Current Medications - Current Medications Current Medications: Active Medications Acetaminophen (Acetaminophen 325 Mg Tablet) 650 mg PO Q4HR PRN PRN Reason: Pain 1 to 4, or Fever Last Admin: 10/22/22 06:19 Dose: 650 mg Diltiazem HCl (Diltiazem 30 Mg Tablet) 30 mg PO Q6HR JACY Last Admin: 10/22/22 11:58 Dose: 30 mg Diphenhydramine HCl (Diphenhydramine Inj 50 Mg/Ml Vial) 25 mg IVP Q6H PRN PRN Reason: Allergy Symptoms Docusate Sodium (Docusate Sodium 250 Mg Capsule) 250 - 500 mg PO DAILY [facility] Last Admin: 10/22/22 09:26 Dose: Not Given Doxepin HCl (Doxepin 25 Mg Capsule) 75 mg PO QPM JACY Last Admin: 10/21/22 21:27 Dose: 75 mg Fluconazole (Fluconazole 100 Mg Tablet) 100 mg PO DAILY [facility] Last Admin: 10/22/22 09:26 Dose: 100 mg Guaifenesin/Codeine Phosphate (Guaifenesin/Codeine 5 Ml Udc) 5 ml PO Q6HR PRN PRN Reason: Cough Last Admin: 10/20/22 05:45 Dose: 5 ml Clindamycin Phosphate (Cleocin 600 Mg/50 Ml) 50 mls @ 100 mls/hr IV Q8HR [facility] Last Infusion: 10/22/22 06:57 Dose: Infused Levofloxacin (Levaquin 500 Mg/100 Ml) 500 mg in 100 mls @ 100 mls/hr IV Q24H [facility] Last Infusion: 10/21/22 18:55 Dose: Infused Insulin Glargine-yfgn (Insulin Glargine-Yfgn 300 Unit/3 Ml Pen) 5 unit SUBQ QPM JACY Last Admin: 10/21/22 21:28 Dose: 5 unit Levothyroxine Sodium (Levothyroxine 125 Mcg Tablet) 250 mcg PO QDAC [facility] Last Admin: 10/22/22 06:20 Dose: 250 mcg Metoprolol Succinate (Metoprolol Succinate 50 Mg Tablet) 50 mg PO BID [facility] Last Admin: 10/22/22 11:03 Dose: 50 mg Metoprolol Tartrate (Metoprolol 5 Mg/5 Ml Vial) 5 mg IVP Q6H PRN PRN Reason: Tachycardia Last Admin: 10/20/22 17:53 Dose: 5 mg Nystatin (Nystatin Powder 15 Gm) 1 applic TOP BID [facility] Last Admin: 10/22/22 09:26 Dose: 1 applic Ondansetron HCl (Ondansetron Odt 4 Mg Tablet) 4 mg TL Q6HR PRN PRN Reason: Nausea / Vomiting Ondansetron HCl (Ondansetron 4 Mg/2 Ml Vial) 4 mg IVP Q6HR PRN PRN Reason: Nausea / Vomiting Oxycodone HCl (Oxycodone 5 Mg Tablet) 5 mg PO Q4HR PRN PRN Reason: Pain 5 to 7 Last Admin: 10/22/22 09:54 Dose: 5 mg Polyethylene Glycol (Polyethylene Glycol 3350 17 Gm Packet) 17 gm PO DAILY [facility] Last Admin: 10/22/22 09:26 Dose: Not Given Prochlorperazine Edisylate (Prochlorperazine 10 Mg/2 Ml Vial) 10 mg IVP Q6HR PRN PRN Reason: Nausea / Vomiting Saccharomyces Boulardii (Saccharomyces Boulardii 250 Mg Capsule) 250 mg PO BIDWM [facility] Last Admin: 10/22/22 09:26 Dose: 250 mg Senna (Senna 8.6 Mg Tablet) 8.6 - 17.2 mg PO DAILY [facility] Last Admin: 10/22/22 09:26 Dose: Not Given Sodium Chloride (Sodium Chloride Flush 0.9% 10 Ml Syringe) 10 ml IVP PRN PRN PRN Reason: NEEDED PER PROVIDER ORDERS Last Admin: 10/21/22 21:44 Dose: 10 ml Sodium Chloride (Sodium Chloride Flush 0.9% 10 Ml Syringe) 10 ml IVP 0100,0900,1700 [facility] Last Admin: 10/22/22 09:26 Dose: Not Given Atorvastatin [Lipitor] 10 mg PO QPM 08/27/18 Doxepin HCl 75 mg PO QPM 08/27/18 Metformin HCl 500 mg PO BID 08/27/18 Diltiazem HCl [Diltiazem 24Hr ER] 420 mg PO DAILY 06/09/19 Metoprolol Succinate [Toprol Xl] 200 mg PO BID 06/09/19 lisinopriL [Lisinopril] 20 mg PO DAILY 06/12/19 Acetaminophen [Tylenol] 325 - 650 mg PO Q4H PRN 07/31/19 Levothyroxine Sodium [Synthroid] 250 mcg PO QDAC 07/31/19 Potassium Chloride [Klor-Con 10] 10 meq PO DAILY 07/31/19 hydroCHLOROthiazide [Hydrochlorothiazide] 25 mg PO DAILY 07/31/19 Dulaglutide [Trulicity] 1.5 mg SQ .Q7DAY 10/15/22 Fluticasone [Flonase] 1 sprays SAIMA DAILY 10/15/22 Objective - Vital Signs/Intake & Output Vital Signs: Vital Signs x48h Temp Pulse Pulse Resp BP BP BP 10/22/22 11:58 115/60 10/22/22 11:01 109 H 109/59 L 10/22/22 08:15 37.2 C 110 H 20 90/55 L 10/22/22 06:23 37.0 C 10/22/22 06:19 106/52 L 10/22/22 05:00 38.0 C H 107 H 18 97/48 L Pulse Ox 10/22/22 11:58 10/22/22 11:01 10/22/22 08:15 94 10/22/22 06:23 10/22/22 06:19 10/22/22 05:00 94 Intake & Output: Intake & Output 10/19/22 10/20/22 10/21/22 10/22/22 23:59 23:59 23:59 23:59 Intake Total 830 1460.0 1576 150 Output Total 1025 875 925 225 Balance -195 585.0 651 -75 - Objective General Appearance: positive: No acute distress, Alert Eyes Bilateral: positive: PERRL, EOMI, Other (bilateral ptosis and exopthalmos) ENT: positive: No signs of dehydration Neck: positive: No JVD Respiratory: positive: Chest non-tender, No respiratory distress, Breath sounds nml Cardiovascular: positive: Regular rate & rhythm Abdomen: positive: Non-tender, Nml bowel sounds, Other (large pannus, skin under breast covered in nystatin powder) Skin: positive: Color nml, Warm, Dry, Skin rash Extremities: positive: Pedal edema, Other (cellulitic rash on the right leg has improved in geographic distribution. It there is a faint redness on her thigh, dense cellulitic rash is seen on lateral aspect of the thigh which has improved and still very dense from the knee down. Her lower calf has extremely dry, flaking skin with blisters) Neurologic/Psychiatric: positive: Oriented x3, CN's nml (2-12), Mood/affect nml - Lab Results Fish Bones: 10/22/22 05:39 10/22/22 05:39 Other Labs: Lab Results x24hrs 10/22/22 10/22/22 Range/Units 05:39 05:39 WBC 24.5 H (4.8-10.8) x10^3/uL RBC 3.48 L (4.20-5.40) 10^6/uL Hgb 11.0 L (12.0-16.0) g/dL Hct 33.6 L (37.0-47.0) % MCV 96.6 (81.0-99.0) fL MCH 31.6 H (27.0-31.0) pg MCHC 32.7 (32.0-36.0) g/dL RDW 14.3 (12.0-15.0) % Plt Count 300 (130-450) 10^3/uL MPV 9.4 (7.9-10.8) fL Neut # (Auto) Not Reportable Lymph # (Auto) Not Reportable [place] # (Auto) Not Reportable Eos # (Auto) Not Reportable Baso # (Auto) Not Reportable Absolute Nucleated RBC Not Reportable Total Counted 100 Band Neuts % (Manual) 1 (0 - 10) % Abnorm Lymph % (Manual) 0 % Nucleated RBC % Not Reportable Neutrophils # (Manual) 21.8 H (1.5-6.6) 10^3/uL Lymphocytes # (Manual) 1.7 (1.5-3.5) 10^3/uL Monocytes # (Manual) 1.0 (0.0-1.0) 10^3/uL Eosinophils # (Manual) 0.0 (0-0.7) 10^3/uL Basophils # (Manual) 0.0 (0-0.1) 10^3/uL Differential Comment MANUAL DIFFERENTIAL WBC Morphology NORMAL APPEARANCE (NORMAL) Platelet Estimate NORMAL (130-450,000) (NORMAL) Platelet Morphology NORMAL APPEARANCE (NORMAL) RBC Morph Micro Appear NORMAL APPEARANCE (NORMAL) Sodium 133 L (135-145) mmol/L Potassium 4.1 (3.5-5.0) mmol/L Chloride 99 L (101-111) mmol/L Carbon Dioxide 27 (21-32) mmol/L Anion Gap 7.0 (6-13) BUN 25 H (6-20) mg/dL Creatinine 1.0 (0.4-1.0) mg/dL Estimated GFR (MDRD) 55 L (>89) Glucose 114 H (70-100) mg/dL Calcium 7.7 L (8.5-10.3) mg/dL Assessment/Plan - Problem List (1) Cellulitis of right leg without foot Impression: Conclusion/Plan: There is less geographic distribution of redness. And the redness was faded on her thigh. 10/22, the geographic distribution has gotten smaller. The redness has faded on her thigh, still densely red from her knee down to her toes. She has dry flaking skin around her ankles that has gotten worse. She has a draining blister on her right calf. This will be followed up by wound care when they are available. Today is Day #8/10 overall on diflucan Day #4 Continue clindamycin and levofloxacin (2) Acute on chronic diastolic (congestive) heart failure My evaluation of the clinical scenario from her admission was that she developed a right leg infection/cellulitis that then caused a systemic inflammatory response which drove her atrial fibrillation to be uncontrolled which then caused acute on chronic diastolic heart failure. Once her heart rate was controlled, heart failure symptoms have resolved. Main problem became hypotension once her A. fib was controlled. Currently she is on cardizem 30mg PO q6hr and metoprolol 50mg PO BID with 5mg of metoprolol IVP prn for tachycardia to manage her arrhythmias without making her hypotensive. 10/22 morning vitals at 8:15 are 90/55 and pulse 110. Her cardizem and metoprolol is held for SBP <90 or pulse <60. Metoprolol tartrate 5mg IVP q6h is available for pulse >110. Plan: I think she is at goal with regards to fluid balance and heart rate control. Now we have to work on her cellulitis Qualifiers: Heart failure type: diastolic Qualified Code(s): I50.33 - Acute on chronic diastolic (congestive) heart failure (3) Atrial fibrillation with RVR, RVR resolved. Conclusion/Plan: She takes high doses of medication at home. Metoprolol XL 200 mg p.o. twice daily as well as Cardizem CD 420 mg a day. Toprol-XL was reduced from 200 mg p.o. twice daily home med to 100 mg p.o. twice daily in October 17. Cardizem CD home med was reduced from 420 mg a day to 240 mg a day on October 17. On October 20 the metoprolol was reduced to 50mg PO BID and cardizem to 30mg po q6hr because she was still getting hypotensive. Continue metoprolol and cardizem at reduced doses (4) Lactic acidosis from cellulitis of leg and E coli UTI Conclusion/Plan: On admission Lactic acid 3.2. > 2.2. > 1.5 on 10/18/22. 1.8 on 10/20. Differential diagnosis for the causes of the lactic acidosis alone would include sepsis, liver disease, dehydration or metformin The fact that she has leukocytosis makes me wonder if it is infection that is the main problem. Source would be the extensive cellulitis of the leg that I am finding. She has a previous history of a dental abscess. She had intermittent swelling of her face between 2014 and 2020. Finally found to have a dental abscess last year that was taken care of. Current CT of the head makes no mention of mastoiditis or sinusitis. Abdominal ultrasound shows no evidence of cholelithiasis or cholecystitis. No biliary ductal dilatation. She is a hyperechoic lesion contiguous with the superior pole of the right kidney that is nonspecific and suggestive of an angiomyolipoma [place]. Venous duplex was done of the leg and no evidence of DVT. UA culture from 10/15 resulted with E coli UTI as well. Clinical indicators such as fever, pulse rate, white cell count, lactic acid have been improving. 10/20 evening she seemed to be getting septic again, her blood pressure dropped and she became tachycardic and spiked a fever. I discontinued Rocephin and started Clindamycin and Levofloxacin IV to cover her skin and UTI. Today, the cellulitis of the right leg looks improved. CT of lower extremity showed extensive cellulitis without focal fluid collection to suggest abscess. Pelvic CT also showed cellulitis and right inguinal lymph nodes that are considered to be reactive. Plan: Continue Clindamycin and levofloxacin (5) Elevated liver enzymes Conclusion/Plan: Usually not a problem for her. Ultrasound is negative for stones. No biliary dilatation. Liver enzyme evaluation with hepatitis panel, autoimmune panel has been ordered. 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 Ceruloplasmin is normal. She does have a remote history of hepatitis A in 1963. Last CMP was on 10/19, they were improving. Plan - Repeat CMP (6) Elevated troponin Conclusion/Plan: Cardiology assures me that he does not feel this is due to acute myocardial ischemia. With my ordering the third set of troponins, she is remained relatively flat at 800. Troponin #4 was 246 and a definite downward trend. (7) Type 2 diabetes mellitus treated without insulin Conclusion/Plan: No documented complications. There is no description of neuropathy, retinopathy or nephropathy in her office clinic records. A1c is well controlled. Her glucose is not very elevated. She did have lactic acidosis but I think this is more from metformin than the idea that she has DKA. I did not resume SS insulin. I did start Lantus 5 units qpm 10/19 Morning glucose 10/22 114 Plan: No change at this time. (8) Hypothyroid Conclusion/Plan: Review of her TSH in the EMR shows her to be well treated. At times borderline hyperthyroid due to her medication use. Low normal is 0.34. She is 0.37 today. Proptosis is quite dramatic on physical exam. 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 On home dose. Qualifiers: Hypothyroidism type: unspecified Qualified Code(s): E03.9 - Hypothyroidism, unspecified (9) Metabolic encephalopathy resolved Conclusion/Plan: I do remember this benjamín female from her previous admission for A. fib in 2018. She was a talkative individual, appropriately conversational and able to give a lucid history. There is no mention in her office chart that she has cognitive deficits. On admission, I was seeing a lethargic, slow to respond elderly female who is minimally verbal. She was following commands. was able to call me back on night of admission. He states that she is definitely slowed. This encephalopathy is new for her and was abrupt in onset the day before admission. It was mild. By the day of admission he says that she was really out of it. as she has been hydrated, and infection has improved, her encephalopathy has resolved. (10) Acute worsening of stage 3 chronic kidney disease, resolved. Conclusion/Plan: She was not hypotensive on admission so I was not suspecting ATN from that. She did appear dehydrated on physical exam. that has improved on exam and lips no longer cracked. Getting IVF. Avoid nephrotoxic agents. She can discontinue the sands catheter today. She has been able to stand and pivot with assist from the nurses and can use her walker to get to the bathroom. monitor I&O (11) Candidal intertrigo Conclusion/Plan: Nystatin powder twice daily.
[2022-10-22] MEDS: SODIUM CHLORIDE FLUSH 0.9% 10 ML SYRINGE IVP PRN (13:50)
[2022-10-22] MEDS: CHOLECALCIFEROL 25 MCG TABLET PO SCH (17:37)
[2022-10-22] MEDS: MULTIVITAMIN W/MINERALS TABLET PO SCH (17:37)
[2022-10-22] MEDS: levoFLOXacin 500 MG/100 ML 500 MG/100 ML BAG IV SCH (17:53)
[2022-10-22] MEDS: DOXEPIN 25 MG CAPSULE PO SCH (21:25)
[2022-10-22] MEDS: INSULIN GLARGINE-YFGN 300 UNIT/3 ML PEN SUBQ SCH (21:51)
[2022-10-23 05:51] LABS: BASOPHILS % (AUTO) 0.4 %; EOSINOPHILS % (AUTO) 0.8 %; HGB - HEMOGLOBIN 10.6 g/dL (12.0-16.0); LYMPHOCYTES % (AUTO) 6.9 %; MEAN CORPUSCULAR HEMOGLOBIN 31.4 pg (27.0-31.0); MEAN CORPUSCULAR HGB CONC 33.1 g/dL (32.0-36.0); MEAN CORPUSCULAR VOLUME 94.7 fL (81.0-99.0); MEAN PLATELET VOLUME 9.1 fL (7.9-10.8); MONOCYTES % (AUTO) 8.3 %; NEUTROPHILS % (AUTO) 79.1 %; PLT - PLATELET COUNT 307 10^3/uL (130-450); RED BLOOD COUNT 3.38 10^6/uL (4.20-5.40); RED CELL DISTRIBUTION WIDTH 14.2 % (12.0-15.0); WHITE BLOOD COUNT 25.3 x10^3/uL (4.8-10.8)
[2022-10-23] MEDS: diltiaZEM 30 MG TABLET PO SCH ×3 (05:54→22:03)
[2022-10-23] MEDS: CLINDAMYCIN 600 MG/50 ML 50 ML IV SCH ×3 (05:55→22:00)
[2022-10-23 05:57] LABS: CALCIUM 7.7 mg/dL (8.5-10.3); POTASSIUM 4.2 mmol/L (3.5-5.0)
[2022-10-23 05:58] LABS: ABNORMAL LYMPHS % (MANUAL) 0 %
[2022-10-23] MEDS: LEVOTHYROXINE 125 MCG TABLET PO SCH (06:04)
[2022-10-23] MEDS: ACETAMINOPHEN 325 MG TABLET PO PRN (06:04)
[2022-10-23 07:09] LABS: BAND NEUTROPHILS % (MANUAL) 1 %; DIFFERENTIAL COMMENT MANUAL DIFFERENTIAL; LYMPHOCYTES # (MANUAL) 1.5 10^3/uL (1.5-3.5); LYMPHOCYTES % (MANUAL) 6 %; MONOCYTES # (MANUAL) 1.5 10^3/uL (0.0-1.0); NEUTROPHILS # (MANUAL) 22.3 10^3/uL (1.5-6.6); PLATELET ESTIMATE, MANUAL NORMAL (130-450,000) (NORMAL); PLATELET MORPHOLOGY NORMAL APPEARANCE (NORMAL); RBC MORPHOLOGY (MULTIPLE) 1+ HYPOCHROMASIA (NORMAL); WBC MORPHOLOGY (MULTIPLE) NORMAL APPEARANCE (NORMAL)
[2022-10-23] MEDS: SENNA 8.6 MG TABLET PO SCH (08:42)
[2022-10-23] MEDS: polyethylene glycoL 3350 17 GM PACKET PO SCH (08:42)
[2022-10-23] MEDS: DOCUSATE SODIUM 250 MG CAPSULE PO SCH (08:42)
[2022-10-23] MEDS: oxyCODONE 5 MG TABLET PO PRN ×2 (08:43→22:06)
[2022-10-23] MEDS: NYSTATIN POWDER 15 GM TOP SCH ×2 (08:43→21:19)
[2022-10-23] MEDS: MULTIVITAMIN W/MINERALS TABLET PO SCH (08:44)
[2022-10-23] MEDS: SACCHAROMYCES BOULARDII 250 MG CAPSULE PO SCH ×2 (08:44→16:47)
[2022-10-23] MEDS: METOPROLOL SUCCINATE 50 MG TABLET PO SCH ×2 (08:44→21:18)
[2022-10-23] MEDS: SODIUM CHLORIDE FLUSH 0.9% 10 ML SYRINGE IVP SCH ×2 (08:44→16:48)
[2022-10-23] MEDS: FLUCONAZOLE 100 MG TABLET PO SCH (08:44)
[2022-10-23] MEDS: CHOLECALCIFEROL 25 MCG TABLET PO SCH (08:44)
[2022-10-23] MEDS ORDERED: DIGOXIN 500 MCG/2 ML AMP IVP STA (10:42)
--- NOTE | 2022-10-23 10:53 | PROVIDER PROGRESS NOTE ---
Assessment/Plan - Problem List (1) Cellulitis of right leg without foot Assessment/Plan: Her WBC naima to 25 today. She is on no steroids to explain this Since yesterday 10/22, the geographic distribution of her R leg redness has gotten smaller. The redness has faded on her thigh, still densely red from her knee down. She had dry flaking skin around her ankles that has gotten worse. She had a draining blister on her right calf. Today she was seen by wound care and they have bandaged it (so I did not open the new dressings, when examining her). Plan: Will check ESR and recheck Lactic Acid, may again need antibx adjusted Wound consult planned today (at about 1530) Today is Day #9/10 overall Also on diflucan Day #5/7 Continue clindamycin and levofloxacin (2) E coli UTI Sens show it is sens to Floxacins. Bd cx are ntd. Plan: Continue Levaquin (3) Atrial fibrillation with RVR Conclusion/Plan: She takes high doses of medication at home. Metoprolol XL 200 mg p.o. twice daily as well as Cardizem CD 420 mg a day. Toprol-XL was reduced from 200 mg p.o. twice daily home med to 100 mg p.o. twice daily in October 17. Cardizem CD home med was reduced from 420 mg a day to 240 mg a day on October 17. On October 20 the metoprolol was reduced to 50mg PO BID and cardizem to 30mg po q6hr because she was still getting hypotensive. Plan: Continue metoprolol at reduced dose Will increase Cardizem from 30 mg q6h to 60 mg q8h Will decrease her Thyroid med slightly (see #8) (4) Chronic diastolic (congestive) heart failure She developed a right leg infection/cellulitis that then caused a systemic inflammatory response which drove her atrial fibrillation to be uncontrolled which then caused acute on chronic diastolic heart failure. Once her heart rate was controlled, heart failure symptoms have resolved. Main problem became hypotension once her A. fib was controlled. Currently she is on cardizem 30mg PO q6hr and metoprolol 50mg PO BID with 5mg of metoprolol IVP prn for tachycardia to manage her arrhythmias without making her hypotensive. 10/22 morning vitals at 8:15 are 90/55 and pulse 110. Her cardizem and metoprolol is held for SBP <90 or pulse <60. Metoprolol tartrate 5mg IVP q6h is available for pulse >110. Plan: Will start very slow iv NS, due to "soft" BP and tachycardic again Qualifiers: Heart failure type: diastolic Qualified Code(s): I50.33 - Acute on chronic diastolic (congestive) heart failure (5) Elevated liver enzymes Conclusion/Plan: Usually not a problem for her. Ultrasound is negative for stones. No biliary dilatation. Possibly fatty liver. or from CHF. Liver enzyme evaluation with hepatitis panel, autoimmune panel has been ordered. 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 Ceruloplasmin is normal. She does have a remote history of hepatitis A in 1963. Last CMP was on 10/19, they were improving. Plan - Follow CMP - Avoid hepatotoxins. (6) Elevated troponin Conclusion/Plan: Cardiology assures me that he does not feel this is due to acute myocardial ischemia. With my ordering the third set of troponins, she is remained relatively flat at 800. Troponin #4 was 246 and a definite downward trend. (7) Type 2 diabetes mellitus treated without insulin Conclusion/Plan: No documented complications. There is no description of neuropathy, retinopathy or nephropathy in her office clinic records. A1c is well controlled. Her glucose is not very elevated. She did have lactic acidosis but I think this is more from metformin than the idea that she has DKA. We did not resume SS insulin. We did start Lantus 5 units qpm 10/19 Plan:continue plan (8) Hypothyroidism Conclusion/Plan: Review of her TSH in the EMR shows her to be well treated. At times, such as now, she is borderline hyperthyroid due to her medication use. Low normal TSH is 0.34. Her TSH is 0.37 . Proptosis is quite dramatic on physical exam. 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 Plan: She was ordered to be on her home dose, but I will decrease this dose slightly, due to the persistent tachyardia. Qualifiers: Hypothyroidism type: unspecified Qualified Code(s): E03.9 - Hypothyroidism, unspecified (9) Candidal intertrigo Conclusion/Plan: Nystatin powder twice daily. (10) Stage 3 chronic kidney disease Conclusion/Plan: She was not hypotensive on admission so I was not suspecting ATN from that. She did appear dehydrated on physical exam. that has improved on exam and lips n o longer cracked. Getting IVF. Plan: Avoid nephrotoxic agents. We discontinued the sands catheter. She has been able to stand and pivot with assist from the nurses and can use her walker to get to the bathroom. (11) Morbid obesity, BMI 40-44 As per Hx (12) Lactic acidosis from cellulitis of leg and E coli UTI Conclusion/Plan: On admission Lactic acid 3.2. > 2.2. > 1.5 on 10/18/22. 1.8 on 10/20. Source was the extensive cellulitis of the leg. Abdominal ultrasound shows no evidence of cholelithiasis or cholecystitis. No biliary ductal dilatation. She is a hyperechoic lesion contiguous with the superior pole of the right kidney that is nonspecific and suggestive of an angiomyolipoma [place]. Venous duplex was done of the leg and no evidence of DVT. UA culture from 10/15 resulted with E coli UTI as well. Clinical indicators such as fever, pulse rate, white cell count, lactic acid have been improving. 10/20 evening she seemed to be getting septic again, her blood pressure dropped and she became tachycardic and spiked a fever. We discontinued Rocephin and started Clindamycin and Levofloxacin IV to cover her skin and UTI. Since yesterday, the cellulitis of the right leg looks improved. CT of lower extremity showed extensive cellulitis without focal fluid collection to suggest abscess. Pelvic CT also showed cellulitis and right inguinal lymph nodes that are considered to be reactive. Plan: Continue Clindamycin and levofloxacin (13) Metabolic encephalopathy Conclusion/Plan: Resolved At her previous admission for A. fib in 2018, she was a talkative individual, appropriately conversational and able to give a lucid history. There is no mention in her office chart that she has cognitive deficits. On admission, she was lethargic, slow to respond elderly female who was minimally verbal. She was following commands. was able to call me back on night of admission. He stated that she is definitely slowed. This encephalopathy is new for her and was abrupt in onset the day before admission. It was mild. By the day after admission , she has been hydrated, and infection has improved, her encephalopathy resolved. - Current Meds Current Meds: Current Medications Generic Name Dose Route Start Last Admin Trade Name Olvinq PRN Reason Stop Dose Admin Acetaminophen 650 mg 10/15/22 17:25 10/23/22 06:04 Acetaminophen 325 Mg Tablet PO 325 mg Q4HR PRN Administration Pain 1 to 4, or Fever Cholecalciferol 25 mcg 10/22/22 17:00 10/23/22 08:44 Cholecalciferol 25 Mcg Tablet PO 25 mcg DAILY JACY Administration Diltiazem HCl 30 mg 10/21/22 00:00 10/23/22 05:54 Diltiazem 30 Mg Tablet PO 30 mg Q6HR JACY Administration Docusate Sodium 250 - 500 mg 10/21/22 09:00 10/23/22 08:42 Docusate Sodium 250 Mg Capsule PO Not Given DAILY JACY Doxepin HCl 75 mg 10/15/22 21:00 10/22/22 21:25 Doxepin 25 Mg Capsule PO 75 mg QPM JACY Administration Fluconazole 100 mg 10/19/22 14:00 10/23/22 08:44 Fluconazole 100 Mg Tablet PO 100 mg DAILY JACY Administration Guaifenesin/Codeine Phosphate 5 ml 10/19/22 13:50 10/20/22 05:45 Guaifenesin/Codeine 5 Ml Udc PO 5 ml Q6HR PRN Administration Cough Clindamycin Phosphate 50 mls @ 100 mls/hr 10/20/22 18:00 10/23/22 06:25 Cleocin 600 Mg/50 Ml IV Infused Q8HR JACY Infusion Levofloxacin 500 mg in 100 mls @ 100 mls/hr 10/20/22 18:00 10/22/22 18:53 Levaquin 500 Mg/100 Ml IV Infused Q24H JACY Infusion Insulin Glargine-yfgn 5 unit 10/20/22 07:00 10/22/22 21:51 Insulin Glargine-Yfgn 300 Unit/3 Ml Pen SUBQ 5 unit QPM JACY Administration Levothyroxine Sodium 250 mcg 10/16/22 07:00 10/23/22 06:04 Levothyroxine 125 Mcg Tablet PO 250 mcg QDAC JACY Administration Metoprolol Succinate 50 mg 10/20/22 18:32 10/23/22 08:44 Metoprolol Succinate 50 Mg Tablet PO 50 mg BID JACY Administration Multivitamins/Minerals 1 tab 10/22/22 17:00 10/23/22 08:44 Multivitamin W/Minerals Tablet PO 1 tab DAILYWM JACY Administration Nystatin 1 applic 10/15/22 21:00 10/23/22 08:43 Nystatin Powder 15 Gm TOP 1 applic BID JACY Administration Oxycodone HCl 5 mg 10/15/22 17:25 10/23/22 08:43 Oxycodone 5 Mg Tablet PO 5 mg Q4HR PRN Administration Pain 5 to 7 Polyethylene Glycol 17 gm 10/20/22 09:00 10/23/22 08:42 Polyethylene Glycol 3350 17 Gm Packet PO Not Given DAILY JACY Saccharomyces Boulardii 250 mg 10/17/22 17:00 10/23/22 08:44 Saccharomyces Boulardii 250 Mg Capsule PO 250 mg BIDWM JACY Administration Senna 8.6 - 17.2 mg 10/21/22 09:00 10/23/22 08:42 Senna 8.6 Mg Tablet PO Not Given DAILY JACY Sodium Chloride 10 ml 10/15/22 17:25 10/22/22 13:50 Sodium Chloride Flush 0.9% 10 Ml Syringe IVP 10 ml PRN PRN Administration NEEDED PER PROVIDER ORDERS Sodium Chloride 10 ml 10/16/22 01:00 10/23/22 08:44 Sodium Chloride Flush 0.9% 10 Ml Syringe IVP 10 ml 0100,0900,1700 JACY Administration - Lab Result Fish Bone Diagrams: 10/23/22 05:22 10/23/22 05:22 - Additional Planning My Orders: My Active Orders 10/23/22 ESR- ERYTHROCYTE SEDIMENT RATE [HEME] Stat 10/23/22 10:32 Telemetry- [RC] Q4HR 10/23/22 10:40 LACTIC ACID, VENOUS [CHEM] Stat 10/23/22 10:42 Digoxin Inj [Lanoxin Inj] 250 mcg IVP ONCE STA 10/23/22 11:00 Apixaban [Eliquis] 5 mg PO BID Sodium Chloride 0.9% [Normal Saline 0.9%] 1,000 ml IV 40 mls/hr 10/23/22 14:00 diltiaZEM [Cardizem] 60 mg PO Q8HR 10/24/22 05:00 ESR- ERYTHROCYTE SEDIMENT RATE [HEME] DAILYLAB Subjective - Subjective Patient Reports: Feeling Better, Fatigue Objective Vital Signs: Vital Signs - 24 hr 10/22/22 10/22/22 10/22/22 11:01 11:58 13:00 Temperature 37.2 C Heart Rate [ 109 H 104 H Brachial] Respiratory 20 Rate Blood Pressure 115/60 Blood Pressure 109/59 L [Left Brachial artery] Blood Pressure [Right Brachial artery] O2 Saturation 95 10/22/22 10/22/22 10/22/22 15:33 17:52 20:03 Temperature 36.8 C 37.1 C Heart Rate [ 100 99 Brachial] Respiratory 16 16 Rate Blood Pressure 114/55 L Blood Pressure 112/56 L [Left Brachial artery] Blood Pressure 95/59 L [Right Brachial artery] O2 Saturation 94 98 10/22/22 10/23/22 10/23/22 23:59 00:11 05:00 Temperature 36.7 C 37.7 C Heart Rate [ 98 102 H Brachial] Respiratory 16 16 Rate Blood Pressure 122/86 H Blood Pressure 122/86 H [Left Brachial artery] Blood Pressure 103/55 L [Right Brachial artery] O2 Saturation 94 92 10/23/22 10/23/22 05:54 07:24 Temperature 37.2 C Heart Rate [ 104 H Brachial] Respiratory 24 Rate Blood Pressure 103/55 L Blood Pressure [Left Brachial artery] Blood Pressure 95/45 L [Right Brachial artery] O2 Saturation 92 Oxygen O2 Source Room air Oxygen Flow Rate 4 I&O (Last 24 Hrs): Intake and Output Totals x24h 10/21/22 10/22/22 10/23/22 23:59 23:59 23:59 Intake Total 1576 1420 370 Output Total 925 375 Balance 651 1045 370 General: Alert, Oriented x3 HEENT: Mucous membr. moist/pink Neck: Other (Cannot evaluate JVP due to morbid obese) Neuro: Alert, Non Focal Cardiovascular: Other (Distant heart sounds due to morbid obesity) Respiratory: No respiratory distress Abdomen: Soft, Other (Obese with a pannus) Extremities: Other (2+ edema of both legs to the thighs. Right lateral thigh has red patch. Right knee is red, warm & swollen. Lower R leg, from the knee down to the toes, is bandaged.) - Results Results: Laboratory Results WBC 25.3 x10^3/uL (4.8-10.8) H 10/23/22 05:22 RBC 3.38 10^6/uL (4.20-5.40) L 10/23/22 05:22 Hgb 10.6 g/dL (12.0-16.0) L 10/23/22 05:22 Hct 32.0 % (37.0-47.0) L 10/23/22 05:22 MCV 94.7 fL (81.0-99.0) 10/23/22 05:22 MCH 31.4 pg (27.0-31.0) H 10/23/22 05:22 MCHC 33.1 g/dL (32.0-36.0) 10/23/22 05:22 RDW 14.2 % (12.0-15.0) 10/23/22 05:22 Plt Count 307 10^3/uL (130-450) 10/23/22 05:22 MPV 9.1 fL (7.9-10.8) 10/23/22 05:22 Neut # (Auto) Not Reportable 10/23/22 05:22 Lymph # (Auto) Not Reportable 10/23/22 05:22 [place] # (Auto) Not Reportable 10/23/22 05:22 Eos # (Auto) Not Reportable 10/23/22 05:22 Baso # (Auto) Not Reportable 10/23/22 05:22 Absolute Nucleated RBC Not Reportable 10/23/22 05:22 Total Counted 100 10/23/22 05:22 Band Neuts % (Manual) 1 % (0-10) 10/23/22 05:22 Abnorm Lymph % (Manual) 0 % 10/23/22 05:22 Metamyelocytes % 1 % (-0) H 10/21/22 05:07 Nucleated RBC % Not Reportable 10/23/22 05:22 Neutrophils # (Manual) 22.3 10^3/uL (1.5-6.6) H 10/23/22 05:22 Lymphocytes # (Manual) 1.5 10^3/uL (1.5-3.5) 10/23/22 05:22 Monocytes # (Manual) 1.5 10^3/uL (0.0-1.0) H 10/23/22 05:22 Eosinophils # (Manual) 0.0 10^3/uL (0-0.7) 10/23/22 05:22 Basophils # (Manual) 0.0 10^3/uL (0-0.1) 10/23/22 05:22 Differential Comment MANUAL DIFFERENTIAL 10/23/22 05:22 Manual Slide Review Indicated 10/20/22 18:38 WBC Morphology NORMAL APPEARANCE (NORMAL) 10/23/22 05:22 Platelet Estimate NORMAL (130-450,000) (NORMAL) 10/23/22 05: Platelet Morphology NORMAL APPEARANCE (NORMAL) 10/23/22 05:22 RBC Morph Micro Appear 1+ HYPOCHROMASIA (NORMAL) 10/23/22 05:22 PT 18.5 secs (9.9-12.6) H 10/15/22 10:01 INR 1.7 (0.8-1.2) H 10/15/22 10:01 D-Dimer 460.6 ng/mL (200.0-255.0) H 10/15/22 10:01 VBG pH 7.356 (7.31-7.41) 10/18/22 05:26 Ionized Calcium 1.12 mmol/L (1.15-1.33) L 10/18/22 05:26 Sodium 132 mmol/L (135-145) L 10/23/22 05:22 Potassium 4.2 mmol/L (3.5-5.0) 10/23/22 05:22 Chloride 98 mmol/L (101-111) L 10/23/22 05:22 Carbon Dioxide 26 mmol/L (21-32) 10/23/22 05:22 Anion Gap 8.0 (6-13) 10/23/22 05:22 BUN 26 mg/dL (6-20) H 10/23/22 05:22 Creatinine 1.0 mg/dL (0.4-1.0) 10/23/22 05:22 Estimated GFR (MDRD) 55 (>89) L 10/23/22 05:22 Glucose 111 mg/dL (70-100) H 10/23/22 05:22 POC Whole Bld Glucose 164 mg/dL (70 - 100) H 10/22/22 21:39 Lactic Acid 1.8 mmol/L (0.5-2.2) 10/20/22 18:38 Calcium 7.7 mg/dL (8.5-10.3) L 10/23/22 05:22 Phosphorus 3.1 mg/dL (2.5-4.6) 10/18/22 05:26 Magnesium 2.3 mg/dL (1.7-2.8) 10/18/22 05:26 Ferritin 499.1 ng/mL (11.0-306.8) H 10/16/22 07:28 Total Bilirubin 1.3 mg/dL (0.2-1.0) H 10/19/22 05:39 AST 92 IU/L (10-42) H 10/19/22 05:39 ALT 52 IU/L (10-60) 10/19/22 05:39 Alkaline Phosphatase 278 IU/L (42-121) H 10/19/22 05:39 Troponin I High Sens 246.2 ng/L (2.3-14.8) H* 10/17/22 14:59 B-Natriuretic Peptide 729 pg/mL (5-100) H 10/19/22 05:39 Total Protein 6.3 g/dL (6.7-8.2) L 10/19/22 05:39 Albumin 2.1 g/dL (3.2-5.5) L 10/19/22 05:39 Globulin 4.2 g/dL (2.1-4.2) 10/19/22 05:39 Albumin/Globulin Ratio 0.5 (1.0-2.2) L 10/19/22 05:39 Ceruloplasmin 24.3 mg/dL (19.0-39.0) 10/16/22 09:30 Lipase 22 U/L (22-51) 10/15/22 10:01 TSH 0.37 uIU/mL (0.34-5.60) 10/15/22 10:01 Urine Color DARK YELLOW 10/20/22 15:49 Urine Clarity HAZY (CLEAR) 10/20/22 15:49 Urine pH 6.0 PH (5.0-7.5) 10/20/22 15:49 Ur Specific [place] 1.020 (1.002-1.030) 10/20/22 15:49 Urine Protein 100 mg/dL (NEGATIVE) H 10/20/22 15:49 Urine Glucose (UA) 100 mg/dL (NEGATIVE) H 10/20/22 15:49 Urine Ketones TRACE mg/dL (NEGATIVE) 10/20/22 15:49 Urine Occult Blood MODERATE (NEGATIVE) H 10/20/22 15:49 Urine Nitrite NEGATIVE (NEGATIVE) 10/20/22 15:49 Urine Bilirubin SMALL (NEGATIVE) H 10/20/22 15:49 Urine Urobilinogen 2 E.U./dL (NORMAL) H 10/20/22 15:49 Ur Leukocyte Esterase NEGATIVE (NEGATIVE) 10/20/22 15:49 Urine RBC 11-25 /HPF (0-5) H 10/20/22 15:49 Urine WBC 4-5 /HPF (0-5) 10/20/22 15:49 Ur Squamous Epith Cells FEW Squamous (<= Few) 10/20/22 15:49 Urine Bacteria Few /HPF (None Seen) 10/20/22 15:49 Ur Microscopic Review INDICATED 10/20/22 15:49 Urine Culture Comments NOT INDICATED 10/20/22 15:49 Nasal Adenovirus (PCR) NOT DETECTED 10/15/22 10:05 Nasal B. parapertussis DNA (PCR) NOT DETECTED 10/15/22 10:05 Nasal Coronavir 229E PCR NOT DETECTED 10/15/22 10:05 Nasal Coronavir HKU1 PCR NOT DETECTED 10/15/22 10:05 Nasal Coronavir NL63 PCR NOT DETECTED 10/15/22 10:05 Nasal Coronavir OC43 PCR NOT DETECTED 10/15/22 10:05 Nasal Enterovir/Rhinovir PCR NOT DETECTED 10/15/22 10:05 Nasal Influenza B PCR NOT DETECTED 10/15/22 10:05 Nasal Influenza A PCR NOT DETECTED 10/15/22 10:05 Nasal Parainfluen 1 PCR NOT DETECTED 10/15/22 10:05 Nasal Parainfluen 2 PCR NOT DETECTED 10/15/22 10:05 Nasal Parainfluen 3 PCR NOT DETECTED 10/15/22 10:05 Nasal Parainfluen 4 PCR NOT DETECTED 10/15/22 10:05 Nasal RSV (PCR) NOT DETECTED 10/15/22 10:05 Nasal Screen MRSA (PCR) NEGATIVE (NEGATIVE) 10/15/22 18:15 Nasal B.pertussis DNA PCR NOT DETECTED 10/15/22 10:05 Nasal C.pneumoniae (PCR) NOT DETECTED 10/15/22 10:05 Schuyler Human Metapneumo PCR NOT DETECTED 10/15/22 10:05 Nasal M.pneumoniae (PCR) NOT DETECTED 10/15/22 10:05 Nasal SARS-CoV-2 (PCR) NOT DETECTED 10/15/22 10:05 Anti-Mitochondrial Ab <20.0 Units (0.0-20.0) 10/16/22 09:30 Hepatitis A IgM Ab Indeterminate (Negative) A 10/16/22 09:30 Hep Bs Antigen Negative (Negative) 10/16/22 09:30 Hep B Core IgM Ab Negative (Negative) 10/16/22 09:30 Hepatitis C Antibody <0.1 s/co ratio (0.0-0.9) 10/16/22 09:30 Hepatitis C Interp Comment (.) 10/16/22 09:30 - Procedures Procedures: Procedures INSERTION OF INFUSION DEV INTO SUP VENA CAVA, PERC APPROACH (06/09/19)
[2022-10-23] MEDS: APIXABAN 5 MG TABLET PO SCH ×2 (11:18→21:18)
[2022-10-23] MEDS: SODIUM CHLORIDE 0.9% 1,000 ML IV SCH (11:18)
[2022-10-23] MEDS: SODIUM CHLORIDE FLUSH 0.9% 10 ML SYRINGE IVP PRN (11:18)
--- NOTE | 2022-10-23 14:11 | WOUND CARE CONSULTATION ---
Referring Provider Name of Referring Provider:: Blanquita Gale MD Consult Date: 10/23/22 Chief Complaint - Chief Complaint Chief Complaint: Bullous lesions to right lower extremity, posterior History of Present Illness - History Obtained From Records Reviewed: [facility] History obtained from: Patient - History of Present Illness HPI: This 72 year old patient who is currently hospitalized here at [facility] with Atrial fibrillation w RVR, Acute CHF exacerbation, cellulitis, weakness, and confusion. She developed a large bullous lesion to the right calf shortly after admission which subsequently ruptured creating a full thickness wound. The wound has been dressed with duoderm and xeroform. She reports having similar wounds in the past. She was treated here in 2019 for the same. She is reporting that the wounds are painful only when touched. History - Past Medical History Cardiovascular: reports: Hypertension, Atrial fibrillation Respiratory: reports: None Neuro: reports: Other Endocrine/Autoimmune: reports: Type 2 diabetes, HyPOthyroidism GI: reports: None, Other CRYSTAL SLICER: reports: Other : reports: None HEENT: reports: Chronic vision loss Psych: reports: Anxiety, Panic attacks, Claustrophobia Musculoskeletal: reports: Osteoarthritis Derm: reports: None MRSA Hx?: No Other Past Medical History: dislocated right elbow - Family & Social History Family History Comment/Other: Dad at age 62 of a heart attack and was a heavy smoker. Mom at age 69 of emphysema. 2 brothers have diabetes, one has high blood pressure. 2 daughters. One daughter has complications of lupus with cardiomyopathy and vasculitis Living arrangement: At home Living Situation: With spouse/s.o. Social History Notes: She was born on [facility]. Born in this hospital. 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 They left to travel all over the [facility] where he was stationed. They had 2 children together and one stepchild from him. 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 They moved back to [place] around [place] and they have lived here since. Right now she helps take care of her grandkids. Her disabled daughter lives with her. The daughter is still independent with regards to her activities of daily living. Her endurance is just not so great. She started smoking at about age 30 and smoked up to 2 packs/day for 5 years only. She never had a problem with alcohol abuse. She has no history of other recreational substance abuse. - Substance History Use: Uses substance without health or social issues: NONE - POLST Patient has POLST: No POLST Status: Full Code (However, if there is irreversible brain damage she does not want to be resuscitated. Or if resuscitation will result in life support that will be chronic, she is wants us to let her go) Review of Systems - Constitutional Constitutional: reports: Weakness Objective General: Oriented x3, Cooperative, No acute distress, Other (drowsy) - Wound Assessment Wound assessment: Wound #1 Right lower extremity, posterior: 17.2 x 14.3 x 0.1 The wound is full thickness. The wound bed is 100 % clean granular with scattered areas of ecchymosis, red/purple. It is reported that the lesion originated as a large bullous that has since been deroofed. There is an intact bullous superior to the wound. The wound edges are loosely attached. No undermining, no tunneling. The periwound is erythematous and indurated. There is mild to moderate drainage. No odor. 3+ pitting edema to right foot, 2+ pitting edema to right lower extremity. The patient reports tenderness to the touch only. Capillary refill wnl. Right: Pulses DP/PT not palpable, audible via Doppler and are biphasic. 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 Bullae have ruptured creating open ulcer. Painful to the touch. Plan of care: Wound cultured. Wound hygiene with antimicrobial solution. Dressing with gentamincin ointment, hydrofera blue, optilock super absorbent pad, followed by a 2 layer lite compression wrap. Compression wrap/dressings to stay dry and intact. Patient will RTC in one week for wound check and dressing change. In the event that she has been discharged from the hospital at that time, she may self refer and keep her scheduled appointment. Consider home health for twice weekly dressing changes in addition to wound care clinic every two weeks for debridement if needed. (2) Diabetes type 2, controlled Qualifiers: Diabetes mellitus intermodal customer service insulin use: without snf use Qualified Code(s): E11.9 - Type 2 diabetes mellitus without complications Assessment/Plan: A1C in August 2022 6.2% per patient with weekly Trulicity injections. (3) Cellulitis of right lower extremity Assessment/Plan: Improving as per chart notes. Currently getting IV Levaquin and clindamycin during hospital stay. (4) Chronic venous insufficiency Assessment/Plan: Patient typically wears compression socks daily. She reports her compression socks are old. Plan of care: 2 layer lite compression. RN to measure leg next week and order new compression socks. - Results Lab Results: Laboratory Results Sodium 132 mmol/L (135-145) L 10/23/22 05:22 Potassium 4.2 mmol/L (3.5-5.0) 10/23/22 05:22 Chloride 98 mmol/L (101-111) L 10/23/22 05:22 Carbon Dioxide 26 mmol/L (21-32) 10/23/22 05:22 Anion Gap 8.0 (6-13) 10/23/22 05:22 BUN 26 mg/dL (6-20) H 10/23/22 05:22 Creatinine 1.0 mg/dL (0.4-1.0) 10/23/22 05:22 Glucose 111 mg/dL (70-100) H 10/23/22 05:22 Calcium 7.7 mg/dL (8.5-10.3) L 10/23/22 05:22 Total Bilirubin 1.3 mg/dL (0.2-1.0) H 10/19/22 05:39 AST 92 IU/L (10-42) H 10/19/22 05:39 ALT 52 IU/L (10-60) 10/19/22 05:39 Alkaline Phosphatase 278 IU/L (42-121) H 10/19/22 05:39 Total Protein 6.3 g/dL (6.7-8.2) L 10/19/22 05:39 Albumin 2.1 g/dL (3.2-5.5) L 10/19/22 05:39 Globulin 4.2 g/dL (2.1-4.2) 10/19/22 05:39 Albumin/Globulin Ratio 0.5 (1.0-2.2) L 10/19/22 05:39 10/20/22 16:10 Blood - Left Arm Blood Culture - Preliminary NO GROWTH AFTER 2 DAYS 10/20/22 16:05 Blood - Right Arm Blood Culture - Preliminary NO GROWTH AFTER 2 DAYS 10/15/22 20:10 Urine,Clean Catch Urine Culture - Final Escherichia Coli - Home Meds/Allergies Allergies Penicillins Allergy (Verified 07/31/19 14:45) Rash Sulfa (Sulfonamide Antibiotics) Allergy (Verified 07/31/19 14:45) Unknown Home Medications Dulaglutide [Trulicity] 1.5 mg SQ .Q7DAY 10/15/22 [History Confirmed 10/15/22] Fluticasone [Flonase] 1 sprays SAIMA DAILY 10/15/22 [History Confirmed 10/15/22] - Plan Condition/Complexity: Stable Plan Discussed with: Patient
[2022-10-23] MEDS: levoFLOXacin 500 MG/100 ML 500 MG/100 ML BAG IV SCH (18:21)
[2022-10-23] MEDS: DOXEPIN 25 MG CAPSULE PO SCH (21:18)
[2022-10-23] MEDS: INSULIN GLARGINE-YFGN 300 UNIT/3 ML PEN SUBQ SCH (21:21)
[2022-10-24] MEDS: SODIUM CHLORIDE FLUSH 0.9% 10 ML SYRINGE IVP SCH ×3 (04:56→18:30)
[2022-10-24 05:44] LABS: BASOPHILS % (AUTO) 0.5 %; EOSINOPHILS % (AUTO) 1.1 %; LYMPHOCYTES % (AUTO) 8.3 %; MEAN CORPUSCULAR HEMOGLOBIN 31.6 pg (27.0-31.0); MEAN CORPUSCULAR HGB CONC 33.3 g/dL (32.0-36.0); MEAN CORPUSCULAR VOLUME 94.8 fL (81.0-99.0); MEAN PLATELET VOLUME 9.2 fL (7.9-10.8); MONOCYTES % (AUTO) 8.1 %; NEUTROPHILS % (AUTO) 77.4 %; PLT - PLATELET COUNT 324 10^3/uL (130-450); RED BLOOD COUNT 3.48 10^6/uL (4.20-5.40); RED CELL DISTRIBUTION WIDTH 14.3 % (12.0-15.0)
[2022-10-24 05:50] LABS: CALCIUM 7.7 mg/dL (8.5-10.3); POTASSIUM 4.2 mmol/L (3.5-5.0)
[2022-10-24 05:55] LABS: ABNORMAL LYMPHS % (MANUAL) 0 %; BAND NEUTROPHILS % (MANUAL) 0 %
[2022-10-24 06:13] LABS: DIFFERENTIAL COMMENT MANUAL DIFFERENTIAL; EOSINOPHILS # (MANUAL) 0.5 10^3/uL (0-0.7); LYMPHOCYTES # (MANUAL) 1.8 10^3/uL (1.5-3.5); LYMPHOCYTES % (MANUAL) 8 %; MONOCYTES # (MANUAL) 2.8 10^3/uL (0.0-1.0); MYELOCYTES % (MANUAL) 3 %; NEUTROPHILS # (MANUAL) 17.3 10^3/uL (1.5-6.6); PLATELET ESTIMATE, MANUAL NORMAL (130-450,000) (NORMAL); PLATELET MORPHOLOGY NORMAL APPEARANCE (NORMAL); RBC MORPHOLOGY (MULTIPLE) NORMAL APPEARANCE (NORMAL); WBC MORPHOLOGY (MULTIPLE) NORMAL APPEARANCE (NORMAL)
[2022-10-24] MEDS: LEVOTHYROXINE 75 MCG TABLET PO SCH (06:15)
[2022-10-24] MEDS: diltiaZEM 30 MG TABLET PO SCH ×3 (06:15→22:03)
[2022-10-24] MEDS: CLINDAMYCIN 600 MG/50 ML 50 ML IV SCH ×3 (06:15→22:03)
[2022-10-24] MEDS: METOPROLOL SUCCINATE 50 MG TABLET PO SCH ×2 (08:47→22:02)
[2022-10-24] MEDS: FLUCONAZOLE 100 MG TABLET PO SCH (08:47)
[2022-10-24] MEDS: APIXABAN 5 MG TABLET PO SCH ×2 (08:47→22:00)
[2022-10-24] MEDS: ACETAMINOPHEN 325 MG TABLET PO PRN ×2 (08:47→17:11)
[2022-10-24] MEDS: CHOLECALCIFEROL 25 MCG TABLET PO SCH (08:47)
[2022-10-24] MEDS: SACCHAROMYCES BOULARDII 250 MG CAPSULE PO SCH ×2 (08:47→17:11)
[2022-10-24] MEDS: MULTIVITAMIN W/MINERALS TABLET PO SCH (08:48)
[2022-10-24] MEDS: DOCUSATE SODIUM 250 MG CAPSULE PO SCH (08:48)
[2022-10-24] MEDS: polyethylene glycoL 3350 17 GM PACKET PO SCH (08:48)
[2022-10-24] MEDS: SENNA 8.6 MG TABLET PO SCH (08:48)
[2022-10-24] MEDS: NYSTATIN POWDER 15 GM TOP SCH ×2 (08:48→22:03)
--- NOTE | 2022-10-24 17:56 | PROVIDER PROGRESS NOTE ---
Assessment/Plan - Problem List (1) Cellulitis of right leg without foot Assessment/Plan: Her WBC naima to 25 yesterday, but today is down slightly to 23. She is on no steroids to explain this elevated WBC Since 10/22, the geographic distribution of her R leg redness has gotten smaller. The redness has faded on her thigh, still densely red from her knee down. She had a draining blister on her right calf. Yesterday she was seen by wound care and they have bandaged it (so I did not open the new dressings, when examining her today). Plan: Follow inflammatory markers and CBC daily Wound consult advised dressing changes by them once a week Will continue iv clindamycin and iv levofloxacin another day to see if WBC will decrease further, before changing her to po clinda and levoflox Also already on po Diflucan (2) E coli UTI Sens show it is sens to Floxacins. Bd cx are ntd. Plan: Continuing Levaquin (3) Atrial fibrillation with RVR Conclusion/Plan: She takes high doses of medication at home. Metoprolol XL 200 mg p.o. twice daily as well as Cardizem CD 420 mg a day. Toprol-XL was reduced from 200 mg p.o. twice daily home med to 100 mg p.o. twice daily in October 17. Cardizem CD home med was reduced from 420 mg a day to 240 mg a day on October 17. On October 20 the metoprolol was reduced to 50mg PO BID and cardizem to 30mg po q6hr because she was still getting hypotensive. Plan: Continue metoprolol at reduced dose We increased Cardizem from 30 mg q6h to 60 mg q8h We decreased her Thyroid med slightly (see #8) (4) Chronic diastolic (congestive) heart failure She developed a right leg infection/cellulitis that then caused a systemic inflammatory response which drove her atrial fibrillation to be uncontrolled which then caused acute on chronic diastolic heart failure. Once her heart rate was controlled, heart failure symptoms have resolved. Main problem became hypotension once her A. fib was controlled. Currently she is on cardizem 30mg PO q6hr and metoprolol 50mg PO BID with 5mg of metoprolol IVP prn for tachycardia to manage her arrhythmias without making her hypotensive. 10/22 morning vitals at 8:15 are 90/55 and pulse 110. Her cardizem and metoprolol is held for SBP <90 or pulse <60. Metoprolol tartrate 5mg IVP q6h is available for pulse >110. Plan: Will stop NS Qualifiers: Heart failure type: diastolic Qualified Code(s): I50.33 - Acute on chronic diastolic (congestive) heart failure (5) Elevated liver enzymes Conclusion/Plan: Usually not a problem for her. Ultrasound is negative for stones. No biliary dilatation. Possibly fatty liver. or from CHF. Liver enzyme evaluation with hepatitis panel, autoimmune panel has been ordered. 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 Ceruloplasmin is normal. She does have a remote history of hepatitis A in 1963. Last CMP was on 10/19, they were improving. Plan - Follow CMP inytermittently - Avoid hepatotoxins. (6) Elevated troponin Conclusion/Plan: Cardiology assures me that he does not feel this is due to acute myocardial ischemia. With my ordering the third set of troponins, she is remained relatively flat at 800. Troponin #4 was 246 and a definite downward trend. (7) Type 2 diabetes mellitus treated without insulin Conclusion/Plan: No documented complications. There is no description of neuropathy, retinopathy or nephropathy in her office clinic records. A1c is well controlled. Her gluco se is not very elevated. She did have lactic acidosis but I think this is more from metformin than the idea that she has DKA. We did not resume SS insulin. We did start Lantus 5 units qpm 10/19 Plan:continue plan (8) Hypothyroidism Conclusion/Plan: Review of her TSH in the EMR shows her to be well treated. At times, such as now, she is borderline hyperthyroid due to her medication use. Low normal TSH is 0.34. Her TSH is 0.37 . Proptosis is quite dramatic on physical exam. 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 Plan: She was ordered to be on her home dose, but I decreased this dose slightly, due to the persistent tachyardia. Qualifiers: Hypothyroidism type: unspecified Qualified Code(s): E03.9 - Hypothyroidism, unspecified (9) Candidal intertrigo Conclusion/Plan: Nystatin powder twice daily. Also on po Diflucan (10) Stage 3 chronic kidney disease Conclusion/Plan: She was not hypotensive on admission so I was not suspecting ATN from that. She did appear dehydrated on physical exam. that has improved on exam and lips no longer cracked. Getting IVF. Plan: Avoid nephrotoxic agents. We discontinued the sands catheter. She has been able to stand and pivot with assist from the nurses and can use her walker to get to the bathroom. (11) Morbid obesity, BMI 40-44 As per Hx (12) Lactic acidosis from cellulitis of leg and E coli UTI Conclusion/Plan: Resolved. Source was the extensive cellulitis of the leg. (13) Metabolic encephalopathy Conclusion/Plan: Resolved By the day after admission , she has been hydrated, and infection has improved, her encephalopathy resolved. - Current Meds Current Meds: Current Medications Generic Name Dose Route Start Last Admin Trade Name Freq PRN Reason Stop Dose Admin Acetaminophen 650 mg 10/15/22 17:25 10/24/22 17:11 Acetaminophen 325 Mg Tablet PO 650 mg Q4HR PRN Administration Pain 1 to 4, or Fever Apixaban 5 mg 10/23/22 11:00 10/24/22 08:47 Apixaban 5 Mg Tablet PO 5 mg BID JACY Administration Cholecalciferol 25 mcg 10/22/22 17:00 10/24/22 08:47 Cholecalciferol 25 Mcg Tablet PO 25 mcg DAILY JACY Administration Diltiazem HCl 60 mg 10/23/22 14:00 10/24/22 13:49 Diltiazem 30 Mg Tablet PO 60 mg Q8HR JACY Administration Docusate Sodium 250 - 500 mg 10/21/22 09:00 10/24/22 08:48 Docusate Sodium 250 Mg Capsule PO Not Given DAILY JACY Doxepin HCl 75 mg 10/15/22 21:00 10/23/22 21:18 Doxepin 25 Mg Capsule PO 75 mg QPM JACY Administration Fluconazole 100 mg 10/19/22 14:00 10/24/22 08:47 Fluconazole 100 Mg Tablet PO 100 mg DAILY JACY Administration Guaifenesin/Codeine Phosphate 5 ml 10/19/22 13:50 10/20/22 05:45 Guaifenesin/Codeine 5 Ml Udc PO 5 ml Q6HR PRN Administration Cough Clindamycin Phosphate 50 mls @ 100 mls/hr 10/20/22 18:00 10/24/22 13:49 Cleocin 600 Mg/50 Ml IV 100 mls/hr Q8HR JACY Administration Levofloxacin 500 mg in 100 mls @ 100 mls/hr 10/20/22 18:00 10/23/22 19:21 Levaquin 500 Mg/100 Ml IV Infused Q24H JACY Infusion Sodium Chloride 1,000 mls @ 40 mls/hr 10/23/22 11:00 10/23/22 22:35 Normal Saline 0.9% IV 40 mls/hr .Q25H JACY Infusion Insulin Glargine-yfgn 5 unit 10/20/22 07:00 10/23/22 21:21 Insulin Glargine-Yfgn 300 Unit/3 Ml Pen SUBQ 5 unit QPM JACY Administration Levothyroxine Sodium 225 mcg 10/24/22 07:00 10/24/22 06:15 Levothyroxine 75 Mcg Tablet PO 225 mcg QDAC JACY Administration Metoprolol Succinate 50 mg 10/20/22 18:32 10/24/22 08:47 Metoprolol Succinate 50 Mg Tablet PO 50 mg BID JACY Administration Multivitamins/Minerals 1 tab 10/22/22 17:00 10/24/22 08:48 Multivitamin W/Minerals Tablet PO 1 tab DAILYWM JACY Administration Nystatin 1 applic 10/15/22 21:00 10/24/22 08:48 Nystatin Powder 15 Gm TOP 1 applic BID JACY Administration Oxycodone HCl 5 mg 10/15/22 17:25 10/23/22 22:06 Oxycodone 5 Mg Tablet PO 5 mg Q4HR PRN Administration Pain 5 to 7 Polyethylene Glycol 17 gm 10/20/22 09:00 10/24/22 08:48 Polyethylene Glycol 3350 17 Gm Packet PO Not Given DAILY JACY Saccharomyces Boulardii 250 mg 10/17/22 17:00 10/24/22 17:11 Saccharomyces Boulardii 250 Mg Capsule PO 250 mg BIDWM JACY Administration Senna 8.6 - 17.2 mg 10/21/22 09:00 10/24/22 08:48 Senna 8.6 Mg Tablet PO Not Given DAILY JACY Sodium Chloride 10 ml 10/15/22 17:25 10/23/22 11:18 Sodium Chloride Flush 0.9% 10 Ml Syringe IVP 10 ml PRN PRN Administration NEEDED PER PROVIDER ORDERS Sodium Chloride 10 ml 10/16/22 01:00 10/24/22 08:48 Sodium Chloride Flush 0.9% 10 Ml Syringe IVP Not Given 0100,0900,1700 JACY - Lab Result Fish Bone Diagrams: 10/25/22 05:45 10/24/22 05:23 - Additional Planning My Orders: My Active Orders 10/24/22 07:00 Levothyroxine [Synthroid] 225 mcg PO QDAC Subjective - Subjective Patient Reports: Resting Comfortably, No Complaints Nursing Reports: Other (Is refusing to participate with PT and OT, at most walked 5 feet) Objective Vital Signs: Vital Signs - 24 hr 10/23/22 10/23/22 10/24/22 20:54 22:03 01:29 Temperature 37.1 C 36.7 C Heart Rate [ 102 H 102 H Brachial] Heart Rate [ Monitoring electrodes] Respiratory 18 18 Rate Blood Pressure 114/62 Blood Pressure 116/49 L [Left Brachial artery] Blood Pressure 106/55 L [Right Brachial artery] O2 Saturation 97 94 10/24/22 10/24/22 10/24/22 04:41 06:15 07:16 Temperature 36.7 C 36.4 C L Heart Rate [ 80 Brachial] Heart Rate [ 101 H Monitoring electrodes] Respiratory 16 20 Rate Blood Pressure 114/40 L Blood Pressure 106/66 [Left Brachial artery] Blood Pressure 123/54 L [Right Brachial artery] O2 Saturation 96 92 10/24/22 10/24/22 10/24/22 12:08 13:49 15:40 Temperature 36.4 C L 36.4 C L Heart Rate [ 90 93 Brachial] Heart Rate [ Monitoring electrodes] Respiratory 20 18 Rate Blood Pressure 108/60 Blood Pressure 108/60 107/57 L [Left Brachial artery] Blood Pressure [Right Brachial artery] O2 Saturation 94 97 Oxygen O2 Source Room air Oxygen Flow Rate 4 I&O (Last 24 Hrs): Intake and Output Totals x24h 10/22/22 10/23/22 10/24/22 23:59 23:59 23:59 Intake Total 8414 101 5823 Output Total 375 300 550 Balance 1045 558 500 General: Alert, Oriented x3, Other (Obese) HEENT: EOMI Neck: Supple, Other (Cannot evaluate JVP due to morbid obesity) Neuro: Alert, Non Focal Cardiovascular: No murmurs (Distant heart sounds due to morbid obese) Respiratory: No respiratory distress, Breath sounds nml Abdomen: Soft, Other (Obese with pannus) Extremities: Other (2+ edema bilaterally. Right lateral calf has a smaller patch and is no longer red but pink. Right knee is dark pink and not tender, calf and cavazos are bandaged down to the ankle) - Results Results: Laboratory Results WBC 23.0 x10^3/uL (4.8-10.8) H 10/24/22 05:23 RBC 3.48 10^6/uL (4.20-5.40) L 10/24/22 05:23 Hgb 11.0 g/dL (12.0-16.0) L 10/24/22 05:23 Hct 33.0 % (37.0-47.0) L 10/24/22 05:23 MCV 94.8 fL (81.0-99.0) 10/24/22 05:23 MCH 31.6 pg (27.0-31.0) H 10/24/22 05:23 MCHC 33.3 g/dL (32.0-36.0) 10/24/22 05:23 RDW 14.3 % (12.0-15.0) 10/24/22 05:23 Plt Count 324 10^3/uL (130-450) 10/24/22 05:23 MPV 9.2 fL (7.9-10.8) 10/24/22 05:23 Neut # (Auto) Not Reportable 10/24/22 05:23 Lymph # (Auto) Not Reportable 10/24/22 05:23 Alfalfa # (Auto) Not Reportable 10/24/22 05:23 Eos # (Auto) Not Reportable 10/24/22 05:23 Baso # (Auto) Not Reportable 10/24/22 05:23 Absolute Nucleated RBC Not Reportable 10/24/22 05:23 Total Counted 100 10/24/22 05:23 Band Neuts % (Manual) 0 % (0-10) 10/24/22 05:23 Abnorm Lymph % (Manual) 0 % 10/24/22 05:23 Metamyelocytes % 1 % (-0) H 10/21/22 05:07 Myelocytes % 3 % (-0) H 10/24/22 05:23 Nucleated RBC % Not Reportable 10/24/22 05:23 Neutrophils # (Manual) 17.3 10^3/uL (1.5-6.6) H 10/24/22 05:23 Lymphocytes # (Manual) 1.8 10^3/uL (1.5-3.5) 10/24/22 05:23 Monocytes # (Manual) 2.8 10^3/uL (0.0-1.0) H 10/24/22 05:23 Eosinophils # (Manual) 0.5 10^3/uL (0-0.7) 10/24/22 05:23 Basophils # (Manual) 0.0 10^3/uL (0-0.1) 10/24/22 05:23 Differential Comment MANUAL DIFFERENTIAL 10/24/22 05:23 Manual Slide Review Indicated 10/20/22 18:38 WBC Morphology NORMAL APPEARANCE (NORMAL) 10/24/22 05:23 Platelet Estimate NORMAL (130-450,000) (NORMAL) 10/24/22 05:23 Platelet Morphology NORMAL APPEARANCE (NORMAL) 10/24/22 05:23 RBC Morph Micro Appear NORMAL APPEARANCE (NORMAL) 10/24/22 05:23 ESR 103 mm/Hr (0-30) H 10/24/22 05:23 PT 18.5 secs (9.9-12.6) H 10/15/22 10:01 INR 1.7 (0.8-1.2) H 10/15/22 10:01 D-Dimer 460.6 ng/mL (200.0-255.0) H 10/15/22 10:01 VBG pH 7.356 (7.31-7.41) 10/18/22 05:26 Ionized Calcium 1.12 mmol/L (1.15-1.33) L 10/18/22 05:26 Sodium 134 mmol/L (135-145) L 10/24/22 05:23 Potassium 4.2 mmol/L (3.5-5.0) 10/24/22 05:23 Chloride 100 mmol/L (101-111) L 10/24/22 05:23 Carbon Dioxide 27 mmol/L (21-32) 10/24/22 05:23 Anion Gap 7.0 (6-13) 10/24/22 05:23 BUN 24 mg/dL (6-20) H 10/24/22 05:23 Creatinine 1.0 mg/dL (0.4-1.0) 10/24/22 05:23 Estimated GFR (MDRD) 55 (>89) L 10/24/22 05:23 Glucose 92 mg/dL (70-100) 10/24/22 05:23 POC Whole Bld Glucose 144 mg/dL (70 - 100) H 10/23/22 20:45 Lactic Acid 1.3 mmol/L (0.5-2.2) 10/23/22 10:49 Calcium 7.7 mg/dL (8.5-10.3) L 10/24/22 05:23 Phosphorus 3.1 mg/dL (2.5-4.6) 10/18/22 05:26 Magnesium 2.3 mg/dL (1.7-2.8) 10/18/22 05:26 Ferritin 499.1 ng/mL (11.0-306.8) H 10/16/22 07:28 Total Bilirubin 1.3 mg/dL (0.2-1.0) H 10/19/22 05:39 AST 92 IU/L (10-42) H 10/19/22 05:39 ALT 52 IU/L (10-60) 10/19/22 05:39 Alkaline Phosphatase 278 IU/L (42-121) H 10/19/22 05:39 Troponin I High Sens 246.2 ng/L (2.3-14.8) H* 10/17/22 14:59 B-Natriuretic Peptide 729 pg/mL (5-100) H 10/19/22 05:39 Total Protein 6.3 g/dL (6.7-8.2) L 10/19/22 05:39 Albumin 2.1 g/dL (3.2-5.5) L 10/19/22 05:39 Globulin 4.2 g/dL (2.1-4.2) 10/19/22 05:39 Albumin/Globulin Ratio 0.5 (1.0-2.2) L 10/19/22 05:39 Ceruloplasmin 24.3 mg/dL (19.0-39.0) 10/16/22 09:30 Lipase 22 U/L (22-51) 10/15/22 10:01 TSH 0.37 uIU/mL (0.34-5.60) 10/15/22 10:01 Urine Color DARK YELLOW 10/20/22 15:49 Urine Clarity HAZY (CLEAR) 10/20/22 15:49 Urine pH 6.0 PH (5.0-7.5) 10/20/22 15:49 Ur Specific [place] 1.020 (1.002-1.030) 10/20/22 15:49 Urine Protein 100 mg/dL (NEGATIVE) H 10/20/22 15:49 Urine Glucose (UA) 100 mg/dL (NEGATIVE) H 10/20/22 15:49 Urine Ketones TRACE mg/dL (NEGATIVE) 10/20/22 15:49 Urine Occult Blood MODERATE (NEGATIVE) H 10/20/22 15:49 Urine Nitrite NEGATIVE (NEGATIVE) 10/20/22 15:49 Urine Bilirubin SMALL (NEGATIVE) H 10/20/22 15:49 Urine Urobilinogen 2 E.U./dL (NORMAL) H 10/20/22 15:49 Ur Leukocyte Esterase NEGATIVE (NEGATIVE) 10/20/22 15:49 Urine RBC 11-25 /HPF (0-5) H 10/20/22 15:49 Urine WBC 4-5 /HPF (0-5) 10/20/22 15:49 Ur Squamous Epith Cells FEW Squamous (<= Few) 10/20/22 15:49 Urine Bacteria Few /HPF (None Seen) 10/20/22 15:49 Ur Microscopic Review INDICATED 10/20/22 15:49 Urine Culture Comments NOT INDICATED 10/20/22 15:49 Nasal Adenovirus (PCR) NOT DETECTED 10/15/22 10:05 Nasal B. parapertussis DNA (PCR) NOT DETECTED 10/15/22 10:05 Nasal Coronavir 229E PCR NOT DETECTED 10/15/22 10:05 Nasal Coronavir HKU1 PCR NOT DETECTED 10/15/22 10:05 Nasal Coronavir NL63 PCR NOT DETECTED 10/15/22 10:05 Nasal Coronavir OC43 PCR NOT DETECTED 10/15/22 10:05 Nasal Enterovir/Rhinovir PCR NOT DETECTED 10/15/22 10:05 Nasal Influenza B PCR NOT DETECTED 10/15/22 10:05 Nasal Influenza A PCR NOT DETECTED 10/15/22 10:05 Nasal Parainfluen 1 PCR NOT DETECTED 10/15/22 10:05 Nasal Parainfluen 2 PCR NOT DETECTED 10/15/22 10:05 Nasal Parainfluen 3 PCR NOT DETECTED 10/15/22 10:05 Nasal Parainfluen 4 PCR NOT DETECTED 10/15/22 10:05 Nasal RSV (PCR) NOT DETECTED 10/15/22 10:05 Nasal Screen MRSA (PCR) NEGATIVE (NEGATIVE) 10/15/22 18:15 Nasal B.pertussis DNA PCR NOT DETECTED 10/15/22 10:05 Nasal C.pneumoniae (PCR) NOT DETECTED 10/15/22 10:05 [place] Human Metapneumo PCR NOT DETECTED 10/15/22 10:05 Nasal M.pneumoniae (PCR) NOT DETECTED 10/15/22 10:05 Nasal SARS-CoV-2 (PCR) NOT DETECTED 10/15/22 10:05 Anti-Mitochondrial Ab <20.0 Units (0.0-20.0) 10/16/22 09:30 Hepatitis A IgM Ab Indeterminate (Negative) A 10/16/22 09:30 Hep Bs Antigen Negative (Negative) 10/16/22 09:30 Hep B Core IgM Ab Negative (Negative) 10/16/22 09:30 Hepatitis C Antibody <0.1 s/co ratio (0.0-0.9) 10/16/22 09:30 Hepatitis C Interp Comment (.) 10/16/22 09:30 - Procedures Procedures: Procedures INSERTION OF INFUSION DEV INTO SUP VENA CAVA, PERC APPROACH (06/09/19)
[2022-10-24] MEDS: levoFLOXacin 500 MG/100 ML 500 MG/100 ML BAG IV SCH (18:30)
[2022-10-24] MEDS: SODIUM CHLORIDE 0.9% 1,000 ML IV SCH (20:02)
[2022-10-24] MEDS: DOXEPIN 25 MG CAPSULE PO SCH (22:00)
[2022-10-24] MEDS: oxyCODONE 5 MG TABLET PO PRN (22:02)
[2022-10-24] MEDS: INSULIN GLARGINE-YFGN 300 UNIT/3 ML PEN SUBQ SCH (22:05)
[2022-10-25] MEDS: SODIUM CHLORIDE FLUSH 0.9% 10 ML SYRINGE IVP SCH ×3 (01:53→18:56)
[2022-10-25] MEDS: ACETAMINOPHEN 325 MG TABLET PO PRN ×2 (05:45→17:32)
[2022-10-25] MEDS: LEVOTHYROXINE 75 MCG TABLET PO SCH (05:45)
[2022-10-25] MEDS: diltiaZEM 30 MG TABLET PO SCH ×3 (05:45→21:30)
[2022-10-25] MEDS: CLINDAMYCIN 600 MG/50 ML 50 ML IV SCH (05:47)
[2022-10-25 06:17] LABS: BASOPHILS % (AUTO) 0.6 %; EOSINOPHILS % (AUTO) 2.2 %; HCT - HEMATOCRIT 35.7 % (37.0-47.0); MEAN CORPUSCULAR HEMOGLOBIN 31.9 pg (27.0-31.0); MEAN CORPUSCULAR HGB CONC 33.6 g/dL (32.0-36.0); MEAN CORPUSCULAR VOLUME 94.9 fL (81.0-99.0); MEAN PLATELET VOLUME 9.1 fL (7.9-10.8); NEUTROPHILS % (AUTO) 72.1 %; PLT - PLATELET COUNT 327 10^3/uL (130-450); RED BLOOD COUNT 3.76 10^6/uL (4.20-5.40); RED CELL DISTRIBUTION WIDTH 14.4 % (12.0-15.0)
[2022-10-25 06:23] LABS: ABNORMAL LYMPHS % (MANUAL) 0 %
[2022-10-25 06:31] LABS: BAND NEUTROPHILS % (MANUAL) 3 %; EOSINOPHILS # (MANUAL) 0.2 10^3/uL (0-0.7); LYMPHOCYTES # (MANUAL) 2.1 10^3/uL (1.5-3.5); LYMPHOCYTES % (MANUAL) 14 %; METAMYELOCYTES % (MANUAL) 1 %; MONOCYTES # (MANUAL) 1.5 10^3/uL (0.0-1.0); MYELOCYTES % (MANUAL) 3 %; NEUTROPHILS # (MANUAL) 10.7 10^3/uL (1.5-6.6); PLATELET ESTIMATE, MANUAL NORMAL (130-450,000) (NORMAL); PLATELET MORPHOLOGY NORMAL APPEARANCE (NORMAL); RBC MORPHOLOGY (MULTIPLE) NORMAL APPEARANCE (NORMAL); WBC MORPHOLOGY (MULTIPLE) NORMAL APPEARANCE (NORMAL)
[2022-10-25 06:32] LABS: DIFFERENTIAL COMMENT MANUAL DIFFERENTIAL
[2022-10-25] MEDS: polyethylene glycoL 3350 17 GM PACKET PO SCH (08:42)
[2022-10-25] MEDS: SENNA 8.6 MG TABLET PO SCH (08:42)
[2022-10-25] MEDS: CHOLECALCIFEROL 25 MCG TABLET PO SCH (08:53)
[2022-10-25] MEDS: SACCHAROMYCES BOULARDII 250 MG CAPSULE PO SCH ×2 (08:53→17:30)
[2022-10-25] MEDS: APIXABAN 5 MG TABLET PO SCH ×2 (08:54→21:30)
[2022-10-25] MEDS: METOPROLOL SUCCINATE 50 MG TABLET PO SCH ×2 (08:55→21:30)
[2022-10-25] MEDS: FLUCONAZOLE 100 MG TABLET PO SCH (08:56)
[2022-10-25] MEDS: MULTIVITAMIN W/MINERALS TABLET PO SCH (08:56)
[2022-10-25] MEDS: DOCUSATE SODIUM 250 MG CAPSULE PO SCH (08:57)
[2022-10-25] MEDS: NYSTATIN POWDER 15 GM TOP SCH ×2 (08:58→21:30)
[2022-10-25] MEDS: levoFLOXacin 250 MG TABLET PO SCH (12:30)
[2022-10-25] MEDS: CLINDAMYCIN 150 MG CAPSULE PO SCH ×2 (14:03→21:29)
[2022-10-25] MEDS: DOXEPIN 25 MG CAPSULE PO SCH (21:30)
[2022-10-25] MEDS: INSULIN GLARGINE-YFGN 300 UNIT/3 ML PEN SUBQ SCH (21:50)
[2022-10-25] MEDS: SODIUM CHLORIDE 0.9% 1,000 ML IV SCH (21:52)
[2022-10-26] MEDS: SODIUM CHLORIDE FLUSH 0.9% 10 ML SYRINGE IVP SCH ×3 (00:52→16:33)
[2022-10-26] MEDS: ONDANSETRON ODT 4 MG TABLET TL PRN ×2 (01:59→13:43)
[2022-10-26] MEDS: oxyCODONE 5 MG TABLET PO PRN ×2 (02:02→13:43)
[2022-10-26] MEDS: CLINDAMYCIN 150 MG CAPSULE PO SCH ×3 (05:48→21:14)
[2022-10-26] MEDS: diltiaZEM 30 MG TABLET PO SCH ×3 (05:48→21:14)
[2022-10-26] MEDS: LEVOTHYROXINE 75 MCG TABLET PO SCH (05:49)
[2022-10-26] MEDS: DOCUSATE SODIUM 250 MG CAPSULE PO SCH (08:57)
[2022-10-26] MEDS: levoFLOXacin 250 MG TABLET PO SCH (08:58)
[2022-10-26] MEDS: polyethylene glycoL 3350 17 GM PACKET PO SCH (08:58)
[2022-10-26] MEDS: SENNA 8.6 MG TABLET PO SCH (08:58)
[2022-10-26] MEDS: APIXABAN 5 MG TABLET PO SCH ×2 (08:58→21:15)
[2022-10-26] MEDS: FLUCONAZOLE 100 MG TABLET PO SCH (08:59)
[2022-10-26] MEDS: SACCHAROMYCES BOULARDII 250 MG CAPSULE PO SCH ×2 (08:59→16:33)
[2022-10-26] MEDS: CHOLECALCIFEROL 25 MCG TABLET PO SCH (08:59)
[2022-10-26] MEDS: MULTIVITAMIN W/MINERALS TABLET PO SCH (08:59)
[2022-10-26] MEDS: METOPROLOL SUCCINATE 50 MG TABLET PO SCH ×2 (08:59→21:15)
[2022-10-26] MEDS: NYSTATIN POWDER 15 GM TOP SCH ×2 (08:59→21:15)
--- NOTE | 2022-10-26 16:12 | PROVIDER PROGRESS NOTE ---
Assessment/Plan - Problem List (1) Cellulitis of right leg without foot Assessment/Plan: Her WBC had risen to 25 then dropped after IV antibx changed Since 10/22, the geographic distribution of her R leg redness has gotten smaller. The redness has faded on her thigh, still densely red from her knee down. She had a draining blister on her right calf. She was seen by wound care and they have bandaged it (so I did not open the new dressings, when examining her), but the redness above the dressing is evaluated. Today the redness has increased. Since oral antibx started yesterday, she is nauseated, has no appetite. Plan: Follow inflammatory markers and CBC daily Wound consult advised dressing changes by them once a week I called ID at today. Dr. Uribe of ID felt that her marked redness of the leg indicated a Strep cellulitis and that it can remain red for a long time. Strep also is associated with very high peripheral WBC like her's of 25. He agreed with our choice of and changes of antibiotics, especially using clindamycin which stops the toxin formation by Streptococci. Dr. Uribe advised that we can now stop clindamycin. Continue with the oral Levaquin or can switch to Keflex. Because she has a penicillin allergy will continue with the Levaquin. Continue to observe if she can tolerate oral antibiotics (because this morning she was nauseated with that). Continue to treat pain associated with this R leg, in preparation for discharge in the next few days (2) E coli UTI Sens show it is sens to Floxacins. Bd cx are ntd. Plan: Continuing Levaquin (3) Atrial fibrillation with RVR Conclusion/Plan: She takes high doses of medication at home. Metoprolol XL 200 mg p.o. twice daily as well as Cardizem CD 420 mg a day. Toprol-XL was reduced from 200 mg p.o. twice daily home med to 100 mg p.o. twice daily in October 17. Cardizem CD home med was reduced from 420 mg a day to 240 mg a day on October 17. On October 20 the metoprolol was reduced to 50mg PO BID and cardizem to 30mg po q6hr because she was still getting hypotensive. Plan: Continue metoprolol at reduced dose We increased Cardizem from 30 mg q6h to 60 mg q8h We decreased her Thyroid med slightly (see #8) (4) Chronic diastolic (congestive) heart failure She developed a right leg infection/cellulitis that then caused a systemic inflammatory response which drove her atrial fibrillation to be uncontrolled which then caused acute on chronic diastolic heart failure. Once her heart rate was controlled, heart failure symptoms have resolved. Main problem became hypotension once her A. fib was controlled. Currently she is on cardizem 30mg PO q6hr and metoprolol 50mg PO BID with 5mg of metoprolol IVP prn for tachycardia to manage her arrhythmias without making her hypotensive. 10/22 morning vitals at 8:15 are 90/55 and pulse 110. Her cardizem and metoprolol is held for SBP <90 or pulse <60. Metoprolol tartrate 5mg IVP q6h is available for pulse >110. Plan:We stopped NS Qualifiers: Heart failure type: diastolic Qualified Code(s): I50.33 - Acute on chronic diastolic (congestive) heart failure (5) Elevated liver enzymes Conclusion/Plan: Usually not a problem for her. Ultrasound is negative for stones. No biliary dilatation. Possibly fatty liver. or from CHF. Liver enzyme evaluation with hepatitis panel, autoimmune panel has been ordered. 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 Ceruloplasmin is normal. She does have a remote history of hepatitis A in 1963. Last CMP was on 10/19, they were improving. Plan - Follow CMP inytermittently - Avoid hepatotoxins. (6) Elevated troponin Conclusion/Plan: Cardiology did not rthink this was due to acute myocardial ischemia. (7) Type 2 diabetes mellitus treated without insulin Conclusion/Plan: No documented complications. There is no description of neuropathy, retinopathy or nephropathy in her office clinic records. A1c is well controlled. Her glucose is not very elevated. She did have lactic acidosis but I think this is more from metformin than the idea that she has DKA. We did not resume SS insulin. We did start Lantus 5 units qpm 10/19 Plan:continue plan (8) Hypothyroidism Conclusion/Plan: Review of her TSH in the EMR shows her to be well treated. At times, such as now, she is borderline hyperthyroid due to her medication use. Low normal TSH is 0.34. Her TSH is 0.37 . Proptosis is quite dramatic on physical exam. 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 Plan: She was ordered to be on her home dose, but I decreased this dose slightly, due to the persistent tachyardia. Qualifiers: Hypothyroidism type: unspecified Qualified Code(s): E03.9 - Hypothyroidism, unspecified (9) Candidal intertrigo Conclusion/Plan: Nystatin powder twice daily. Also on po Diflucan (10) Stage 3 chronic kidney disease Conclusion/Plan: She was not hypotensive on admission so I was not suspecting ATN from that. She did appear dehydrated on physical exam. that has improved on exam and lips no longer cracked. Getting IVF. Plan: Avoid nephrotoxic agents. We discontinued the sands catheter. She has been able to stand and pivot with assist from the nurses and can use her walker to get to the bathroom. (11) Morbid obesity, BMI 40-44 As per Hx (12) Lactic acidosis from cellulitis of leg and E coli UTI Conclusion/Plan: Resolved. Source was the extensive cellulitis of the leg. (13) Metabolic encephalopathy Conclusion/Plan: Resolved By the day after admission , she has been hydrated, and infection has improved, her encephalopathy resolved. - Current Meds Current Meds: Current Medications Generic Name Dose Route Start Last Admin Trade Name Freq PRN Reason Stop Dose Admin Acetaminophen 650 mg 10/15/22 17:25 10/25/22 17:32 Acetaminophen 325 Mg Tablet PO 650 mg Q4HR PRN Administration Pain 1 to 4, or Fever Apixaban 5 mg 10/23/22 11:00 10/26/22 08:58 Apixaban 5 Mg Tablet PO 5 mg BID JACY Administration Cholecalciferol 25 mcg 10/22/22 17:00 10/26/22 08:59 Cholecalciferol 25 Mcg Tablet PO 25 mcg DAILY JCAY Administration Clindamycin HCl 300 mg 10/25/22 14:00 10/26/22 13:43 Clindamycin 150 Mg Capsule PO 10/27/22 00:01 300 mg TID JACY Administration Diltiazem HCl 60 mg 10/23/22 14:00 10/26/22 13:43 Diltiazem 30 Mg Tablet PO 60 mg Q8HR JACY Administration Docusate Sodium 250 - 500 mg 10/21/22 09:00 10/26/22 08:57 Docusate Sodium 250 Mg Capsule PO Not Given DAILY JACY Doxepin HCl 75 mg 10/15/22 21:00 10/25/22 21:30 Doxepin 25 Mg Capsule PO 75 mg QPM JACY Administration Fluconazole 100 mg 10/19/22 14:00 10/26/22 08:59 Fluconazole 100 Mg Tablet PO 10/27/22 00:01 100 mg DAILY JACY Administration Guaifenesin/Codeine Phosphate 5 ml 10/19/22 13:50 10/20/22 05:45 Guaifenesin/Codeine 5 Ml Udc PO 5 ml Q6HR PRN Administration Cough Insulin Glargine-yfgn 5 unit 10/20/22 07:00 10/25/22 21:50 Insulin Glargine-Yfgn 300 Unit/3 Ml Pen SUBQ 5 unit QPM JACY Administration Levofloxacin 750 mg 10/25/22 11:00 10/26/22 08:58 Levofloxacin 250 Mg Tablet PO 750 mg DAILY JACY Administration Levothyroxine Sodium 225 mcg 10/24/22 07:00 10/26/22 05:49 Levothyroxine 75 Mcg Tablet PO 225 mcg QDAC JACY Administration Metoprolol Succinate 50 mg 10/20/22 18:32 10/26/22 08:59 Metoprolol Succinate 50 Mg Tablet PO 50 mg BID JACY Administration Multivitamins/Minerals 1 tab 10/22/22 17:00 10/26/22 08:59 Multivitamin W/Minerals Tablet PO 1 tab DAILYWM JACY Administration Nystatin 1 applic 10/15/22 21:00 10/26/22 08:59 Nystatin Powder 15 Gm TOP 1 applic BID JACY Administration Ondansetron HCl 4 mg 10/15/22 17:25 10/26/22 13:43 Ondansetron Odt 4 Mg Tablet TL 4 mg Q6HR PRN Administration Nausea / Vomiting Oxycodone HCl 5 mg 10/15/22 17:25 10/26/22 13:43 Oxycodone 5 Mg Tablet PO 5 mg Q4HR PRN Administration Pain 5 to 7 Polyethylene Glycol 17 gm 10/20/22 09:00 10/26/22 08:58 Polyethylene Glycol 3350 17 Gm Packet PO Not Given DAILY [facility] Saccharomyces Boulardii 250 mg 10/17/22 17:00 10/26/22 08:59 Saccharomyces Boulardii 250 Mg Capsule PO 250 mg BIDWM JACY Administration Senna 8.6 - 17.2 mg 10/21/22 09:00 10/26/22 08:58 Senna 8.6 Mg Tablet PO Not Given DAILY JACY Sodium Chloride 10 ml 10/15/22 17:25 10/23/22 11:18 Sodium Chloride Flush 0.9% 10 Ml Syringe IVP 10 ml PRN PRN Administration NEEDED PER PROVIDER ORDERS Sodium Chloride 10 ml 10/16/22 01:00 10/26/22 08:59 Sodium Chloride Flush 0.9% 10 Ml Syringe IVP 10 ml 0100,0900,1700 AJCY Administration - Lab Result Fish Bone Diagrams: 10/27/22 05:58 10/27/22 05:58 - Additional Planning My Orders: My Active Orders 10/26/22 CBC W/O DIFF (HEMOGRAM) [HEME] Stat 10/26/22 08:31 Miscellaenous Nursing Order [RC] ONCE Miscellaenous Nursing Order [RC] QSHIFT 10/27/22 05:00 BMP - BASIC METABOLIC PANEL [CHEM] DAILYLAB CBC - COMP BLD CT W/AUTO DIFF [HEME] DAILYLAB MAGNESIUM [CHEM] DAILYLAB PHOSPHORUS [CHEM] DAILYLAB 10/28/22 05:00 BMP - BASIC METABOLIC PANEL [CHEM] DAILYLAB CBC - COMP BLD CT W/AUTO DIFF [HEME] DAILYLAB Subjective - Subjective Patient Reports: Nausea Nursing Reports: Other (Redness of lateral thigh increased) Objective Vital Signs: Vital Signs - 24 hr 10/25/22 10/25/22 10/25/22 17:00 20:05 21:30 Temperature 36.4 C L 36.6 C Heart Rate [ 82 98 Brachial] Respiratory 20 20 Rate Blood Pressure 113/64 Blood Pressure 118/89 H 120/69 [Right Brachial artery] O2 Saturation 100 94 10/26/22 10/26/22 10/26/22 01:15 05:46 05:48 Temperature 36.8 C 36.7 C Heart Rate [ 106 H 118 H Brachial] Respiratory 18 20 Rate Blood Pressure 126/54 L Blood Pressure 127/51 L 126/54 L [Right Brachial artery] O2 Saturation 95 95 10/26/22 10/26/22 10/26/22 07:35 11:09 13:38 Temperature 36.4 C L 36.4 C L 36.3 C L Heart Rate [ 105 H 104 H 104 H Brachial] Respiratory 20 18 20 Rate Blood Pressure Blood Pressure 101/47 L 123/60 126/69 [Right Brachial artery] O2 Saturation 94 96 99 10/26/22 10/26/22 13:43 15:38 Temperature 36.3 C L Heart Rate [ 93 Brachial] Respiratory 18 Rate Blood Pressure 126/69 Blood Pressure 118/54 L [Right Brachial artery] O2 Saturation 95 Oxygen O2 Source Room air Oxygen Flow Rate 4 I&O (Last 24 Hrs): Intake and Output Totals x24h 10/24/22 10/25/22 10/26/22 23:59 23:59 23:59 Intake Total 196 2500 100 Output Total 850 500 0 Balance 1112 2000 100 General: Alert, Oriented x3, Other (Obese) HEENT: Mucous membr. moist/pink Neck: Supple Neuro: Alert, Non Focal Cardiovascular: No murmurs Respiratory: No respiratory distress Abdomen: Other (Obese with pannus) Extremities: Other (2+ edema of both legs. R thigh has more redness, R calf is bandaged) - Results Results: Laboratory Results WBC 15.0 x10^3/uL (4.8-10.8) H 10/25/22 05:45 RBC 3.76 10^6/uL (4.20-5.40) L 10/25/22 05:45 Hgb 12.0 g/dL (12.0-16.0) 10/25/22 05:45 Hct 35.7 % (37.0-47.0) L 10/25/22 05:45 MCV 94.9 fL (81.0-99.0) 10/25/22 05:45 MCH 31.9 pg (27.0-31.0) H 10/25/22 05:45 MCHC 33.6 g/dL (32.0-36.0) 10/25/22 05:45 RDW 14.4 % (12.0-15.0) 10/25/22 05:45 Plt Count 327 10^3/uL (130-450) 10/25/22 05:45 MPV 9.1 fL (7.9-10.8) 10/25/22 05:45 Neut # (Auto) Not Reportable 10/25/22 05:45 Lymph # (Auto) Not Reportable 10/25/22 05:45 [place] # (Auto) Not Reportable 10/25/22 05:45 Eos # (Auto) Not Reportable 10/25/22 05:45 Baso # (Auto) Not Reportable 10/25/22 05:45 Absolute Nucleated RBC Not Reportable 10/25/22 05:45 Total Counted 100 10/25/22 05:45 Band Neuts % (Manual) 3 % (0-10) 10/25/22 05:45 Abnorm Lymph % (Manual) 0 % 10/25/22 05:45 Metamyelocytes % 1 % (-0) H 10/25/22 05:45 Myelocytes % 3 % (-0) H 10/25/22 05:45 Nucleated RBC % Not Reportable 10/25/22 05:45 Neutrophils # (Manual) 10.7 10^3/uL (1.5-6.6) H 10/25/22 05:45 Lymphocytes # (Manual) 2.1 10^3/uL (1.5-3.5) 10/25/22 05:45 Monocytes # (Manual) 1.5 10^3/uL (0.0-1.0) H 10/25/22 05:45 Eosinophils # (Manual) 0.2 10^3/uL (0-0.7) 10/25/22 05:45 Basophils # (Manual) 0.0 10^3/uL (0-0.1) 10/25/22 05:45 Differential Comment MANUAL DIFFERENTIAL 10/25/22 05:45 Manual Slide Review Indicated 10/20/22 18:38 WBC Morphology NORMAL APPEARANCE (NORMAL) 10/25/22 05:45 Platelet Estimate NORMAL (130-450,000) (NORMAL) 10/25/22 05:45 Platelet Morphology NORMAL APPEARANCE (NORMAL) 10/25/22 05:45 RBC Morph Micro Appear NORMAL APPEARANCE (NORMAL) 10/25/22 05:45 ESR 103 mm/Hr (0-30) H 10/24/22 05:23 PT 18.5 secs (9.9-12.6) H 10/15/22 10:01 INR 1.7 (0.8-1.2) H 10/15/22 10:01 D-Dimer 460.6 ng/mL (200.0-255.0) H 10/15/22 10:01 VBG pH 7.356 (7.31-7.41) 10/18/22 05:26 Ionized Calcium 1.12 mmol/L (1.15-1.33) L 10/18/22 05:26 Sodium 134 mmol/L (135-145) L 10/24/22 05:23 Potassium 4.2 mmol/L (3.5-5.0) 10/24/22 05:23 Chloride 100 mmol/L (101-111) L 10/24/22 05:23 Carbon Dioxide 27 mmol/L (21-32) 10/24/22 05:23 Anion Gap 7.0 (6-13) 10/24/22 05:23 BUN 24 mg/dL (6-20) H 10/24/22 05:23 Creatinine 1.0 mg/dL (0.4-1.0) 10/24/22 05:23 Estimated GFR (MDRD) 55 (>89) L 10/24/22 05:23 Glucose 92 mg/dL (70-100) 10/24/22 05:23 POC Whole Bld Glucose 177 mg/dL (70 - 100) H 10/25/22 21:04 Lactic Acid 1.3 mmol/L (0.5-2.2) 10/23/22 10:49 Calcium 7.7 mg/dL (8.5-10.3) L 10/24/22 05:23 Phosphorus 3.1 mg/dL (2.5-4.6) 10/18/22 05:26 Magnesium 2.3 mg/dL (1.7-2.8) 10/18/22 05:26 Ferritin 499.1 ng/mL (11.0-306.8) H 10/16/22 07:28 Total Bilirubin 1.3 mg/dL (0.2-1.0) H 10/19/22 05:39 AST 92 IU/L (10-42) H 10/19/22 05:39 ALT 52 IU/L (10-60) 10/19/22 05:39 Alkaline Phosphatase 278 IU/L (42-121) H 10/19/22 05:39 Troponin I High Sens 246.2 ng/L (2.3-14.8) H* 10/17/22 14:59 B-Natriuretic Peptide 729 pg/mL (5-100) H 10/19/22 05:39 Total Protein 6.3 g/dL (6.7-8.2) L 10/19/22 05:39 Albumin 2.1 g/dL (3.2-5.5) L 10/19/22 05:39 Globulin 4.2 g/dL (2.1-4.2) 10/19/22 05:39 Albumin/Globulin Ratio 0.5 (1.0-2.2) L 10/19/22 05:39 Ceruloplasmin 24.3 mg/dL (19.0-39.0) 10/16/22 09:30 Lipase 22 U/L (22-51) 10/15/22 10:01 TSH 0.37 uIU/mL (0.34-5.60) 10/15/22 10:01 Urine Color DARK YELLOW 10/20/22 15:49 Urine Clarity HAZY (CLEAR) 10/20/22 15:49 Urine pH 6.0 PH (5.0-7.5) 10/20/22 15:49 Ur Specific [place] 1.020 (1.002-1.030) 10/20/22 15:49 Urine Protein 100 mg/dL (NEGATIVE) H 10/20/22 15:49 Urine Glucose (UA) 100 mg/dL (NEGATIVE) H 10/20/22 15:49 Urine Ketones TRACE mg/dL (NEGATIVE) 10/20/22 15:49 Urine Occult Blood MODERATE (NEGATIVE) H 10/20/22 15:49 Urine Nitrite NEGATIVE (NEGATIVE) 10/20/22 15:49 Urine Bilirubin SMALL (NEGATIVE) H 10/20/22 15:49 Urine Urobilinogen 2 E.U./dL (NORMAL) H 10/20/22 15:49 Ur Leukocyte Esterase NEGATIVE (NEGATIVE) 10/20/22 15:49 Urine RBC 11-25 /HPF (0-5) H 10/20/22 15:49 Urine WBC 4-5 /HPF (0-5) 10/20/22 15:49 Ur Squamous Epith Cells FEW Squamous (<= Few) 10/20/22 15:49 Urine Bacteria Few /HPF (None Seen) 10/20/22 15:49 Ur Microscopic Review INDICATED 10/20/22 15:49 Urine Culture Comments NOT INDICATED 10/20/22 15:49 Nasal Adenovirus (PCR) NOT DETECTED 10/15/22 10:05 Nasal B. parapertussis DNA (PCR) NOT DETECTED 10/15/22 10:05 Nasal Coronavir 229E PCR NOT DETECTED 10/15/22 10:05 Nasal Coronavir HKU1 PCR NOT DETECTED 10/15/22 10:05 Nasal Coronavir NL63 PCR NOT DETECTED 10/15/22 10:05 Nasal Coronavir OC43 PCR NOT DETECTED 10/15/22 10:05 Nasal Enterovir/Rhinovir PCR NOT DETECTED 10/15/22 10:05 Nasal Influenza B PCR NOT DETECTED 10/15/22 10:05 Nasal Influenza A PCR NOT DETECTED 10/15/22 10:05 Nasal Parainfluen 1 PCR NOT DETECTED 10/15/22 10:05 Nasal Parainfluen 2 PCR NOT DETECTED 10/15/22 10:05 Nasal Parainfluen 3 PCR NOT DETECTED 10/15/22 10:05 Nasal Parainfluen 4 PCR NOT DETECTED 10/15/22 10:05 Nasal RSV (PCR) NOT DETECTED 10/15/22 10:05 Nasal Screen MRSA (PCR) NEGATIVE (NEGATIVE) 10/15/22 18:15 Nasal B.pertussis DNA PCR NOT DETECTED 10/15/22 10:05 Nasal C.pneumoniae (PCR) NOT DETECTED 10/15/22 10:05 [place] Human Metapneumo PCR NOT DETECTED 10/15/22 10:05 Nasal M.pneumoniae (PCR) NOT DETECTED 10/15/22 10:05 Nasal SARS-CoV-2 (PCR) NOT DETECTED 10/15/22 10:05 Anti-Mitochondrial Ab <20.0 Units (0.0-20.0) 10/16/22 09:30 Hepatitis A IgM Ab Indeterminate (Negative) A 10/16/22 09:30 Hep Bs Antigen Negative (Negative) 10/16/22 09:30 Hep B Core IgM Ab Negative (Negative) 10/16/22 09:30 Hepatitis C Antibody <0.1 s/co ratio (0.0-0.9) 10/16/22 09:30 Hepatitis C Interp Comment (.) 10/16/22 09:30 - Procedures Procedures: Procedures INSERTION OF INFUSION DEV INTO SUP VENA CAVA, PERC APPROACH (06/09/19)
[2022-10-26 16:28] LABS: HCT - HEMATOCRIT 33.1 % (37.0-47.0); MEAN CORPUSCULAR HEMOGLOBIN 31.6 pg (27.0-31.0); MEAN CORPUSCULAR HGB CONC 33.2 g/dL (32.0-36.0); MEAN CORPUSCULAR VOLUME 95.1 fL (81.0-99.0); MEAN PLATELET VOLUME 8.8 fL (7.9-10.8); RED BLOOD COUNT 3.48 10^6/uL (4.20-5.40); RED CELL DISTRIBUTION WIDTH 14.6 % (12.0-15.0); WHITE BLOOD COUNT 13.9 x10^3/uL (4.8-10.8)
[2022-10-26] MEDS: DOXEPIN 25 MG CAPSULE PO SCH (21:14)
[2022-10-26] MEDS: INSULIN GLARGINE-YFGN 300 UNIT/3 ML PEN SUBQ SCH (21:17)
[2022-10-27] MEDS: SODIUM CHLORIDE FLUSH 0.9% 10 ML SYRINGE IVP SCH ×3 (05:01→16:52)
[2022-10-27] MEDS: diltiaZEM 30 MG TABLET PO SCH ×3 (05:52→21:19)
[2022-10-27] MEDS: LEVOTHYROXINE 75 MCG TABLET PO SCH (05:52)
[2022-10-27] MEDS: oxyCODONE 5 MG TABLET PO PRN ×3 (06:00→23:54)
[2022-10-27 06:41] LABS: BASOPHILS # (AUTO) 0.1 10^3/uL (0.0-0.1); BASOPHILS % (AUTO) 0.8 %; EOSINOPHILS # (AUTO) 0.1 10^3/uL (0.0-0.7); EOSINOPHILS % (AUTO) 1.3 %; HCT - HEMATOCRIT 33.5 % (37.0-47.0); HGB - HEMOGLOBIN 11.2 g/dL (12.0-16.0); LYMPHOCYTES # (AUTO) 1.6 10^3/uL (1.5-3.5); MEAN CORPUSCULAR HEMOGLOBIN 31.4 pg (27.0-31.0); MEAN CORPUSCULAR HGB CONC 33.4 g/dL (32.0-36.0); MEAN CORPUSCULAR VOLUME 93.8 fL (81.0-99.0); MONOCYTES # (AUTO) 1.3 10^3/uL (0.0-1.0); MONOCYTES % (AUTO) 11.7 %; NEUTROPHILS # (AUTO) 7.3 10^3/uL (1.5-6.6); NEUTROPHILS % (AUTO) 67.3 %; PLT - PLATELET COUNT 372 10^3/uL (130-450); RED BLOOD COUNT 3.57 10^6/uL (4.20-5.40); RED CELL DISTRIBUTION WIDTH 14.8 % (12.0-15.0); WHITE BLOOD COUNT 10.8 x10^3/uL (4.8-10.8)
[2022-10-27 06:55] LABS: CALCIUM 8.6 mg/dL (8.5-10.3); MAGNESIUM 1.6 mg/dL (1.7-2.8); PHOSPHORUS 3.6 mg/dL (2.5-4.6); POTASSIUM 4.8 mmol/L (3.5-5.0)
[2022-10-27] MEDS: SACCHAROMYCES BOULARDII 250 MG CAPSULE PO SCH ×2 (08:37→16:52)
[2022-10-27] MEDS: METOPROLOL SUCCINATE 50 MG TABLET PO SCH ×2 (08:37→21:19)
[2022-10-27] MEDS: MULTIVITAMIN W/MINERALS TABLET PO SCH (08:37)
[2022-10-27] MEDS: levoFLOXacin 250 MG TABLET PO SCH (08:37)
[2022-10-27] MEDS: APIXABAN 5 MG TABLET PO SCH ×2 (08:37→21:19)
[2022-10-27] MEDS: CHOLECALCIFEROL 25 MCG TABLET PO SCH (08:38)
[2022-10-27] MEDS: DOCUSATE SODIUM 250 MG CAPSULE PO SCH (08:38)
[2022-10-27] MEDS: SENNA 8.6 MG TABLET PO SCH (08:38)
[2022-10-27] MEDS: polyethylene glycoL 3350 17 GM PACKET PO SCH (08:38)
[2022-10-27] MEDS: NYSTATIN POWDER 15 GM TOP SCH ×2 (08:39→21:20)
--- NOTE | 2022-10-27 15:43 | PROVIDER PROGRESS NOTE ---
Assessment/Plan - Problem List (1) Cellulitis of right leg without foot Assessment/Plan: Her WBC had risen to 25 then dropped after IV antibx changed Since 10/22, the geographic distribution of her R leg redness has gotten smaller. The redness has faded on her thigh, still densely red from her knee down. She had a draining blister on her right calf. She was seen by wound care and they have bandaged it (so I did not open the new dressings, when examining her), but the redness above the dressing is evaluated. Today the redness is again lessened since yesterday. Plan: Follow inflammatory markers and CBC daily Wound consult advised dressing changes by them once a week I called ID at yesterday, because the redness (above the bandage) had increased. Dr. Uribe of ID felt that her marked redness of the leg indicated a Strep cellulitis and that it can remain red for a long time. Strep also is associated with very high peripheral WBC like her's of 25. He agreed with our choice of and changes of antibiotics, especially using clindamycin which stops the toxin formation by Streptococci. Dr. Uribe advised that we could now stop clindamycin, which was stopped. Continue with the oral antibx, Levaquin or could switch to Keflex, ID said. Because she has a penicillin allergy will continue with the Levaquin. Continue to observe if she can tolerate oral antibiotics (because yesterday morn ing she was nauseated with that). Continue to treat pain associated with this R leg, in preparation for discharge soon, possibly tomotrrow (2) E coli UTI Sens show it is sens to Floxacins. Bd cx are ntd. Plan: Continuing Levaquin (3) Atrial fibrillation with RVR Conclusion/Plan: She takes high doses of medication at home. Metoprolol XL 200 mg p.o. twice daily as well as Cardizem CD 420 mg a day. Toprol-XL was reduced from 200 mg p.o. twice daily home med to 100 mg p.o. twice daily in October 17. Cardizem CD home med was reduced from 420 mg a day to 240 mg a day on October 17. On October 20 the metoprolol was reduced to 50mg PO BID and cardizem to 30mg po q6hr because she was still getting hypotensive. Plan: Continue metoprolol at reduced dose We increased Cardizem from 30 mg q6h to 60 mg q8h We decreased her Thyroid med slightly (see #8) (4) Chronic diastolic (congestive) heart failure She developed a right leg infection/cellulitis that then caused a systemic inflammatory response which drove her atrial fibrillation to be uncontrolled which then caused acute on chronic diastolic heart failure. Once her heart rate was controlled, heart failure symptoms have resolved. Main problem became hypotension once her A. fib was controlled. Currently she is on cardizem 30mg PO q6hr and metoprolol 50mg PO BID with 5mg of metoprolol IVP prn for tachycardia to manage her arrhythmias without making her hypotensive. 10/22 morning vitals at 8:15 are 90/55 and pulse 110. Her cardizem and metoprolol is held for SBP <90 or pulse <60. Metoprolol tartrate 5mg IVP q6h is available for pulse >110. Plan:We stopped NS Qualifiers: Heart failure type: diastolic Qualified Code(s): I50.33 - Acute on chronic diastolic (congestive) heart failure (5) Elevated liver enzymes Conclusion/Plan: Usually not a problem for her. Ultrasound is negative for stones. No biliary dilatation. Possibly fatty liver. or from CHF. Liver enzyme evaluation with hepatitis panel, autoimmune panel has been ordered. 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 Ceruloplasmin is normal. She does have a remote history of hepatitis A in 1963. Last CMP was on 10/19, they were improving. Plan - Follow CMP inytermittently - Avoid hepatotoxins. (6) Elevated troponin Conclusion/Plan: Cardiology did not rthink this was due to acute myocardial ischemia. (7) Type 2 diabetes mellitus treated without insulin Conclusion/Plan: No documented complications. There is no description of neuropathy, retinopathy or nephropathy in her office clinic records. A1c is well controlled. Her glucose is not very elevated. She did have lactic acidosis but I think this is more from metformin than the idea that she has DKA. We did not resume SS insulin. We did start Lantus 5 units qpm 10/19 Plan:continue plan (8) Hypothyroidism Conclusion/Plan: Review of her TSH in the EMR shows her to be well treated. At times, such as now, she is borderline hyperthyroid due to her medication use. Low normal TSH is 0.34. Her TSH is 0.37 . Proptosis is quite dramatic on physical exam. 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 Plan: She was ordered to be on her home dose, but I decreased this dose slightly, due to the persistent tachyardia. Qualifiers: Hypothyroidism type: unspecified Qualified Code(s): E03.9 - Hypothyroidism, unspecified (9) Candidal intertrigo Conclusion Plan: Nystatin powder twice daily. Also on po Diflucan (10) Stage 3 chronic kidney disease Conclusion/Plan: She was not hypotensive on admission so I was not suspecting ATN from that. She did appear dehydrated on physical exam. that has improved on exam and lips no longer cracked. Getting IVF. Plan: Avoid nephrotoxic agents. We discontinued the sands catheter. She has been able to stand and pivot with assist from the nurses and can use her walker to get to the bathroom. (11) Morbid obesity, BMI 40-44 As per Hx (12) Lactic acidosis from cellulitis of leg and E coli UTI Conclusion/Plan: Resolved. Source was the extensive cellulitis of the leg. (13) Metabolic encephalopathy Conclusion/Plan: Resolved By the day after admission , she has been hydrated, and infection has improved, her encephalopathy resolved. - Current Meds Current Meds: Current Medications Generic Name Dose Route Start Last Admin Trade Name Cezar PRN Reason Stop Dose Admin Acetaminophen 650 mg 10/15/22 17:25 10/25/22 17:32 Acetaminophen 325 Mg Tablet PO 650 mg Q4HR PRN Administration Pain 1 to 4, or Fever Apixaban 5 mg 10/23/22 11:00 10/27/22 08:37 Apixaban 5 Mg Tablet PO 5 mg BID JACY Administration Cholecalciferol 25 mcg 10/22/22 17:00 10/27/22 08:38 Cholecalciferol 25 Mcg Tablet PO 25 mcg DAILY JACY Administration Diltiazem HCl 60 mg 10/23/22 14:00 10/27/22 13:56 Diltiazem 30 Mg Tablet PO 60 mg Q8HR JACY Administration Docusate Sodium 250 - 500 mg 10/21/22 09:00 10/27/22 08:38 Docusate Sodium 250 Mg Capsule PO Not Given DAILY JACY Doxepin HCl 75 mg 10/15/22 21:00 10/26/22 21:14 Doxepin 25 Mg Capsule PO 75 mg QPM JACY Administration Guaifenesin/Codeine Phosphate 5 ml 10/19/22 13:50 10/20/22 05:45 Guaifenesin/Codeine 5 Ml Udc PO 5 ml Q6HR PRN Administration Cough Insulin Glargine-yfgn 5 unit 10/20/22 07:00 10/26/22 21:17 Insulin Glargine-Yfgn 300 Unit/3 Ml Pen SUBQ 5 unit QPM JACY Administration Levofloxacin 750 mg 10/25/22 11:00 10/27/22 08:37 Levofloxacin 250 Mg Tablet PO 750 mg DAILY JACY Administration Levothyroxine Sodium 225 mcg 10/24/22 07:00 10/27/22 05:52 Levothyroxine 75 Mcg Tablet PO 225 mcg QDAC JACY Administration Metoprolol Succinate 50 mg 10/20/22 18:32 10/27/22 08:37 Metoprolol Succinate 50 Mg Tablet PO 50 mg BID JACY Administration Multivitamins/Minerals 1 tab 10/22/22 17:00 10/27/22 08:37 Multivitamin W/Minerals Tablet PO 1 tab DAILYWM JACY Administration Nystatin 1 applic 10/15/22 21:00 10/27/22 08:39 Nystatin Powder 15 Gm TOP 1 applic BID JACY Administration Ondansetron HCl 4 mg 10/15/22 17:25 10/26/22 13:43 Ondansetron Odt 4 Mg Tablet TL 4 mg Q6HR PRN Administration Nausea / Vomiting Oxycodone HCl 5 mg 10/15/22 17:25 10/27/22 10:53 Oxycodone 5 Mg Tablet PO 5 mg Q4HR PRN Administration Pain 5 to 7 Polyethylene Glycol 17 gm 10/20/22 09:00 10/27/22 08:38 Polyethylene Glycol 3350 17 Gm Packet PO Not Given DAILY JACY Saccharomyces Boulardii 250 mg 10/17/22 17:00 10/27/22 08:37 Saccharomyces Boulardii 250 Mg Capsule PO 250 mg BIDWM JACY Administration Senna 8.6 - 17.2 mg 10/21/22 09:00 10/27/22 08:38 Senna 8.6 Mg Tablet PO Not Given DAILY [facility] Sodium Chloride 10 ml 10/15/22 17:25 10/23/22 11:18 Sodium Chloride Flush 0.9% 10 Ml Syringe IVP 10 ml PRN PRN Administration NEEDED PER PROVIDER ORDERS Sodium Chloride 10 ml 10/16/22 01:00 10/27/22 08:38 Sodium Chloride Flush 0.9% 10 Ml Syringe IVP 10 ml 0100,0900,1700 JACY Administration - Lab Result Fish Bone Diagrams: 10/27/22 05:58 10/27/22 05:58 - Additional Planning My Orders: My Active Orders 10/28/22 05:00 BMP - BASIC METABOLIC PANEL [CHEM] DAILYLAB CBC - COMP BLD CT W/AUTO DIFF [HEME] DAILYLAB Subjective - Subjective Patient Reports: Feeling Better, Resting Comfortably Objective Vital Signs: Vital Signs - 24 hr 10/26/22 10/26/22 10/26/22 21:00 21:14 23:44 Temperature 36.4 C L 36.4 C L Heart Rate [ 101 H Brachial] Heart Rate [ 87 Monitoring electrodes] Respiratory 18 18 Rate Blood Pressure 119/54 L Blood Pressure 119/82 H [Left Brachial artery] Blood Pressure 119/54 L [Right Brachial artery] O2 Saturation 95 95 10/27/22 10/27/22 10/27/22 05:00 05:52 07:36 Temperature 36.4 C L 36.5 C Heart Rate [ 102 H 100 Brachial] Heart Rate [ Monitoring electrodes] Respiratory 18 18 Rate Blood Pressure 116/61 Blood Pressure [Left Brachial artery] Blood Pressure 116/61 118/73 [Right Brachial artery] O2 Saturation 95 94 10/27/22 10/27/22 10/27/22 10:43 13:37 13:56 Temperature 36.5 C Heart Rate [ 106 H 94 Brachial] Heart Rate [ Monitoring electrodes] Respiratory 20 18 Rate Blood Pressure 113/64 Blood Pressure [Left Brachial artery] Blood Pressure 105/58 L 113/64 [Right Brachial artery] O2 Saturation 97 98 Oxygen O2 Source Room air Oxygen Flow Rate 4 I&O (Last 24 Hrs): Intake and Output Totals x24h 10/25/22 10/26/22 10/27/22 23:59 23:59 23:59 Intake Total 2500 1511.333 826 Output Total 500 0 200 Balance 2000 1511.333 626 General: Alert, Oriented x3 HEENT: Mucous membr. moist/pink Neck: Supple Neuro: Alert, Non Focal Cardiovascular: No murmurs Respiratory: No respiratory distress Abdomen: Soft, No tenderness Extremities: Other (2+ edema of both legs. R thigh redness has decreased, R calf bandaged) - Results Results: Laboratory Results WBC 10.8 x10^3/uL (4.8-10.8) 10/27/22 05:58 RBC 3.57 10^6/uL (4.20-5.40) L 10/27/22 05:58 Hgb 11.2 g/dL (12.0-16.0) L 10/27/22 05:58 Hct 33.5 % (37.0-47.0) L 10/27/22 05:58 MCV 93.8 fL (81.0-99.0) 10/27/22 05:58 MCH 31.4 pg (27.0-31.0) H 10/27/22 05:58 MCHC 33.4 g/dL (32.0-36.0) 10/27/22 05:58 RDW 14.8 % (12.0-15.0) 10/27/22 05:58 Plt Count 372 10^3/uL (130-450) 10/27/22 05:58 MPV 9.0 fL (7.9-10.8) 10/27/22 05:58 Neut # (Auto) 7.3 10^3/uL (1.5-6.6) H 10/27/22 05:58 Lymph # (Auto) 1.6 10^3/uL (1.5-3.5) 10/27/22 05:58 [place] # (Auto) 1.3 10^3/uL (0.0-1.0) H 10/27/22 05:58 Eos # (Auto) 0.1 10^3/uL (0.0-0.7) 10/27/22 05:58 Baso # (Auto) 0.1 10^3/uL (0.0-0.1) 10/27/22 05:58 Absolute Nucleated RBC 0.00 x10^3/uL 10/27/22 05:58 Total Counted 100 10/25/22 05:45 Band Neuts % (Manual) 3 % (0-10) 10/25/22 05:45 Abnorm Lymph % (Manual) 0 % 10/25/22 05:45 Metamyelocytes % 1 % (-0) H 10/25/22 05:45 Myelocytes % 3 % (-0) H 10/25/22 05:45 Nucleated RBC % 0.0 /100WBC 10/27/22 05:58 Neutrophils # (Manual) 10.7 10^3/uL (1.5-6.6) H 10/25/22 05:45 Lymphocytes # (Manual) 2.1 10^3/uL (1.5-3.5) 10/25/22 05:45 Monocytes # (Manual) 1.5 10^3/uL (0.0-1.0) H 10/25/22 05:45 Eosinophils # (Manual) 0.2 10^3/uL (0-0.7) 10/25/22 05:45 Basophils # (Manual) 0.0 10^3/uL (0-0.1) 10/25/22 05:45 Differential Comment MANUAL DIFFERENTIAL 10/25/22 05:45 Manual Slide Review Indicated 10/20/22 18:38 WBC Morphology NORMAL APPEARANCE (NORMAL) 10/25/22 05:45 Platelet Estimate NORMAL (130-450,000) (NORMAL) 10/25/22 05:45 Platelet Morphology NORMAL APPEARANCE (NORMAL) 10/25/22 05:45 RBC Morph Micro Appear NORMAL APPEARANCE (NORMAL) 10/25/22 05:45 ESR 103 mm/Hr (0-30) H 10/24/22 05:23 PT 18.5 secs (9.9-12.6) H 10/15/22 10:01 INR 1.7 (0.8-1.2) H 10/15/22 10:01 D-Dimer 460.6 ng/mL (200.0-255.0) H 10/15/22 10:01 VBG pH 7.356 (7.31-7.41) 10/18/22 05:26 Ionized Calcium 1.12 mmol/L (1.15-1.33) L 10/18/22 05:26 Sodium 130 mmol/L (135-145) L 10/27/22 05:58 Potassium 4.8 mmol/L (3.5-5.0) 10/27/22 05:58 Chloride 97 mmol/L (101-111) L 10/27/22 05:58 Carbon Dioxide 24 mmol/L (21-32) 10/27/22 05:58 Anion Gap 9.0 (6-13) 10/27/22 05:58 BUN 22 mg/dL (6-20) H 10/27/22 05:58 Creatinine 1.0 mg/dL (0.4-1.0) 10/27/22 05:58 Estimated GFR (MDRD) 55 (>89) L 10/27/22 05:58 Glucose 140 mg/dL (70-100) H 10/27/22 05:58 POC Whole Bld Glucose 141 mg/dL (70 - 100) H 10/26/22 20:47 Lactic Acid 1.3 mmol/L (0.5-2.2) 10/23/22 10:49 Calcium 8.6 mg/dL (8.5-10.3) 10/27/22 05:58 Phosphorus 3.6 mg/dL (2.5-4.6) 10/27/22 05:58 Magnesium 1.6 mg/dL (1.7-2.8) L 10/27/22 05:58 Ferritin 499.1 ng/mL (11.0-306.8) H 10/16/22 07:28 Total Bilirubin 1.3 mg/dL (0.2-1.0) H 10/19/22 05:39 AST 92 IU/L (10-42) H 10/19/22 05:39 ALT 52 IU/L (10-60) 10/19/22 05:39 Alkaline Phosphatase 278 IU/L (42-121) H 10/19/22 05:39 Troponin I High Sens 246.2 ng/L (2.3-14.8) H* 10/17/22 14:59 B-Natriuretic Peptide 729 pg/mL (5-100) H 10/19/22 05:39 Total Protein 6.3 g/dL (6.7-8.2) L 10/19/22 05:39 Albumin 2.1 g/dL (3.2-5.5) L 10/19/22 05:39 Globulin 4.2 g/dL (2.1-4.2) 10/19/22 05:39 Albumin/Globulin Ratio 0.5 (1.0-2.2) L 10/19/22 05:39 Ceruloplasmin 24.3 mg/dL (19.0-39.0) 10/16/22 09:30 Lipase 22 U/L (22-51) 10/15/22 10:01 TSH 0.37 uIU/mL (0.34-5.60) 10/15/22 10:01 Urine Color DARK YELLOW 10/20/22 15:49 Urine Clarity HAZY (CLEAR) 10/20/22 15:49 Urine pH 6.0 PH (5.0-7.5) 10/20/22 15:49 Ur Specific Coral 1.020 (1.002-1.030) 10/20/22 15:49 Urine Protein 100 mg/dL (NEGATIVE) H 10/20/22 15:49 Urine Glucose (UA) 100 mg/dL (NEGATIVE) H 10/20/22 15:49 Urine Ketones TRACE mg/dL (NEGATIVE) 10/20/22 15:49 Urine Occult Blood MODERATE (NEGATIVE) H 10/20/22 15:49 Urine Nitrite NEGATIVE (NEGATIVE) 10/20/22 15:49 Urine Bilirubin SMALL (NEGATIVE) H 10/20/22 15:49 Urine Urobilinogen 2 E.U./dL (NORMAL) H 10/20/22 15:49 Ur Leukocyte Esterase NEGATIVE (NEGATIVE) 10/20/22 15:49 Urine RBC 11-25 /HPF (0-5) H 10/20/22 15:49 Urine WBC 4-5 /HPF (0-5) 10/20/22 15:49 Ur Squamous Epith Cells FEW Squamous (<= Few) 10/20/22 15:49 Urine Bacteria Few /HPF (None Seen) 10/20/22 15:49 Ur Microscopic Review INDICATED 10/20/22 15:49 Urine Culture Comments NOT INDICATED 10/20/22 15:49 Nasal Adenovirus (PCR) NOT DETECTED 10/15/22 10:05 Nasal B. parapertussis DNA (PCR) NOT DETECTED 10/15/22 10:05 Nasal Coronavir 229E PCR NOT DETECTED 10/15/22 10:05 Nasal Coronavir HKU1 PCR NOT DETECTED 10/15/22 10:05 Nasal Coronavir NL63 PCR NOT DETECTED 10/15/22 10:05 Nasal Coronavir OC43 PCR NOT DETECTED 10/15/22 10:05 Nasal Enterovir/Rhinovir PCR NOT DETECTED 10/15/22 10:05 Nasal Influenza B PCR NOT DETECTED 10/15/22 10:05 Nasal Influenza A PCR NOT DETECTED 10/15/22 10:05 Nasal Parainfluen 1 PCR NOT DETECTED 10/15/22 10:05 Nasal Parainfluen 2 PCR NOT DETECTED 10/15/22 10:05 Nasal Parainfluen 3 PCR NOT DETECTED 10/15/22 10:05 Nasal Parainfluen 4 PCR NOT DETECTED 10/15/22 10:05 Nasal RSV (PCR) NOT DETECTED 10/15/22 10:05 Nasal Screen MRSA (PCR) NEGATIVE (NEGATIVE) 10/15/22 18:15 Nasal B.pertussis DNA PCR NOT DETECTED 10/15/22 10:05 Nasal C.pneumoniae (PCR) NOT DETECTED 10/15/22 10:05 [place] Human Metapneumo PCR NOT DETECTED 10/15/22 10:05 Nasal M.pneumoniae (PCR) NOT DETECTED 10/15/22 10:05 Nasal SARS-CoV-2 (PCR) NOT DETECTED 10/15/22 10:05 Anti-Mitochondrial Ab <20.0 Units (0.0-20.0) 10/16/22 09:30 Hepatitis A IgM Ab Indeterminate (Negative) A 10/16/22 09:30 Hep Bs Antigen Negative (Negative) 10/16/22 09:30 Hep B Core IgM Ab Negative (Negative) 10/16/22 09:30 Hepatitis C Antibody <0.1 s/co ratio (0.0-0.9) 10/16/22 09:30 Hepatitis C Interp Comment (.) 10/16/22 09:30 - Procedures Procedures: Procedures INSERTION OF INFUSION DEV INTO SUP VENA CAVA, PERC APPROACH (06/09/19)
[2022-10-27] MEDS: DOXEPIN 25 MG CAPSULE PO SCH (21:19)
[2022-10-27] MEDS: INSULIN GLARGINE-YFGN 300 UNIT/3 ML PEN SUBQ SCH (21:21)
[2022-10-28] MEDS: SODIUM CHLORIDE FLUSH 0.9% 10 ML SYRINGE IVP SCH ×2 (04:12→08:57)
[2022-10-28 06:04] LABS: BASOPHILS # (AUTO) 0.1 10^3/uL (0.0-0.1); BASOPHILS % (AUTO) 0.8 %; EOSINOPHILS # (AUTO) 0.3 10^3/uL (0.0-0.7); EOSINOPHILS % (AUTO) 2.3 %; HCT - HEMATOCRIT 32.1 % (37.0-47.0); HGB - HEMOGLOBIN 10.6 g/dL (12.0-16.0); LYMPHOCYTES # (AUTO) 1.8 10^3/uL (1.5-3.5); LYMPHOCYTES % (AUTO) 16.3 %; MEAN CORPUSCULAR HEMOGLOBIN 31.6 pg (27.0-31.0); MEAN CORPUSCULAR VOLUME 95.8 fL (81.0-99.0); MEAN PLATELET VOLUME 8.7 fL (7.9-10.8); MONOCYTES # (AUTO) 1.4 10^3/uL (0.0-1.0); MONOCYTES % (AUTO) 12.9 %; NEUTROPHILS # (AUTO) 7.1 10^3/uL (1.5-6.6); NEUTROPHILS % (AUTO) 65.6 %; PLT - PLATELET COUNT 344 10^3/uL (130-450); RED BLOOD COUNT 3.35 10^6/uL (4.20-5.40); RED CELL DISTRIBUTION WIDTH 15.2 % (12.0-15.0); WHITE BLOOD COUNT 10.9 x10^3/uL (4.8-10.8)
[2022-10-28 06:10] LABS: CALCIUM 8.5 mg/dL (8.5-10.3); POTASSIUM 4.9 mmol/L (3.5-5.0)
[2022-10-28] MEDS: LEVOTHYROXINE 75 MCG TABLET PO SCH (06:10)
[2022-10-28] MEDS: diltiaZEM 30 MG TABLET PO SCH (06:10)
[2022-10-28] MEDS: levoFLOXacin 250 MG TABLET PO SCH (08:56)
[2022-10-28] MEDS: SACCHAROMYCES BOULARDII 250 MG CAPSULE PO SCH (08:56)
[2022-10-28] MEDS: METOPROLOL SUCCINATE 50 MG TABLET PO SCH (08:56)
[2022-10-28] MEDS: CHOLECALCIFEROL 25 MCG TABLET PO SCH (08:56)
[2022-10-28] MEDS: DOCUSATE SODIUM 250 MG CAPSULE PO SCH (08:56)
[2022-10-28] MEDS: SENNA 8.6 MG TABLET PO SCH (08:56)
[2022-10-28] MEDS: APIXABAN 5 MG TABLET PO SCH (08:56)
[2022-10-28] MEDS: polyethylene glycoL 3350 17 GM PACKET PO SCH (08:57)
[2022-10-28] MEDS: MULTIVITAMIN W/MINERALS TABLET PO SCH (08:57)
[2022-10-28] MEDS: NYSTATIN POWDER 15 GM TOP SCH (08:58)
--- NOTE | 2022-10-28 09:13 | Discharge Plan ---
Discharge Plan Problem Reviewed?: Yes Disposition: Home, Self Care Condition: Fair Prescriptions: oxyCODONE [Roxicodone] 5 mg PO Q6HR PRN #10 tab PRN Reason: Severe Pain Lactobacillus Acidophilus [Acidophilus Lactobacilli] 1 each PO DAILY #7 cap diltiaZEM CD [Cardizem Cd] 240 mg PO DAILY #30 cap levoFLOXacin [Levaquin] 750 mg PO DAILY 7 Days #21 tablet Multivitamin W/Minerals [Theragran M] 1 tab PO DAILYWM #30 tab Cholecalciferol [Vitamin D3] 25 mcg PO DAILY #30 tab Diet: Diabetic (also low salt diet to prevent fluid retention) Activity Restrictions: Activity as Tolerated Shower Restrictions: No Driving Restrictions: Yes Assistance Devices: Walker Weight Bearing: Full Weight Instruction Topics: Cellulitis Ch Health Concerns: You were hospitalized to treat rapid Afib that caused CHF, and leg cellulitis and a urinary tract infection. The leg cellulitis has been very slow to respond to treatment. You are being sent home to take 1 more week of oral antibiotics to treat the leg cellulitis, plus probiotics for that week. Some of your other medications have also been changed or doses adjusted. Please follow the new list of medications to take. All new [place] [facility] [place] We recommended that you have some physical therapy done by sending a Home Health agency to your house, but you declined to get that. Please see your Primary Care Provider, MARCO Bah, in the next 1 to 2 weeks for a hospital follow-up visit. Also, you have an appointment already set up for you at the [facility] Wound clinic on 10/30/22, for a wound check and dressing change. That wound care provider also wants you to consider having a Home Health agency RN come to your house for twice weekly dressing changes in addition to coming to the [facility] Wound care clinic every two weeks eventually. Plan of Treatment: As above. Care Goals: Improvement in symptoms and stabilization are the goals. Assessment: Patient understands the plan. Additional Instructions or Follow Up instructions: If you have new or worsening symptoms, call your primary care provider for advice or come to the ER. Follow-Up Care: [facility] Clinic - Wound/Ostomy No Smoking: If you smoke, Please STOP! Call for help. Follow-up with: Yesenia Bah PA-C [Primary Care Provider] -
--- NOTE | 2022-10-28 11:46 | DISCHARGE SUMMARY ---
Discharge Summary Admit Date: 10/15/22 Discharge Date: 10/28/22 Discharging Provider: Dr Genevieve Avila Primary Care Provider: MARCO Bah Condition at Discharge: Fair Discharge Disposition: 01 Home, Self Care - HPI History of Present Illness: This presentation and case were discussed with both ER provider and the patient's polygraph operator Dr. Helms from [facility]. She has a history of chronic atrial fibrillation, morbid obesity and is anticoagulated and on rate control. Rate control consists of metoprolol 200 mg p.o. twice daily and diltiazem 420 mg daily. She has never had a stress test and her last echocardiogram was done in 2017 and documented intact ejection fraction. No significant valvular heart disease. In the intervening years she has been seen by cardiology. Last visit was in March 2021. She is followed by her primary care provider at [facility] and A1c is controlled. She has had intermittent problems with right facial swelling since 2014. Last episode was last year and attributed to a dental abscess. She is also had intermittent leg cellulitis. reported to Dr. Acevedo that she was fatigued and seemed a little bit more confused than usual yesterday. As the day progressed her confusion was worse. But today she was now short of breath. When she finally was not making any sense and she was breathing heavily, he called ambulance and she was brought here. There is no antecedent history of fever, chills. Cough. She has no change in bowel habits. History is obtained from the since the patient is not really able to get 1. In the emergency room at 9 this morning temperature was 37.2. Heart rate 74. Respirations 30. And she was 100% on a nonrebreather. As the morning and afternoon have progressed, the patient had becoming significantly more tachycardic and was consistently in the 120s in spite of diltiazem IV push 20 mg. She received 2 of these. Started on a diltiazem drip and still had heart rate of 127. Troponin #1 was 557. Troponin #2 was 858. Troponin #3 is 893. BNP is 3555. Her Broke Handler was consulted. He feels this is strictly demand ischemia. If he would guess the cause of all this is that she went into congestive heart failure, and the congestive heart failure is what is driving the A. fib with RVR. In addition to her heart issue, the patient has newly elevated liver enzymes. Emergency room provider was unable to elucidate if there was any abdominal pain or history that went with this so I asked for an abdominal ultrasound to be done. I also asked for a lactic acid to be done. Lactic acid is 3.2 and abdominal ultrasound is pending at the time of this admission. She is on metformin and this could be the cause of her lactic acidosis. Head CT shows mild atrophy and chronic ischemic changes without intracranial hemorrhage or mass- effect. Visualized sinuses and mastoids are clear. Cardiology provider feels that the patient could be admitted to this facility. He does not feel that the patient is having acute ischemic event. If, however, she decompensates from a cardiac perspective and continues to have rising troponins, he will be glad to speak to us again. He feels that she should be admitted for rate control and diuresis and go from there. - HOSPITAL COURSE Hospital Course: (1) Metabolic encephalopathy Resolved by the day after admission, with her infections were started on antibiotic treatment. (2) Lactic acidosis from cellulitis of leg and E coli UTI Resolved and the source was felt to be the extensive cellulitis of the leg plus a UTI.. (3) Cellulitis of right leg without foot Her WBC had risen to 25 then slowly improved after IV antibx changed from Ancef to Ceftriaxone to Clinda and Levaquin. Slowly the distribution of redness was smaller and more faded. She did get a draining blister on her right calf. She was seen by Wound care and they bandaged the R leg to mid thigh and planned to see it weekly, even after discharge. Hospitalist called ID at when the redness increased after iv antibiotics were changed to oral. Dr. Uribe of ID felt that marked redness of the leg indicated a Strep cellulitis and that it could remain red for a long time. Strep also is associated with very high peripheral WBC like her's of 25. He agreed with our choice of and changes of antibiotics, especially using clindamycin, which stops the toxin formation by Streptococci. He advised Clinda could be stopped and to continue with the oral antibx. Levaquin orally was prescribed to continue for another week after di scharge. (4) E coli UTI Her U/A was abnormal and grew E coli, Sens to Quinolones. (5) Atrial fibrillation with RVR She tok high doses of Metoprolol XL 200 mg p.o. twice daily as well as Cardizem CD 420 mg a day. When her BP was "soft", Toprol-XL was reduced from 200 mg p.o. twice daily to 100 mg p.o. twice daily then 50 mg twice daily. Cardizem CD home med was reduced from 420 mg a day to 240 mg a day. We checked her TSH which indicated thyoid excess, so we decreased her Thyroid med temporarily. At discharge, all med doses were resumed except the Cardizem CD was reduced to 240 mg daily. (6) Acute on chronic diastolic (congestive) heart failure We suspected that she developed a right leg cellulitis that then caused a systemic inflammatory response which drove her atrial fibrillation to be uncontrolled which then caused acute on chronic diastolic heart failure. Once her heart rate was controlled, heart failure symptoms resolved. (7) Elevated liver enzymes Never had this before, an ultrasound was negative for stones. No biliary dilatation. Possibly this was from CHF. Liver enzyme evaluation with hepatitis panel, autoimmune panel were ordered. 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 Ceruloplasmin was normal. Her labs showed that LFTs were improving. (8) Elevated troponin Cardiology did not think this was due to acute primary myocardial ischemia, but demand ischemia. (9) Type 2 diabetes mellitus treated without insulin There is no description of neuropathy, retinopathy or nephropathy in her office clinic records. A1c was well controlled. Her glucose was not very elevated. We did use Lantus 5 units qpm. Her usual meds were OKd to resume at discharge. (10) Hypothyroidism Review of her TSH in the EMR shows her to be well treated. At times, such as now, she is borderline hyperthyroid due to her medication use. Her TSH was 0.37 . Proptosis is quite noticable on physical exam. 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 We did decrease this dose slightly, due to the persistent tachyardia. At discharge, she said her PCP had recently decreased it already, therefore advised to resume that. (11) Candidal intertrigo Nystatin powder and also po Diflucan were ordered. (12) Stage 3 chronic kidney disease She was not hypotensive on admissionbut she did appear dehydrated on physical exam. She did need some IVF. Creat was at discharge was 1.0. (13) Morbid obesity, BMI 40-44 As per Hx. She was evaluated by PT and OT and advised she needed rehab due to deconditioning and baseline poor mobility from obesity. She refused to go to a SNF or to have Home Health PT/OT also. She said her and daughter who she lives with, would both be assisting her. - ALLERGIES Allergies/Adverse Reactions: Allergies Allergy/AdvReac Type Severity Reaction Status Date / Time Penicillins Allergy Rash Verified 10/28/22 17:39 Sulfa (Sulfonamide Allergy Unknown Verified 10/28/22 17:39 Antibiotics) - MEDICATIONS Home Medications: Ambulatory Orders Medication Instructions Recorded Confirmed Atorvastatin [Lipitor] 10 mg PO QPM 08/27/18 10/29/22 Doxepin HCl 75 mg PO QPM 08/27/18 10/29/22 Metformin HCl 500 mg PO BID 08/27/18 10/29/22 Apixaban [Eliquis] 5 mg PO BID #60 tablet 08/28/18 10/29/22 Metoprolol Succinate [Toprol Xl] 200 mg PO BID 06/09/19 10/29/22 Acetaminophen [Tylenol] 325 - 650 mg PO Q4H PRN 07/31/19 10/29/22 Levothyroxine Sodium [Synthroid] 250 mcg PO QDAC 07/31/19 10/29/22 hydroCHLOROthiazide 25 mg PO DAILY 07/31/19 10/29/22 [Hydrochlorothiazide] Dulaglutide [Trulicity] 1.5 mg SQ .Q7DAY 10/15/22 10/29/22 Fluticasone [Flonase] 1 sprays SAIMA DAILY 10/15/22 10/29/22 Cholecalciferol [Vitamin D3] 25 mcg PO DAILY #30 tab 10/28/22 10/29/22 Lactobacillus Acidophilus 1 each PO DAILY #7 cap 10/28/22 10/29/22 [Acidophilus Lactobacilli] Multivitamin W/Minerals [Theragran 1 tab PO DAILYWM #30 tab 10/28/22 10/29/22 M] Nystatin [Nystop] 1 applic TOP BID each 10/28/22 10/29/22 diltiaZEM CD [Cardizem Cd] 240 mg PO DAILY #30 cap 10/28/22 10/29/22 levoFLOXacin [Levaquin] 750 mg PO DAILY 7 Days #21 tablet 10/28/22 10/29/22 oxyCODONE [Roxicodone] 5 mg PO Q6HR PRN #10 tab 10/28/22 10/29/22 Potassium Chloride [Klor-Con M10] 10 meq PO DAILY 10/29/22 10/29/22 - PHYSICAL EXAM AT DISCHARGE General Appearance: positive: No acute distress, Alert Eyes Bilateral: positive: Other (Marked ptosis of eyelids) ENT: positive: ENT inspection nml, No signs of dehydration Neck: positive: Nml inspection, No JVD Respiratory: positive: No respiratory distress, Breath sounds nml Cardiovascular: positive: No murmur (Distant heart sounds due to obesity), Irregularly irregular Abdomen: positive: Non-tender, Other (Obese with a pannus) Skin: positive: Warm, Dry Extremities: positive: Other (2+ edema of both legs. R thigh has mild rednesspostero-laterally, entire R calf is bandaged up to mid thigh.) Neurologic/Psychiatric: positive: Oriented x3, Motor nml - LABS Result Diagrams: 10/28/22 05:44 10/28/22 05:44 - DIAGNOSTIC IMAGING Diagnostic Imaging Results: Final report reviewed - FOLLOW UP Follow Up: See [facility] tomorrow 10/30, and see PCP for a hospital follow-up visit in 1-2 weeks.
[2022-10-28 12:15] VITALS: BP 102/57
== END 2022-10-28 13:05 | disposition home or self-care (01) | DRG 602 ==
LOC: EDUNIT# → ED 09:38 → ICU 17:27 → MS2 10-17 17:43
PROVIDERS: ADMIT Specialist; ATTEND Internal Medicine
DX: I48.91 Unspecified atrial fibrillation (principal); I11.0 Hypertensive heart disease with heart failure; I50.9 Heart failure, unspecified; R06.03 Acute respiratory distress; E11.9 Type 2 diabetes mellitus without complications; L03.115 Cellulitis of right lower limb; G93.41 Metabolic encephalopathy; Z20.822 Contact with and (suspected) exposure to COVID-19; I50.33 Acute on chronic diastolic (congestive) heart failure; N39.0 Urinary tract infection, site not specified; I24.8 Other forms of acute ischemic heart disease; I13.0 Hypertensive heart and chronic kidney disease with heart failure and stage 1 through stage 4 chronic kidney disease, or unspecified chronic kidney disease; Z68.41 Body mass index [BMI] 40.0-44.9, adult; I48.20 Chronic atrial fibrillation, unspecified; E87.20 Acidosis, unspecified; L97.911 Non-pressure chronic ulcer of unspecified part of right lower leg limited to breakdown of skin; B96.20 Unspecified Escherichia coli [E. coli] as the cause of diseases classified elsewhere; R74.8 Abnormal levels of other serum enzymes; E03.9 Hypothyroidism, unspecified; L30.4 Erythema intertrigo; N18.30 Chronic kidney disease, stage 3 unspecified; E11.22 Type 2 diabetes mellitus with diabetic chronic kidney disease; E66.01 Morbid (severe) obesity due to excess calories; E86.0 Dehydration; B95.5 Unspecified streptococcus as the cause of diseases classified elsewhere; I87.8 Other specified disorders of veins; I95.9 Hypotension, unspecified; H05.20 Unspecified exophthalmos; R53.1 Weakness; I87.2 Venous insufficiency (chronic) (peripheral); E11.622 Type 2 diabetes mellitus with other skin ulcer; Z79.01 Long term (current) use of anticoagulants; Z79.84 Long term (current) use of oral hypoglycemic drugs; Z79.85 Long-term (current) use of injectable non-insulin antidiabetic drugs; Z79.02 Long term (current) use of antithrombotics/antiplatelets; Z87.891 Personal history of nicotine dependence
CPT/HCPCS: 36415; 70450; 71045; 72192; 73700; 76705; 80048; 80053; 81001; 82330; 82390; 82728; 83605; 83690; 83735; 83880; 84100; 84443; 84484; 85025; 85027; 85379; 85610; 85651; 86381; 86705; 86709; 86803; 87040; 87070; 87086; 87150; 87181; 87205; 87340; 87633; 93005; 93306; 93971; 96365; 96366; 96375; 96376; 97110; 97163; 97166; 97530; 97535; 99285; A9270; J1815; J2060; Q0162; 81003

== ENCOUNTER 2022-10-28 17:32 | Emergency (ER) | payer MEDICARE, OTHER ==
[2022-10-28] MEDS ORDERED: oxyCODONE 5 MG TABLET PO PRN (18:03)
[2022-10-28] MEDS ORDERED: ONDANSETRON 4 MG/2 ML VIAL IVP PRN (18:03)
[2022-10-28] MEDS ORDERED: ACETAMINOPHEN 500 MG TABLET PO PRN (18:03)
--- NOTE | 2022-10-28 18:08 | ED Physician Documentation ---
History of Present Illness - Stated complaint Stated Complaint: LEG WEAKNESS - Chief complaint Chief Complaint: General - History obtained from History obtained from: Patient, Other (recent admission/discharge summary) - Additonal information Additional information: This is a 72 yo F who was Discharged home from the hospital today after being admitted for treatment of right leg cellulitis. The patient has been working with PT in the hospital and rehab placement was recommended or at minimum home health however patient and family declined. She went home today and had extreme difficulty getting up to use the bathroom, fell onto her buttocks several times today and was brought back in by EMS due to now requesting rehab placement. She has had no new issues in regards to her cellulitis though states that it is uncomfortable at times. She is on Levaquin daily, and taking oxycodone only at nighttime for pain, Tylenol during the day.She has not had fever, chills, cough or URI symptoms, chest pain or difficulty breathing, GI or symptoms since discharge this AM. Review of Systems Ten Systems: 10 systems reviewed and negative (except as per HPI) PD PAST MEDICAL HISTORY - Past Medical History Past Medical History: Yes Cardiovascular: Hypertension, Atrial fibrillation Respiratory: None Neuro: Other Endocrine/Autoimmune: Type 2 diabetes, HyPOthyroidism GI: None, Other [employer]: Other : None HEENT: Chronic vision loss Psych: Anxiety, Panic attacks, Claustrophobia Musculoskeletal: Osteoarthritis Derm: None - Past Surgical History Past Surgical History: No - Present Medications Home Medications: Ambulatory Orders Medication Instructions Recorded Confirmed Atorvastatin [Lipitor] 10 mg PO QPM 08/27/18 10/15/22 Doxepin HCl 75 mg PO QPM 08/27/18 10/15/22 Metformin HCl 500 mg PO BID 08/27/18 10/15/22 Apixaban [Eliquis] 5 mg PO BID #60 tablet 08/28/18 10/15/22 Metoprolol Succinate [Toprol Xl] 200 mg PO BID 06/09/19 10/15/22 Acetaminophen [Tylenol] 325 - 650 mg PO Q4H PRN 07/31/19 10/15/22 Levothyroxine Sodium [Synthroid] 250 mcg PO QDAC 07/31/19 10/16/22 hydroCHLOROthiazide 25 mg PO DAILY 07/31/19 10/15/22 [Hydrochlorothiazide] Dulaglutide [Trulicity] 1.5 mg SQ .Q7DAY 10/15/22 10/15/22 Fluticasone [Flonase] 1 sprays SAIMA DAILY 10/15/22 10/15/22 Cholecalciferol [Vitamin D3] 25 mcg PO DAILY #30 tab 10/28/22 Lactobacillus Acidophilus 1 each PO DAILY #7 cap 10/28/22 [Acidophilus Lactobacilli] Multivitamin W/Minerals [Theragran 1 tab PO DAILYWM #30 tab 10/28/22 M] Nystatin [Nystop] 1 applic TOP BID each 10/28/22 diltiaZEM CD [Cardizem Cd] 240 mg PO DAILY #30 cap 10/28/22 levoFLOXacin [Levaquin] 750 mg PO DAILY 7 Days #21 tablet 10/28/22 oxyCODONE [Roxicodone] 5 mg PO Q6HR PRN #10 tab 10/28/22 - Allergies Allergies/Adverse Reactions: Allergies Allergy/AdvReac Type Severity Reaction Status Date / Time Penicillins Allergy Rash Verified 10/28/22 17:39 Sulfa (Sulfonamide Allergy Unknown Verified 10/28/22 17:39 Antibiotics) - Social History Does the pt smoke?: No Smoking Status: Never smoker Does the pt drink ETOH?: No Does the pt have substance abuse?: No - Immunizations Immunizations are current?: Yes - POLST Patient has POLST: No POLST Status: Full Code (However, if there is irreversible brain damage she does not want to be resuscitated. Or if resuscitation will result in life support that will be chronic, she is wants us to let her go) PD ED PE NORMAL - Vitals Vital signs reviewed: Yes - General General: Alert and oriented X 3, No acute distress, Well developed/nourished - HEENT HEENT: Atraumatic, Moist mucous membranes - Cardiac Cardiac: RRR, No murmur - Respiratory Respiratory: No respiratory distress, Clear bilaterally - Abdomen Abdomen: Normal bowel sounds, Soft, Non tender, Non distended, Other (morbidly obese) - Derm Derm: Other (right Leg cellulitis. She has a compression dressing on that was not removed.) - Extremities Extremities: No deformity, Other (chronic lower ext edema, right leg pain w/ cellulitis) - Neuro Neuro: Alert and oriented X 3 Eye Opening: Spontaneous Motor: Obeys Commands Verbal: Oriented GCS Score: 15 Results - Vitals Vitals: Vital Signs - 24 hr 10/28/22 10/28/22 17:39 17:43 Temperature 36.8 C 36.8 C Heart Rate 100 100 Respiratory 16 16 Rate Blood Pressure 123/65 123/65 O2 Saturation 98 98 Oxygen O2 Source Room air PD MEDICAL DECISION MAKING - ED course Complexity details: d/w patient, d/w family ED course: This is a 72-year-old female who was discharged from the hospital today for right leg cellulitis and unfortunately has failed an attempt at discharge home. While patient was inpatient they did recommend rehab placement at a formerly [facility] however at that time family declined however now they would like to pursue this. We will monitor the patient in the ER overnight until social work is able to see the patient in the morning, will continue her p.o. Levaquin, as needed oxycodone and other chronic medications. I have placed a PT and OT evaluation for the morning as well as social work consultation. At this time, patient does not have any reason to be readmitted to the hospital therefore will board in the ER until evaluation by social work and Placement or home health services arranged. Departure - Departure Clinical Impression: Cellulitis of right leg without foot Condition: Good
[2022-10-28 18:41] LABS: BASOPHILS # (AUTO) 0.1 10^3/uL (0.0-0.1); BASOPHILS % (AUTO) 0.7 %; EOSINOPHILS # (AUTO) 0.1 10^3/uL (0.0-0.7); EOSINOPHILS % (AUTO) 0.8 %; HCT - HEMATOCRIT 35.7 % (37.0-47.0); HGB - HEMOGLOBIN 11.8 g/dL (12.0-16.0); LYMPHOCYTES # (AUTO) 1.5 10^3/uL (1.5-3.5); LYMPHOCYTES % (AUTO) 9.9 %; MEAN CORPUSCULAR HEMOGLOBIN 31.5 pg (27.0-31.0); MEAN CORPUSCULAR HGB CONC 33.1 g/dL (32.0-36.0); MEAN CORPUSCULAR VOLUME 95.2 fL (81.0-99.0); MEAN PLATELET VOLUME 8.5 fL (7.9-10.8); MONOCYTES # (AUTO) 1.4 10^3/uL (0.0-1.0); MONOCYTES % (AUTO) 9.2 %; NEUTROPHILS # (AUTO) 11.7 10^3/uL (1.5-6.6); NEUTROPHILS % (AUTO) 76.7 %; PLT - PLATELET COUNT 378 10^3/uL (130-450); RED BLOOD COUNT 3.75 10^6/uL (4.20-5.40); RED CELL DISTRIBUTION WIDTH 14.7 % (12.0-15.0); WHITE BLOOD COUNT 15.3 x10^3/uL (4.8-10.8)
[2022-10-28 18:52] LABS: CALCIUM 8.6 mg/dL (8.5-10.3); CREATININE 1.3 mg/dL (0.4-1.0)
[2022-10-29] MEDS: PANTOPRAZOLE 40 MG TABLET PO SCH (06:29)
[2022-10-29 07:44] LABS: BASOPHILS # (AUTO) 0.1 10^3/uL (0.0-0.1); EOSINOPHILS # (AUTO) 0.2 10^3/uL (0.0-0.7); EOSINOPHILS % (AUTO) 1.8 %; HCT - HEMATOCRIT 30.5 % (37.0-47.0); HGB - HEMOGLOBIN 10.2 g/dL (12.0-16.0); LYMPHOCYTES # (AUTO) 1.9 10^3/uL (1.5-3.5); LYMPHOCYTES % (AUTO) 18.1 %; MEAN CORPUSCULAR HGB CONC 33.4 g/dL (32.0-36.0); MEAN CORPUSCULAR VOLUME 95.6 fL (81.0-99.0); MEAN PLATELET VOLUME 8.9 fL (7.9-10.8); MONOCYTES # (AUTO) 1.3 10^3/uL (0.0-1.0); MONOCYTES % (AUTO) 12.3 %; NEUTROPHILS # (AUTO) 6.7 10^3/uL (1.5-6.6); NEUTROPHILS % (AUTO) 64.6 %; PLT - PLATELET COUNT 337 10^3/uL (130-450); RED BLOOD COUNT 3.19 10^6/uL (4.20-5.40); RED CELL DISTRIBUTION WIDTH 14.8 % (12.0-15.0); WHITE BLOOD COUNT 10.3 x10^3/uL (4.8-10.8)
[2022-10-29 08:23] LABS: CALCIUM 8.3 mg/dL (8.5-10.3); CREATININE 1.1 mg/dL (0.4-1.0); POTASSIUM 4.4 mmol/L (3.5-5.0)
[2022-10-29] MEDS: levoFLOXacin 250 MG TABLET PO SCH (08:54)
[2022-10-29] MEDS: ENOXAPARIN 40 MG/0.4 ML SYRINGE SUBQ SCH (08:54)
[2022-10-30] MEDS: PANTOPRAZOLE 40 MG TABLET PO SCH (06:53)
[2022-10-30] MEDS: ENOXAPARIN 40 MG/0.4 ML SYRINGE SUBQ SCH (09:07)
[2022-10-30] MEDS: levoFLOXacin 250 MG TABLET PO SCH (09:08)
[2022-10-30 15:08] VITALS: BP 127/71
--- NOTE | 2022-10-30 15:19 | ED Physician Documentation ---
ED Addendum - Addendum Addendum: 10/30/22 15:18 Patient is accepted to [facility]. PCP wrote orders. Patient to be discharged. Departure - Departure Disposition: 01 Home, Self Care Clinical Impression: Cellulitis of right leg without foot Condition: Good Instructions: ED Infec Skin Cellulitis Follow-Up: Yesenia Bah PA-C [Primary Care Provider] - Within 1 week Comments: Please continue the antibiotics as prescribed. You are being discharged to [facility] today.
== END 2022-10-30 15:43 | disposition home or self-care (01) ==
LOC: EDUNIT# → ED 17:32
DX: R29.898 Other symptoms and signs involving the musculoskeletal system (principal); L03.115 Cellulitis of right lower limb; Z20.822 Contact with and (suspected) exposure to COVID-19
CPT/HCPCS: 36415; 80048; 85025; 87635; 96372; 99281; 99283; A9270; J1650

== ENCOUNTER → 2022-10-28 | Outpatient (CLI) | payer MEDICARE, OTHER | END | disposition critical access hospital (66) | LOC: EMS 17:13 | DX: R53.1 Weakness (principal) | CPT/HCPCS: A0425; A0429 ==

== ENCOUNTER 2022-11-01 12:08 | Outpatient (CLI) | payer MEDICARE, OTHER ==
[2022-11-01 12:29] LABS: BASOPHILS # (AUTO) 0.1 10^3/uL (0.0-0.1); BASOPHILS % (AUTO) 1.5 %; EOSINOPHILS # (AUTO) 0.2 10^3/uL (0.0-0.7); EOSINOPHILS % (AUTO) 3.4 %; HCT - HEMATOCRIT 31.2 % (37.0-47.0); HGB - HEMOGLOBIN 10.3 g/dL (12.0-16.0); LYMPHOCYTES # (AUTO) 1.8 10^3/uL (1.5-3.5); LYMPHOCYTES % (AUTO) 26.8 %; MEAN CORPUSCULAR HEMOGLOBIN 32.6 pg (27.0-31.0); MEAN CORPUSCULAR VOLUME 98.7 fL (81.0-99.0); MEAN PLATELET VOLUME 8.5 fL (7.9-10.8); MONOCYTES # (AUTO) 1.1 10^3/uL (0.0-1.0); NEUTROPHILS # (AUTO) 3.4 10^3/uL (1.5-6.6); NEUTROPHILS % (AUTO) 50.7 %; PLT - PLATELET COUNT 284 10^3/uL (130-450); RED BLOOD COUNT 3.16 10^6/uL (4.20-5.40); RED CELL DISTRIBUTION WIDTH 15.5 % (12.0-15.0); WHITE BLOOD COUNT 6.8 x10^3/uL (4.8-10.8)
== END 2022-11-01 12:09 | disposition home or self-care (01) ==
LOC: LAB.R 12:08
PROVIDERS: ATTEND Internal Medicine
DX: N18.9 Chronic kidney disease, unspecified (principal); L03.115 Cellulitis of right lower limb
CPT/HCPCS: 85025

== ENCOUNTER 2022-11-05 13:23 | Outpatient (CLI) | payer MEDICARE, OTHER ==
[2022-11-05 13:34] LABS: BASOPHILS # (AUTO) 0.1 10^3/uL (0.0-0.1); BASOPHILS % (AUTO) 1.2 %; EOSINOPHILS # (AUTO) 0.3 10^3/uL (0.0-0.7); EOSINOPHILS % (AUTO) 3.6 %; HGB - HEMOGLOBIN 10.1 g/dL (12.0-16.0); LYMPHOCYTES % (AUTO) 36.7 %; MEAN CORPUSCULAR HEMOGLOBIN 31.3 pg (27.0-31.0); MEAN CORPUSCULAR HGB CONC 32.6 g/dL (32.0-36.0); MEAN PLATELET VOLUME 8.8 fL (7.9-10.8); MONOCYTES # (AUTO) 1.1 10^3/uL (0.0-1.0); MONOCYTES % (AUTO) 13.1 %; NEUTROPHILS # (AUTO) 3.7 10^3/uL (1.5-6.6); NEUTROPHILS % (AUTO) 44.9 %; PLT - PLATELET COUNT 208 10^3/uL (130-450); RED BLOOD COUNT 3.23 10^6/uL (4.20-5.40); RED CELL DISTRIBUTION WIDTH 15.6 % (12.0-15.0); WHITE BLOOD COUNT 8.3 x10^3/uL (4.8-10.8)
== END 2022-11-05 13:24 | disposition home or self-care (01) ==
LOC: LAB.R 13:23
PROVIDERS: ATTEND Internal Medicine
DX: D64.9 Anemia, unspecified (principal)
CPT/HCPCS: 85025

== ENCOUNTER 2022-11-24 03:18 | Outpatient (CLI) | payer MEDICARE, OTHER | END 2022-11-24 03:19 | disposition short-term general hospital (02) | LOC: EMS 03:18 | DX: R53.1 Weakness (principal); I48.91 Unspecified atrial fibrillation | CPT/HCPCS: A0425; A0429 ==

== ENCOUNTER 2023-01-25 12:54 | Outpatient (CLI) | payer MEDICARE, OTHER | END 2023-01-25 12:55 | disposition EMS.NT | LOC: EMS 12:54 | DX: R53.1 Weakness (principal); R42 Dizziness and giddiness ==

== ENCOUNTER 2023-02-02 18:38 | Outpatient (CLI) | payer MEDICARE, OTHER | END 2023-02-02 18:39 | disposition critical access hospital (66) | LOC: EMS 18:38 | DX: R53.1 Weakness (principal); R63.0 Anorexia; M79.89 Other specified soft tissue disorders; T21.21XA Burn of second degree of chest wall, initial encounter; X10.0XXA Contact with hot drinks, initial encounter | CPT/HCPCS: A0425; A0429 ==

== ENCOUNTER 2023-02-02 18:54 | Inpatient (IN) | payer MEDICARE, OTHER ==
[2023-02-02 19:58] LABS: BASOPHILS # (AUTO) 0.1 10^3/uL (0.0-0.1); BASOPHILS % (AUTO) 0.9 %; EOSINOPHILS # (AUTO) 0.2 10^3/uL (0.0-0.7); EOSINOPHILS % (AUTO) 2.9 %; HCT - HEMATOCRIT 34.6 % (37.0-47.0); HGB - HEMOGLOBIN 10.4 g/dL (12.0-16.0); LYMPHOCYTES # (AUTO) 1.3 10^3/uL (1.5-3.5); LYMPHOCYTES % (AUTO) 18.5 %; MEAN CORPUSCULAR HEMOGLOBIN 28.7 pg (27.0-31.0); MEAN CORPUSCULAR HGB CONC 30.1 g/dL (32.0-36.0); MEAN CORPUSCULAR VOLUME 95.6 fL (81.0-99.0); MEAN PLATELET VOLUME 10.5 fL (7.9-10.8); MONOCYTES # (AUTO) 1.1 10^3/uL (0.0-1.0); MONOCYTES % (AUTO) 15.8 %; NEUTROPHILS # (AUTO) 4.2 10^3/uL (1.5-6.6); NEUTROPHILS % (AUTO) 61.5 %; PLT - PLATELET COUNT 149 10^3/uL (130-450); RED BLOOD COUNT 3.62 10^6/uL (4.20-5.40); RED CELL DISTRIBUTION WIDTH 16.1 % (12.0-15.0); WHITE BLOOD COUNT 6.9 x10^3/uL (4.8-10.8)
[2023-02-02 20:12] LABS: ALBUMIN 3.1 g/dL (3.2-5.5); ALBUMIN/GLOBULIN RATIO 0.6 (1.0-2.2); BILIRUBIN,TOTAL 1.2 mg/dL (0.2-1.0); CALCIUM 8.8 mg/dL (8.5-10.3); CREATININE 1.7 mg/dL (0.4-1.0); POTASSIUM 4.4 mmol/L (3.5-5.0)
[2023-02-02] MEDS ORDERED: TETANUS/DIPHTHERIA/PERTUSSIS 0.5 ML SYRINGE IM ONE (20:12)
[2023-02-02 20:16] LABS: LACTIC ACID, VENOUS 3.1 mmol/L (0.5-2.2)
--- NOTE | 2023-02-02 20:16 | XRAY Report ---
PROCEDURE: Chest 1 View X-Ray INDICATIONS: Sepsis TECHNIQUE: One view of the chest was acquired. COMPARISON: 10/15/2022 FINDINGS: Surgical changes and devices: None. Lungs and pleura: Diffuse interstitial thickening throughout the right perihilar region. There is bl unting of the left costophrenic sulcus. No dense consolidations. Mediastinum: The heart is enlarged. The mediastinal vasculature is mildly congested. Stable and norm al aortic contour. Bones and chest wall: No suspicious bony lesions. Overlying soft tissues appear unremarkable. IMPRESSION: 1. Central vascular congestion and diffuse interstitial thickening suggesting CHF. An interstitial pn eumonitis may also be present. 2. Cardiomegaly. Reviewed by: Rosie Mann MD on 02/02/2023 8:15 PM PST Approved by: Rosie Mann MD on 02/02/2023 8:15 PM PST Station ID: [id number]
[2023-02-02] MEDS ORDERED: CEFEPIME 2 GM in SODIUM CHLORIDE 0.9% MINIBAG 100 ML IV STA (20:38)
[2023-02-02] MEDS ORDERED: SODIUM CHLORIDE 0.9% 1,000 ML IV STA (20:38)
--- NOTE | 2023-02-02 21:08 | ED Physician Documentation ---
History of Present Illness - Stated complaint Stated Complaint: GEN WEAKNESS - Chief complaint Chief Complaint: General - History obtained from History obtained from: Patient, Family (Patient's ) - Additonal information Additional information: Patient is a 72-year-old female with a history of atrial fibrillation presenting for evaluation of generalized weakness for the past 1 week. 1 week ago she sustained a burn to her left breast. She accidentally spilled hot chocolate on herself. She cleaned herself up and did not pay much attention to it other than noting a large blister to the area. A few days later her cat jumped on her chest and open the blister up. She has since noted redness to the area as well as development of redness and weepage to an area to her right leg. She does h ave prior history of leg cellulitis, most recently in October.She is on Eliquis and states she is compliant with her medications. at the bedside also corroborates that she is good with taking her medications. She reports having a nonproductive cough, denies chest pain or difficulty breathing. She denies fever, abdominal pain, vomiting or diarrhea or dysuria. This evening family called EMS because patient was feeling more weak and having difficulties in getting up from her chair. She normally ambulates with a walker. She denies falls in the last week or head injuries.She believes she is overdue for her tetanus. Review of Systems Constitutional: denies: Fever Cardiac: denies: Chest pain / pressure Respiratory: reports: Cough. 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 HEENT: Chronic vision loss Psych: Anxiety, Panic attacks, Claustrophobia Musculoskeletal: Osteoarthritis Derm: None - Past Surgical History Past Surgical History: No - Present Medications Home Medications: Ambulatory Orders Medication Instructions Recorded Confirmed Atorvastatin [Lipitor] 10 mg PO QPM 08/27/18 10/29/22 Doxepin HCl 75 mg PO QPM 08/27/18 10/29/22 Metformin HCl 500 mg PO BID 08/27/18 10/29/22 Apixaban [Eliquis] 5 mg PO BID #60 tablet 08/28/18 10/29/22 Metoprolol Succinate [Toprol Xl] 200 mg PO BID 06/09/19 10/29/22 Acetaminophen [Tylenol] 325 - 650 mg PO Q4H PRN 07/31/19 10/29/22 Levothyroxine Sodium [Synthroid] 250 mcg PO QDAC 07/31/19 10/29/22 hydroCHLOROthiazide 25 mg PO DAILY 07/31/19 10/29/22 [Hydrochlorothiazide] Dulaglutide [Trulicity] 1.5 mg SQ .Q7DAY 10/15/22 10/29/22 Fluticasone [Flonase] 1 sprays SAIMA DAILY 10/15/22 10/29/22 Cholecalciferol [Vitamin D3] 25 mcg PO DAILY #30 tab 10/28/22 10/29/22 Lactobacillus Acidophilus 1 each PO DAILY #7 cap 10/28/22 10/29/22 [Acidophilus Lactobacilli] Multivitamin W/Minerals [Theragran 1 tab PO DAILYWM #30 tab 10/28/22 10/29/22 M] Nystatin [Nystop] 1 applic TOP BID each 10/28/22 10/29/22 diltiaZEM CD [Cardizem Cd] 240 mg PO DAILY #30 cap 10/28/22 10/29/22 levoFLOXacin [Levaquin] 750 mg PO DAILY 7 Days #21 tablet 10/28/22 10/29/22 oxyCODONE [Roxicodone] 5 mg PO Q6HR PRN #10 tab 10/28/22 10/29/22 Potassium Chloride [Klor-Con M10] 10 meq PO DAILY 10/29/22 10/29/22 - Allergies Allergies/Adverse Reactions: Allergies Allergy/AdvReac Type Severity Reaction Status Date / Time Penicillins Allergy Rash Verified 02/02/23 19:14 Sulfa (Sulfonamide Allergy Unknown Verified 02/02/23 19:14 Antibiotics) - Social History Does the pt smoke?: No Smoking Status: Never smoker Does the pt drink ETOH?: No Does the pt have substance abuse?: No - Immunizations Immunizations are current?: Yes - POLST Patient has POLST: No POLST Status: Full Code (However, if there is irreversible brain damage she does not want to be resuscitated. Or if resuscitation will result in life support that will be chronic, she is wants us to let her go) PD ED PE NORMAL - General General: Alert and oriented X 3, No acute distress, Well developed/nourished - HEENT HEENT: Atraumatic - Neck Neck: Supple, no meningeal sign - Cardiac Cardiac: Other (Tachycardic, irregularly irregular) - Respiratory Respiratory: No respiratory distress, Clear bilaterally - Abdomen Abdomen: Soft, Non tender - Derm Derm: Other (Large area of redness to her left breast with no blisters, significant moisture and erythema under L breast) - Extremities Extremities: Other (Area of redness and swelling to her right leg) - Neuro Neuro: Alert and oriented X 3, art critic 2-12 intact, No motor deficit, No sensory deficit, Normal speech Results - Vitals Vitals: Vital Signs - 24 hr 02/02/23 02/02/23 02/02/23 19:06 21:24 22:18 Temperature 36.4 C L Heart Rate 74 119 H 112 H Respiratory 20 18 23 Rate Blood Pressure 114/61 102/71 124/61 O2 Saturation 94 96 98 Oxygen O2 Source Room air - EKG (time done) 1999 EKG releavant findings:: EKG personally interpreted by author of this note. Relevant findings are: Rate 110, atrial fibrillation, no STEMI, Rate: Rate (enter#) (110) Rhythm: Atrial fibrillation Ischemia: No: ST elevation c/w ischemia - Labs Labs: Microbiology 02/02/23 22:09 Wound Culture - Preliminary Leg - Right Laboratory Tests 02/02/23 02/02/23 02/02/23 19:33 19:33 19:33 WBC 6.9 RBC 3.62 L Hgb 10.4 L Hct 34.6 L MCV 95.6 MCH 28.7 MCHC 30.1 L RDW 16.1 H Plt Count 149 MPV 10.5 Neut # (Auto) 4.2 Lymph # (Auto) 1.3 L Dickey # (Auto) 1.1 H Eos # (Auto) 0.2 Baso # (Auto) 0.1 Absolute Nucleated RBC 0.00 Nucleated RBC % 0.0 Sodium 135 Potassium 4.4 Chloride 106 Carbon Dioxide 21 Anion Gap 8.0 BUN 43 H Creatinine 1.7 H Estimated GFR (MDRD) 30 L Glucose 119 H Lactic Acid Calcium 8.8 Total Bilirubin 1.2 H AST 21 ALT 13 Alkaline Phosphatase 168 H B-Natriuretic Peptide 1237 H Total Protein 8.0 Albumin 3.1 L Globulin 4.9 H Albumin/Globulin Ratio 0.6 L 02/02/23 19:51 WBC RBC Hgb Hct MCV MCH MCHC RDW Plt Count MPV Neut # (Auto) Lymph # (Auto) Dickey # (Auto) Eos # (Auto) Baso # (Auto) Absolute Nucleated RBC Nucleated RBC % Sodium Potassium Chloride Carbon Dioxide Anion Gap BUN Creatinine Estimated GFR (MDRD) Glucose Lactic Acid 3.1 H* Calcium Total Bilirubin AST ALT Alkaline Phosphatase B-Natriuretic Peptide Total Protein Albumin Globulin Albumin/Globulin Ratio PD Medical Decision Making - ED course Complexity details: reviewed results, re-evaluated patient, d/w patient, d/w family ED course: Patient is a 72-year-old female presenting for evaluation of generalized weakness.She recently sustained a burn to her left breast from spilled hot chocolate. There is no current blister present. There does appear to be a superimposed infection to the area along with an area of cellulitis to the right lower extremity. I do not see evidence of abscess or deep space infection. She has been compliant with her Eliquis so I feel DVT is less likely. She is in A- fib which at times has elevated rates and seems to be responding to IV fluids. She is afebrile. Her labs are reviewed and significant for mild DUGLAS with a creatinine of 1.7 from her baseline closer to 1. She additionally has an elevated lactic of 3.1.Her hemoglobin is slightly lower than her baseline of 12.I reviewed her chest x-ray and do not see signs of an infiltrate. There is evidence of congestive heart failure. Her BNP is also slightly elevated from prior labs. I do believe she needs fluids due to decreased p.o. intake, I do not think she needs a full 30 cc/kg bolus at this time. I have also started her on cefepime and vancomycin. I have discussed the case with the on-call telehospitalist given that the patient meets sepsis criteria and feel she would benefit from IV antibiotics And further treatment. Departure - Departure Disposition: [facility] DC/Xfer Clinical Impression: Cellulitis of right leg without foot, Acute worsening of stage 3 chronic kidney disease, Burn of breast, left, second degree, Cellulitis of left breast Condition: Stable Discharge Date/Time: 02/02/23 23:31
[2023-02-02] MEDS ORDERED: VANCOMYCIN INJ 2 GM in SODIUM CHLORIDE 0.9% 500 ML IV STA (21:53)
[2023-02-02] MEDS ORDERED: VANCOMYCIN 1 GM VIAL ONE (22:16)
[2023-02-02] MEDS ORDERED: ONDANSETRON 4 MG/2 ML VIAL IVP PRN (22:19)
[2023-02-02] MEDS ORDERED: ACETAMINOPHEN 325 MG TABLET PO PRN (22:19)
[2023-02-02] MEDS ORDERED: SODIUM CHLORIDE FLUSH 0.9% 10 ML SYRINGE IVP PRN (22:19)
[2023-02-02] MEDS ORDERED: ONDANSETRON ODT 4 MG TABLET TL PRN (22:19)
[2023-02-02] MEDS ORDERED: oxyCODONE 5 MG TABLET PO PRN ×2 (22:19→22:25)
--- NOTE | 2023-02-02 22:35 | HISTORY & PHYSICAL EXAMINATION ---
Chief Complaint - Chief Complaint Chief Complaint: Weakness History of Present Illness - Admitted From Admitted From:: ER - History Obtained From Records Reviewed: Yes History obtained from: Pt, staff, chart - History of Present Illness HPI Comment/Other: 72 yo F with h/o DM type 2, HTN, HLD, HFpEF, Atrial Fibrillation on Eliquis, CKD stage 3, Hypothyroidism presented to the ER with c/o 3 day h/o weakness, fatigue. Pt sustained a burn to her L chest 1 week ago by spilling hot chocolate over it. She noted redness and a blister. A couple of days later, her cat jumped onto the blister and popped it. Since then, the redness and swelling have incr eased. She also has redness, swelling to RLE, which she says is new. No trauma/injury to RLE. Pt has been feeling tired, weak for about 3 days with decreased PO appetite. No F/C. No abdo pain/N/V/D. +dry cough x 2 weeks, no sputum. In the ER, BP 102/71, HR 110, Hgb 10.4, CR 1.7, BNP 1237, LA 3.1, BC pending, Wound Cx pending. CXR: CMG, interstitial vascular congestion. Pt was given TDap, IVF, Cefepime, and Vancomycin IV in the ER. 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 Mom at age 69 of emphysema. 2 brothers have diabetes, one has high blood pressure. 2 daughters. One daughter has complications of lupus with cardiomyopathy and vasculitis Living Situation: With spouse/s.o. Social History Notes: She was born on [facility]. Born in this hospital. She met a marine [place] the [place] when he was deployed here. They left to travel all over the [place] where he was stationed. They had 2 children together and one stepchild from him. 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 They moved back to [facility] in around 1985 and they have lived here since. Right now she helps take care of her grandkids. Her disabled daughter lives with her. The daughter is still independent with regards to her activities of daily living. Her endurance is just not so great. She started smoking at about age 30 and smoked up to 2 packs/day for 5 years only. She never had a problem with alcohol abuse. She has no history of other recreational substance abuse. - Substance History Use: Uses substance without health or social issues: NONE - POLST Patient has POLST: No POLST Status: Full Code (However, if there is irreversible brain damage she does not want to be resuscitated. Or if resuscitation will result in life support that will be chronic, she is wants us to let her go) Meds/Allgy - Home Medications Home Medications: Ambulatory Orders Medication Instructions Recorded Confirmed Atorvastatin [Lipitor] 10 mg PO QPM 08/27/18 10/29/22 Doxepin HCl 75 mg PO QPM 08/27/18 10/29/22 Metformin HCl 500 mg PO BID 08/27/18 10/29/22 Apixaban [Eliquis] 5 mg PO BID #60 tablet 08/28/18 10/29/22 Metoprolol Succinate [Toprol Xl] 200 mg PO BID 06/09/19 10/29/22 Acetaminophen [Tylenol] 325 - 650 mg PO Q4H PRN 07/31/19 10/29/22 Levothyroxine Sodium [Synthroid] 250 mcg PO QDAC 07/31/19 10/29/22 hydroCHLOROthiazide 25 mg PO DAILY 07/31/19 10/29/22 [Hydrochlorothiazide] Dulaglutide [Trulicity] 1.5 mg SQ .Q7DAY 10/15/22 10/29/22 Fluticasone [Flonase] 1 sprays SAIMA DAILY 10/15/22 10/29/22 Cholecalciferol [Vitamin D3] 25 mcg PO DAILY #30 tab 10/28/22 10/29/22 Lactobacillus Acidophilus 1 each PO DAILY #7 cap 10/28/22 10/29/22 [Acidophilus Lactobacilli] Multivitamin W/Minerals [Theragran 1 tab PO DAILYWM #30 tab 10/28/22 10/29/22 M] Nystatin [Nystop] 1 applic TOP BID each 10/28/22 10/29/22 diltiaZEM CD [Cardizem Cd] 240 mg PO DAILY #30 cap 10/28/22 10/29/22 levoFLOXacin [Levaquin] 750 mg PO DAILY 7 Days #21 tablet 10/28/22 10/29/22 oxyCODONE [Roxicodone] 5 mg PO Q6HR PRN #10 tab 10/28/22 10/29/22 Potassium Chloride [Klor-Con M10] 10 meq PO DAILY 10/29/22 10/29/22 - Allergies Allergies/Adverse Reactions: Allergies Allergy/AdvReac Type Severity Reaction Status Date / Time Penicillins Allergy Rash Verified 02/02/23 19:14 Sulfa (Sulfonamide Allergy Unknown Verified 02/02/23 19:14 Antibiotics) Review of Systems - All Other Systems All Other Systems: reports: Reviewed and negative Exam - Vital Signs Reviewed Vital Signs: Yes Vital Signs: Vital Signs x48h Temp Pulse Resp BP Pulse Ox 02/02/23 22:18 112 H 23 124/61 98 02/02/23 21:24 119 H 18 102/71 96 02/02/23 19:06 36.4 C L 74 20 114/61 94 - Physical Exam General Appearance: positive: No acute distress, Alert, Other (Exam done by Access cart, but stethoscope not working) Eyes Bilateral: positive: Normal inspection, EOMI, No scleral icterus ENT: positive: ENT inspection nml Respiratory: positive: No respiratory distress, Other ( Access cart stethoscope not working; per ER Provider: CTA B/L) Cardiovascular: positive: Other (Access cart stethoscope not working; per ER Provider: Irreg Irreg, no murmurs) Rectal: positive: Other (per ER Provider: non-distended, NT, Soft) Skin: positive: Other (+erythema L breast, no blister) Extremities: positive: Other (+area of redness/swelling medial lower RLE) Neurologic/Psychiatric: positive: Oriented x3, CN's nml (2-12) Conclusion/Plan - Problem List (1) Cellulitis Conclusion/Plan: Cellulitis L breast Cellulitis RLE Weakness Fatigue Decreased PO intake Tachycardia Lactic acidosis -BP 102/71, HR 110, LA 3.1, BC pending, Wound Cx pending. -Pt was given TDap, IVF, Cefepime, and Vancomycin IV in the ER -Wound care consult -continue Cefepime/Vanco; pharmacy consult for Vancomycin dosing DM type 2 -accuchecks, SS Insulin, Hypoglycemic protocol -hold home medications: Trulicity, Metformin HTN HLD HFpEF Atrial Fibrillation on Eliquis -BNP 1237 -CXR: CMG, interstitial vascular congestion. -continue home medications: Eliquis, Diltiazem -hold home medications: HCTZ d/t DUGLAS, Metoprolol d/t low BP in setting of infection DUGLAS CKD stage 3 -CR 1.7; baseline 1 -cautious IVF -avoid nephrotoxins -hold home medications: HCTZ Anemia, normocytic -Hgb 10.4; baseline 12 -check B12/Folate, iron studies Hypothyroidism -continue home medications: Levothyroxine Obesity -complicates care VTE Prophylaxis: Eliquis Code Status: Full Code -Juliana Gandhi MD Hospitalist - Lab Results Fish Bones: 02/02/23 19:33 02/02/23 19:33
[2023-02-02] MEDS ORDERED: SODIUM CHLORIDE 0.9% 1,000 ML IV SCH (23:00)
[2023-02-02 23:24] LABS: LACTIC ACID, VENOUS 2.9 mmol/L (0.5-2.2)
[2023-02-03] MEDS: SODIUM CHLORIDE FLUSH 0.9% 10 ML SYRINGE IVP SCH ×3 (00:47→17:34)
[2023-02-03 05:21] LABS: BASOPHILS # (AUTO) 0.1 10^3/uL (0.0-0.1); BASOPHILS % (AUTO) 0.7 %; EOSINOPHILS # (AUTO) 0.3 10^3/uL (0.0-0.7); EOSINOPHILS % (AUTO) 3.1 %; HCT - HEMATOCRIT 36.2 % (37.0-47.0); HGB - HEMOGLOBIN 11.4 g/dL (12.0-16.0); LYMPHOCYTES # (AUTO) 1.3 10^3/uL (1.5-3.5); LYMPHOCYTES % (AUTO) 15.4 %; MEAN CORPUSCULAR HEMOGLOBIN 29.5 pg (27.0-31.0); MEAN CORPUSCULAR HGB CONC 31.5 g/dL (32.0-36.0); MEAN CORPUSCULAR VOLUME 93.5 fL (81.0-99.0); MEAN PLATELET VOLUME 10.1 fL (7.9-10.8); MONOCYTES # (AUTO) 1.3 10^3/uL (0.0-1.0); MONOCYTES % (AUTO) 15.4 %; NEUTROPHILS # (AUTO) 5.3 10^3/uL (1.5-6.6); NRBC ABSOLUTE COUNT (AUTO) 0.02 x10^3/uL; NUCLEATED RED BLOOD CELLS AUTO 0.2 /100WBC; PLT - PLATELET COUNT 143 10^3/uL (130-450); RED BLOOD COUNT 3.87 10^6/uL (4.20-5.40); RED CELL DISTRIBUTION WIDTH 16.4 % (12.0-15.0); WHITE BLOOD COUNT 8.2 x10^3/uL (4.8-10.8)
[2023-02-03 05:35] LABS: LACTIC ACID, VENOUS 3.3 mmol/L (0.5-2.2)
[2023-02-03 05:51] LABS: CALCIUM 9.4 mg/dL (8.5-10.3); CREATININE 1.6 mg/dL (0.4-1.0); POTASSIUM 4.7 mmol/L (3.5-5.0)
[2023-02-03] MEDS ORDERED: SODIUM CHLORIDE 0.9% 1,000 ML IV SCH (06:05)
[2023-02-03 06:15] LABS: % IRON SATURATION 9 % (20-50); IRON 37 ug/dL (28-170); TOTAL IRON BINDING CAPACITY 392 ug/dL (250-450); TRANSFERRIN 280 mg/dL (192-382)
[2023-02-03] MEDS: LEVOTHYROXINE 125 MCG TABLET PO SCH (06:21)
[2023-02-03] MEDS ORDERED: ZINC OXIDE 20% OINT 30 GM TUBE TOP PRN (06:32)
[2023-02-03 06:34] LABS: BILIRUBIN,URINE NEGATIVE (NEGATIVE); GLUCOSE, URINE (UA) NEGATIVE (NEGATIVE); KETONES,URINE (UA) NEGATIVE (NEGATIVE); LEUKOCYTE ESTERASE, URINE NEGATIVE (NEGATIVE); NITRITE,URINE NEGATIVE (NEGATIVE); OCCULT BLOOD,URINE NEGATIVE (NEGATIVE); PH,URINE 5.5 PH (5.0-7.5); PROTEIN,URINE 30 mg/dL (NEGATIVE); UROBILINOGEN,URINE 0.2 (NORMAL) E.U./dL (NORMAL)
[2023-02-03 06:41] LABS: BACTERIA,URINE Rare /HPF (None Seen); CASTS, URINE 0-2 Hyaline Casts /LPF; CLARITY,URINE CLEAR (CLEAR); RBC,URINE 0-5 /HPF (0-5); SQUAMOUS EPITHELIAL CELL,UR RARE Squamous (<= Few); WBC,URINE 0-3 /HPF (0-5)
[2023-02-03 06:57] LABS: FERRITIN 65.5 ng/mL (11.0-306.8)
[2023-02-03] MEDS ORDERED: LEVOTHYROXINE SODIUM 200 MCG PO SCH (07:00)
[2023-02-03 07:01] LABS: FOLATE 4.76 ng/mL (5.90 - >24.8)
[2023-02-03 08:10] LABS: ESTIMATED AVERAGE GLUCOSE 114 mg/dL (70-100); HEMOGLOBIN A1c% 5.6 % (4.27-6.07)
[2023-02-03] MEDS: INSULIN LISPRO 300 UNIT/3 ML PEN SUBQ SCH ×4 (08:32→20:45)
[2023-02-03] MEDS: NYSTATIN POWDER 15 GM TOP SCH ×2 (08:35→20:44)
[2023-02-03] MEDS: APIXABAN 5 MG TABLET PO SCH ×2 (08:35→20:46)
[2023-02-03] MEDS: LACTOBACILLUS RHAMNOSUS GG CAPSULE PO SCH (08:35)
[2023-02-03] MEDS ORDERED: diltiaZEM CD 240 MG CAPSULE PO SCH (09:00)
[2023-02-03] MEDS: diltiaZEM CD 120 MG CAPSULE PO SCH ×2 (09:08→20:46)
[2023-02-03] MEDS: NYSTATIN CREAM 15 GM TUBE TOP SCH ×2 (09:13→20:47)
--- NOTE | 2023-02-03 10:37 | PHARMACY PROGRESS NOTE ---
- Best Possible Medication History Admit Date and Time: 02/02/232219 Processed by: Pharmacy Medication History completed: Yes Patient Interview: Completed Secondary Source(s): Prescription bottles, Pharmacy records (Pt doesn't know meds. [place] As the person ultimately responsible for medication therapy, providers are able to order a medication from an existing home medication list in [facility] via the "Reconcile Routine" prior to Confirmation of that medication by administrative support manager. Such practice is discouraged except when the physician, in their clinical judgment, deems that a medical need exists for a medication without regard to previous use.
[2023-02-03] MEDS ORDERED: DOXEPIN 25 MG CAPSULE PO PRN (11:56)
[2023-02-03] MEDS ORDERED: DIGOXIN 500 MCG/2 ML AMP IVP STA (11:56)
[2023-02-03] MEDS ORDERED: SODIUM CHLORIDE 0.9% 500 ML IV ONE (12:15)
[2023-02-03] MEDS: DEXTROSE 5%-0.9% NACL 1,000 ML IV SCH (13:03)
--- NOTE | 2023-02-03 17:24 | PROVIDER PROGRESS NOTE ---
Subjective - Subjective Pt reports feeling: Improved Subjective: She feels less weak. Her mouth is so dry, that she notices slower speech, she says. Her is at bedside, and he says he was not home the past week (was in [place]), so she worsened with weakness and the R leg redness and the new L breast skin burn, now skin tear, after her cat scratched the blister and to opened. Objective - Vital Signs/Intake & Output Reviewed Vital Signs: Yes Vital Signs: Vital Signs Pulse Resp BP BP Pulse Ox 02/03/23 17:00 88 20 118/75 96 02/03/23 16:00 90 17 108/68 95 02/03/23 15:00 92 21 105/84 H 97 02/03/23 14:00 106 H 25 H 108/72 94 Intake & Output: Intake & Output 01/31/23 02/01/23 02/02/23 02/04/23 23:59 23:59 23:59 00:59 Intake Total 1100 1012 Output Total 975 Balance 1100 37 - Objective General Appearance: positive: No acute distress, Lethargic Eyes Bilateral: positive: Other (Bilateral severe ptosis) ENT: positive: Dry mucous membranes (severely dry mouth) Neck: positive: Nml inspection Respiratory: positive: No respiratory distress, Breath sounds nml Cardiovascular: positive: Regular rate & rhythm, No murmur (distant heart sounds due to obesity) Abdomen: positive: Non-tender, Other (Very obese, very large pannus, hanging down to her knees) Skin: positive: Other (L breast and L nippke have a purulent dressing covering a large skin tear) Extremities: positive: Other (1+ edema L, 2+ edema R leg. R leg is red, warm and has several scabbed ulcers on nik-lateral cavazos) Neurologic/Psychiatric: positive: Oriented x3, Motor nml - Lab Results Fish Bones: 02/06/23 07:28 02/06/23 07:28 Other Labs: Lab Results x24hrs 02/03/23 02/03/23 02/03/23 Range/Units 12:40 08:49 08:49 WBC (4.8-10.8) x10^3/uL RBC (4.20-5.40) 10^6/uL Hgb (12.0-16.0) g/dL Hct (37.0-47.0) % MCV (81.0-99.0) fL MCH (27.0-31.0) pg MCHC (32.0-36.0) g/dL RDW (12.0-15.0) % Plt Count (130-450) 10^3/uL MPV (7.9-10.8) fL Neut # (Auto) (1.5-6.6) 10^3/uL Lymph # (Auto) (1.5-3.5) 10^3/uL Bibb # (Auto) (0.0-1.0) 10^3/uL Eos # (Auto) (0.0-0.7) 10^3/uL Baso # (Auto) (0.0-0.1) 10^3/uL Absolute Nucleated RBC x10^3/uL Nucleated RBC % /100WBC Sodium (135-145) mmol/L Potassium (3.5-5.0) mmol/L Chloride (101-111) mmol/L Carbon Dioxide (21-32) mmol/L Anion Gap (6-13) BUN (6-20) mg/dL Creatinine (0.4-1.0) mg/dL Estimated GFR (MDRD) (>89) Glucose (70-100) mg/dL Estimat Average Glucose (70-100) mg/dL Hemoglobin A1c % (4.27-6.07) % Lactic Acid 2.4 H (0.5-2.2) mmol/L Calcium (8.5-10.3) mg/dL Iron (28-170) ug/dL TIBC (250-450) ug/dL % Saturation (20-50) % Transferrin (192-382) mg/dL Ferritin (11.0-306.8) ng/mL Total Bilirubin (0.2-1.0) mg/dL AST (10-42) IU/L ALT (10-60) IU/L Alkaline Phosphatase (42-121) IU/L Troponin I High Sens 6.6 (2.3-14.8) ng/L B-Natriuretic Peptide (5-100) pg/mL Total Protein (6.7-8.2) g/dL Albumin (3.2-5.5) g/dL Globulin (2.1-4.2) g/dL Albumin/Globulin Ratio (1.0-2.2) Vitamin B12 (180-914) pg/mL Folate (5.90 - >24.8) ng/mL Urine Color Urine Clarity (CLEAR) Urine pH (5.0-7.5) PH Ur Specific [place] (1.002-1.030) Urine Protein (NEGATIVE) mg/dL Urine Glucose (UA) (NEGATIVE) mg/dL Urine Ketones (NEGATIVE) mg/dL Urine Occult Blood (NEGATIVE) Urine Nitrite (NEGATIVE) Urine Bilirubin (NEGATIVE) Urine Urobilinogen (NORMAL) E.U./dL Ur Leukocyte Esterase (NEGATIVE) Urine RBC (0-5) /HPF Urine WBC (0-5) /HPF Ur Squamous Epith Cells (<= Few) Urine Bacteria (None Seen) /HPF Urine Casts /LPF Urine Culture Comments Nasal Screen MRSA (PCR) NEGATIVE (NEGATIVE) 02/03/23 02/03/23 02/03/23 Range/Units 06:26 05:14 05:14 WBC (4.8-10.8) x10^3/uL RBC (4.20-5.40) 10^6/uL Hgb (12.0-16.0) g/dL Hct (37.0-47.0) % MCV (81.0-99.0) fL MCH (27.0-31.0) pg MCHC (32.0-36.0) g/dL RDW (12.0-15.0) % Plt Count (130-450) 10^3/uL MPV (7.9-10.8) fL Neut # (Auto) (1.5-6.6) 10^3/uL Lymph # (Auto) (1.5-3.5) 10^3/uL Bibb # (Auto) (0.0-1.0) 10^3/uL Eos # (Auto) (0.0-0.7) 10^3/uL Baso # (Auto) (0.0-0.1) 10^3/uL Absolute Nucleated RBC x10^3/uL Nucleated RBC % /100WBC Sodium (135-145) mmol/L Potassium (3.5-5.0) mmol/L Chloride (101-111) mmol/L Carbon Dioxide (21-32) mmol/L Anion Gap (6-13) BUN (6-20) mg/dL Creatinine (0.4-1.0) mg/dL Estimated GFR (MDRD) (>89) Glucose (70-100) mg/dL Estimat Average Glucose (70-100) mg/dL Hemoglobin A1c % (4.27-6.07) % Lactic Acid (0.5-2.2) mmol/L Calcium (8.5-10.3) mg/dL Iron (28-170) ug/dL TIBC (250-450) ug/dL % Saturation (20-50) % Transferrin (192-382) mg/dL Ferritin 65.5 (11.0-306.8) ng/mL Total Bilirubin (0.2-1.0) mg/dL AST (10-42) IU/L ALT (10-60) IU/L Alkaline Phosphatase (42-121) IU/L Troponin I High Sens 12.5 (2.3-14.8) ng/L B-Natriuretic Peptide (5-100) pg/mL Total Protein (6.7-8.2) g/dL Albumin (3.2-5.5) g/dL Globulin (2.1-4.2) g/dL Albumin/Globulin Ratio (1.0-2.2) Vitamin B12 1023 H (180-914) pg/mL Folate 4.76 L (5.90 - >24.8) ng/mL Urine Color YELLOW Urine Clarity CLEAR (CLEAR) Urine pH 5.5 (5.0-7.5) PH Ur Specific [place] 1.025 (1.002-1.030) Urine Protein 30 H (NEGATIVE) mg/dL Urine Glucose (UA) NEGATIVE (NEGATIVE) mg/dL Urine Ketones NEGATIVE (NEGATIVE) mg/dL Urine Occult Blood NEGATIVE (NEGATIVE) Urine Nitrite NEGATIVE (NEGATIVE) Urine Bilirubin NEGATIVE (NEGATIVE) Urine Urobilinogen 0.2 (NORMAL) (NORMAL) E.U./dL Ur Leukocyte Esterase NEGATIVE (NEGATIVE) Urine RBC 0-5 (0-5) /HPF Urine WBC 0-3 (0-5) /HPF Ur Squamous Epith Cells RARE Squamous (<= Few) Urine Bacteria Rare (None Seen) /HPF Urine Casts 0-2 Hyaline Casts /LPF Urine Culture Comments NOT INDICATED Nasal Screen MRSA (PCR) (NEGATIVE) 0302/03/23 02/03/23 Range/Units 05:14 05:14 05:09 WBC (4.8-10.8) x10^3/uL RBC (4.20-5.40) 10^6/uL Hgb (12.0-16.0) g/dL Hct (37.0-47.0) % MCV (81.0-99.0) fL MCH (27.0-31.0) pg MCHC (32.0-36.0) g/dL RDW (12.0-15.0) % Plt Count (130-450) 10^3/uL MPV (7.9-10.8) fL Neut # (Auto) (1.5-6.6) 10^3/uL Lymph # (Auto) (1.5-3.5) 10^3/uL Bibb # (Auto) (0.0-1.0) 10^3/uL Eos # (Auto) (0.0-0.7) 10^3/uL Baso # (Auto) (0.0-0.1) 10^3/uL Absolute Nucleated RBC x10^3/uL Nucleated RBC % /100WBC Sodium 141 (135-145) mmol/L Potassium 4.7 (3.5-5.0) mmol/L Chloride 111 (101-111) mmol/L Carbon Dioxide 19 L (21-32) mmol/L Anion Gap 11.0 (6-13) BUN 44 H (6-20) mg/dL Creatinine 1.6 H (0.4-1.0) mg/dL Estimated GFR (MDRD) 32 L (>89) Glucose 86 (70-100) mg/dL Estimat Average Glucose (70-100) mg/dL Hemoglobin A1c % (4.27-6.07) % Lactic Acid 3.3 H* (0.5-2.2) mmol/L Calcium 9.4 (8.5-10.3) mg/dL Iron 37 (28-170) ug/dL TIBC 392 (250-450) ug/dL % Saturation 9 L (20-50) % Transferrin 280 (192-382) mg/dL Ferritin (11.0-306.8) ng/mL Total Bilirubin (0.2-1.0) mg/dL AST (10-42) IU/L ALT (10-60) IU/L Alkaline Phosphatase (42-121) IU/L Troponin I High Sens (2.3-14.8) ng/L B-Natriuretic Peptide (5-100) pg/mL Total Protein (6.7-8.2) g/dL Albumin (3.2-5.5) g/dL Globulin (2.1-4.2) g/dL Albumin/Globulin Ratio (1.0-2.2) Vitamin B12 (180-914) pg/mL Folate (5.90 - >24.8) ng/mL Urine Color Urine Clarity (CLEAR) Urine pH (5.0-7.5) PH Ur Specific [place] (1.002-1.030) Urine Protein (NEGATIVE) mg/dL Urine Glucose (UA) (NEGATIVE) mg/dL Urine Ketones (NEGATIVE) mg/dL Urine Occult Blood (NEGATIVE) Urine Nitrite (NEGATIVE) Urine Bilirubin (NEGATIVE) Urine Urobilinogen (NORMAL) E.U./dL Ur Leukocyte Esterase (NEGATIVE) Urine RBC (0-5) /HPF Urine WBC (0-5) /HPF Ur Squamous Epith Cells (<= Few) Urine Bacteria (None Seen) /HPF Urine Casts /LPF Urine Culture Comments Nasal Screen MRSA (PCR) (NEGATIVE) 02/03/23 02/02/23 02/02/23 Range/Units 05:09 23:07 23:07 WBC 8.2 (4.8-10.8) x10^3/uL RBC 3.87 L (4.20-5.40) 10^6/uL Hgb 11.4 L (12.0-16.0) g/dL Hct 36.2 L (37.0-47.0) % MCV 93.5 (81.0-99.0) fL MCH 29.5 (27.0-31.0) pg MCHC 31.5 L (32.0-36.0) g/dL RDW 16.4 H (12.0-15.0) % Plt Count 143 (130-450) 10^3/uL MPV 10.1 (7.9-10.8) fL Neut # (Auto) 5.3 (1.5-6.6) 10^3/uL Lymph # (Auto) 1.3 L (1.5-3.5) 10^3/uL Bibb # (Auto) 1.3 H (0.0-1.0) 10^3/uL Eos # (Auto) 0.3 (0.0-0.7) 10^3/uL Baso # (Auto) 0.1 (0.0-0.1) 10^3/uL Absolute Nucleated RBC 0.02 x10^3/uL Nucleated RBC % 0.2 /100WBC Sodium (135-145) mmol/L Potassium (3.5-5.0) mmol/L Chloride (101-111) mmol/L Carbon Dioxide (21-32) mmol/L Anion Gap (6-13) BUN (6-20) mg/dL Creatinine (0.4-1.0) mg/dL Estimated GFR (MDRD) (>89) Glucose (70-100) mg/dL Estimat Average Glucose 114 H (70-100) mg/dL Hemoglobin A1c % 5.6 (4.27-6.07) % Lactic Acid 2.9 H (0.5-2.2) mmol/L Calcium (8.5-10.3) mg/dL Iron (28-170) ug/dL TIBC (250-450) ug/dL % Saturation (20-50) % Transferrin (192-382) mg/dL Ferritin (11.0-306.8) ng/mL Total Bilirubin (0.2-1.0) mg/dL AST (10-42) IU/L ALT (10-60) IU/L Alkaline Phosphatase (42-121) IU/L Troponin I High Sens (2.3-14.8) ng/L B-Natriuretic Peptide (5-100) pg/mL Total Protein (6.7-8.2) g/dL Albumin (3.2-5.5) g/dL Globulin (2.1-4.2) g/dL Albumin/Globulin Ratio (1.0-2.2) Vitamin B12 (180-914) pg/mL Folate (5.90 - >24.8) ng/mL Urine Color Urine Clarity (CLEAR) Urine pH (5.0-7.5) PH Ur Specific [place] (1.002-1.030) Urine Protein (NEGATIVE) mg/dL Urine Glucose (UA) (NEGATIVE) mg/dL Urine Ketones (NEGATIVE) mg/dL Urine Occult Blood (NEGATIVE) Urine Nitrite (NEGATIVE) Urine Bilirubin (NEGATIVE) Urine Urobilinogen (NORMAL) E.U./dL Ur Leukocyte Esterase (NEGATIVE) Urine RBC (0-5) /HPF Urine WBC (0-5) /HPF Ur Squamous Epith Cells (<= Few) Urine Bacteria (None Seen) /HPF Urine Casts /LPF Urine Culture Comments Nasal Screen MRSA (PCR) (NEGATIVE) 02/02/23 02/02/23 02/02/23 Range/Units 19:51 19:33 19:33 WBC (4.8-10.8) x10^3/uL RBC (4.20-5.40) 10^6/uL Hgb (12.0-16.0) g/dL Hct (37.0-47.0) % MCV (81.0-99.0) fL MCH (27.0-31.0) pg MCHC (32.0-36.0) g/dL RDW (12.0-15.0) % Plt Count (130-450) 10^3/uL MPV (7.9-10.8) fL Neut # (Auto) (1.5-6.6) 10^3/uL Lymph # (Auto) (1.5-3.5) 10^3/uL Bibb # (Auto) (0.0-1.0) 10^3/uL Eos # (Auto) (0.0-0.7) 10^3/uL Baso # (Auto) (0.0-0.1) 10^3/uL Absolute Nucleated RBC x10^3/uL Nucleated RBC % /100WBC Sodium 135 (135-145) mmol/L Potassium 4.4 (3.5-5.0) mmol/L Chloride 106 (101-111) mmol/L Carbon Dioxide 21 (21-32) mmol/L Anion Gap 8.0 (6-13) BUN 43 H (6-20) mg/dL Creatinine 1.7 H (0.4-1.0) mg/dL Estimated GFR (MDRD) 30 L (>89) Glucose 119 H (70-100) mg/dL Estimat Average Glucose (70-100) mg/dL Hemoglobin A1c % (4.27-6.07) % Lactic Acid 3.1 H* (0.5-2.2) mmol/L Calcium 8.8 (8.5-10.3) mg/dL Iron (28-170) ug/dL TIBC (250-450) ug/dL % Saturation (20-50) % Transferrin (192-382) mg/dL Ferritin (11.0-306.8) ng/mL Total Bilirubin 1.2 H (0.2-1.0) mg/dL AST 21 (10-42) IU/L ALT 13 (10-60) IU/L Alkaline Phosphatase 168 H (42-121) IU/L Troponin I High Sens (2.3-14.8) ng/L B-Natriuretic Peptide 1237 H (5-100) pg/mL Total Protein 8.0 (6.7-8.2) g/dL Albumin 3.1 L (3.2-5.5) g/dL Globulin 4.9 H (2.1-4.2) g/dL Albumin/Globulin Ratio 0.6 L (1.0-2.2) Vitamin B12 (180-914) pg/mL Folate (5.90 - >24.8) ng/mL Urine Color Urine Clarity (CLEAR) Urine pH (5.0-7.5) PH Ur Specific [place] (1.002-1.030) Urine Protein (NEGATIVE) mg/dL Urine Glucose (UA) (NEGATIVE) mg/dL Urine Ketones (NEGATIVE) mg/dL Urine Occult Blood (NEGATIVE) Urine Nitrite (NEGATIVE) Urine Bilirubin (NEGATIVE) Urine Urobilinogen (NORMAL) E.U./dL Ur Leukocyte Esterase (NEGATIVE) Urine RBC (0-5) /HPF Urine WBC (0-5) /HPF Ur Squamous Epith Cells (<= Few) Urine Bacteria (None Seen) /HPF Urine Casts /LPF Urine Culture Comments Nasal Screen MRSA (PCR) (NEGATIVE) 02/02/23 Range/Units 19:33 WBC 6.9 (4.8-10.8) x10^3/uL RBC 3.62 L (4.20-5.40) 10^6/uL Hgb 10.4 L (12.0-16.0) g/dL Hct 34.6 L (37.0-47.0) % MCV 95.6 (81.0-99.0) fL MCH 28.7 (27.0-31.0) pg MCHC 30.1 L (32.0-36.0) g/dL RDW 16.1 H (12.0-15.0) % Plt Count 149 (130-450) 10^3/uL MPV 10.5 (7.9-10.8) fL Neut # (Auto) 4.2 (1.5-6.6) 10^3/uL Lymph # (Auto) 1.3 L (1.5-3.5) 10^3/uL Bibb # (Auto) 1.1 H (0.0-1.0) 10^3/uL Eos # (Auto) 0.2 (0.0-0.7) 10^3/uL Baso # (Auto) 0.1 (0.0-0.1) 10^3/uL Absolute Nucleated RBC 0.00 x10^3/uL Nucleated RBC % 0.0 /100WBC Sodium (135-145) mmol/L Potassium (3.5-5.0) mmol/L Chloride (101-111) mmol/L Carbon Dioxide (21-32) mmol/L Anion Gap (6-13) BUN (6-20) mg/dL Creatinine (0.4-1.0) mg/dL Estimated GFR (MDRD) (>89) Glucose (70-100) mg/dL Estimat Average Glucose (70-100) mg/dL Hemoglobin A1c % (4.27-6.07) % Lactic Acid (0.5-2.2) mmol/L Calcium (8.5-10.3) mg/dL Iron (28-170) ug/dL TIBC (250-450) ug/dL % Saturation (20-50) % Transferrin (192-382) mg/dL Ferritin (11.0-306.8) ng/mL Total Bilirubin (0.2-1.0) mg/dL AST (10-42) IU/L ALT (10-60) IU/L Alkaline Phosphatase (42-121) IU/L Troponin I High Sens (2.3-14.8) ng/L B-Natriuretic Peptide (5-100) pg/mL Total Protein (6.7-8.2) g/dL Albumin (3.2-5.5) g/dL Globulin (2.1-4.2) g/dL Albumin/Globulin Ratio (1.0-2.2) Vitamin B12 (180-914) pg/mL Folate (5.90 - >24.8) ng/mL Urine Color Urine Clarity (CLEAR) Urine pH (5.0-7.5) PH Ur Specific [place] (1.002-1.030) Urine Protein (NEGATIVE) mg/dL Urine Glucose (UA) (NEGATIVE) mg/dL Urine Ketones (NEGATIVE) mg/dL Urine Occult Blood (NEGATIVE) Urine Nitrite (NEGATIVE) Urine Bilirubin (NEGATIVE) Urine Urobilinogen (NORMAL) E.U./dL Ur Leukocyte Esterase (NEGATIVE) Urine RBC (0-5) /HPF Urine WBC (0-5) /HPF Ur Squamous Epith Cells (<= Few) Urine Bacteria (None Seen) /HPF Urine Casts /LPF Urine Culture Comments Nasal Screen MRSA (PCR) (NEGATIVE) Sepsis Event Note (H) - Evaluation Current Stage of Sepsis: Sepsis Possible source of Sepsis: positive: Skin/soft tissue - Sepsis Criteria Sepsis Criteria: Recorded Heart Rate greater than 90 bpm, WBC count greater than 12,000 or less than 4000, SBP less than 90 mmHg, Metabolic: lactate > 2 mmol/L Assessment/Plan - Problem List (1) Sepsis Impression: She has hypotension, tachycardia, elevated white blood count, elevated lactic acid level and the source of infection appears to be cellulitis (breast and leg are both suspected sites). Because of her hypotension and tachycardia, she needs IV fluids however this needs to be given gingerly because of her history of heart failure. Plan: Transfer to the ICU, on telemetry Continue with IV fluids, rate of 83.33/h Follow her lactic acid level to assure it is improving Continue with IV antibiotics Await blood culture results We will obtain culture of the drainage from the left breast which was not ordered 2) Cellulitis L breast It appears she has possible cellulitis of the L breast given the skin tear, redness, plus purulence. Plan: Continue empiric IV antibx We will obtain culture of the drainage from the left breast which was not ordered Will order consult from [facility] provider (but today is [facility] and Wound provider not here until tomorrow, Mon). 3) Open wounds of right lower extremity with complication This is a recurrent location causing cellulitis for this patient Plan: Continue with IV antibiotics Await blood culture results to tailor antibx choice Will order consult from [facility] 4) A-fib with RVR This is likely from her sepsis and dehydration, as she has continued to take all her meds. Plan: Will transfer to the ICU, on telemetry Continue with IV fluids, rate of 83.33/h Will resume her home meds slowly, when her low BP will allow Continue her DOAC 5) Dehydration She has a severely dry mouth. The sepsis is causing this dehydration. Plan: IV fluids for rehydration. Continue her oral diet as well. 6) Hypoglycemia She had a low glu, needed glu replaced. It could be from taking Metformin plus her weekly Trulicity, while her po intake decreased while feeling ill. Plan: No Metformin or Trulicity will be ordered here Diabetic diet, hypoglycemia protocol ordered, fingerstick glu checks and only sliding scale Insuin coverage right now 7) Diabetes mellitus type II As per Hx. She takes Metformin plus her weekly Trulicity, at home. Plan: Diabetic diet, hypoglycemia protocol ordered, fingerstick glu checks and only sliding scale Insuin coverage right now Check her A1c 8) Acute urinary retention She had >300 cc on a bladder scan, when she could not urinate Plan: Straight cath prn ordered 9) Weakness She presented in a similar way when she had sepsis from cellulitis at the last admission here about 5 mos ago. Plan: Eventually will order PT and OT eval, but not while she is hypotensive. 10) Chronic diastolic heart failure Her last Echo here showed preserved LVEF and diastolic dysfunction. Currently, she is not volume overloaded and is not euvolemic, but is very dehydrated, clinically noted with her severly dry mouth, that she notices slower speech, she said. Plan: Will give iv fluids gingerly, to avoid volume overload. Because of hypotension, she has a narrow range of proper intravascular volume, therefore she is being transferred right now from [facility] to ICU for closer monitoring. Qualifiers: Sepsis type: sepsis due to unspecified organism Qualified Code(s): A41.9 - Sepsis, unspecified organism
[2023-02-03] MEDS: CEFEPIME 2 GM in SODIUM CHLORIDE 0.9% MINIBAG 100 ML IV SCH (20:45)
[2023-02-03] MEDS: FAMOTIDINE 20 MG TABLET PO SCH (20:46)
[2023-02-03] MEDS: ATORVASTATIN 10 MG TABLET PO SCH (20:46)
[2023-02-03] MEDS ORDERED: DOXEPIN 25 MG CAPSULE PO SCH (21:00)
[2023-02-04] MEDS: SODIUM CHLORIDE FLUSH 0.9% 10 ML SYRINGE IVP SCH ×3 (00:42→21:08)
[2023-02-04] MEDS: DEXTROSE 5%-0.9% NACL 1,000 ML IV SCH ×2 (01:52→14:00)
[2023-02-04 05:16] LABS: BASOPHILS % (AUTO) 0.4 %; EOSINOPHILS # (AUTO) 0.4 10^3/uL (0.0-0.7); EOSINOPHILS % (AUTO) 5.1 %; HCT - HEMATOCRIT 33.3 % (37.0-47.0); HGB - HEMOGLOBIN 10.4 g/dL (12.0-16.0); LYMPHOCYTES % (AUTO) 14.7 %; MEAN CORPUSCULAR HEMOGLOBIN 29.6 pg (27.0-31.0); MEAN CORPUSCULAR HGB CONC 31.2 g/dL (32.0-36.0); MEAN CORPUSCULAR VOLUME 94.9 fL (81.0-99.0); MEAN PLATELET VOLUME 10.4 fL (7.9-10.8); MONOCYTES # (AUTO) 0.8 10^3/uL (0.0-1.0); MONOCYTES % (AUTO) 11.9 %; NEUTROPHILS # (AUTO) 4.6 10^3/uL (1.5-6.6); NEUTROPHILS % (AUTO) 67.6 %; NRBC ABSOLUTE COUNT (AUTO) 0.03 x10^3/uL; NUCLEATED RED BLOOD CELLS AUTO 0.4 /100WBC; PLT - PLATELET COUNT 162 10^3/uL (130-450); RED BLOOD COUNT 3.51 10^6/uL (4.20-5.40); RED CELL DISTRIBUTION WIDTH 16.6 % (12.0-15.0); WHITE BLOOD COUNT 6.9 x10^3/uL (4.8-10.8)
[2023-02-04 05:18] LABS: CALCIUM, IONIZED 1.13 mmol/L (1.15-1.33); VBG PH 7.281 (7.31-7.41)
[2023-02-04 05:31] LABS: CALCIUM 8.2 mg/dL (8.5-10.3); CREATININE 1.5 mg/dL (0.4-1.0); PHOSPHORUS 3.2 mg/dL (2.5-4.6); POTASSIUM 4.4 mmol/L (3.5-5.0)
[2023-02-04] MEDS: LEVOTHYROXINE 125 MCG TABLET PO SCH (06:36)
[2023-02-04] MEDS: PRENATAL VITAMIN TABLET PO SCH (08:37)
[2023-02-04] MEDS: LACTOBACILLUS RHAMNOSUS GG CAPSULE PO SCH (08:37)
[2023-02-04] MEDS: FAMOTIDINE 20 MG TABLET PO SCH ×2 (08:37→21:08)
[2023-02-04] MEDS: diltiaZEM CD 120 MG CAPSULE PO SCH ×2 (08:38→21:13)
[2023-02-04] MEDS: INSULIN LISPRO 300 UNIT/3 ML PEN SUBQ SCH ×4 (08:38→21:12)
[2023-02-04] MEDS: APIXABAN 5 MG TABLET PO SCH ×2 (08:38→21:08)
[2023-02-04] MEDS: NYSTATIN POWDER 15 GM TOP SCH ×2 (09:00→21:07)
[2023-02-04 16:52] LABS: CALCIUM 8.2 mg/dL (8.5-10.3); CREATININE 1.5 mg/dL (0.4-1.0); POTASSIUM 4.3 mmol/L (3.5-5.0)
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
[2023-02-04] MEDS ORDERED: oxyCODONE 5 MG TABLET PO PRN (20:21)
[2023-02-04] MEDS: CEFEPIME 2 GM in SODIUM CHLORIDE 0.9% MINIBAG 100 ML IV SCH (21:08)
[2023-02-04] MEDS: ATORVASTATIN 10 MG TABLET PO SCH (21:08)
[2023-02-04] MEDS: NYSTATIN CREAM 15 GM TUBE TOP SCH ×2 (21:09→21:13)
[2023-02-04] MEDS ORDERED: CALAMINE/ZINC OXIDE 177 ML BOTTLE TOP PRN (21:38)
[2023-02-05] MEDS: SODIUM CHLORIDE FLUSH 0.9% 10 ML SYRINGE IVP SCH ×3 (01:50→16:55)
[2023-02-05] MEDS: LEVOTHYROXINE 125 MCG TABLET PO SCH (06:45)
[2023-02-05] MEDS: DEXTROSE 5%-0.9% NACL 1,000 ML IV SCH (06:46)
[2023-02-05 07:47] LABS: BASOPHILS % (AUTO) 0.2 %; EOSINOPHILS # (AUTO) 0.4 10^3/uL (0.0-0.7); EOSINOPHILS % (AUTO) 4.6 %; HCT - HEMATOCRIT 33.1 % (37.0-47.0); HGB - HEMOGLOBIN 10.5 g/dL (12.0-16.0); LYMPHOCYTES # (AUTO) 0.8 10^3/uL (1.5-3.5); LYMPHOCYTES % (AUTO) 9.7 %; MEAN CORPUSCULAR HEMOGLOBIN 29.7 pg (27.0-31.0); MEAN CORPUSCULAR HGB CONC 31.7 g/dL (32.0-36.0); MEAN CORPUSCULAR VOLUME 93.8 fL (81.0-99.0); MEAN PLATELET VOLUME 9.9 fL (7.9-10.8); MONOCYTES # (AUTO) 0.7 10^3/uL (0.0-1.0); MONOCYTES % (AUTO) 8.3 %; NEUTROPHILS # (AUTO) 6.6 10^3/uL (1.5-6.6); NEUTROPHILS % (AUTO) 76.6 %; PLT - PLATELET COUNT 174 10^3/uL (130-450); RED BLOOD COUNT 3.53 10^6/uL (4.20-5.40); RED CELL DISTRIBUTION WIDTH 16.6 % (12.0-15.0); WHITE BLOOD COUNT 8.7 x10^3/uL (4.8-10.8)
[2023-02-05 07:51] LABS: CALCIUM, IONIZED 1.14 mmol/L (1.15-1.33); VBG PH 7.322 (7.31-7.41)
[2023-02-05] MEDS: INSULIN LISPRO 300 UNIT/3 ML PEN SUBQ SCH ×4 (08:00→21:17)
[2023-02-05 08:23] LABS: CREATININE 1.4 mg/dL (0.4-1.0); MAGNESIUM 1.9 mg/dL (1.7-2.8); PHOSPHORUS 2.8 mg/dL (2.5-4.6); POTASSIUM 4.1 mmol/L (3.5-5.0)
[2023-02-05] MEDS: LACTOBACILLUS RHAMNOSUS GG CAPSULE PO SCH (08:56)
[2023-02-05] MEDS: PRENATAL VITAMIN TABLET PO SCH (08:56)
[2023-02-05] MEDS: FAMOTIDINE 20 MG TABLET PO SCH ×2 (08:57→21:16)
[2023-02-05] MEDS: diltiaZEM CD 120 MG CAPSULE PO SCH ×2 (08:57→21:16)
[2023-02-05] MEDS: APIXABAN 5 MG TABLET PO SCH ×2 (08:57→21:16)
[2023-02-05] MEDS: NYSTATIN POWDER 15 GM TOP SCH ×2 (09:03→21:16)
[2023-02-05] MEDS ORDERED: HALOPERIDOL 5 MG/ML VIAL IVP STA (14:45)
[2023-02-05] MEDS: NYSTATIN CREAM 15 GM TUBE TOP SCH ×2 (19:27→21:17)
[2023-02-05] MEDS: CEFEPIME 2 GM in SODIUM CHLORIDE 0.9% MINIBAG 100 ML IV SCH (21:15)
[2023-02-05] MEDS: ATORVASTATIN 10 MG TABLET PO SCH (21:16)
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
[2023-02-06] MEDS: DEXTROSE 5%-0.9% NACL 1,000 ML IV SCH ×3 (02:04→20:40)
[2023-02-06] MEDS: SODIUM CHLORIDE FLUSH 0.9% 10 ML SYRINGE IVP SCH ×3 (02:57→20:35)
[2023-02-06] MEDS: LEVOTHYROXINE 125 MCG TABLET PO SCH (07:27)
[2023-02-06 07:40] LABS: BASOPHILS % (AUTO) 0.1 %; EOSINOPHILS # (AUTO) 0.5 10^3/uL (0.0-0.7); EOSINOPHILS % (AUTO) 5.1 %; HCT - HEMATOCRIT 31.4 % (37.0-47.0); HGB - HEMOGLOBIN 9.8 g/dL (12.0-16.0); LYMPHOCYTES # (AUTO) 0.9 10^3/uL (1.5-3.5); LYMPHOCYTES % (AUTO) 9.9 %; MEAN CORPUSCULAR HEMOGLOBIN 29.2 pg (27.0-31.0); MEAN CORPUSCULAR HGB CONC 31.2 g/dL (32.0-36.0); MEAN CORPUSCULAR VOLUME 93.5 fL (81.0-99.0); MEAN PLATELET VOLUME 8.9 fL (7.9-10.8); MONOCYTES # (AUTO) 0.6 10^3/uL (0.0-1.0); NEUTROPHILS % (AUTO) 77.3 %; PLT - PLATELET COUNT 162 10^3/uL (130-450); RED BLOOD COUNT 3.36 10^6/uL (4.20-5.40); RED CELL DISTRIBUTION WIDTH 17.1 % (12.0-15.0)
[2023-02-06 07:50] LABS: CREATININE 1.3 mg/dL (0.4-1.0); POTASSIUM 4.1 mmol/L (3.5-5.0)
[2023-02-06] MEDS: INSULIN LISPRO 300 UNIT/3 ML PEN SUBQ SCH ×4 (08:20→21:36)
[2023-02-06] MEDS: NYSTATIN CREAM 15 GM TUBE TOP SCH ×2 (08:29→21:54)
[2023-02-06] MEDS: LACTOBACILLUS RHAMNOSUS GG CAPSULE PO SCH (08:29)
[2023-02-06] MEDS: APIXABAN 5 MG TABLET PO SCH ×2 (08:29→21:34)
[2023-02-06] MEDS: PRENATAL VITAMIN TABLET PO SCH (08:29)
[2023-02-06] MEDS: FAMOTIDINE 20 MG TABLET PO SCH ×2 (08:29→21:35)
[2023-02-06] MEDS: NYSTATIN POWDER 15 GM TOP SCH ×2 (08:31→21:54)
[2023-02-06] MEDS: diltiaZEM CD 120 MG CAPSULE PO SCH ×2 (08:33→21:34)
--- NOTE | 2023-02-06 20:19 | PROVIDER PROGRESS NOTE ---
Progress Note February 06, 2023 8 PM She initially refused to work with physical therapy. We then reminded her that she promised to work with PT. We need to evaluate whether she is strong enough to go home over that she could needs to go to a residential facility for rehab. was at the bedside today and also coaxed her. Final decision is for her to go to residential facility for rehab after PT work with her second time. There have been no other further episodes. Exam: Temperature 37, heart rate 106, blood pressure 109/51, respirations 20, 100% on room air. 5 feet 3 inches female who is morbidly obese 847.5 kg. Ready face, alert, oriented to place and season of the year but not exactly why she is here. She is insisting that she did not need to be here at all. Neck is supple, no JVD Coarse upper airway sounds but no tachypnea no increased respiratory effort Irregular rate and rhythm. She has been rate controlled until today when she has gone up to 124 this afternoon, it is 106 by late afternoon. She is on Cardizem CD 120 mg p.o. twice daily. At home she takes metoprolol 100 mg p.o. twice daily. Abdomen is obese, soft, large pannus. Hypoactive bowel sounds. Nontender. Traces of Roseann intertrigo in her pannus, and groin. Extremities are with large legs that are Kinkel's, with trace edema. Neurologically oriented to person, place, not necessarily time. Moving all extremities. Has some mild to moderate generalized weakness needing help with transitioning from supine to sitting, sitting to standing. Sodium 139, potassium 4.1, chloride up at 116, anion gap down to 3.0, BUN 32, creatinine 1.3. Glucose 128. White cell count 9.0, hemoglobin 9.8 Platelets 162 Assessment/plan 1. Hyperchloremia with low anion gap. This patient has been intermittently compliant with p.o. intake. Has torn out her IV. I think she may be getting dehydrated. Plan: Increase dextrose 125 cc an hour for the next liter 2. Delirium on February 05. Associated with her stay in the ICU, sepsis, and possible medication reaction. Responded to 1 dose of Haldol. Has not required restraints. Behavior has calmed down today. She is more cooperative. Has made a decision with physical therapy that she will go to residential facility for rehab. 3. A-fib with RVR. On Cardizem CD here, but at home takes metoprolol. I will switch her over to metoprolol since that is her home med. I will stop the Cardizem CD after her 9 PM dose, but give her metoprolol as a 9 PM dose. 4. Type 2 diabetes mellitus. Currently on sliding scale lispro before meals, and D5 to avoid hypoglycemia. Considering her glucose is coming up today, and she is increased her p.o. intake, I will most likely stop the D5 tomorrow. I do want to give her increased IV fluids tonight because of the hyperchloremia and decreased anion gap. When she is transitioned to her residential facility for rehab, I will resume her home Trulicity and metformin. I anticipate discharge would be tomorrow if she is excepted. 5. Chronic diastolic heart failure without exacerbation. Currently euvolemic. No evidence of acute CHF at this time
[2023-02-06] MEDS ORDERED: METOPROLOL TARTRATE 100 MG PO SCH (21:00)
[2023-02-06] MEDS: METOPROLOL TARTRATE 50 MG TABLET PO SCH (21:34)
[2023-02-06] MEDS: CEFEPIME 2 GM in SODIUM CHLORIDE 0.9% MINIBAG 100 ML IV SCH (21:35)
[2023-02-06] MEDS: ATORVASTATIN 10 MG TABLET PO SCH (21:35)
[2023-02-07] MEDS: SODIUM CHLORIDE FLUSH 0.9% 10 ML SYRINGE IVP SCH ×2 (00:57→10:21)
[2023-02-07] MEDS: LEVOTHYROXINE 125 MCG TABLET PO SCH (05:09)
[2023-02-07] MEDS: DEXTROSE 5%-0.9% NACL 1,000 ML IV SCH ×2 (05:10→13:45)
[2023-02-07] MEDS: METOPROLOL TARTRATE 50 MG TABLET PO SCH (08:35)
[2023-02-07] MEDS: LACTOBACILLUS RHAMNOSUS GG CAPSULE PO SCH (08:36)
[2023-02-07] MEDS: FAMOTIDINE 20 MG TABLET PO SCH (08:37)
[2023-02-07] MEDS: APIXABAN 5 MG TABLET PO SCH (08:37)
[2023-02-07] MEDS: PRENATAL VITAMIN TABLET PO SCH (08:37)
[2023-02-07 08:39] VITALS: BP 92/67
[2023-02-07] MEDS ORDERED: polyethylene glycoL 3350 17 GM PACKET PO SCH (09:00)
[2023-02-07 09:29] LABS: BASOPHILS % (AUTO) 0.2 %; EOSINOPHILS # (AUTO) 0.6 10^3/uL (0.0-0.7); EOSINOPHILS % (AUTO) 4.9 %; HCT - HEMATOCRIT 35.5 % (37.0-47.0); HGB - HEMOGLOBIN 11.2 g/dL (12.0-16.0); LYMPHOCYTES # (AUTO) 0.9 10^3/uL (1.5-3.5); LYMPHOCYTES % (AUTO) 7.3 %; MEAN CORPUSCULAR HEMOGLOBIN 28.9 pg (27.0-31.0); MEAN CORPUSCULAR HGB CONC 31.5 g/dL (32.0-36.0); MEAN CORPUSCULAR VOLUME 91.7 fL (81.0-99.0); MEAN PLATELET VOLUME 9.4 fL (7.9-10.8); MONOCYTES # (AUTO) 0.9 10^3/uL (0.0-1.0); NEUTROPHILS # (AUTO) 10.4 10^3/uL (1.5-6.6); NEUTROPHILS % (AUTO) 80.1 %; PLT - PLATELET COUNT 133 10^3/uL (130-450); RED BLOOD COUNT 3.87 10^6/uL (4.20-5.40); RED CELL DISTRIBUTION WIDTH 16.9 % (12.0-15.0); WHITE BLOOD COUNT 12.9 x10^3/uL (4.8-10.8)
[2023-02-07 09:39] LABS: CALCIUM 7.7 mg/dL (8.5-10.3); CREATININE 1.1 mg/dL (0.4-1.0); POTASSIUM 4.8 mmol/L (3.5-5.0)
[2023-02-07] MEDS: INSULIN LISPRO 300 UNIT/3 ML PEN SUBQ SCH ×2 (10:21→14:40)
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
--- NOTE | 2023-02-07 13:55 | DISCHARGE SUMMARY ---
"Discharge Summary Admit Date: 02/02/23 Discharge Date: 02/07/23 Discharging Provider: Blanquita Gale MD Primary Care Provider: MARCO Joiner Code Status: Attempt Resuscitation Condition at Discharge: Stable Discharge Disposition: [facility] DC/Xfer - DIAGNOSES Discharge Diagnoses with Status of Each Condition: 1. Sepsis with cellulitis 2. Acute delirium 3. Chronic atrial fibrillation 4. Type 2 diabetes mellitus, controlled with A1c 5.6%, without complications, not on long-term insulin 5. Mild dehydration with hyperchloremia, low anion gap 6. Chronic diastolic heart failure without exacerbation 7. Acute on chronic kidney injury due to #5 8. Urinary retention 9. Generalized weakness - HPI History of Present Illness: 72 yo F with h/o DM type 2, HTN, HLD, HFpEF, Atrial Fibrillation on Eliquis, CKD stage 3, Hypothyroidism presented to the ER with c/o 3 day h/o weakness, fatigue. Pt sustained a burn to her L chest 1 week ago by spilling hot chocolate over it. She noted redness and a blister. A couple of days later, her cat jumped onto the blister and popped it. Since then, the redness and swelling have increased. She also has redness, swelling to RLE, which she says is new. No trauma/injury to RLE. Pt has been feeling tired, weak for about 3 days with decreased PO appetite. No F/C. No abdo pain/N/V/D. +dry cough x 2 weeks, no sputum. In the ER, BP 102/71, HR 110, Hgb 10.4, CR 1.7, BNP 1237, LA 3.1, BC pending, Wound Cx pending. CXR: CMG, interstitial vascular congestion. Pt was given TDap, IVF, Cefepime, and Vancomycin IV in the ER. 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 Interstitial pneumonitis also may be present. Cardiomegaly. Blood cultures from February 02 are negative Wound culture of leg has methicillin sensitive Staph aureus Wound culture of left breast is not finally resulted but shows Enterococcus with sensitivities to follow - HOSPITAL COURSE Hospital Course: She is initially placed on empiric antibiotic therapy. Once her leg culture came back and is MSSA, vancomycin was discontinued and cefepime was continued. For atrial fibrillation diltiazem was used to control her heart rate. Once her medication list was reconciled, she was resumed on metoprolol 100 twice daily which is her home medication. She is completed 6 days of IV antibiotic therapy for the left breast cellulitis and leg cellulitis. On the day of discharge the left breast wound culture was finalized and grew Enterococcus. Sensitivities were still pending. However overall the patient has improved on physical exam with slight redness and heat and serous drainage from both left breast and leg. We think that she can be transition to oral antibiotics for 4 more days in the form of Keflex 500 3 times daily. Urinary retention resulted in a Contreras placement in the hospital. Rather than discontinued abruptly at discharge, she can stay with her Contreras catheter and have Contreras clamping at the [facility] and catheter discontinued there. During her stay she had decreased mobility and strength in comparison to her baseline status at home. Her describes her as ambulating slowly with a walker but able to complete her activities of daily living. Here she was reluctant to get up. Preferred to be sent entry. Would not cooperate with physical therapy. If on a get to the point that she was medically stable to go home but we realize that it is not safe discharged home since she really cannot get up and walk as she usually does. encouraged her to cooperate with PT which she did. PT feels that she would benefit from short-term rehab in a [facility] facility for transitioning from supine to sitting, sitting to standing, and walking at least 5 to 7 feet. As such the patient was asked which facility she would like to go to and she chose [facility]. Because of her history of cardiomegaly on chest x-ray and interstitial changes suggestive of CHF, we reviewed her echocardiogram from September 2022. Ejection fraction was approximately 55%. Mid to distal inferoseptum and mid to distal anteroseptum were hypokinetic. Mild to moderate right ventricular enlargement. Right ventricular systolic function mildly impaired. Abnormal right heart pressures with an RVSP at rest of 38 mmHg. Her underlying rhythm was atrial fibrillation. - ALLERGIES Allergies/Adverse Reactions: Allergies Allergy/AdvReac Type Severity Reaction Status Date / Time Penicillins Allergy Rash Verified 02/02/23 19:14 Sulfa (Sulfonamide Allergy Unknown Verified 02/02/23 19:14 Antibiotics) - MEDICATIONS Home Medications: Ambulatory Orders Medication Instructions Recorded Confirmed Atorvastatin [Lipitor] 10 mg PO QPM 08/27/18 02/03/23 Doxepin HCl 75 mg PO QPM 08/27/18 02/03/23 Metformin HCl 500 mg PO BID 08/27/18 02/03/23 Apixaban [Eliquis] 5 mg PO BID #60 tablet 08/28/18 02/03/23 Levothyroxine Sodium [Synthroid] 250 mcg PO QDAC 07/31/19 02/03/23 Dulaglutide [Trulicity] 1.5 mg SQ .Q7DAY 10/15/22 02/03/23 Fluticasone [Flonase] 2 sprays SAIMA BID 10/15/22 02/03/23 Lactobacillus Acidophilus 1 each PO DAILY #7 cap 10/28/22 02/03/23 [Acidophilus Lactobacilli] Metoprolol Tartrate [Lopressor] 1 tab PO BID 02/03/23 02/03/23 Acetaminophen [Tylenol] 650 mg PO Q4HR PRN tab 02/07/23 Calamine/Zinc Oxide [Calamine 1 applic TOP PRN PRN each 02/07/23 Lotion] Nystatin Cream [Mycostatin Cream] 1 applic TOP BID each 02/07/23 Nystatin [Nystop] 1 applic TOP BID each 02/07/23 Zinc Oxide 20% Oint [Zinc Oxide] 1 applic TOP PRN PRN each 02/07/23 cephALEXin [Keflex] 500 mg PO Q6H #16 02/07/23 oxyCODONE [Roxicodone] 5 mg PO Q6HR PRN 3 Days #10 tab 02/07/23 - LABS Result Diagrams: 02/07/23 09:21 02/07/23 09:21 - SEPSIS Current Stage of Sepsis: Sepsis Possible source of Sepsis: Skin/soft tissue Sepsis Criteria: Recorded Heart Rate greater than 90 bpm, WBC count greater than 12,000 or less than 4000, SBP less than 90 mmHg, Metabolic: lactate > 2 mmol/L"
[2023-02-07] MEDS: NYSTATIN POWDER 15 GM TOP SCH (14:40)
[2023-02-07] MEDS: NYSTATIN CREAM 15 GM TUBE TOP SCH (14:40)
== END 2023-02-07 16:35 | DRG 872 ==
LOC: EDUNIT# → ED 18:54 → MS2 22:20 → ICU 02-03 12:25 → MS2 02-06 14:22
PROVIDERS: ADMIT Internal Medicine; ATTEND Specialist
DX: A41.9 Sepsis, unspecified organism (principal); I48.20 Chronic atrial fibrillation, unspecified; I13.0 Hypertensive heart and chronic kidney disease with heart failure and stage 1 through stage 4 chronic kidney disease, or unspecified chronic kidney disease; I50.32 Chronic diastolic (congestive) heart failure; I12.9 Hypertensive chronic kidney disease with stage 1 through stage 4 chronic kidney disease, or unspecified chronic kidney disease; I48.91 Unspecified atrial fibrillation; T21.21XA Burn of second degree of chest wall, initial encounter; N17.9 Acute kidney failure, unspecified; L03.115 Cellulitis of right lower limb; R41.0 Disorientation, unspecified; E86.0 Dehydration; E11.9 Type 2 diabetes mellitus without complications; R07.9 Chest pain, unspecified; R79.89 Other specified abnormal findings of blood chemistry; E87.8 Other disorders of electrolyte and fluid balance, not elsewhere classified; Z79.84 Long term (current) use of oral hypoglycemic drugs; N18.30 Chronic kidney disease, stage 3 unspecified; E11.22 Type 2 diabetes mellitus with diabetic chronic kidney disease; R33.9 Retention of urine, unspecified; R53.1 Weakness; E78.5 Hyperlipidemia, unspecified; E03.9 Hypothyroidism, unspecified; H54.7 Unspecified visual loss; M19.90 Unspecified osteoarthritis, unspecified site; N61.0 Mastitis without abscess; D63.1 Anemia in chronic kidney disease; E66.9 Obesity, unspecified; T21.01XA Burn of unspecified degree of chest wall, initial encounter; T31.0 Burns involving less than 10% of body surface; X10.0XXA Contact with hot drinks, initial encounter; S81.801A Unspecified open wound, right lower leg, initial encounter; X58.XXXA Exposure to other specified factors, initial encounter; E11.649 Type 2 diabetes mellitus with hypoglycemia without coma; H02.409 Unspecified ptosis of unspecified eyelid; Z79.01 Long term (current) use of anticoagulants; Z79.890 Hormone replacement therapy; Z79.899 Other long term (current) drug therapy; Z82.49 Family history of ischemic heart disease and other diseases of the circulatory system; Z82.5 Family history of asthma and other chronic lower respiratory diseases; Z83.3 Family history of diabetes mellitus; Z87.891 Personal history of nicotine dependence; Z88.0 Allergy status to penicillin; Z88.2 Allergy status to sulfonamides
CPT/HCPCS: 36415; 71045; 80048; 80053; 81001; 82330; 82607; 82728; 82746; 83036; 83540; 83605; 83735; 83880; 84100; 84466; 84484; 85025; 87040; 87070; 87077; 87150; 87181; 87205; 87635; 90471; 90715; 93005; 96361; 96365; 97163; 97166; 97530; 99285; A9270; J3370; 87086

== ENCOUNTER 2023-02-07 15:33 | Outpatient (CLI) | payer MEDICARE, OTHER | END 2023-02-07 15:34 | LOC: EMS 15:33 | PROVIDERS: ATTEND Specialist | DX: A41.9 Sepsis, unspecified organism (principal); Z74.01 Bed confinement status | CPT/HCPCS: A0425; A0428 ==

== ENCOUNTER 2023-02-10 08:31 | Outpatient (CLI) | payer MEDICARE, OTHER | END 2023-02-10 08:32 | disposition critical access hospital (66) | LOC: EMS 08:31 | DX: R41.82 Altered mental status, unspecified (principal); R62.7 Adult failure to thrive; E11.649 Type 2 diabetes mellitus with hypoglycemia without coma; R09.89 Other specified symptoms and signs involving the circulatory and respiratory systems | CPT/HCPCS: A0425; A0429 ==

== ENCOUNTER 2023-02-10 08:36 | Observation (INO) | payer MEDICARE, OTHER ==
[2023-02-10] MEDS ORDERED: SODIUM CHLORIDE 0.9% 1,000 ML IV STA (08:42)
[2023-02-10 09:20] LABS: BASOPHILS # (AUTO) 0.1 10^3/uL (0.0-0.1); BASOPHILS % (AUTO) 0.7 %; EOSINOPHILS # (AUTO) 0.4 10^3/uL (0.0-0.7); EOSINOPHILS % (AUTO) 2.3 %; HCT - HEMATOCRIT 38.9 % (37.0-47.0); HGB - HEMOGLOBIN 12.2 g/dL (12.0-16.0); LYMPHOCYTES # (AUTO) 1.9 10^3/uL (1.5-3.5); LYMPHOCYTES % (AUTO) 10.9 %; MEAN CORPUSCULAR HGB CONC 31.4 g/dL (32.0-36.0); MEAN CORPUSCULAR VOLUME 92.4 fL (81.0-99.0); MEAN PLATELET VOLUME 9.5 fL (7.9-10.8); MONOCYTES % (AUTO) 5.8 %; NEUTROPHILS # (AUTO) 14.1 10^3/uL (1.5-6.6); NEUTROPHILS % (AUTO) 79.4 %; PLT - PLATELET COUNT 152 10^3/uL (130-450); RED BLOOD COUNT 4.21 10^6/uL (4.20-5.40); RED CELL DISTRIBUTION WIDTH 17.3 % (12.0-15.0); WHITE BLOOD COUNT 17.7 x10^3/uL (4.8-10.8)
[2023-02-10 09:29] LABS: ALBUMIN 1.8 g/dL (3.2-5.5); ALBUMIN/GLOBULIN RATIO 0.5 (1.0-2.2); BILIRUBIN,TOTAL 1.8 mg/dL (0.2-1.0); CALCIUM 7.9 mg/dL (8.5-10.3); CREATININE 1.6 mg/dL (0.4-1.0); POTASSIUM 4.5 mmol/L (3.5-5.0); TOTAL PROTEIN 5.2 g/dL (6.7-8.2)
[2023-02-10] MEDS ORDERED: MORPHINE 10 MG/ML VIAL IM STA (09:45)
[2023-02-10] MEDS ORDERED: SODIUM CHLORIDE FLUSH 0.9% 10 ML SYRINGE IVP PRN (10:56)
[2023-02-10] MEDS ORDERED: ACETAMINOPHEN 650 MG SUPP PR PRN (11:08)
[2023-02-10] MEDS ORDERED: MORPHINE SOL 10 MG/0.5 ML ORAL SYRINGE PO PRN (11:08)
[2023-02-10] MEDS ORDERED: CARBOXYMETHYLCELLULOSE OPHTH DROPS EACHEYE PRN (11:08)
[2023-02-10] MEDS ORDERED: GLYCOPYRROLATE 1 MG/5 ML VIAL SUBQ PRN (11:08)
--- NOTE | 2023-02-10 11:26 | ED Physician Documentation ---
History of Present Illness - Stated complaint Stated Complaint: CELLULITIS - Chief complaint Chief Complaint: General - History obtained from History obtained from: Family, EMS - Additonal information Additional information: The pt is brought to the ED for CC of altered mental status and not eating, drinking or taking her meds. The pt was just discharged from the hospital on February 07 to [facility], with the intent that she would undergo rehab and hopefully at some point be able to return home. She had been admitted to the hospital for sepsis, stemming from a L breast thermal burn and a R leg cellulitis, which has been recurrent. The pt had undergone extensive work-up and was treated with IV antibiotics. She was evaluated by PT/OT, and per record, was somewhat unwilling to comply with the prescribed physical activity. However, with some coaxing from her and a amanda discussion about the futility of any hope of ever going home again if she didn't do PT, the pt finally expressed some willingness to cooperate, not only in the hospital, but if discharged to rehab. The pt was apparently conversant and communicative at that time. It is not exactly clear what has happened at [facility] since the pt arrived, as the medics state that when they asked the nurse on duty how the pt had been doing prior to this morning, the nurse replied, "I don't know, I didn't work yesterday." No one else there had any idea of the pt's state yesterday or the day before, either. Medics were told that the pt was refusing to eat, drink, or take her meds yesterday, and that staff found her moaning and incoherent this morning. They took her temperature, and it was in the low 90's, so called EMS. Medics report that the pt has been moaning the entire way here, and has not been communicative at all. reports that either he or his daughter have been in communication with the pt over the past couple of days, and while she seemed to be "going downhill", she wasn't like she is now. states it has been a struggle for these past few months to get the pt to get up and around, and that she just seems to be getting weaker and sicker. The pt is not able to offer any information, as she is not communicative, and responds only to noxious stimuli. 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 HEENT: Chronic vision loss Psych: Anxiety, Panic attacks, Claustrophobia Musculoskeletal: Osteoarthritis Derm: None - Past Surgical History Past Surgical History: No - Present Medications Home Medications: Ambulatory Orders Medication Instructions Recorded Confirmed Atorvastatin [Lipitor] 10 mg PO QPM 08/27/18 02/03/23 Doxepin HCl 75 mg PO QPM 08/27/18 02/03/23 Metformin HCl 500 mg PO BID 08/27/18 02/03/23 Apixaban [Eliquis] 5 mg PO BID #60 tablet 08/28/18 02/03/23 Levothyroxine Sodium [Synthroid] 250 mcg PO QDAC 07/31/19 02/03/23 Dulaglutide [Trulicity] 1.5 mg SQ .Q7DAY 10/15/22 02/03/23 Fluticasone [Flonase] 2 sprays SAIMA BID 10/15/22 02/03/23 Lactobacillus Acidophilus 1 each PO DAILY #7 cap 10/28/22 02/03/23 [Acidophilus Lactobacilli] Metoprolol Tartrate [Lopressor] 1 tab PO BID 02/03/23 02/03/23 Acetaminophen [Tylenol] 650 mg PO Q4HR PRN tab 02/07/23 Calamine/Zinc Oxide [Calamine 1 applic TOP PRN PRN each 02/07/23 Lotion] Nystatin Cream [Mycostatin Cream] 1 applic TOP BID each 02/07/23 Nystatin [Nystop] 1 applic TOP BID each 02/07/23 Zinc Oxide 20% Oint [Zinc Oxide] 1 applic TOP PRN PRN each 02/07/23 cephALEXin [Keflex] 500 mg PO Q6H #16 02/07/23 oxyCODONE [Roxicodone] 5 mg PO Q6HR PRN 3 Days #10 tab 02/07/23 - Allergies Allergies/Adverse Reactions: Allergies Allergy/AdvReac Type Severity Reaction Status Date / Time Penicillins Allergy Rash Verified 02/10/23 08:57 Sulfa (Sulfonamide Allergy Unknown Verified 02/10/23 08:57 Antibiotics) - Social History Does the pt smoke?: No Smoking Status: Never smoker Does the pt drink ETOH?: No Does the pt have substance abuse?: No - Immunizations Immunizations are current?: Yes - POLST Patient has POLST: No POLST Status: Full Code (However, if there is irreversible brain damage she does not want to be resuscitated. Or if resuscitation will result in life support that will be chronic, she is wants us to let her go) PD ED PE NORMAL - Vitals Vital signs reviewed: Yes - General General: No acute distress, Other (Obese pt, moaning with eyes open, not tracking or responsive to voice) - HEENT HEENT: Atraumatic, PERRL, Moist mucous membranes - Neck Neck: Supple, no meningeal sign - Cardiac Cardiac: RRR, No murmur, Strong equal pulses - Respiratory Respiratory: No respiratory distress, Clear bilaterally - Abdomen Abdomen: Soft, Non distended, Other (diffuse mild tenderness (pt moans a little louder when abd palpated)) - Derm Derm: Warm and dry, No rash, Other (The pt has diffuse mild erythema over her entire RLE, extending up her side and over her chest. There is no distinct demarcation, and no induration or fluctuance. L breast wound dressed, with dressing CDI) - Extremities Extremities: No deformity, Other (Very obese extremities, with marked edema bilateral LE.) - Neuro Neuro: Other (Moving x 4 extremities, localizes to pain. Eyes open, moaning, no meaningful verbalization) - Psych Psych: Normal mood, Normal affect Results - Vitals Vitals: Oxygen O2 Source Room air - Labs Labs: Microbiology 02/10/23 09:07 Blood Culture - Preliminary Blood - Left Hand NO GROWTH AFTER 1 DAY Laboratory Tests 02/10/23 02/10/23 02/10/23 09:07 09:07 09:07 WBC 17.7 H RBC 4.21 Hgb 12.2 Hct 38.9 MCV 92.4 MCH 29.0 MCHC 31.4 L RDW 17.3 H Plt Count 152 MPV 9.5 Neut # (Auto) 14.1 H Lymph # (Auto) 1.9 [place] # (Auto) 1.0 Eos # (Auto) 0.4 Baso # (Auto) 0.1 Absolute Nucleated RBC 0.00 Nucleated RBC % 0.0 Sodium 140 Potassium 4.5 Chloride 116 H Carbon Dioxide 18 L Anion Gap 6.0 BUN 36 H Creatinine 1.6 H Estimated GFR (MDRD) 32 L Glucose 80 Lactic Acid 3.2 H* Calcium 7.9 L Total Bilirubin 1.8 H AST 63 H ALT 20 Alkaline Phosphatase 90 Total Protein 5.2 L Albumin 1.8 L Globulin 3.4 Albumin/Globulin Ratio 0.5 L Lipase 309 H PD Medical Decision Making - ED course Complexity details: reviewed old records, reviewed results, re-evaluated patient , considered differential, d/w family, d/w service delivery management consultant ED course: The pt was evaluated immediately upon arrival in the ED, and appeared gravely ill. I reordered all testing, including bloodwork, UA, and head CT, as it was not clear with certainty what had caused the decline in the past several days since d/c. The pt's rectal temp was 88F. Nursing staff made multiple attempts to obtain peripheral access, but without success. She was, as of previous admission, a full code. The pt's arrived shortly after the pt, and I did have a very amanda, private conversation with him. We discussed at length the pt's history, her recent health challenges, and his concerns about her. We also discussed that at this time, she is extremely deconditioned and her baseline health is very poor. Furthermore, her marked hypothermia is a very grave prognostic factor, and the odds of arrest are very high. Additionally, given her poor baseline condition, the likelihood of successful resuscitation efforts, should she arrest, is very low, and even in the event of ROSC, is likely to be very short-lived. We discussed in depth all options for care--full code, DNR limited interventions, and DNR comfort care only--and their implications for approach to work-up and treatment. The pt's did state that he would like the pt to be DNR status with comfort care only. I did confirm with him that this will indicate no further testing (though pt already has had blood drawn) and that I will not attempt to place a central line (which was my plan, since we could not get peripheral access). The expressed that he understands what this means, and that this is what he believes the pt would want at this stage. I have offered that pt's may sit at her bedside for as long as he wishes, but he stated that he did not want to see her this way, and would like to go make phone calls and arrangements. He requested that we "just let him know when she's gone." I cancelled the pt's head CT, as such. I did contact Dr. Gale, who was overhead distribution engineer for hospitalist service to arrange for admission for comfort care, and she accepted the pt to her service. In the ED, the pt was given IM morphine and a fentanyl patch, with improvement in comfort, and was transferred to the medical floor. Departure - Departure Disposition: [facility] DC/Xfer Clinical Impression: Sepsis Qualifiers: Sepsis type: sepsis due to unspecified organism Sepsis acute organ dysfunction status: unspecified Qualified Code(s): A41.9 - Sepsis, unspecified organism Discharge Date/Time: 02/10/23 12:52
[2023-02-10] MEDS ORDERED: HYDROmorphone 2 MG/ML VIAL IM STA (11:40)
[2023-02-10] MEDS ORDERED: fentaNYL 50 MCG PATCH TOP SCH (12:00)
[2023-02-10 13:22] VITALS: BP 66/26
--- NOTE | 2023-02-10 16:27 | HISTORY & PHYSICAL EXAMINATION ---
Chief Complaint - Chief Complaint Chief Complaint: Cellulitis History of Present Illness - Admitted From Admitted From:: ER - History Obtained From Records Reviewed: Yes History obtained from: Records review, ED provider Exam Limitations: Pt encephalopathic, non responsive to speach. - History of Present Illness HPI Comment/Other: Pt returns to the ED today after recent hospitalization at [facility] from 02/02-02/07 for Cellulitis with her . Patients states that since her discharge to [facility] (snf facility), patient has been refusing to eat, follow medication regimens, and overall is "failing to thrive". He does not wish her to continue to be in pain and states, as POA to have her not be treated with lifesaving measures' but to provide comfort care for his till she passes away. For context, the previous hospital course which includes the treatment plan for her cellulitis is summarized as follows: 1. Empiric abx therapy till leg cultures come back 2. Cx positive for MSSA, so vanc d/c and cefepime continued. 3. Completed 6 days IV abx therapy for L breast cellulitis and leg cellulitis. 4. During stay, had decreased mobility and strength compared to baseline. Walking and other ADL's are heavily affected. Would not cooperate with PT and this was an issue as patient was not safe to be d/c'd home without the ability to sit up and back down. 5. Pt and agrees to short-term rehab in SNF for transition from supine->sitting->standing->walking 5-7 feet. D/c'd to [facility] to complete PT and abx. 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 Mom at age 69 of emphysema. 2 brothers have diabetes, one has high blood pressure. 2 daughters. One daughter has complications of lupus with cardiomyopathy and vasculitis Living Situation: With spouse/s.o. Social History Notes: She was born on [facility]. [place]. [place] They left to travel all over the [place] where he was stationed. They had 2 children together and one stepchild from him. 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 They moved back to [place] in around [place] and they have lived here since. Right now she helps take care of her grandkids. Her disabled daughter lives with her. The daughter is still independent with regards to her activities of daily living. Her endurance is just not so great. She started smoking at about age 30 and smoked up to 2 packs/day for 5 years onl y. She never had a problem with alcohol abuse. She has no history of other recreational substance abuse. - Substance History Use: Uses substance without health or social issues: NONE - POLST Patient has POLST: No POLST Status: DNR (However, if there is irreversible brain damage she does not want to be resuscitated. Or if resuscitation will result in life support that will be chronic, she is wants us to let her go. states that he wants comfort measues (no life saving measures) once she was brought into the ED.) Meds/Allgy - Home Medications Home Medications: Ambulatory Orders Medication Instructions Recorded Confirmed Atorvastatin [Lipitor] 10 mg PO QPM 08/27/18 02/03/23 Doxepin HCl 75 mg PO QPM 08/27/18 02/03/23 Metformin HCl 500 mg PO BID 08/27/18 02/03/23 Apixaban [Eliquis] 5 mg PO BID #60 tablet 08/28/18 02/03/23 Levothyroxine Sodium [Synthroid] 250 mcg PO QDAC 07/31/19 02/03/23 Dulaglutide [Trulicity] 1.5 mg SQ .Q7DAY 10/15/22 02/03/23 Fluticasone [Flonase] 2 sprays SAIMA BID 10/15/22 02/03/23 Lactobacillus Acidophilus 1 each PO DAILY #7 cap 10/28/22 02/03/23 [Acidophilus Lactobacilli] Metoprolol Tartrate [Lopressor] 1 tab PO BID 02/03/23 02/03/23 Acetaminophen [Tylenol] 650 mg PO Q4HR PRN tab 02/07/23 Calamine/Zinc Oxide [Calamine 1 applic TOP PRN PRN each 02/07/23 Lotion] Nystatin Cream [Mycostatin Cream] 1 applic TOP BID each 02/07/23 Nystatin [Nystop] 1 applic TOP BID each 02/07/23 Zinc Oxide 20% Oint [Zinc Oxide] 1 applic TOP PRN PRN each 02/07/23 cephALEXin [Keflex] 500 mg PO Q6H #16 02/07/23 oxyCODONE [Roxicodone] 5 mg PO Q6HR PRN 3 Days #10 tab 02/07/23 - Allergies Allergies/Adverse Reactions: Allergies Allergy/AdvReac Type Severity Reaction Status Date / Time Penicillins Allergy Rash Verified 02/10/23 08:57 Sulfa (Sulfonamide Allergy Unknown Verified 02/10/23 08:57 Antibiotics) Review of Systems - Other Findings Other Findings: Unable to ask patient as patient is unresponsive from metabolic encephalopathy and is not in the room. Prior Level of Functionality: Patient was previously seen in the ER and inpatient for cellulitis. Patient was previously able to speak and was oriented x3. Pt currently is encephalopathic an is unable to talk. Exam - Vital Signs Vital Signs: Vital Signs x48h Temp Pulse Pulse Resp BP BP Pulse Ox 02/10/23 13:20 80 12 66/26 L 97 02/10/23 12:29 84 17 56/23 L 95 02/10/23 10:44 81 14 99 02/10/23 08:53 31.3 C L 83 15 126/113 H 99 - Physical Exam General Appearance: positive: Lethargic (Non responsive) ENT: positive: Dry mucous membranes Skin: positive: Dry Extremities: positive: Other (Bilateral edema, Right worse then left. Right side "woody edema".) Neurologic/Psychiatric: positive: Other (Unresponsive) Conclusion/Plan - Problem List (1) Metabolic encephalopathy Conclusion/Plan: Metabolic encephalopathy d/t dehydration and failure to thrive. , as pt's POA does not want patient to be resuscitated and wants the patient to receive comfort care only. Plan: Comfort care till patient passes away. This includes the followin. Haloperidol 2mg/ml Q6 hours for agitation or N/V. 2. Hyoscyamine ODT 0.125mg, 2 tab by mouth Q4 hours prn for secretions 3. Lorazepam 0.5mg Q6 hours prn for anxiety. 4. Morphine 100mg/5ml (20mg/ml) Q4 hours for pain/SOB. 5. Bisacodyl and senna for constipation 6. Acetaminophen 650mg Q6 hours prn for pain/fever. - Lab Results Fish Bones: 02/10/23 09:07 02/10/23 09:07
[2023-02-10] MEDS: SODIUM CHLORIDE FLUSH 0.9% 10 ML SYRINGE IVP SCH (16:45)
[2023-02-11] MEDS: SODIUM CHLORIDE FLUSH 0.9% 10 ML SYRINGE IVP SCH (06:24)
--- NOTE | 2023-02-11 07:45 | DISCHARGE SUMMARY ---
Discharge Summary Admit Date: 02/10/23 Discharge Date: 02/11/23 Discharging Provider: Blanquita Gale MD Primary Care Provider: Yesenia Bah MD Code Status: Do Not Attempt Resuscitation Discharge Disposition: 20 - DIAGNOSES Discharge Diagnoses with Status of Each Condition: 1. Metabolic encephalopathy 2. Severe dehydration 3. Lactic acidosis 4. Comfort measures status - HPI History of Present Illness: Pt returns to the ED today after recent hospitalization at [facility] from 02/02-02/07 for Cellulitis with her . Patients states that since her discharge to [facility] (nursing home facility), patient has been refusing to eat, follow medication regimens, and overall is "failing to thrive". He does not wish her to continue to be in pain and states, as POA to have her not be treated with lifesaving measures' but to provide comfort care for his till she passes away. For context, the previous hospital course which includes the treatment plan for her cellulitis is summarized as follows: 1. Empiric abx therapy till leg cultures come back 2. Cx positive for MSSA, so vanc d/c and cefepime continued. 3. Completed 6 days IV abx therapy for L breast cellulitis and leg cellulitis. 4. During stay, had decreased mobility and strength compared to baseline. Walking and other ADL's are heavily affected. Would not cooperate with PT and this was an issue as patient was not safe to be d/c'd home without the ability to sit up and back down. 5. Pt and agrees to short-term rehab in SNF for transition from supine->sitting->standing->walking 5-7 feet. D/c'd to [facility] to complete PT and abx. - Past Medical History Cardiovascular: reports: Congestive heart failure, Hypertension, Atrial fibrillation Respiratory: reports: None Neuro: reports: Other Endocrine/Autoimmune: reports: Type 2 diabetes, HyPOthyroidism GI: reports: None, Other [employer]: reports: Other : reports: None HEENT: reports: Chronic vision loss Psych: reports: Anxiety, Panic attacks, Claustrophobia Musculoskeletal: reports: Osteoarthritis Derm: reports: None MRSA Hx?: No - HOSPITAL COURSE Hospital Course: The patient was put on comfort measures with the use of as needed medications for fever, pain, nausea, shortness of breath or agitation. She never woke up. She remained deeply encephalopathic. She at 6:56 AM February 11, 2023. - ALLERGIES Allergies/Adverse Reactions: Allergies Allergy/AdvReac Type Severity Reaction Status Date / Time Penicillins Allergy Rash Verified 02/10/23 08:57 Sulfa (Sulfonamide Allergy Unknown Verified 02/10/23 08:57 Antibiotics) - MEDICATIONS Home Medications: Ambulatory Orders Medication Instructions Recorded Confirmed Atorvastatin [Lipitor] 10 mg PO QPM 08/27/18 02/03/23 Doxepin HCl 75 mg PO QPM 08/27/18 02/03/23 Metformin HCl 500 mg PO BID 08/27/18 02/03/23 Apixaban [Eliquis] 5 mg PO BID #60 tablet 08/28/18 02/03/23 Levothyroxine Sodium [Synthroid] 250 mcg PO QDAC 07/31/19 02/03/23 Dulaglutide [Trulicity] 1.5 mg SQ .Q7DAY 10/15/22 02/03/23 Fluticasone [Flonase] 2 sprays SAIMA BID 10/15/22 02/03/23 Lactobacillus Acidophilus 1 each PO DAILY #7 cap 10/28/22 02/03/23 [Acidophilus Lactobacilli] Metoprolol Tartrate [Lopressor] 1 tab PO BID 02/03/23 02/03/23 Acetaminophen [Tylenol] 650 mg PO Q4HR PRN tab 02/07/23 Calamine/Zinc Oxide [Calamine 1 applic TOP PRN PRN each 02/07/23 Lotion] Nystatin Cream [Mycostatin Cream] 1 applic TOP BID each 02/07/23 Nystatin [Nystop] 1 applic TOP BID each 02/07/23 Zinc Oxide 20% Oint [Zinc Oxide] 1 applic TOP PRN PRN each 02/07/23 cephALEXin [Keflex] 500 mg PO Q6H #16 02/07/23 oxyCODONE [Roxicodone] 5 mg PO Q6HR PRN 3 Days #10 tab 02/07/23 - LABS Result Diagrams: 02/10/23 09:07 02/10/23 09:07
[2023-02-13] MEDS ORDERED: fentaNYL 50 MCG PATCH TOP SCH (12:00)
== END 2023-02-11 06:56 | disposition expired ==
LOC: EDUNIT# → ED 08:36 → MS2 10:57
PROVIDERS: ADMIT Specialist; ATTEND Specialist
DX: A41.9 Sepsis, unspecified organism (principal); L03.90 Cellulitis, unspecified; R65.20 Severe sepsis without septic shock; I48.91 Unspecified atrial fibrillation; I11.0 Hypertensive heart disease with heart failure; I50.9 Heart failure, unspecified; E11.9 Type 2 diabetes mellitus without complications; Z79.84 Long term (current) use of oral hypoglycemic drugs; Z79.01 Long term (current) use of anticoagulants; G93.41 Metabolic encephalopathy; Z66 Do not resuscitate; R62.7 Adult failure to thrive; Z51.5 Encounter for palliative care; E86.0 Dehydration
CPT/HCPCS: 36415; 36569; 80053; 83605; 83690; 85025; 87040; 96372; 99285; A9270; G0378; J1170